=== PATIENT | female | born 1965 | race Caucasian/White ===

== ENCOUNTER 2023-07-27 07:47 | Outpatient (OUT) | payer OTHER, SELFPAY ==
--- NOTE | 2023-07-27 08:11 | CA_ITS ---
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: : 1965 Requested By: TAHIR ENRIQUE Order Number: [id number] Reading MD: MARTIN GARCIA Interpretive Statements Predominant rhythm is sinus with average rate of 78 bpm Tachycardia - max rate of 150 bpm - 11 episodes of PSVT with longest duration of 15 beats - longest episode of 37min 15sec with rates betweem 104-116 bpm Bradycardia - min rate of 27 bpm, associated with Mobitz I AV block - longest episode of 22min 57sec with rates between 50-57 bpm Ventricular ectopy - 91 total (<1%) - 91 PVC AV block - 1 episodes of mobitz I AV block Patient triggered events: 4 - associated with symptoms of chest pain Impression: Predominant rhythm is sinus with average rate of 78 bpm Fastest rate of 150 bpm and slowest rate of 27 bpm 91 PVC 1 episode of mobitz I AV block No atrial fibrillation Electronically Signed On 08-06-2023 7:29:14 EDT by MARTIN GARCIA
== END 2023-07-27 07:48 | disposition home or self-care (01) ==
PROVIDERS: PCP Family Medicine; Visit Provider Family Medicine
DX: I49.9 Cardiac arrhythmia, unspecified (principal)
CPT/HCPCS: 93242

== ENCOUNTER 2023-10-18 13:14 | Emergency (ER) | payer OTHER, SELFPAY ==
[2023-10-18 13:18] VITALS: BP 122/74; PULSE 95; RESP 18; TEMP 36.7; O2SAT 95; BMI 32.4
--- NOTE | 2023-10-18 13:39 | ED_ITS ---
HPI - Abdominal Pain General Chief Complaint: Abdominal Pain Stated Complaint: ABDOMINAL PAIN Time Seen by Provider: 10/18/23 13:34 Source: patient Mode of arrival: walk-in Limitations: no limitations History of Present Illness HPI narrative: 58-year-old female presents for suprapubic abdominal pain. She's had this since this morning. No gross hematuria or flank pain. No constipation fever vomiting or injury. She states that when she tried to urinate today just all ran out of her when she woke up this morning. Related Data Previous Rx's Medication Instructions Recorded acetaminophen 300 mg-codeine 30 mg 1 tab PO Q6H PRN pain 5 days #20 10/18/23 tablet tabs ciprofloxacin HCl 500 mg tablet 500 mg PO Q12H #20 tabs 10/18/23 (Cipro) metronidazole 250 mg tablet 250 mg PO TID #30 tabs 10/18/23 ondansetron 4 mg disintegrating 4 mg PO Q6H PRN nausea and 10/18/23 tablet vomiting #20 tabs Allergies Allergy/AdvReac Type Severity Reaction Status Date / Time No Known Drug Allergies Allergy Verified 10/18/23 15:57 Review of Systems ROS Narrative A ten point review of systems is negative except as noted above. PFSH PFSH Social History Smoking status: Never smoker Exam Narrative Exam Narrative: Nurses note and vital signs reviewed and patient is not hypoxic. General: The patient appears well and in no apparent distress. Patient is resting comfortably on cart. Skin: Warm, dry, no pallor noted. There is no rash noted. Head: Normocephalic, atraumatic Eye: Normal conjunctiva, no drainage Ears, Nose, Mouth, and Throat: oral mucosa is moist. Nares patent. Cardiovascular: Regular Rate and Rhythm Respiratory: Patient is in no distress, no accessory muscle use, lungs are clear to auscultation, no wheezing, rales or rhonchi Back: non-tender, no CVA tenderness bilaterally to percussion. GI: suprapubic discomfort with palpation. No tenderness elsewhere. Musculoskeletal: The patient has no evidence of calf tenderness, no pitting edema, symmetrical pulses noted bilaterally Neurological: A&O, normal speech Psychiatric: Cooperative Constitutional Vital Signs, click to edit/add: Last Vital Signs Temp 98.1 F 10/18/23 13:18 Pulse 94 H 10/18/23 15:43 Resp 20 10/18/23 15:43 BP 126/75 10/18/23 15:43 Pulse Ox 98 10/18/23 15:43 O2 Del Method Room Air 10/18/23 15:43 Course Vital Signs Vital signs: Vital Signs Temperature 98.1 F 10/18/23 13:18 Pulse Rate 95 H 10/18/23 13:18 Respiratory Rate 18 10/18/23 13:18 Blood Pressure 122/74 10/18/23 13:18 Pulse Oximetry 95 10/18/23 13:18 Oxygen Delivery Method Room Air 10/18/23 13:18 Temperature 98.1 F 10/18/23 13:18 Pulse Rate 94 H 10/18/23 15:43 Respiratory Rate 20 10/18/23 15:43 Blood Pressure 126/75 10/18/23 15:43 Pulse Oximetry 98 10/18/23 15:43 Oxygen Delivery Method Room Air 10/18/23 15:43 MDM - Abdominal Pain MDM Narrative Medical decision making narrative: acute diverticulitis is identified without complication such as microperforation. She was given the option of staying in the hospital versus being discharged home and she prefers to be discharged home. She'll return if symptoms worsen and otherwise she'll see her doctor this week. Treatment diagnosis and follow-up were discussed with the patient. Differential Diagnosis Differential diagnosis: Likely abdominal pain, acute appendicitis, calculus of kidney, constipation, diverticulitis, gastroenteritis and small bowel obstruction Lab Data Attestation: I reviewed the patient's lab results. Labs: Lab Results 10/18/23 10/18/23 Range/Units 13:45 14:44 WBC 19.3 H (4.0-11.0) 10^3/uL RBC 4.45 (4.20-5.40) 10^6/uL Hgb 13.6 (12.0-16.0) g/dL Hct 40.4 (36.0-48.0) % MCV 90.8 (81.0-99.0) fL MCH 30.6 (26.7-34.0) pg MCHC 33.7 (29.9-35.2) g/dL RDW 13.1 (11.0-15.0) % Plt Count 323 (150-450) 10^3/uL MPV 9.9 (9.5-13.5) fL Seg Neuts % (Manual) 83.0 Band Neutrophils % 2.0 (0-5) % Lymphocytes % (Manual) 7.0 L (20.5-60.0) % Monocytes % (Manual) 8.0 (1.7-12.0) % Eosinophils % (Manual) 0.0 L (0.9-7.0) % Basophils % (Manual) 0.0 L (0.2-2.0) % Neutrophils # (Manual) 16.01 H (1.4-6.5) 10^3/uL Band Neutrophils # 0.4 H (0.0-0.3) 10^3/uL Lymphocytes # (Manual) 1.35 (1.20-3.80) 10^3/uL Monocytes # (Manual) 1.54 H (0.30-0.80) 10^3/uL Eosinophils # (Manual) 0.00 (0.00-0.70) 10^3/uL Basophils # (Manual) 0.00 (0.00-0.10) 10^3/uL Sodium 136 (136-145) mmol/L Potassium 4.1 (3.5-5.1) mmol/L Chloride 100 (98-107) mmol/L Carbon Dioxide 24.8 (21.0-32.0) mmol/L Anion Gap 15.3 BUN 20.0 H (7.0-18.0) mg/dL Creatinine 0.96 (0.55-1.02) mg/dL Est GFR ( Amer) >60 (>=60) Est GFR (Non-Af Amer) 59 L (>=60) BUN/Creatinine Ratio 20.8 Glucose 109 H (74-106) mg/dL Calcium 9.6 (8.5-10.1) mg/dL Urine Color Dk. yellow (YELLOW) Urine Clarity Clear (CLEAR) Urine pH 6.0 (5.0-9.0) Ur Specific [place] >=1.030 A (1.005-1.025) Urine Protein Trace (NEG/TRACE) mg/dL Urine Glucose (UA) Negative (NEGATIVE) mg/dL Urine Ketones Trace A (NEGATIVE) mg/dL Urine Occult Blood Negative (NEGATIVE) Urine Nitrite Negative (NEGATIVE) Urine Bilirubin Small A (NEGATIVE) Urine Urobilinogen 0.2 (0.2-1.0) EU/dL Ur Leukocyte Esterase Negative (NEGATIVE) Urine RBC None seen (0-2) #/HPF Urine WBC None seen (NONE SEEN) #/HPF Ur Squamous Epith Cells Rare (NONE/RARE) #/LPF Urine Crystals None seen (None Seen) #/HPF Urine Bacteria None seen (NONE SEEN) #/HPF Urine Casts None seen (NONE SEEN) #/LPF Urine Mucus Small A (NONE SEEN) Imaging Data CT scan - abdomen: Radiologist's impression: Procedure: CT abdomen pelvis w con EXAM: CT abdomen pelvis w con HISTORY: low abd pain COMPARISON: None. TECHNIQUE: Axial CT imaging was performed through the abdomen and pelvis with intravenous contrast. Multiplanar reformats were performed. Dose reduction techniques were achieved by using automated exposure control and/or adjustment of mA and/or kV according to patient size and/or use of iterative reconstruction technique. FINDINGS: Lung bases: Lung bases are clear. No pleural effusion. GI upper: Unremarkable. Liver: Normal size and contour. Gallbladder: No significant abnormality. No cholelithiasis. Biliary system: No intra or extrahepatic biliary ductal dilatation. Spleen: Normal size. Pancreas: Unremarkable. Adrenal glands: Normal adrenal glands. Kidneys/ureters: Normal contours. No hydronephrosis. No nephrolithiasis or ureterolithiasis. Vessels: No aneurysm. Lymph Nodes: No lymphadenopathy. Small bowel: No wall thickening or dilatation. Colon: No wall thickening or dilatation. There are sigmoid diverticulosis. There is stress circumferential thickening of the distal sigmoid with surrounding fat stranding, representing acute sigmoid diverticulitis. No evidence of microperforation. Appendix: No findings of appendicitis. Peritoneal cavity: No pneumoperitoneum. Small pelvic free fluid. Lower : Unremarkable. Bones: No acute bony abnormality. Soft tissues: No acute finding. Additional findings: None. IMPRESSION: CT evidence of acute sigmoid diverticulitis as described above. Electronically authenticated by: NASEEM FIELDS Date: 10/18/2023 15:34 Discharge Plan Discharge Chief Complaint: Abdominal Pain Clinical Impression: Diverticulitis Patient Disposition: Home, Self-Care Time of Disposition Decision: 16:08 Condition: Good Mode of Transportation: Private Vehicle Prescriptions / Home Meds: New ciprofloxacin HCl [Cipro] 500 mg tablet 500 mg PO Q12H Qty: 20 0RF metronidazole 250 mg tablet 250 mg PO TID Qty: 30 0RF acetaminophen-codeine 300-30 mg tablet 1 tab PO Q6H PRN (Reason: pain) 5 Days Qty: 20 0RF ondansetron 4 mg tablet,disintegrating 4 mg PO Q6H PRN (Reason: nausea and vomiting) Qty: 20 0RF Instructions: Diverticulitis (ED) Additional Instructions: See your PCP this week. Return to the emergency department if symptoms worsen. Stand Alone Forms: Portal Instructions Referrals: TAHIR ENRIQUE [Primary Care Provider] - 1 week
[2023-10-18 14:19] LABS: Bilirubin Urine SMALL (NEGATIVE); Blood Urine NEGATIVE (NEGATIVE); Clarity Urine CLEAR (CLEAR); Color Urine DK. YELLOW (YELLOW); Glucose Urine UA NEGATIVE (NEGATIVE); Ketones Urine TRACE mg/dL (NEGATIVE); Leukocyte Esterase Urine NEGATIVE (NEGATIVE); Nitrite Urine NEGATIVE (NEGATIVE); Protein Urine TRACE mg/dL (NEG/TRACE); Specific Gravity Urine >=1.030 (1.005-1.025); Urobilinogen Urine 0.2 EU/dL (0.2-1.0)
[2023-10-18 14:26] LABS: Bacteria Urine NONE SEEN #/HPF (NONE SEEN); Cast Seen? NONE SEEN #/LPF (NONE SEEN); Crystals Seen? None Seen #/HPF (None Seen); Mucus Urine SMALL (NONE SEEN); RBC Urine NONE SEEN #/HPF (0-2); Squamous Epithelial Cell Urine RARE #/LPF (NONE/RARE); WBC Urine NONE SEEN #/HPF (NONE SEEN)
--- NOTE | 2023-10-18 14:34 | CT_ITS ---
The [address] [address] Patient Name: RAO RAMAN MRN: [id number] date: 1965 Sex: F Assigned Patient Location: ER Current Patient Location: ER Accession/Order Number: [id number] Exam Date: 10/18/2023 15:09 Report Date: 10/18/2023 15:34 At the request of: KATHIA FLORES Procedure: CT abdomen pelvis w con EXAM: CT abdomen pelvis w con HISTORY: low abd pain COMPARISON: None. TECHNIQUE: Axial CT imaging was performed through the abdomen and pelvis with intravenous contrast. Multiplanar reformats were performed. Dose reduction techniques were achieved by using automated exposure control and/or adjustment of mA and/or kV according to patient size and/or use of iterative reconstruction technique. FINDINGS: Lung bases: Lung bases are clear. No pleural effusion. GI upper: Unremarkable. Liver: Normal size and contour. Gallbladder: No significant abnormality. No cholelithiasis. Biliary system: No intra or extrahepatic biliary ductal dilatation. Spleen: Normal size. Pancreas: Unremarkable. Adrenal glands: Normal adrenal glands. Kidneys/ureters: Normal contours. No hydronephrosis. No nephrolithiasis or ureterolithiasis. Vessels: No aneurysm. Lymph Nodes: No lymphadenopathy. Small bowel: No wall thickening or dilatation. Colon: No wall thickening or dilatation. There are sigmoid diverticulosis. There is stress circumferential thickening of the distal sigmoid with surrounding fat stranding, representing acute sigmoid diverticulitis. No evidence of microperforation. Appendix: No findings of appendicitis. Peritoneal cavity: No pneumoperitoneum. Small pelvic free fluid. Lower : Unremarkable. Bones: No acute bony abnormality. Soft tissues: No acute finding. Additional findings: None. CT/CT abdomen pelvis w con IMPRESSION: CT evidence of acute sigmoid diverticulitis as described above. Electronically authenticated by: NASEEM FIELDS Date: 10/18/2023 15:34
[2023-10-18 14:53] LABS: Hematocrit 40.4 % (36.0-48.0); Hemoglobin 13.6 g/dL (12.0-16.0); Mean Corpuscular HGB Conc 33.7 g/dL (29.9-35.2); Mean Corpuscular Hemoglobin 30.6 pg (26.7-34.0); Mean Corpuscular Volume 90.8 fL (81.0-99.0); Mean Platelet Volume 9.9 fL (9.5-13.5); Platelet Count 323 10^3/uL (150-450); Red Blood Count 4.45 10^6/uL (4.20-5.40); Red Cell Distribution Width 13.1 % (11.0-15.0); White Blood Count 19.3 10^3/uL (4.0-11.0)
[2023-10-18 15:01] LABS: Anion Gap 15.3; Band Neutrophils Absolute 0.4 10^3/uL (0.0-0.3); Carbon Dioxide 24.8 mmol/L (21.0-32.0); Chloride 100 mmol/L (98-107); Glucose 109 mg/dL (74-106); Lymphocytes Absolute Manual 1.35 10^3/uL (1.20-3.80); Monocytes Absolute Manual 1.54 10^3/uL (0.30-0.80); Potassium 4.1 mmol/L (3.5-5.1); Segmented Neut Absolute Manual 16.01 10^3/uL (1.4-6.5); Sodium 136 mmol/L (136-145)
[2023-10-18 15:02] LABS: BUN Creatinine Ratio 20.8; Calcium 9.6 mg/dL (8.5-10.1); Estimated GFR (African America >60 (>=60); Estimated GFR (Non-African Ame 59 (>=60)
[2023-10-18 15:43] VITALS: BP 126/75; PULSE 94; RESP 20; O2SAT 98
[2023-10-18] MEDS: METRONIDAZOLE/SODIUM CHLORIDE 500 MG/100 ML PREMIX 100 MG IV (16:04)
[2023-10-18] MEDS: CIPROFLOXACIN IN 5 % DEXTROSE 400 MG/200 ML PIGGYBACK 200 MG IV (17:00)
== END 2023-10-18 18:12 | disposition home or self-care (01) ==
PROVIDERS: Emergency Provider Emergency Medicine; PCP Family Medicine
DX: K57.32 Diverticulitis of large intestine without perforation or abscess without bleeding (principal)
CPT/HCPCS: 36415; 74177; 80048; 81001; 85027; 96365; 96366; 96368; 99285; Q9967

== ENCOUNTER 2024-03-16 13:33 | Outpatient (OUT) | payer OTHER, SELFPAY ==
--- OUTSIDE RECORDS SUMMARY | 2024-03-17 13:44 | XMS_ITS | CCD ---
Author Organization [facility] Care Team Providers Care Property Insurance Agent Name Role Phone REI ENRIQUE Unavailable Unavailable FAIZA ORTIZ Unavailable Unavailable FAIZA ORTIZ Unavailable Unavailable HAY FAIZA Unavailable Unavailable HEMEYER, EDWARD Unavailable Unavailable HUGH GARCIA Unavailable Unavailable HEMEYER, REI Unavailable Unavailable HEMEYER, NANCYWARD Unavailable Unavailable HEMEYER, REI Unavailable Unavailable YOLIS MCCARTNEY Unavailable Unavailable WOJCIECH HALL Unavailable Unavailab WOJCIECH Armando Unavailable Unavailab le KLASU, REI Unavailable Unavailable KEITH ROGERS Unavailable Unavailable WOJCIECH HALL Unavailable Unavailab le JOHN SANJANA Unavailable Unavailable RINCHEL SANJANA Unavailable Unavailable HEMEYER, NANCYWARD Unavailable Unavailable KEITH ROGERS Unavailable Unavailable JOHN SANJANA Unavailable Unavailable REI ENRIQUE Primary Care Physician Unavail able Rei Enrique MD Primary Care Provider Isael Rock MD Unavailable ISAEL ROCK Attending Unavailable REI ENRIQUE Primary Care Unavailab Serafin Bishop Admitting Unavaila Serafin Ortiz Consulting Unavaila Serafin Ortiz Attending Unavaila Serafin Ortiz Referring Unavaila Serafin Ortiz Consulting Unavaila Serafin Ortiz Consulting Unavaila Serafin Ortiz Admitting Unavaila Serafin Ortiz Attending UnavailSerafin Miranda Referring Unavaila REI Casillas Attending Unavailable REI ENRIQUE Referring Unavailable NONE, XXXX Referring Unavailable Christofferson, Serafin D. Attending REI Espinal Referring Unavailable Serafin Winkler Attending REI Espinal Attending Unavailable Allergies Allergy Classification Reported Allergen(s) Allergy Type Date of Onset Reaction(s) Facility (1 source) gabapentin Drug Allergy 04-17-2017 [facility] Repository (2 sources) lactobacillus; Translations: [OLANZAPINE] Drug Allergy 04-05-2015 [facility] Repository (2 sources) amLODIPine / benazepril; Translations: [AMLODIPINE-LONNIE ZEPRIL] Drug Allergy 08-20-2023 [facility] Work Phone: (2 sources) Doxylamine; Translations: [DOXYLAMINE] Drug Allergy 08-20-2023 [facility] Work Phone: (1 source) OLANZapine Drug Allergy 08-20-2023 [facility] Work Phone: (2 sources) traMADol; Translations: [TRAMADOL] Drug Allergy 08-20-2023 Rash [facility] Work Phone: Medications Current Medications Medication Drug Class(es) Dates Sig (Normalized) Sig (Original) apixaban 5 mg oral tablet (4 sources) Factor Xa Inhibitor Start: 08-20-2023 take 1 tablet by mouth twice daily Eliquis 5 mg oral tablet 5 mg = 1 tab(s), Oral, BID, # 60 tab(s), Refills(s) 3, Pharmacy: [facility] [id number], 154, cm, 08/20/23 11:11:00 EDT, Height/Length Dosing, 90.5, kg, 08/20/23 11:11:00 EDT, Weight Dosing Start Date: 08/20/23 Status: Ordered aspirin 81 mg delayed release oral tablet (4 sources) Platelet Aggregation Inhibitor, Nonsteroidal Anti-inflammatory Drug Start: 08-20-2023 take 1 tablet by mouth once daily aspirin 81 mg EC tablet Take 1 tablet (81 mg) by mouth once daily. 0 08/20/2023 Active Black Cohosh Extract (1 source) take 1 tablet by mouth once daily BLACK COHOSH ORAL Take 1 tablet by mouth once daily. 0 Active duloxetine (4 sources) Serotonin and Norepinephrine Reuptake Inhibitor Start: 08-20-2023 duloxetine Refills(s) 0 Start Date: 08/20/23 Status: Ordered Start: 05-12-2023 take 1 capsule by mo [facility] once daily DULoxetine (Cymbalta) [address] capsule Take 1 capsule (60 mg) by mouth once daily. 0 05/12/2023 Active fenofibrate 160 mg oral tablet (4 sources) Peroxisome Proliferator Receptor alpha Agonist Start: 08-27-2023 End: 02-23-2024 take 1 tablet by mouth once daily fenofibrate (Triglide) 160 mg tablet Take 1 tablet (160 mg) by mouth once daily. 0 08/27/2023 02/23/2024 Active Start: 08-20-2023 fenofibrate Re fills(s) 0 Start Date: 08/20/23 Status: Ordered krill oil 500 mg oral capsule (1 source) take 1 capsule by mouth once daily krill oil 500 mg capsule Take 1 capsule (500 mg) by mouth once daily. 0 Active losartan potassium 100 mg oral tablet (4 sources) Angiotensin 2 Receptor Renny Start: 08-20-20 End: 02-23-20 take 1 tablet by mouth once daily losartan (Cozaar) 100 mg tablet Take 1 tablet (100 mg) by mouth once daily. 0 08/27/2023 02/23/2024 Active Multi Vitamin+ (3 sources) Start: 08-20-20 Multi Vitamin+ Refill(s) 0 Start Date: 08/20/23 Status: Ordered multivitamin tablet (1 source) take 1 tablet by mouth once daily multivitamin tablet Take 1 tablet by mouth once daily. 0 Active Nature's Bounty Red Krill Oil (3 sources) Start: 08-20-20 Nature's Bounty Red Krill Oil Refill(s) 0 Start Date: 08/20/23 Status: Ordered QUEtiapine 25 mg oral tablet (4 sources) Atypical Antipsychotic Start: 10-14-20 End: 04-11-20 take 2 tablets by mouth once daily at bedtime QUEtiapine (SEROquel) 25 mg tablet Take 2 tablets (50 mg) by mouth once daily at bedtime. 0 10/14/2023 04/11/2024 Active Start: 08-20-2023 quetiapine 25 mg Tab Refills(s) 0 Start Date: 08/20/23 Status: Ordered Turmeric extract (3 sources) Start: 08-20-2023 Turmeric Refil l(s) 0 Start Date: 08/20/23 Status: Ordered Problems Active Problems Problem Classification Problem Date Documented Da te Episodic/Chronic Abdominal pain (5 sources) Right lower quadrant rebound abdominal tenderness; Translations: [Right upper quadrant pain] Onset: 01-29-2018 Episodic Administrative/social admission (3 sources) Patient encounter status; Translations: [Persons encountering health services in other specified circumstances] Onset: 01-29-2024 01-29-2024 Episodic Anxiety disorders (1 source) Anxiety disorder, unspecified; Translations: [ANXIETY DISORDER UNSPECIFIED] Onset: 05-05-2017 Chronic Cardiac dysrhythmias (5 sources) Tachyarrhythmia ; Translations: [Tachycardia, unspecified] Onset: 08-20-2023 Episodic Chronic kidney disease (1 source) Chronic kidney disease stage 3A ; Translations: [Stage 3a chronic kidney disease] Onset: 08-20-2023 01-29-2024 Chronic Disorders of lipid metabolism (1 source) Mixed hyperlipidemia; Translations: [Mixed hyperlipidemia] Onset: 08-20-2023 01-29-2024 Chronic Esophageal disorders (1 source) Gastro-esophageal reflux disease without esophagitis; Translations: [GERD WITHOUT ESOPHAGITIS] Onset: 05-05-2017 Chronic Essential hypertension (2 sources) Essential (primary) hypertension; Translations: [Benign essential hypertension] Onset: 05-05-2017 01-29-2024 Chronic External Injury - Adverse effects of medical drugs (1 source) Adverse effect of other antiepileptic and sedative-hypnotic drugs, initial encounter; Translations: [ADVRS EFF OTH ANTIEPI SED RX INIT] Onset: 05-05-2017 Mood disorders (1 source) Major depressive disorder, single episode, unspecified; Translations: [KING DEPRESS D/O SINGLE EPIS UNS] Onset: 05-05-2017 Nausea and vomiting (1 source) Nausea; Translations: [NAUSEA] Onset: 02-04-2018 Episodic Other gastrointestinal disorders (1 source) Irritable bowel syndrome without diarrhea; Translations: [IRRITABLE BOWEL SYND W/O DIARRHEA] Onset: 05-05-2017 Chronic Other nutritional; endocrine; and metabolic disorders (1 source) Body mass index 30+ - obesity; Translations: [Body mass index (BMI) 33.0-33.9, adult] 01-29-2024 Chronic Other nutritional; endocrine; and metabolic disorders (2 sources) Body mass index (BMI) 33.0-33.9, adult; Translations: [Body mass index (BMI) 33.0-33.9, adult] Onset: 01-29-2024 Chronic Residual codes; unclassified (1 source) Never smoked tobacco; Translations: [Other specified health status] 01-29-2024 Episodic Residual codes; unclassified (2 sources) Other specified health status; Translations: [Other specified health status] Onset: 01-29-2024 Episodic Syncope (4 sources) Near syncope; Translations: [Syncope and collapse] Onset: 01-29-2024 01-29-2024 Episodic Unclassified (7 sources) Encounter for screening mammogram for malignant neoplasm of breast; Translations: [Electrocardiogram abnormal] Onset: 02-23-2018 01-29-2024 Episodic Unclassified (1 source) Family history of malignant neoplasm, unspecified; Translations: [FAM HX MALIGNANT NEOPLASM UNS] Onset: 02-25-2018 Episodic Unclassified (1 source) Anorexia; Translations: [ANOREXIA] Onset: 02-04-2018 Episodic Unclassified (1 source) Other microscopic hematuria; Translations: [OTHER MICROSCOPIC HEMATURIA] Onset: 02-04-2018 Past or Other Problems Problem Classification Problem Date Documented Date Episodic/Chronic Other aftercare (1 source) penitentiary (current) use of aspirin; Translations: [CATH LAB RADIOLOGICAL TECHNOLOGIST CURRENT USE OF ASPIRIN] Onset: 05-05-2017 Episodic Other connective tissue disease (1 source) Fibromyalgia; Translations: [FIBROMYALGIA] Onset: 05-05-2017 Episodic Other injuries and conditions due to external causes (4 sources) Angioneurotic edema, initial encounter; Translations: [ANGIONEUROTIC EDEMA INITIAL ENCNTR] Onset: 04-17-2017 Episodic Other non-epithelial cancer of skin (1 source) Personal history of other malignant neoplasm of skin; Translations: [PERSONAL HX OTH MALIG NEOPLASM SKIN] Onset: 05-05-2017 Episodic Other skin disorders (3 sources) Localized swelling, mass and lump, unspecified; Translations: [LOCALIZED SWELLING MASS AND LUMP UNS] Onset: 04-17-2017 Episodic Results Test Name Value Interpretation Reference Range Facility Outside Cardiovascularon Outside Cardiovascular [id number] #1.00TIFF [facility] ECG 12 lead (Clinic Performe d)on 01-29-2024 EKG performed today shows sinus rhythm rate of 74 bpm QRS duration 60 ms QT 370 ms. Rhythm strip shows the same pattern. [facility] Work Phone: [facility] Work Phone: Monitor Recordon 01-27-2024 Monitor Record [id number] 0#1.00TIFF [facility] Event Monitoron 01-12-2024 Event Monitor [id number] 7#1.00TIFF Normal [facility] Physician Orderon 12-21-2023 Physician Order [id number] 4#1.00TIFF [facility] Consent for Treatmenton 11-26 Consent for Treatment [id number] #1.00TIFF [facility] Stress EKG Tracingson 2023 Stress EKG Tracings [id number] 2#1.00TIFF [facility] Heart and Vascular Office/Cl inic Noteon 11-19-2023 Heart and Vascular Office/Clinic Note Chief Complaint testing results - stress & echo History of Present Illness Annemarie Jackson is a 58-year-old female who presents today for a follow-up evaluation. In 07/2023, she underwent a Holter monitor at [facility], as prescribed by Dr. Enrique. She explains that according to Dr. Enriqeu, there were instances where her heart rate dropped significantly. She mentioned that her watch would occasionally alert her when her heart rate drops low. She reports she is okay generally. She had a fall on 11/11/2022. She explains that she tripped and fell on her face. She denies dizziness prior to the fall. Review of Systems PHQ Score Initial Depression Screen Score: 0 SCORE Constitutional: no fever, no sweats, no weakness Skin: no rash, no lesions, no bruising/petechiae ENMT: no sore throat, no congestion, no hoarseness Respiratory: no shortness of breath, no cough, no orthopnea, no wheezing Cardiovascular: no chest pain, no palpitations, no edema Gastrointestinal: no nausea, no vomiting, no diarrhea, no GI bleeding Genitourinary: no anuria/oliguria no hematuria Musculoskeletal: no back pain, no trauma Neurologic: no headache, no dizziness, no numbness, no weakness Psychiatric: no sleeping problems, no irritability, no anxiety/depression. Heme/Lymph: no bleeding tendency, no bruising tendency Allergy/Immunologic: no recurrent infections, no impaired immunity Additional ROS info: Except as noted in the above Review of Systems and in the History of Present Illness all other systems have been reviewed and are negative or noncontributory Physical Exam Vitals & Measurements HR: 73(Peripheral) BP: 113/78 SpO2: 96% HT: 61 in HT: 154 cm WT: 90.5 kg WT: 199.1 lb BMI: 38.16 General: alert, no acute distress Skin: warm, dry intact Head: atraumatic, normocephalic Neck: trachea midline, no JVD, no bruit Eye: normal conjunctiva, sclera clear ENMT: oral mucosa moist Cardiovascular: regular rate and rhythm, no murmur, normal peripheral perfusion Respiratory: lungs CTA, respirations non labored Chest wall: no deformity. Gastrointestinal: soft, non-distended, no tenderness, no guarding. Back: no tenderness, normal ROM, normal alignment. Extremities: no edema, no deformity, no trauma Neurological: oriented x 4, LOC appropriate for age, sensation equal & normal bilaterally, speech normal Psychiatric: cooperative, affect appropriate for age, normal judgement, normal psychiatric thoughts. Assessment/Plan 1. Bradycardia with Arrhythmia on Holter Annemarie Jackson is a 58-year-old female with a history of paroxysmal atrial fibrillation on Holter monitor, also with hypertension. She had some Mobitz type 1 second degree heart block as well. We did a stress test and an echocardiogram, which were all fine. I had hoped to get a second monitor for more insight into her heart rhythm, but this did not happen, so we will try again. I will order a 30-day event monitor and see her back in 6-week followup. Generally, she is asymptomatic. She did have a mechanical fall and hurt her face, but she has not experienced syncope. ATTESTATION: Portions of this record may have been created with voice recognition artificial intelligence software, specifically Unirisx, Ciespace and or Eyegroove. Substitutions may have occurred with voice recognition and artificial intelligence software. Documentation services were performed after patient or guardian consented to allow [facility] to record this visit. TOPHER family resource specialist and provider reviewed before signing. TOPHER: Camryn Ferreira Ano-os / Camacho Lyons /Pasted by: Radha Vee. Follow-up No qualifying data available Problem List/Past Medical History Ongoing No qualifying data Historical No qualifying data Procedure/Surgical History Abdominal hysterectomy, Colonoscopy. Medications aspirin 81 mg Oral EC Tab duloxetine Eliquis 5 mg oral tablet, 5 mg= 1 tab(s), Oral, BID, 3 refills fenofibrate losartan 100 mg Tab Multi Vitamin+ Nature's Bounty Red Krill Oil quetiapine 25 mg Tab Turmeric Allergies No Known Allergies Social History Tobacco Never (less than 100 in lifetime) Tobacco Use:. Never Smokeless Tobacco Use:. Cigarettes, Household tobacco concerns: No., 11/13/2023 Family History Heart disease: Mother. [facility] Comment on above: Result Comment: Elec tronically Signed By: Cathi WEBBER, Serafin Norris\.br\Date and Time Signed: 11/19/23 18:33 EST\.br\Electronically Co-Signed By: Radha Vee\.br\Date and Time Co-Signed: 11/13/23 12:21 EST Physician Orderon 11-13-2023 Physician Order [id number] 2#1.00TIFF [facility] NM Myocardial Spect Rest/Str ess 1 Dayon 10-01-2023 NM Myocardial Spect Rest/Stress 1 Day Exam Date/Time: 09/23/2023 11:47 EST Reason for Exam: I47.10;Chest pain Report PROCEDURE: LEXISCAN NUCLEAR STRESS TEST INDICATIONS: Chest pain. PROCEDURE DETAILS: The patient was stressed according to the Lexiscan protocol without event. The patient had no symptoms. Blood pressure and heart rate response were appropriate. The electrocardiogram was sinus rhythm with premature ventricular contractions baseline. With peak stress there were no significant changes. There were occasional premature atrial contractions and premature ventricular contractions during stress and recovery. The patient received 10.2 millicuries of Cardiolite for rest images and 30.3 millicuries of Cardiolite for stress images. Review of raw images did not demonstrate any motion or attenuation artifact. FINDINGS: Uptake of the tracer is homogeneous with no identifiable ischemia or infarction. The TID ratio was 1.16. The ejection fraction was 78%. End diastolic volume was 66 mL. CONCLUSIONS: Negative Lexiscan nuclear stress test. Overall low risk stress. FINAL REPORT Signed (Electronic Signature): 10/01/2023 8:25 am Signed by: Serafin Winkler MD Transcribed by: yoseph Technologist: KILO Technical Comments Rest Dose (mCi Tc99m Cardiolite): 10.2 Stress Dose (mCi Tc99M Cardiolite): 30.3 [facility] Consent for Treatmenton 11-2 Consent for Treatment [id number] #1.00TIFF [facility] Insurance Correspondenceon 1 10-31-2022 Insurance Correspondence [id number] 97#1.00TIFF [facility] Heart and Vascular Office/Cl inic Noteon 08-22-2023 Heart and Vascular Office/Clinic Note Chief Complaint here to establish care History of Present Illness Annemarie Jackson is a 57-year-old female who presents today for an evaluation of SVT. She is accompanied by an adult male. The patient is experiencing symptoms such as chest pressure, pain, and a fluttering sensation. Her watch has detected atrial fibrillation, a condition she claims to have never had before. She describes her chest discomfort as a heavy feeling. On August 16, 2023, while out walking with her family, she had a near-syncopal episode, accompanied by excessive sweating and a feeling of warmth. She was not wearing her watch at the time and has no prior history of syncope. She has no known heart condition apart from a minor heart murmur and has never had a heart ultrasound. She does not take aspirin and has no swelling in her ankles. Her watch occasionally indicates atrial fibrillation lasting for about 1.5 hours, but she does not always check it immediately. Her mother, who was on the blood thinner Eliquis for many years, of a heart attack 5 years ago. Additionally, her male pipe fitter helper has observed that she stops breathing during sleep. Review of Systems Constitutional: no fever, no sweats, no weakness Skin: no rash, no lesions, no bruising/petechiae ENMT: no sore throat, no congestion, no hoarseness Respiratory: no shortness of breath, no cough, no orthopnea, no wheezing Cardiovascular: Positive for chest pain, Positive for palpitations, no edema Gastrointestinal: no nausea, no vomiting, no diarrhea, no GI bleeding Genitourinary: no anuria/oliguria no hematuria Musculoskeletal: no back pain, no trauma Neurologic: no headache, no dizziness, no numbness, no weakness Psychiatric: no sleeping problems, no irritability, no anxiety/depression. Heme/Lymph: no bleeding tendency, no bruising tendency Allergy/Immunologic: no recurrent infections, no impaired immunity Additional ROS info: Except as noted in the above Review of Systems and in the History of Present Illness all other systems have been reviewed and are negative or noncontributory Physical Exam Vitals & Measurements HR: 69(Peripheral) BP: 122/82 SpO2: 74% HT: 61 in HT: 154 cm WT: 90.5 kg WT: 199.1 lb BMI: 38.16 General: alert, no acute distress Skin: warm, dry intact Head: atraumatic, normocephalic Neck: trachea midline, no JVD, no bruit Eye: normal conjunctiva, sclera clear ENMT: oral mucosa moist Cardiovascular: regular rate and rhythm, no murmur, normal peripheral perfusion Respiratory: lungs CTA, respirations non labored Chest wall: no deformity. Gastrointestinal: soft, non-distended, no tenderness, no guarding. Back: no tenderness, normal ROM, normal alignment. Extremities: no edema, no deformity, no trauma Neurological: oriented x 4, LOC appropriate for age, sensation equal & normal bilaterally, speech normal Psychiatric: cooperative, affect appropriate for age, normal judgement, normal psychiatric thoughts. Assessment/Plan 1. Tachycardia (R00.0: Tachycardia, unspecified) Annemarie Jackson is a 57-year-old female with SVT, possibly atrial fibrillation. I suspect it probably is based on the Holter and on her watch, so I am going to start Eliquis. I do not want to start metoprolol. She has some second degree AV block and some pauses. We will get a 14-day event monitor to see where we are at with her rhythm and see her back in follow-up. Portions of this record may have been created with voice recognition artificial intelligence software, specifically Unirisx, Ciespace and or Eyegroove. Substitutions may have occurred due to the inherent limitations of voice recognition and artificial intelligence software. Documentation services were performed after patient or guardian consented to allow [facility] to record this visit. TOPHER family resource specialist and provider reviewed before signing. TOPHER: Lilian Guardado. Follow-up No qualifying data available Problem List/Past Medical History Ongoing No qualifying data Historical No qualifying data Procedure/Surgical History Abdominal hysterectomy, Colonoscopy. Medications aspirin 81 mg Oral EC Tab duloxetine Eliquis 5 mg oral tablet, 5 mg= 1 tab(s), Oral, BID, 3 refills fenofibrate losartan 100 mg Tab Multi Vitamin+ Nature's Bounty Red Krill Oil quetiapine 25 mg Tab Turmeric Allergies No Known Allergies Social History Tobacco Never (less than 100 in lifetime) Tobacco Use:., 08/20/2023 Family History Heart disease: Mother. [facility] Comment on above: Result Comment: Elec tronically Signed By: Cathi WEBBER, Serafin Norris\.br\Date and Time Signed: 08/22/23 14:54 EDT\.br\Electronically Co-Signed By: Lilian Guardado.br\Date and Time Co-Signed: 08/20/23 14:38 EDT Physician Orderon 08-21-2023 Physician Order [id number] #1.00TIFF [facility] Holter Monitoron 08-13-2023 Holter Monitor [id number] #1.00TIFF [facility] Holter Monitor [id number] #1.00TIFF [facility] Referrals Officeon 3 Referrals Office [id number] #1.00TIFF [facility] Referrals Office [id number] #1.00TIFF [facility] SCREENING MAMMOGRAM W/KEYLA, BILATERAL*on 12-25-2021 SCREENING MAMMOGRAM W/KEYLA, BILATERAL* COMPARISON: Dating back to February 23, 2018. TECHNIQUE: 2D and 3D Tomosynthesis of the right and left breasts was performed. FINDINGS: Breast composition demonstrates scattered fibroglandular densities. No suspicious microcalcifications, dominant mass lesions, or distortion is present. Overall appearance stable. IMPRESSION: BI-RADS 1- Negative Mammogram Board Certified Radiologist. Accredited by the ACR and FDA. MAMMOGRAPHY IS VERY IMPORTANT TO YOUR HEALTH. THE CURRENT [place] AND [employer] GUIDELINES RECOMMENDS ANNUAL MAMMOGRAPHY BEGINNING AT AGE 40 THIS FACILITY USES A REMINDER SYSTEM TO ENSURE ALL PATIENTS RECEIVE REMINDER NOTIFICATIONS AT THE APPROPRIATE TIME BASED ON THE RECOMMENDATIONS OF THIS EXAM. Report reported and signed by Thad Addison on 12/30/2021 1541 Normal [facility] Advertising Agent XR Bone Density (DEXA)on XR Bone Density (DEXA) EXAM: DUAL FEMUR BONE DENSITY FINDINGS: RegionBMD Evqma-RcrtqVfb-Uqdcx ed Total(g/cm2)(%)T-Sco re(%)Z-Score Mean0.053533 0.2122 1.4 Impression: The mean BMD and corresponding T-score indicated above indicate Normal Bone Mass and places the patient at no significant risk for fracture. This information can serve as a baseline with which to compare future studies. Comment: The T-score is the primary focus of the interpretation of a patient???s bone mineral density measurement. The T-score is the number of standard deviations an individual is above or below the mean value for a young female having normal bone mass. The WHO defines osteoporosis based on the T-score value??? +1.0 to ???0.9 : Normal bone mass -1.0 to -2.5 : Osteopenia and thus may be at future risk of fracture -2.6 to ???5 : Osteoporosis and ???at significantly increased risk of fracture??? A Z-Score of -2.0 or lower is defined as ???below the expected range for age??? and a Z-Score above -2.0 is ???within the expected range for age.??? Osteoporosis cannot be diagnosed in men under the age of 50 on the basis of BMD alone. Per 2019 ISCD guidelines, Z-Scores (not T-Scores) are preferred when reporting data in premenopausal females and males less than 50 years of age. EXAM: AP LUMBAR BONE DENSITY FINDINGS: RegionBMDYoung-Adult Age-Matched Total(g/cm2)(%)T-Sco re(%)Z-Score L1-L41.69984-1.62841 .1 Impression: The mean BMD and corresponding T-score indicated above indicate Normal Bone Mass and places the patient no significant risk for fracture. This information can serve as a baseline with which to compare future studies. Comment: The T-score is the primary focus of the interpretation of a patient???s bone mineral density measurement. The T-score is the number of standard deviations an individual is above or below the mean value for a young female having normal bone mass. The WHO defines osteoporosis based on the T-score value??? +1.0 to ???0.9 : Normal bone mass -1.0 to -2.5 : Osteopenia and thus may be at future risk of fracture -2.6 to ???5 : Osteoporosis and ???at significantly increased risk of fracture??? A Z-Score of -2.0 or lower is defined as ???below the expected range for age??? and a Z-Score above -2.0 is ???within the expected range for age.??? Osteoporosis cannot be diagnosed in men under the age of 50 on the basis of BMD alone. Per 2019 ISCD guidelines, Z-Scores (not T-Scores) are preferred when reporting data in premenopausal females and males less than 50 years of age. Report reported and signed by Thad Addison on 12/25/2021 0945 Normal [facility] Advertising Agent XR foot RT min 3V*on 019 XR foot RT min 3V* [facility] [place] [address] [place] [address] XRay Report Signed Patient: Annemarie Jackson MR#: [id number] : 1965 Acct:[id number] Age/Sex: 53 / F ADM Date: 03/06/19 Loc: XDUCLY Room: Type: [facility] Attending Dr: Emery BUENO Ordering Provider: Emery Mitchell Date of Service: 03/06/19 XR/XR foot RT min 3V*: Right foot pain Copies to: Emery Mitchell XR foot RT min 3V* 03/06/2019 12:36 PM SIGNS AND SYMPTOMS: Pain along the dorsal aspect of the first through fourth metatarsals PROTOCOL: Frontal, lateral, and oblique radiographs of the right foot COMPARISON: None FINDINGS: There is no fracture. The joint spaces are preserved. No significant soft tissue swelling. No subluxation or dislocation. XR/XR foot RT min 3V* IMPRESSION: No acute bony injury. Impression dictated by: Hugh Martinez M.D.03/06/2019 12:54 PM Dictation Location: [facility] Transcribed By: [facility] 03/06/19 1254 Dictated By: Hugh Martinez II, MD 03/06/19 1253 Signed By: 03/06/19 1254 [facility] MG MAMM SCREEN POOJA W CADon 0 02-23-2018 MG MAMM SCREEN POOJA W CAD [address] [place] [address] Patient: ANNEMARIE JACKSON Exam Date: 02/23/2018DOB: 1965 Gender:F : DR. SANJANA LOPEZ D.O. Admission #: [id number] : Order #: [id number] HERE TO VIEW EXAM RADIOLOGY REPORT PROCEDURE: MAMMOGRAM BILATERAL SCREENING DIGITAL WITH COMPUTER AIDED DETECTION COMPARISON: MG MAMM POOJA SCRN W CAD DIG, 10/20/2013. MAMMO RT UNI W CAD DIG, 10/11/2012. MAMMO RT UNI DIG, 04/01/2012. MG MAMM POOJA SCRN W CAD DIG, 10/23/2014. INDICATIONS: Screening mammography Calculator Name NCI Breast Cancer Risk Assessment Tool 5 Year Breast Cancer Risk 0.70%Lifetime Breast Cancer Risk 5.60%Personal Breast Cancer NoPersonal Ovarian Cancer NoTreatments NoneFamily Cancers Grandfather-maternal with unknown cancer at age 70; Grandmother-paternal with unknown cancer at age 70. LOCATION: [facility] BREAST COMPOSITION: Scattered fibroglandular densities (25-50% glandular). FINDINGS: DIAGNOSTIC CATEGORY 1--NEGATIVE ASSESSMENT. RIGHT BREAST: No significant suspicious finding. No significant change has occurred. LEFT BREAST: No significant suspicious finding. No significant change has occurred. RECOMMENDATIONS: ROUTINE MAMMOGRAM AND CLINICAL EVALUATION. PLEASE NOTE: A NORMAL MAMMOGRAM DOES NOT EXCLUDE THE POSSIBILITY OF BREAST CANCER. A CLINICALLY SUSPICIOUS PALPABLE LUMP SHOULD BE BIOPSIED. Dictated by: Keith Rogers MD on 02/23/2018 at 15:53 Approved by: Keith Rogers MD on 02/23/2018 at 15:58 Normal [address] [facility] CBC AUTO DIFFon 01-29-2018 Basophils Auto #/vol (Bld) 0.0 103/ul Normal 0.0-0.[address] [facility] Comment on above: Performed By: #### C BC ####[facility] [address]ofk[address] [place], [place] [address]Ipgrov Annemarie Basophils/100 WBC Auto (Bld) 0.3 % Normal 0.2-2.[address] [facility] Comment on above: Performed By: #### C BC ####[facility] Galhdfkmac6685 [place], [place] [address]Xnzwtl Annemarie Eosinophils 0.1 103/ul Normal 0.0-0.[address] [facility] Comment on above: Performed By: #### C BC ####[facility] Zevucudbts0126 [place], [place] [address]Nscxmq Annemarie Eosinophils/100 leukocytes 0.8 % Critically low 0.9-7.[address] [facility] Comment on above: Performed By: #### C BC ####[facility] Fcqeknjrnq2310 [place], [place] [address]Hxgdjv Annemarie Erythrocyte distribution width Auto Ratio (RBC) 12.8 % Normal 11.0-15.0 The [facility] Comment on above: Performed By: #### C BC ####[facility] Knknbrrndj0418 [place] [id number] Annemarie Erythrocytes (RBC) 4.63 106/ul Normal 4.20-5.40 [facility] Comment on above: Performed By: #### C BC ####[facility] Zvsoqafalq6886 [place] [id number] Annemarie Hematocrit (HCT) 41.9 % Normal 36.0-48.0 The [facility] Comment on above: Performed By: #### C BC ####[facility] Ealidjycle5837 [place] [id number] Annemarie Hemoglobin mass conc (Bld) 14.4 g/dL Normal 12.0-16.0 [facility] Comment on above: Performed By: #### C BC ####[facility] Jergtmgkqf1484 [place] [id number] Annemarie IG # 0.06 10e3/ul Critically high 0.00-0.03 [facility] Comment on above: Performed By: #### C BC ####[facility] Ikpzmwixsz4041 [place] [id number] Annemarie IG % 0.4 % Normal 0.0-0.5 [facility] Comment on above: Performed By: #### C BC ####[facility] Zyxtirtfyn0793 [place] [id number] Annemarie Lymphocytes 2.1 103/ul Normal 1.2-3.8 [facility] Comment on above: Performed By: #### C BC ####[facility] Gydtfcffed9401 [place] [id number] Annemarie Lymphocytes/100 leukocytes 13.9 % Critically low 20.5-60.0 [facility] Comment on above: Performed By: #### C BC ####[facility] Dpljbfdbjf8778 [place] [id number] Annemarie MANUAL DIFF REQ NO Normal The [facility] Comment on above: Performed By: #### C BC ####[facility] Onbziplreh0459 [place] [id number] Sharpe MCH 31.1 pg Normal 26.7-34.[address] [facility] Comment on above: Performed By: #### C BC ####[facility] Hezwhrbrdb6486 [place], [place] [address]NfhtrvGorge Sharpe MCHC mass conc (RBC) 34.4 g/dL Normal 29.9-35.[address] [facility] Comment on above: Performed By: #### C BC ####[facility] Gykbiezkrf3742 [place] [id number] Sharpe MCV 90.5 fL Normal 81.0-99.[address] [facility] Comment on above: Performed By: #### C BC ####[facility] Enc[address] [place], [place] [address]Gorge Sharpe Monocytes 1.0 103/ul Critically high 0.3-0.8 The [facility] Comment on above: Performed By: #### C BC ####[facility] Xslek[address] [place], [place] [address]Gerfly Sharpe Monocytes/100 leukocytes 6.5 % Normal 1.7-12.[address] [facility] Comment on above: Performed By: #### C BC ####[facility] Dedbkmldaf[address] [place], [place] [address]Gerfly Sharpe Neutrophils 11.8 103/ul Critically high 1.4-6.5 The [facility] Comment on above: Performed By: #### C BC ####[facility] [address]hsz[address]ukv[address] [place], [place] [address]Gerfly Sharpe Neutrophils/100 WBC Auto (Bld) 78.1 % Critically high 43.0-75.[address] [facility] Comment on above: Performed By: #### C BC ####[facility] [address] [place] [address]Awcqge Karen Platelet mean volume (PMV) 9.5 fL Normal 9.5-13.[address] [facility] Comment on above: Performed By: #### C BC ####[facility] [address] [place], [place] [address]Gerfly Sharpe Platelets 411 103/ul Normal 150-[address] [facility] Comment on above: Performed By: #### C BC ####[facility] Pimurdxjui7472 [place], [place] [address]Ckbgnd Annemarie WBC (Leukocytes) 15.1 103/ul Critically high 4.0-11.[address] [facility] Comment on above: Performed By: #### C BC ####[facility] Vyhfrzxzdj3588 [place], [place] [address]E[address] CT ABD/PELVIS W CONon 2017 CT ABD/PELVIS W CON [address] [place] [address] Patient: ANNEMARIE JACKSON Exam Date: 01/29/2018DOB: 1965 Gender:F : WOJCIECH AleydaMarilyn HALL Admission #: [id number] : Order #: [id number] HERE TO VIEW EXAM RADIOLOGY REPORT PROCEDURE: CT ABDOMEN AND PELVIS WITH CONTRAST COMPARISON: None. INDICATIONS: Right lower quadrant pain TECHNIQUE: CT images were created with IV contrast. Axial, Coronal, and Sagittal images. DOSE: FINDINGS: LUNG BASES: No visible pulmonary or pleural disease. LIVER: No enlargement, atrophy, abnormal density, or significant focal lesion. BILIARY: No visible dilatation or calcification. PANCREAS: No lesion, fluid collection, ductal dilatation, or atrophy. SPLEEN: No enlargement or focal lesion. ADRENALS: No mass or enlargement. KIDNEYS: 10 mm round fatty mass within the right kidney, statistically favoring a benign angiomyolipoma. No urinary tract calculi, hydronephrosis, or abnormal ureteral dilation.BOWEL/MESEN FELIX: Circumferential wall thickening of an 8 cm segment of mid ascending colon with mild pericolonic inflammatory changes. No free air or free fluid. No bowel obstruction. Unremarkable small bowel and stomach. Normal appendix.AORTA/VASCU LAR: No aneurysm or dissection. RETROPERITONEUM: No mass or adenopathy. LYMPH NODES: No adenopathy. URINARY BLADDER: No visible focal wall thickening, lesion, or calculus. PELVIC ORGANS: No visible mass. Pelvic organs appropriate for patient age. ABDOMINAL WALL: No mass or hernia. BONES: No bony lesion or fracture. OTHER: Negative. CONCLUSION: 1. Circumferential wall thickening of an 8 cm long segment of mid ascending colon and mild pericolonic inflammatory changes suggestive of colitis. No bowel obstruction. Patent vessels into this segment of bowel. Dictated by: Keith Rogers M.D. on 01/29/2018 at 14:59 Approved by: Keith Rogers M.D. on 01/29/2018 at 15:09 Normal [address] [facility] CBC W MANUAL DIFFon 04-18-20 17 BAND # 2.6 103/ul Critically high 0.0-0.3 The [facility] Comment on above: Performed By: #### Anna Marie NELSON ####[facility] Tbejyurast6424 [place] [phone] Annemarie BAND % 14 % Critically high 0-5 The [facility] Comment on above: Performed By: #### Anna Marie NELSON ####[facility] Cjgsucsbcd5304 [place] [phone] Annemarie BASOM % 0.0 % Critically low 0.2-2.0 The [facility] Comment on above: Performed By: #### Anna Marie NELSON ####[facility] Nevc[address] [place] [address]Baczsg Annemarie Basophils Auto #/vol (Bld) 0.00 103/ul Normal 0.00-0.[address] [facility] Comment on above: Performed By: #### Anna Marie NELSON ####[facility] Ntjlnokipm0813 [place], [place] [address]Inaria Annemarie BLAST # Normal [facility] Comment on above: Performed By: #### Anna Marie NELSON ####[facility] Qdogkruaem9329 [place], [place] [address]Jxpxwr Annemarie BLAST % Normal [facility] Comment on above: Performed By: #### Anna Marie NELSON ####[facility] Jrcarvgoxx8215 [place] [phone] Annemarie Eosinophils 0.00 103/ul Normal 0.00-0.[address] [facility] Comment on above: Performed By: #### Anna Marie NELSON ####[facility] W[address]wr[address] [place], [place] [address]Gerken Annemarie Eosinophils/100 leukocytes 0.0 % Critically low 0.9-7.0 [facility] Comment on above: Performed By: #### C LESLIE ####[facility] Xkuzevbcfz9705 [place] [phone] Annemarie Erythrocyte distribution width Auto Ratio (RBC) 12.9 % Normal 11.0-15.0 [facility] Comment on above: Performed By: #### C LESLIE ####[facility] Bqeiioayzt9432 [place] [phone] Annemarie Erythrocytes (RBC) Normal [facility] Comment on above: Performed By: #### C LESLIE ####[facility] Ptguonuzju1084 [place] [phone] Annemarie Erythrocytes (RBC) 3.88 106/ul Critically low 4.20-5.40 [facility] Comment on above: Performed By: #### C LESLIE ####[facility] [address] [place] [address] Annemarie Hematocrit (HCT) 36.4 % Normal 36.0-48.0 [facility] Comment on above: Performed By: #### Anna Marie NELSON ####[facility] Vttinzdchb7913 [place] [phone] Annemarie Hemoglobin mass conc (Bld) 12.1 g/dL Normal 12.0-16.0 [facility] Comment on above: Performed By: #### Anna Marie NELSON ####[facility] [address] [place], [place] [address]Gerken Annemarie Lymphocytes Normal [facility] Comment on above: Performed By: #### C LESLIE ####[facility] Xfrblxogye5630 [place] [phone] Annemarie Lymphocytes 0.37 103/ul Critically low 1.20-3.80 The [facility] Comment on above: Performed By: #### C LESLIE ####[facility] Flbqscflxv[address]49 [address] Annemarie Lymphocytes/100 leukocytes 2.0 % Critically low 20.5-60.[address] [facility] Comment on above: Performed By: #### Anna Marie NELSON ####[facility] Okaybjpelg0274 [place] [phone] Annemarie Lymphocytes/100 leukocytes Normal [facility] Comment on above: Performed By: #### Anna Marie NELSON ####[facility] Lhcoqfbicp9779 [place] [phone] Annemarie MCH 31.2 pg Normal 26.7-34.[address] [facility] Comment on above: Performed By: #### Anna Marie NELSON ####[facility] Paesflxmjh5508 [place] [phone] Annemarie MCHC mass conc (RBC) 33.2 g/dL Normal 29.9-35.[address] [facility] Comment on above: Performed By: #### Anna Marie NELSON ####[facility] [address] [place] [address] Annemarie MCV 93.8 fL Normal 81.0-99.[address] [facility] Comment on above: Performed By: #### Anna Marie NELSON ####[facility] [address] [place] [address] Annemarie METAMYELOCYTE # Normal The [facility] Comment on above: Performed By: #### Anna Marie NELSON ####[facility] [address]kexynnng[address] [place] [address] Annemarie METAMYELOCYTE % Normal The [facility] Comment on above: Performed By: #### Anna Marie NELSON ####[facility] [address]up[address]qpw[address] [place] [address] Annemarie MONOM# 0.37 103/ul Normal 0.30-0.[address] [facility] Comment on above: Performed By: #### Anna Marie NELSON ####[facility] Brsqzgwkzi0442 [address] Annemarie MONOM% 2.0 % Normal 1.7-12.[address] [facility] Comment on above: Performed By: #### Anna Marie NELSON ####[facility] Brtsfcdsjq[address] Annemarie MYELOCYTE # Normal [facility] Comment on above: Performed By: #### Anna Marie NELSON ####[facility] Eryvgnwpvd4344 [place], [place] [address]Igkhll Annemarie MYELOCYTE % Normal [facility] Comment on above: Performed By: #### C LESLIE ####[facility] Hpkiarrkth3079 [place], [place] [address]Fhnndx Annemarie Platelet mean volume (PMV) 9.4 fL Critically low 9.5-13.5 [facility] Comment on above: Performed By: #### C LESLIE ####[facility] Gajjqgtphy6485 [place], [place] [address]Rrekcg Annemarie Platelets 392 103/ul Normal 150-[address] [facility] Comment on above: Performed By: #### C LESLIE ####[facility] Zdomvlvwdi8789 [place] [phone] Annemarie SEG # 15.17 103/ul Critically high 1.40-6.50 [facility] Comment on above: Performed By: #### C LESLIE ####[facility] Urvtpkediy0206 [place] [phone] Annemarie Segmented Neutrophils/100 leukocytes 82.0 % Critically high 43.0-75.0 [facility] Comment on above: Performed By: #### Anna Marie NELSON ####[facility] Vooinsbwtn9573 [place], [place] [address]Okvhix Annemarie WBC (Leukocytes) Normal 4.0-11.0 [facility] Comment on above: Performed By: #### Anna Marie NELSON ####[facility] Xcswjyzaca0069 [place], [place] [address]Rtnzpo Annemarie WBC (Leukocytes) 18.5 103/ul Critically high 4.0-11.0 [facility] Comment on above: Performed By: #### C LESLIE ####[facility] Aifcezblah8431 [place], [place] [address]Jrcftz Annemarie BAND # 0.0 103/ul Normal 0.0-0.[address] [facility] Comment on above: Performed By: #### C LESLIE ####[facility] Tavhlesuko6211 [place], [place] [address]Onnjej Annemarie BAND % 0 % Normal 0-[address] [facility] Comment on above: Performed By: #### Anna Marie NELSON ####[facility] Qbuuuqyiod9685 [place] [phone] Annemarie BASOM % 0.0 % Critically low 0.2-2.0 [facility] Comment on above: Performed By: #### Anna Marie NELSON ####[facility] Djawyyiotp6928 [place] [phone] Annemarie Basophils Auto #/vol (Bld) 0.00 103/ul Normal 0.00-0.10 [facility] Comment on above: Performed By: #### Anna Marie NELSON ####[facility] Grab[address]czo[address] [place], [place] [address]Gerken Annemarie BLAST # Normal [facility] Comment on above: Performed By: #### Anna Marie NELSON ####[facility] [address]xiabtdn[address] [place] [address] Annemarie BLAST % Normal [facility] Comment on above: Performed By: #### Anna Marie NELSON ####[facility] [address] [place], [place] [address]Gerken Annemarie Eosinophils 0.00 103/ul Normal 0.00-0.70 [facility] Comment on above: Performed By: #### Anna Marie NELSON ####[facility] [address]vpc[address] [place] [address] Annemarie Eosinophils/100 leukocytes 0.0 % Critically low 0.9-7.0 [facility] Comment on above: Performed By: #### Anna Marie NELSON ####[facility] [address]pr[address]av[address] [place] [address] Annemarie Erythrocyte distribution width Auto Ratio (RBC) 12.8 % Normal 11.0-15.0 [facility] Comment on above: Performed By: #### Anna Marie NELSON ####[facility] [address] [place] [address] Annemarie Erythrocytes (RBC) 4.08 106/ul Critically low 4.20-5.40 [facility] Comment on above: Performed By: #### Anna Marie NELSNO ####[facility] [address] [place] [address] Annemarie Erythrocytes (RBC) Normal The [facility] Comment on above: Performed By: #### Anna Marie NELSON ####[facility] Gmomceatvt0140 [place] [phone] Annemarie Hematocrit (HCT) 38.1 % Normal 36.0-48.0 The [facility] Comment on above: Performed By: #### Anna Marie NELSON ####[facility] Gqauyqazqj6284 [address] Annemarie Hemoglobin mass conc (Bld) 12.7 g/dL Normal 12.0-16.[address] [facility] Comment on above: Performed By: #### Anna Marie NELSON ####[facility] Nnimmqjuip6[address] Annemarie Lymphocytes 0.59 103/ul Critically low 1.20-3.80 The [facility] Comment on above: Performed By: #### Anna Marie NELSON ####[facility] Yoovnhztdr3565 [address] Annemarie Lymphocytes Normal [facility] Comment on above: Performed By: #### Anna Marie NELSON ####[facility] Exdcyfenwc7520 [address] Annemarie Lymphocytes/100 leukocytes 7.0 % Critically low 20.5-60.[address] [facility] Comment on above: Performed By: #### Anna Marie NELSON ####[facility] Afjsofcsyw4043 [address] Annemarie Lymphocytes/100 leukocytes Normal [facility] Comment on above: Performed By: #### Anna Marie NELSON ####[facility] Rpvskbyisx0252 [address] Annemarie MCH 31.1 pg Normal 26.7-34.[address] [facility] Comment on above: Performed By: #### Anna Marie NELSON ####[facility] Tjgillamav4605 [place] [phone] Annemarie MCHC mass conc (RBC) 33.3 g/dL Normal 29.9-35.[address] [facility] Comment on above: Performed By: #### Anna Marie NELSON ####[facility] Qfcqdswxar7560 [place], [place] [address]Yetcgr Annemarie MCV 93.4 fL Normal 81.0-99.[address] [facility] Comment on above: Performed By: #### Anna Marie NELSON ####[facility] Bshwggopbe6543 [place], [place] [address]Vetfho Annemarie METAMYELOCYTE # Normal The [facility] Comment on above: Performed By: #### Anna Marie NELSON ####[facility] Nqxziscmya0219 [place], [place] [address]Qdteli Annemarie METAMYELOCYTE % Normal The [facility] Comment on above: Performed By: #### Anna Marie NELSON ####[facility] Qeiqdyardd8088 [place] [phone] Annemarie MONOM# 0.09 103/ul Critically low 0.30-0.80 The [facility] Comment on above: Performed By: #### Anna Marie NELSON ####[facility] W[address]pmvutu9277 [place] [id number] Annemarie MONOM% 1.0 % Critically low 1.7-12.0 [facility] Comment on above: Performed By: #### Anna Marie NELSON ####[facility] [address] [place], [place] [id number] Annemarie MYELOCYTE # Normal The [facility] Comment on above: Performed By: #### Anna Marie NELSON ####[facility] Viiumujwmh3732 [place] [id number] Annemarie MYELOCYTE % Normal The [facility] Comment on above: Performed By: #### Anna Marie NELSON ####[facility] Mroerdemji2977 [place], [place] [address]Xzykia Annemarie Platelet mean volume (PMV) 9.2 fL Critically low 9.5-13.[address] [facility] Comment on above: Performed By: #### Anna Marie NELSON ####[facility] Auevgsvvby8509 [place] [id number] Annemarie Platelets 393 103/ul Normal 150-[address] [facility] Comment on above: Performed By: #### Anna Marie NELSON ####[facility] Wtvlqagilm1380 [place] [id number] Annemarie SEG # 7.82 103/ul Critically high 1.40-6.50 The [facility] Comment on above: Performed By: #### C LESLIE ####[facility] Rafspucqcj1775 [place] [id number] Sharpe Segmented Neutrophils/100 leukocytes 92.0 % Critically high 43.0-75.[address] [facility] Comment on above: Performed By: #### C LESLIE ####[facility] Dorgsdjlxf8801 [place] [id number] Annemarie WBC (Leukocytes) 8.5 103/ul Normal 4.0-11.0 The [facility] Comment on above: Performed By: #### C LESLIE ####[facility] [address] [place] [address] Annemarie WBC (Leukocytes) Normal 4.0-11.0 The [facility] Comment on above: Performed By: #### C LESLIE ####[facility] [address] [place] [address] Annemarie PROF 14(COMP METB)on 017 Alanine aminotransferase (ALT) 41 U/L Normal 9-[address] [facility] Comment on above: Performed By: #### C ANGELA ####[facility] Mf[address] [place], [place] [phone] Annemarie Albumin 4.2 g/dL Normal 3.5-5.[address] [facility] Comment on above: Performed By: #### C MP ####[facility] [address] [place] [address] Annemarie Albumin/Globulin Ratio 1.2 {ratio} Normal The [facility] Comment on above: Performed By: #### C MP ####[facility] A[address] [place], [place] [address]ken Annemarie Alkaline phosphatase (ALP) 60 U/L Normal 38-[address] [facility] Comment on above: Performed By: #### C MP ####[facility] L[address]evx[address] [place], [place] [address]ken Annemarie Anion gap 19.0 mmol/L Normal The [facility] Comment on above: Performed By: #### C MP ####[facility] Yascfxtkde9382 [address] Annemarie Aspartate aminotransferase (AST) 28 U/L Normal 14-[address] [facility] Comment on above: Performed By: #### C MP ####[facility] Ciwdwjqkbv0101 [address] Annemarie Bilirubin Ql (U) 0.3 mg/dL Normal 0.2-1.3 The [facility] Comment on above: Performed By: #### C MP ####[facility] F[address]ghip[address] [place] [address] Annemarie BUN/Creatinine Ratio 24.5 mg/mg Normal The [facility] Comment on above: Performed By: #### C MP ####[facility] Ltr[address]sot[address] [place] [address] Annemarie Calcium 9.4 mg/dL Normal 8.4-10.[address] [facility] Comment on above: Performed By: #### C MP ####[facility] [address] [place] [address] Annemarie Chloride 105 mmol/L Normal 98-[address] [facility] Comment on above: Performed By: #### C MP ####[facility] Sh[address] [place] [address] Annemarie CO2 20.0 mmol/L Critically low 22.0-30.0 The [facility] Comment on above: Performed By: #### C MP ####[facility] [address] [place], [place] [address]Gerken Annemarie Creatinine 0.71 mg/dL Normal 0.52-1.[address] [facility] Comment on above: Performed By: #### C MP ####[facility] W[address] [place] [address] Annemarie eGFR (non-black) mL/min/{1.73_m2} Normal >=60 Th [facility] Comment on above: Performed By: #### C MP ####[facility] X[address] [place], [place] [address]Gerken Annemarie Globulin 3.4 g/dL Normal [facility] Comment on above: Performed By: #### C MP ####[facility] Nmqywqrkxi7849 [place] [id number] Annemarie Glucose mass conc 173 mg/dL Critically high 74-[address] [facility] Comment on above: Performed By: #### C MP ####[facility] Bveymftpyu0782 [address] Annemarie Potassium molar conc 4.1 mmol/L Normal 3.4-5.0 [facility] Comment on above: Performed By: #### C MP ####[facility] Ikhphchlbl63[address] Annemarie Protein 7.5 g/dL Normal 6.1-8.2 [facility] Comment on above: Performed By: #### C MP ####[facility] Fxfuyjcupc5[address] Annemarie Sodium 140 mmol/L Normal 137-145 [facility] Comment on above: Performed By: #### C MP ####[facility] Htzpxexlec8606 [place] [id number] Annemarie Urea nitrogen 18.0 mg/dL Critically high 7.0-17.0 [facility] Comment on above: Performed By: #### C MP ####[facility] Ucqewdkhvc[address] Annemarie PROF CHEM 8 (BAS METB)on Anion gap 14.9 mmol/L Normal [facility] Comment on above: Performed By: #### B MP ####[facility] Cswlsahkkk6282 [place] [id number] Annemarie BUN/Creatinine Ratio 21.8 mg/mg Normal [facility] Comment on above: Performed By: #### B MP ####[facility] Akegszfmgv[address] [place] [id number] Annemarie Calcium 9.0 mg/dL Normal 8.4-10.2 [facility] Comment on above: Performed By: #### B MP ####[facility] Xnkrepkwob5[address] [place], [place] [address]Nbnztq Annemarie Chloride 110 mmol/L Critically high 98-107 [facility] Comment on above: Performed By: #### B MP ####[facility] Shvncrfppi4895 [place] [id number] Annemarie CO2 21.0 mmol/L Critically low 22.0-30.0 The [facility] Comment on above: Performed By: #### B MP ####[facility] Puusackmhp7240 [place] [id number] Annemarie Creatinine 0.66 mg/dL Normal 0.52-1.04 [facility] Comment on above: Performed By: #### B MP ####[facility] [address] [place], [place] [address]Gerken Annemarie eGFR (non-black) mL/min/{1.73_m2} Normal >=60 Th [facility] Comment on above: Performed By: #### B MP ####[facility] Szhinynxtu6079 [place] [id number] Annemarie Glucose mass conc 139 mg/dL Critically high 74-106 Th [facility] Comment on above: Performed By: #### B MP ####[facility] [address]osp[address]brwd[address] [place], [place] [address]Gerken Annemarie Potassium molar conc 4.0 mmol/L Normal 3.4-5.0 [facility] Comment on above: Performed By: #### B MP ####[facility] D[address]iz[address] [place], [place] [address]Gerken Annemarie Sodium 142 mmol/L Normal 137-[address] [facility] Comment on above: Performed By: #### B MP ####[facility] [address]jnxvl[address] [place], [place] [address]Gerken Annemarie Urea nitrogen 14.0 mg/dL Normal 7.0-17.0 [facility] Comment on above: Performed By: #### B MP ####[facility] [address] [place], [place] [address]Gerken Annemarie Vital Signs Date Time Vital Sign Value Performing Clinician Marguerite waters 01-29-2024 08:44-0400 Body height 165.1 cm Isael Rock MD Work Phone: [facility] 01-29-2024 08:44-0400 Body mass index (BMI) [Ratio] 33.45 kg/m2 Isael Rock MD Work Phone: [facility] 01-29-2024 08:44-0400 Body weight 91.17 kg Isael Rock MD Work Phone: [facility] 01-29-2024 08:44-0400 Diastolic blood pressure 86 mm[Hg] Isael Rock MD Work Phone: [facility] 01-29-2024 08:44-0400 Heart rate 74 /min Isael Rock MD Work Phone: [facility] 01-29-2024 08:44-0400 Systolic blood pressure 124 mm[Hg] Isael Rock MD Work Phone: [facility] 11-13-2023 10:18-0500 Blood Pressure Location Serafin Winkler [facility] 11-13-2023 10:18-0500 Diastolic blood pressure 78 mm[Hg] Serafin Winkler [facility] 11-13-2023 10:18-0500 Heart rate 73 /min Serafin Winkler [facility] 11-13-2023 10:18-0500 SaO2% (BldA) [Mass fraction] 96 % Serafin Winkler [facility] 11-13-2023 10:18-0500 Systolic blood pressure 113 mm[Hg] Serafin Winkler [facility] 08-20-2023 11:03-0400 Diastolic blood pressure 82 mm[Hg] Serafin Winkler [facility] 08-20-2023 11:03-0400 Heart rate 69 /min Serafin Winkler [facility] 08-20-2023 11:03-0400 SaO2% (BldA) [Mass fraction] 74 % Serafin Winkler [facility] 08-20-2023 11:03-0400 Systolic blood pressure 122 mm[Hg] Serafin Winkler [facility] Encounters Encounter Date Encounter Type Care Provider Facility Start: 02-22-2024 End: 02-22-2024 ambulatory REI ENRIQUE Not Available Start: 01-29-2024 End: 02-01-2024 ambulatory ISAEL ROCK [facility] Ambulatory Start: 01-29-2024 End: 01-29-2024 Office outpatient new 60 minutes Isael Rock MD Work Phone: [facility] Comment on above: Abnormal EKG (Primar y Dx); Establishing care with new doctor, encounter for; Palpitations; Near syncope; BMI 33.0-33.9,adult; Never smoked tobacco Start: 12-10-2023 End: 12-11-2023 ambulatory Serafin Winkler Facility:[facility] Start: 12-10-2023 End: 12-10-2023 Patient encounter procedure Serafin Winkler [facility] Start: 11-13-2023 End: 11-14-2023 ambulatory XXXX NONE Facility:[facility] Start: 11-13-2023 End: 11-13-2023 Patient encounter procedure Serafin Winkler [facility] Start: 09-23-2023 End: 09-24-2023 ambulatory Serafin Winkler Facility:[facility] Start: 08-20-2023 End: 08-21-2023 ambulatory REI ENRIQUE Facility:[facility] Start: 08-20-2023 End: 08-20-2023 Patient encounter procedure Serafin Winkler [facility] Start: 08-06-2023 ambulatory REI ENRIQUE Facili ty:[facility] Start: 02-23-2018 End: 02-24-2018 Ambulatory SANJANA LOPEZ Facility:[facility] Start: 01-29-2018 End: 01-30-2018 Ambulatory WOJCIECH HALL Facility:[facility] Start: 04-17-2017 End: 04-18-2017 Ambulatory REI ENRIQUE Facility:[facility] Start: 04-17-2017 End: 04-17-2017 Ambulatory REI ENRIQUE Facility:[facility] Procedures Date Procedure Procedure Detail Performing Clinician Start: 01-29-2024 ECG 12-LEAD ISAEL GOMEZ Start: 01-29-2024 Ecg routine ecg w/le ast 12 lds w/i&r Isael Rock MD Work Phone: Start: 01-29-2024 CASE REQUEST EP LAB ALB ROSA MARIA PRANAV Start: 12-25-2021 Mammography Isael Gomez MD Work Phone: Abdominal hysterectomy Serafin Winkler Colonoscopy Serfain finley Plan of Treatment Date Care Activity Detail Author Start: 06-26-2024 Influenza vaccination Influenz a Vaccine (Season Ended) [facility] Start: 05-11-2024 End: 05-11-2024 Patient encounter procedure 05/11/2024 8:45 AM EDT Office Visit [facility] [address] [phone] Isael Rock MD [address] [address] [facility] Start: 02-26-2024 End: 02-26-2024 Admission to same day surgery center 02/26/2024 9:00 AM EDT - 02/26/2024 9:30 AM EDT Surgery [facility] [address] [place] [id number] Isael Rock MD [address] [address] Loop Insertion [40751 (CPT )] [facility] Comment on above: Loop Insertion [[id number] (CPT )] Start: 02-26-2024 Subsequent hospital visit by physician 02/26/2024 9:00 AM EDT Hospital Encounter [facility] [address] [place] [address] Isael Rock MD [address] [place] [address] Palpitations; Near syncope [facility] Comment on above: Palpitations; Near syncope Start: 01-29-2024 End: 01-28-2025 Basic metabolic 2000 panel - Serum or Plasma Basic Metabolic Panel Lab Routine Palpitations Near syncope Expected: 01/29/2024 (Approximate), Expires: 01/28/2025 [facility] Work Phone: Comment on above: Expected: 01/29/2024 (Approximate), Expires: 01/28/2025 Start: 01-29-2024 End: 01-28-2025 CBC panel - Blood by Automated count CBC Lab Routine Palpitations Near syncope Expected: 01/29/2024 (Approximate), Expires: 01/28/2025 [facility] Work Phone: Comment on above: Expected: 01/29/2024 (Approximate), Expires: 01/28/2025 Start: 01-29-2024 End: 01-28-2025 Prothrombin time (PT) Protime-INR Lab Routine Palpitations Near syncope Expected: 01/29/2024 (Approximate), Expires: 01/28/2025 [facility] Service Area Work Phone: Comment on above: Expected: 01/29/2024 (Approximate), Expires: 01/28/2025 Start: 06-26-2023 COVID-19 Vaccine ( season) COVID-19 Vaccine ( season) [facility] Start: 12-25-2022 Screening for malign ant neoplasm of breast Mammogram [facility] Start: 2013 Zoster Vaccines (1 o f 2) Zoster Vaccines (1 of 2) [facility] Start: 1985 DTaP/Tdap/Td Vaccine s (1 - Tdap) DTaP/Tdap/Td Vaccines (1 - Tdap) [facility] Start: 1984 Screening for malign ant neoplasm of cervix [facility] Start: 1981 Diabetes mellitus screening Diabetes Screening [facility] Start: 1981 Hepatitis C screening Hepatitis C Sc reening [facility] Start: 1964 MMR Vaccines (1 of 1 - Standard series) MMR Vaccines (1 of 1 - Standard series) [facility] Start: 1963 HIV screening HIV Screening [facility] Start: 1963 Lipid panel Lipid Panel [facility] Start: 1963 Screening for malign ant neoplasm of colon [facility] Start: 1963 Yearly Adult Physical Yearly Adult P hysical [facility] Immunizations Immunization Date Immunization Notes Care Provider Magdalena perdue 08-07-2021 influenza virus vaccine, unspecified formulation Isael Rock MD Work Phone: [facility] Work Phone: Payers Date Payer Category Payer Unknown [employer] [id number] 2023-Present [phone] [address] [address] [place] [address] [id number] 2022 Unknown [id number] 1963 Unknown [id number] 4 1963 Unknown [id number] 1963 Unknown [id number] 1963 Unknown [id number] 1963 Unknown [id number] 1963 Unknown [id number] 1963 Unknown [id number] 9 1959 Unknown [id number] Social History Date Type Detail Facility Start: 08-20-2023 End: 01-29-2024 Tobacco smoking status Never smoked tobacco (finding) [facility] Sex Assigned At Female [facility] Tobacco smoking status Never [facility] Start: 01-29-2024 Tobacco use and exposure Smokeless tobacco non-user [facility] Work Phone: Start: 01-29-2024 Alcohol intake Lifetime non-d vikki (finding) [facility] Work Phone: Start: 1965 Sex Assigned At Not on file [facility] Work Phone: Start: 01-19-2024 End: 01-29-2024 Exposure to SARS-CoV-2 (event) Not sure [facility] Functional Status Date Assessment Result Facility 11-13-2023 Functional Status No [facility] 08-20-2023 Functional Status No [facility] Clinical Note 02-02-2024 Note Date & Type Note Facility 02-02-2024 Note PROCEDURE: 30-day ev ent monitor. REFERRING PHYSICIAN: Serafin Winkler M.D. INDICATIONS: Conduction disorder. PROCEDURE DETAILS: The patient was recorded from 12/10/2023 to 01/09/2024. The patient had predominant sinus rhythm with a first-degree atrioventricular block or sinus arrhythmia. There was one event of second-degree atrioventricular block with 2:1 conduction. This had 4 dropped beats overall. After that it returned to sinus rhythm. CONCLUSIONS: Abnormal event monitor for second-degree atrioventricular block type 2. Clinical correlation is suggested. READ BY: Serafin Winkler M.D. ca Dictated: 01/26/2024 [id number] Transcribed: 01/30/2024 [facility] Comment on above: Result Comment: Elec tronically Signed By: Cathi WEBBER, Serafin Norris\.br\Date and Time Signed: 02/02/24 08:16 EDT History of Present illness Narrative 01-29-2024 Isael Rock MD - 01/29/2024 8:30 AM EDT Note Date & Type Note Facility 01-29-2024 History of Present illness Narrative CARDIOLOGY OFFICE VISIT CHIEF COMPLAINT Chief Complaint Patient presents with New Patient Visit Per Dr. Winkler due to abnormal Holter HISTORY OF PRESENT ILLNESS HPI 58-year-old female with a past medical history of hypertension. She was referred for evaluation of abnormal event monitor. Patient states that since the end of 2022, she started noticing fluttering and palpitations. Noticing also feeling tired and fatigued doing her daily activities. She has an Apple Watch that reported that she was in atrial fibrillation. He was evaluated by cardiology service who due to these findings, recommended to start Eliquis. She had an a stress test and echocardiogram as described below. Stress test August 2023 No evidence of ischemia or myocardial infarction with a left ventricular ejection fraction of 78%. Echocardiogram in August 2023 Normal left ventricular function value of 60 to 65% with no significant valvular normalities Due to persisting of symptoms Holter-event monitor were ordered. Tachycardia - max rate of 150 bpm - 11 episodes of PSVT with longest duration of 15 beats - longest episode of 37min 15sec with rates betweem 104-116 bpm Bradycardia - min rate of 27 bpm, associated with Mobitz I AV block - longest episode of 22min 57sec with rates between 50-57 bpm Ventricular ectopy - 91 total (<1%) - 91 PVC AV block - 1 episodes of mobitz I AV block Patient triggered events: 4 - associated with symptoms of chest pain Impression: Predominant rhythm is sinus with average rate of 78 bpm Fastest rate of 150 bpm and slowest rate of 27 bpm 91 PVC 1 episode of mobitz I AV block No atrial fibrillation Due to no significant findings and her event monitor was ordered 2023 and shows underlying rhythm was sinus rhythm there was 1 episode on January 11, 2024 at 3:30 AM consistent with sinus rhythm with episode of second-degree block type II with 2-1 conduction at a rate of 24 bpm. Apparently patient was asymptomatic. She was sleeping at the time. EKG performed today shows sinus rhythm rate of 74 bpm QRS duration 60 ms QT 370 ms. Rhythm strip shows the same pattern. Past Medical History Past Medical History: Diagnosis Date Atrial fibrillation (CMS/HCC) Hypertension Social History Social History Tobacco Use Smoking status: Never Smokeless tobacco: Never Substance Use Topics Alcohol use: Never Drug use: Never Family History Family History Problem Relation Name Age of Onset Hypertension Mother Susie Honeycutt Heart attack Mother Susie Honeycutt Accidental Father Allergies: Allergies Allergen Reactions Amlodipine-Benazepril Swelling Other Reaction(s): swollen lips Doxylamine Itching Other Reaction(s): weird dreams / hallucinations Olanzapine Itching Other Reaction(s): itch Tramadol Rash Outpatient Medications: Current Outpatient Medications Medication Instructions aspirin 81 mg, oral, Daily BLACK COHOSH ORAL 1 tablet, oral, Daily DULoxetine (CYMBALTA) 60 mg, oral, Daily RT Eliquis 5 mg, oral, 2 times daily fenofibrate (TRIGLIDE) 160 mg, oral, Daily RT krill oil 500 mg capsule 1 capsule, oral, Daily losartan (COZAAR) 100 mg, oral, Daily RT multivitamin tablet 1 tablet, oral, Daily QUEtiapine (SEROQUEL) 50 mg, oral, Nightly REVIEW OF SYSTEMS Review of Systems Cardiovascular: Positive for palpitations and syncope. All other systems reviewed and are negative. VITALS Vitals: 01/29/24 0844 BP: 124/86 Pulse: 74 PHYSICAL EXAM Vitals and nursing note reviewed. Constitutional: Appearance: Healthy appearance. Eyes: Conjunctiva/sclera: Conjunctivae normal. Pupils: Pupils are equal, round, and reactive to light. Pulmonary: Effort: Pulmonary effort is normal. Breath sounds: Normal breath sounds. Cardiovascular: PMI at left midclavicular line. Normal rate. Regular rhythm. Murmurs: There is no murmur. No gallop. No click. No rub. Pulses: Intact distal pulses. Edema: Peripheral edema absent. Musculoskeletal: Normal range of motion. Skin: General: Skin is warm and dry. Neurological: Mental Status: Alert and oriented to person, place and time. ASSESSMENT AND PLAN Clinical impression 1. Palpitations 2. Abnormal event monitor due to evidence of second-degree AV block type II with rates in the 20s. Apparently during sleep time. Asymptomatic 3. Normal left ventricular function per echocardiogram as described above 4. No evidence of ischemia per stress test as described above 5. Hypertension Plan recommendations I had an extensive discussion with patient and family members open to for for management of abnormal event monitor. She states that she has been episodes of palpitations, tiredness fatigue and also episodes of dizziness but not sure if those episodes are associated with finding of the event monitor second-degree block type II. For better evaluation we will recommend a loop recorder implantation. Procedure, risk, benefits and possible complications were explained to patient. All questions were answered. Patient agrees with plan. Informed consent was signed. Patient was placed on hold Eliquis for 48 hours. Follow my office 7 days for procedure for wound assessment. If there is no evidence of atrial fibrillation on loop recorder interrogations, we will discontinue Eliquis. Risk factor modification and lifestyle modification discussed with patient. Diet , exercise and hydration discussed with patient. I have personally review with patient during this office visit, laboratory data, echocardiogram results, stress test results, Holter-event monitor results prior and after the last electrophysiology visit. All questions has been answered. Please excuse any errors in grammar or translation related to this dictation. Voice recognition software was utilized to prepare this document. documented in this encounter [facility] Work Phone: Instructions 01-29-2024 Patient Instructions Note Date & Type Note Facility 01-29-2024 Instructions Kalli Eden LPN - 01/29/2024 8:30 AM EDT You will be scheduled for a Loop recorder implant Have your lab work done prior to implant HOLD your Eliquis 2 days prior to implant. Follow up office visit with Dr. Rock in May Continue same medications/treatment. Patient educated on proper medication use. Patient educated on risk factor modification. Please bring any lab results from other providers / physicians to your next appointment. Please bring all medicines, vitamins and herbal supplements with you when you come to the office. Prescriptions will not be filled unless you are compliant with your follow up appointments or have a follow up appointment scheduled as per instruction of your physician. Refills should be requested at the time of Your visit. IKalli LPN, am scribing for and in the presence of Dr. Isael Rock MD documented in this encounter [facility] Work Phone: Clinical Note 09-26-2023 Note Date & Type Note Facility 09-26-2023 Note Echocardiology Procedure Exam Date/Time Accession # Ordering Echo Transthoracic 09/23/2023 07:35 EST [id number] Serafin Winkler MD CPT code 64361 [id number] Reason for Exam (Echo Transthoracic Complete) I47.10;Chest pain Report Version: 1 Study ID: [id number] [facility] [address] [place] [address] Adult Echocardiogram Report Name: ANNEMARIE JACKSON Study Date: 09/23/2023, 6: 58 AM Patient Location: [facility] : 1965 (MM/DD/YYYY) Gender: Female Age: 57 Years Height: 165.1 cm BP: 129 / 80 mmHg Weight: 88.452 kg HR: 73 bpm BSA: 1.96 m? Ordering Physician: Serafin Winkler Referring Physician: Serafin Winkler Performed By: Jolene Graf RDCS Reason For Study: Chest pain History: HTN, Afib Interpretation Summary Ejection Fraction = 60-65%. Normal LV and RV. No significant valve disease. Normal estimated PA pressure. Normal diastolic filling pattern. Procedure A complete two-dimensional transthoracic echocardiogram was performed (2D, M-mode, spectral and color flow Doppler). Study quality is good. Left Ventricle The left ventricle is normal in size. There is normal left ventricular wall thickness. Ejection Fraction = 60-65%. The left ventricular wall motion is normal. Normal diastolic function. Left Atrium The left atrial size is normal. Echocardiology Report Right Atrium Right atrial size is normal. Right Ventricle The right ventricular systolic function is normal. The right ventricle is normal size. The right ventricular wall motion is normal. Aortic Valve The aortic valve is trileaflet. No aortic regurgitation. There is no aortic stenosis. Mitral Valve The mitral valve is normal in structure and function. There is no mitral regurgitation noted. No mitral valve stenosis. Tricuspid Valve Structurally normal tricuspid valve. No evidence of tricuspid regurgitation. Pulmonic Valve No evidence of stenosis. There is no pulmonic valve regurgitation. Arteries The aortic root is normal in size. Normal ascending aorta. Pulmonary artery diameter is normal. Venous The inferior vena cava is normal in size, and collapses normally with respiration. Effusion There is no pericardial effusion. Left Ventricle IVSd: 1.19 cm LVIDd: 4.0 cm LVPWd: 0.89 cm LVIDs: 1.91 cm EDV(MOD-sp4): 57.0 ml LVLd ap4: 7.4 cm ESV(MOD-sp4): 18.4 ml LVLs ap4: 6.3 cm EDV(MOD-sp2): 45.3 ml LVLd ap2: 6.5 cm ESV(MOD-sp2): 14.1 ml LVLs ap2: 5.3 cm Right Ventricle TAPSE: 2.48 cm Aortic Valve LVOT diam: 1.80 cm LV V1 max: 109.0 cm/sec LV V1 max P.7 mmHg Ao max P.8 mmHg Ao V2 max: 130.3 cm/sec Tricuspid Valve TR max P.1 mmHg TR max fausto: 245.7 cm/sec Aorta Ao root diam: 2.49 cm Ao Sinus of Valsalva: 2.8 cm Ao Sinotubular Junction: 2.31 cm asc Aorta Diam: 3.0 cm Atria LA dimension: 3.2 cm Diastolic funtion Med Peak E' Fausto: 6.4 cm/sec Lat Peak E' Fausto: 5.9 cm/sec MV dec time: 0.20 sec MV E max fausto: 62.1 cm/sec MV A max fausto: 81.8 cm/sec Echocardiology Report Ao max P.8 mmHg Ao root area: 4.9 cm? Ao root diam: 2.49 cm Ao Sinus of Valsalva: 2.8 cm Ao Sinotubular Junction: 2.31 cm Ao V2 max: 130.3 cm/sec AV VR: 0.84 JULIA(V,D): 2.13 cm? EDV(MOD-sp4): 57.0 ml EDV(Teich): 70.7 ml EF(MOD-sp4): 67.7 % EF(Teich): 84.0 % ESV(MOD-sp4): 18.4 ml ESV(Teich): 11.3 ml FS: 52.4 % IVC Diam: 0.87 cm IVSd: 1.19 cm LA dimension: 3.2 cm LV V1 max: 109.0 cm/sec LV V1 max P.7 mmHg LVIDd: 4.0 cm LVIDs: 1.91 cm LVLd ap4: 7.4 cm LVLs ap4: 6.3 cm LVOT area: 2.5 cm? LVOT diam: 1.80 cm LVPWd: 0.89 cm MV A max fausto: 81.8 cm/sec MV dec time: 0.20 sec MV E max fausto: 62.1 cm/sec MV E/A: 0.76 RAP systole: 3.0 mmHg RVDd: 2.8 cm RVIDd/LVIDd: 0.70 RVSP(TR): 27.1 mmHg SV(MOD-sp4): 38.6 ml TAPSE: 2.48 cm TR max P.1 mmHg TR max fausto: 245.7 cm/sec asc Aorta Diam: 3.0 cm E/E' Lat: 10.6 E/E' Med: 9.7 EDV(MOD-sp2): 45.3 ml EF (MOD-bp): 67.7 % EF(MOD-sp2): 68.9 % ESV(MOD-sp2): 14.1 ml LA Vol Index: 17.2 ml/m? Lat Peak E' Fausto: 5.9 cm/sec LVLd ap2: 6.5 cm LVLs ap2: 5.3 cm Med Peak E' Fausto: 6.4 cm/sec Echocardiology Report Electronically signed by: Serafin Winkler MD 09/26/2023, 7: 42 AM FINAL REPORT Dictated: 09/23/2023 6:58 am Serafin Winkler MD Signed (Electronic Signature): 09/26/2023 7:42 am Signed by: Serafin Winkler MD Transcribed by: [facility] Technologist: JEFF Monroy [facility] Evaluation + Plan note Radiology Note Date & Type Note Facility Evaluation + Plan note Future Appointments Appointment Date:10/08/2023 03:15:00 PM Scheduled Provider:Serafin Winkler MD Location:[facility] Appointment Type:Cardiology Follow Up ([facility]) Future Scheduled TestsNM Myocardial Spect Rest/Stress 1 Day 08/20/23Echo Transthoracic Complete 08/20/23 [facility] Evaluation + Plan note Note Date & Type Note Facility Evaluation + Plan note Future Appointments Appointment Date:12/25/2023 11:15:00 AM Scheduled Provider:Serafin Winkler MD Location[facility] Appointment Type:Cardiology Follow Up ([facility]) [facility] Evaluation note Note Date & Type Note Facility Evaluation note Diagnosis Abnormal EKG- Primary Nonspecific abnormal electrocardiogram (ECG) (EKG) Establishing care with new doctor, encounter for Palpitations Near syncope BMI 33.0-33.9,adult Never smoked tobacco Palpitations Near syncope Palpitations Near syncope documented in this encounter [facility] Work Phone: Hospital course Narrative Note Date & Type Note Facility Hospital course Narrative No data available for this section [facility] Hospital Discharge instructions Note Date & Type Note Facility Hospital Discharge instructions No data available for this section [facility] Progress note Note Date & Type Note Facility Progress note No data available for this section [facility] Summary Purpose Family History No Family History Records FoundNo Family History Records FoundNo Family History Records Found No data available for this section No data available for this section No data available for this section No Family History Records FoundNo Family History Records FoundNo Family History Records Found Advance Directives No Advanced Directives Records FoundNo Advanced Directives Records FoundNo Advanced Directives Records FoundNo Advanced Directives Records FoundNo Advanced Directives Records FoundNo Advanced Directives Records Found Reason for Referral Specialty Diagnoses / Procedures Referred By Contac t Referred To Contact Diagnoses Establishing care with new doctor, encounter for Procedures ECG 12 lead (Clinic Performed) Isael Rock MD [address] [place] [id number] Referral ID Status Reason Start Date Expiration Date V isits Requested Visits Authorized [id number] Authorized 01/29/2024 01/28/2025 1 1 Additional Source Comments INFORMATION SOURCE (unrecogn ized section and content) DATE CREATED AUTHOR 04/15/2018 Vincent oneil DATE CREATED AUTHOR AUTHOR'S ORGANIZ ATION 03/18/2019 [facility] DATE CREATED AUTHOR AUTHOR'S ORGANIZ ATION 01/01/2022 [facility] DATE CREATED AUTHOR AUTHOR'S ORGANIZ ATION 02/02/2024 [facility] DATE CREATED AUTHOR AUTHOR'S ORGANIZ ATION 02/05/2024 Porfirio Tran [facility] DATE CREATED AUTHOR AUTHOR'S ORGANIZ ATION 02/22/2024 [facility] EPIC Patient Care team informatio n (unrecognized section and content) 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 Iqbal on due to abnormal Holter FOR RECORDS PERTAINING TO PATIENTS WHO ARE OR HAVE BEEN ENROLLED IN A CHEMICAL DEPENDENCY/SUBSTANCEABUSE PROGRAM, SOME INFORMATION MAY BE OMITTED. This clinical summary was aggregated from multiple sources. Caution should be exercised in using it in the provision of clinical care. This summary normalizes information from multiple sources, and as a consequence, information in this document may materially change the coding, format and clinical context of patient data. In addition, data may be omitted in some cases. CLINICAL DECISIONS SHOULD BE BASED ON THE PRIMARY CLINICAL RECORDS. [employer] provides no warranty or guarantee of the accuracy or completeness of information in this document.
== END 2024-03-16 13:34 | disposition home or self-care (01) ==
LOC: SLEEP 03-17 13:33
PROVIDERS: PCP Family Medicine; Visit Provider Family Medicine
DX: I44.1 Atrioventricular block, second degree (principal); R00.1 Bradycardia, unspecified; R06.83 Snoring; R06.81 Apnea, not elsewhere classified; G47.19 Other hypersomnia; E66.09 Other obesity due to excess calories; Z68.33 Body mass index [BMI] 33.0-33.9, adult; G47.8 Other sleep disorders
CPT/HCPCS: 95806

== ENCOUNTER 2024-12-22 19:44 | Emergency (ER) | payer OTHER, SELFPAY ==
[2024-12-22] VITALS (8 sets, daily range): BP systolic 152–184; BP diastolic 80–90; PULSE 57–75; TEMP 36.6; O2SAT 96–100; BMI 33.3
--- OUTSIDE RECORDS SUMMARY | 2024-12-22 19:49 | XMS_ITS | CCD ---
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 EDT\.br\Electronically Co-Signed By: Lilian Guardado.ciara\Date and Time Co-Signed: 08/20/23 14:38 EDT Physician Orderon 08-21-2023 Physician Order [id number] #1.00TIFF Normal [facility] Holter Monitoron 08-13-2023 Holter Monitor [id number] #1.00TIFF Normal [facility] Holter Monitor [id number] #1.00TIFF Normal [facility] Referrals Officeon 3 Referrals Office [id number] #1.00TIFF Normal [facility] Referrals Office [id number] #1.00TIFF Normal [facility] SCREENING MAMMOGRAM W/KEYLA, BILATERAL*on 12-25-2021 SCREENING [...] VERY IMPORTANT TO YOUR HEALTH. THE CURRENT [employer] GUIDELINES RECOMMENDS ANNUAL MAMMOGRAPHY BEGINNING AT AGE 40 THIS FACILITY USES A REMINDER SYSTEM TO ENSURE ALL PATIENTS RECEIVE REMINDER NOTIFICATIONS AT THE APPROPRIATE TIME BASED ON THE RECOMMENDATIONS OF THIS EXAM. Report reported and signed by Thad Addison on 12/30/2021 1541 Normal [facility] Specialist XR Bone Density (DEXA)on XR Bone Density (DEXA) EXAM: DUAL FEMUR BONE DENSITY FINDINGS: RegionBMD Qdzhz-MgpvgRty-Rxemz ed Total(g/cm2)(%)T-Sco re(%)Z-Score Mean0.504739 0.2122 1.4 Impression: The mean BMD and [...] BONE DENSITY FINDINGS: RegionBMDYoung-Adult Age-Matched Total(g/cm2)(%)T-Sco re(%)Z-Score L1-L41.34032-1.65323 .1 Impression: The mean BMD and corresponding [...] by Thad Addison on 12/25/2021 0945 Normal [facility] Syruper XR foot RT min 3V*on 019 XR foot RT min 3V* [facility] Main [place] [address] [place], [place] [address] XRay Report Signed Patient: Annemarie Jackson MR#: [id number] : 1965 Acct:[id number] Age/Sex: 53 / F ADM Date: 03/06/19 [facility] Attending Dr: Emery BUENO Ordering Provider: [...] Hugh Martinez M.D.03/06/2019 12:54 PM Dictation Location: [facility] Transcribed By: [facility] 03/06/19 1254 Dictated By: Hugh Martinez II, MD 03/06/19 1253 Signed By: 03/06/19 1254 [facility] MG MAMM SCREEN POOJA W CADon 0 02-23-2018 MG MAMM SCREEN POOJA W CAD [address] [place] [address] Patient: ANNEMARIE JACKSON Exam Date: 02/23/2018DOB: 1965 Gender:F : DR. SANJANA LOPEZ D.O. Admission #: [id number] : Order #: [id number] HERE TO VIEW EXAM RADIOLOGY REPORT PROCEDURE: [...] unknown cancer at age 68. LOCATION: [facility] BREAST COMPOSITION: Scattered fibroglandular densities (25-50% glandular). FINDINGS: DIAGNOSTIC CATEGORY 1--NEGATIVE ASSESSMENT. RIGHT BREAST: No significant suspicious finding. No significant change has occurred. LEFT BREAST: No significant suspicious finding. No significant change has occurred. RECOMMENDATIONS: ROUTINE MAMMOGRAM AND CLINICAL EVALUATION. PLEASE NOTE: A NORMAL MAMMOGRAM DOES NOT EXCLUDE THE POSSIBILITY OF BREAST CANCER. A CLINICALLY SUSPICIOUS PALPABLE LUMP SHOULD BE BIOPSIED. Dictated by: Mauricio Rogers MD on 02/23/2018 at 15:53 Approved by: Mauricio Rogers MD on 02/23/2018 at 15:58 Normal [facility] CBC AUTO DIFFon 01-29-2018 Basophils Auto #/vol (Bld) 0.0 103/ul Normal 0.0-0.1 [facility] Comment on above: Performed By: #### C BC ####[facility] Oqwcdsynot9572 [place], [place] [address]Wqfmvn Annemarie Basophils/100 WBC Auto (Bld) 0.3 % Normal 0.2-2.0 [facility] Comment on above: Performed By: #### C BC ####[facility] Bsbkfpjvlp8336 [place], [place] [address]Iveoql Annemarie Eosinophils 0.1 103/ul Normal 0.0-0.7 [facility] Comment on above: Performed By: #### C BC ####[facility] Fcxakmssur5131 [place], [place] [address]Ocqpfx Annemarie Eosinophils/100 leukocytes 0.8 % Critically low 0.9-7.0 [facility] Comment on above: Performed By: #### C BC ####[facility] Oikronodnt5139 [address] Annemarie Erythrocyte distribution width Auto Ratio (RBC) 12.8 % Normal 11.0-15.0 [facility] Comment on above: Performed By: #### C BC ####[facility] Kuxexewolu0326 [address] Annemarie Erythrocytes (RBC) 4.63 106/ul Normal 4.20-5.40 [facility] Comment on above: Performed By: #### C BC ####[facility] Ulgsexzwry3114 [address] Annemarie Hematocrit (HCT) 41.9 % Normal 36.0-48.0 [facility] Comment on above: Performed By: #### C BC ####[facility] Cbkdjtcdzb4559 [address] Annemarie Hemoglobin mass conc (Bld) 14.4 g/dL Normal 12.0-16.0 [facility] Comment on above: Performed By: #### C BC ####[facility] [address] [place] [address] Annemarie IG # 0.06 10e3/ul Critically high 0.00-0.03 [facility] Comment on above: Performed By: #### C BC ####[facility] [address] [place] [address] Annemarie IG % 0.4 % Normal 0.0-0.5 [facility] Comment on above: Performed By: #### C BC ####[facility] Puxviwbnce8067 [address] Annemarie Lymphocytes 2.1 103/ul Normal 1.2-3.8 [facility] Comment on above: Performed By: #### C BC ####[facility] Krhmtnpg[address] [place] [address] Annemarie Lymphocytes/100 leukocytes 13.9 % Critically low 20.5-60.0 [facility] Comment on above: Performed By: #### C BC ####[facility] Zeyiuwvsuc4779 [place] [phone] Annemarie MANUAL DIFF REQ NO Normal [facility] Comment on above: Performed By: #### C BC ####[facility] Gkfnmcnefh1541 [place] [phone] Annemarie MCH 31.1 pg Normal 26.7-34.0 [facility] Comment on above: Performed By: #### C BC ####[facility] Vrxgffcgxj1586 [place] [phone] Annemarie MCHC mass conc (RBC) 34.4 g/dL Normal 29.9-35.2 [facility] Comment on above: Performed By: #### C BC ####[facility] Tnfnipyftt0963 [place] [phone] Annemarie MCV 90.5 fL Normal 81.0-99.0 [facility] Comment on above: Performed By: #### C BC ####[facility] Ewfs[address]bmwv[address] [place], [place] [address]Gerken Annemarie Monocytes 1.0 103/ul Critically high 0.3-0.8 [facility] Comment on above: Performed By: #### C BC ####[facility] Oinjjiwkfh[address] [place] [address] Annemarie Monocytes/100 leukocytes 6.5 % Normal 1.7-12.0 [facility] Comment on above: Performed By: #### C BC ####[facility] Liorciertg5161 [place] [phone] Annemarie Neutrophils 11.8 103/ul Critically high 1.4-6.5 [facility] Comment on above: Performed By: #### C BC ####[facility] Xpnunimjtu[address] [place], [place] [address]Gerken Annemarie Neutrophils/100 WBC Auto (Bld) 78.1 % Critically high 43.0-75.0 [facility] Comment on above: Performed By: #### C BC ####[facility] Ugwttgvdvf[address] [place], [place] [address]Gerken Annemarie Platelet mean volume (PMV) 9.5 fL Normal 9.5-13.5 [facility] Comment on above: Performed By: #### C BC ####[facility] Mfrswdiwag4882 [place], [place] [address]LawcktGorge Sharpe Platelets 411 103/ul Normal 150-450 [facility] Comment on above: Performed By: #### C BC ####[facility] Moczdjoifr4185 [place], [place] [address]Epieuf Karen WBC (Leukocytes) 15.1 103/ul Critically high 4.0-11.0 [facility] Comment on above: Performed By: #### C BC ####[facility] Bdrzervvrz9955 [place], [place] [address] CT ABD/PELVIS W CONon 2017 CT ABD/PELVIS W CON [address] [place] [address] Patient: ANNEMARIE JACKSON Exam Date: 01/29/2018DOB: 1965 Gender:F : WOJCIECH MaynardMarilyn HALL Admission #: [id number] : Order #: [id number] HERE TO VIEW EXAM RADIOLOGY REPORT PROCEDURE: [...] into this segment of bowel. Dictated by: Mauricio Rogers M.D. on 01/29/2018 at 14:59 Approved by: Mauricio Rogers M.D. on 01/29/2018 at 15:09 Normal [facility] CBC W MANUAL DIFFon 04-18-20 17 BAND # 2.6 103/ul Critically high 0.0-0.3 [facility] Comment on above: Performed By: #### Anna Marie NELSON ####[facility] Gjnjhqhkwj8914 [address] Annemarie BAND % 14 % Critically high 0-5 [facility] Comment on above: Performed By: #### Anna Marie NELSON ####[facility] Gs[address] [place] [address] Annemarie BASOM % 0.0 % Critically low 0.2-2.0 [facility] Comment on above: Performed By: #### Anna Marie NELSON ####[facility] Fwqikgfphl4662 [address] Annemarie Basophils Auto #/vol (Bld) 0.00 103/ul Normal 0.00-0.10 [facility] Comment on above: Performed By: #### Anna Marie NELSON ####[facility] Nqpfbysekv2383 [place] [phone] Annemarie BLAST # Normal [facility] Comment on above: Performed By: #### C LESLIE ####[facility] Ejsozxcjvh9536 [address] Annemarie BLAST % Normal [facility] Comment on above: Performed By: #### Anna Marie NELSON ####[facility] Yinccdzhxu3530 [address] Annemarie Eosinophils 0.00 103/ul Normal 0.00-0.70 [facility] Comment on above: Performed By: #### Anna Marie NELSON ####[facility] Fpdqwpkct[address] [place], [place] [address]fly Sharpe Eosinophils/100 leukocytes 0.0 % Critically low 0.9-7.0 [facility] Comment on above: Performed By: #### Anna Marie NELSON ####[facility] Vhgfuzlcwq1712 [address] Annemarie Erythrocyte distribution width Auto Ratio (RBC) 12.9 % Normal 11.0-15.0 [facility] Comment on above: Performed By: #### Anna Marie NELSON ####[facility] [address] [place] [address] Annemarie Erythrocytes (RBC) Normal [facility] Comment on above: Performed By: #### Anna Marie NELSON ####[facility] Eecygd[address] [place] [address] Annemarie Erythrocytes (RBC) 3.88 106/ul Critically low 4.20-5.40 [facility] Comment on above: Performed By: #### Anna Marie NELSON ####[facility] [address]td[address]fp[address]ig[address] [place] [address] Annemarie Hematocrit (HCT) 36.4 % Normal 36.0-48.0 [facility] Comment on above: Performed By: #### Anna Marie NELSON ####[facility] Axoinuscyy[address] [place] [address] Annemarie Hemoglobin mass conc (Bld) 12.1 g/dL Normal 12.0-16.0 [facility] Comment on above: Performed By: #### Anna Marie NELSON ####[facility] Bkwttbukfy[address] [place] [address] Annemarie Lymphocytes Normal [facility] Comment on above: Performed By: #### Anna Marie NELSON ####[facility] [address]vnpqm[address] [place], [place] [address]Gerken Annemarie Lymphocytes 0.37 103/ul Critically low 1.20-3.80 [facility] Comment on above: Performed By: #### Anna Marie NELSON ####[facility] Tbjovolbne6151 [place], [place] [address]Ilffuo Annemarie Lymphocytes/100 leukocytes 2.0 % Critically low 20.5-60.0 [facility] Comment on above: Performed By: #### Anna Marie NELSON ####[facility] Tfyyjosybf7135 [place], [place] [address]Ukfgod Annemarie Lymphocytes/100 leukocytes Normal [facility] Comment on above: Performed By: #### Anna Marie NELSON ####[facility] Nqbgizxhwu6917 [place] [phone] Annemarie MCH 31.2 pg Normal 26.7-34.0 [facility] Comment on above: Performed By: #### Anna Marie NELSON ####[facility] Tlifgmovhz7810 [place] [phone] Annemarie MCHC mass conc (RBC) 33.2 g/dL Normal 29.9-35.2 [facility] Comment on above: Performed By: #### Anna Marie NELSON ####[facility] Iklyrrqfxy[address] [place], [place] [address]Gerken Annemarie MCV 93.8 fL Normal 81.0-99.0 [facility] Comment on above: Performed By: #### Anna Marie NELSON ####[facility] Gbyjnecyns[address] [place], [place] [address]Gerken Annemarie METAMYELOCYTE # Normal [facility] Comment on above: Performed By: #### Anna Marie NELSON ####[facility] Fqthseczki4685 [place] [phone] Annemarie METAMYELOCYTE % Normal [facility] Comment on above: Performed By: #### Anna Marie NELSON ####[facility] Xlrujsrovu2764 [place] [phone] Annemarie MONOM# 0.37 103/ul Normal 0.30-0.80 [facility] Comment on above: Performed By: #### Anna Marie NELSON ####[facility] [address]cqegixc[address] [place], [place] [address]Gerken Annemarie MONOM% 2.0 % Normal 1.7-12.0 [facility] Comment on above: Performed By: #### C LESLIE ####[facility] Pivvfvxecm6768 [place], [place] [address]Tiotgp Annemarie MYELOCYTE # Normal [facility] Comment on above: Performed By: #### C LESLIE ####[facility] Jkkmpnyyhr2750 [place], [place] [address]Vhfukl Annemarie MYELOCYTE % Normal [facility] Comment on above: Performed By: #### C LESLIE ####[facility] Zefhqkpaze2810 [place], [place] [address]Gnwicd Annemarie Platelet mean volume (PMV) 9.4 fL Critically low 9.5-13.5 [facility] Comment on above: Performed By: #### C LESLIE ####[facility] Egzysfggsz9108 [place] [phone] Annemarie Platelets 392 103/ul Normal 150-450 [facility] Comment on above: Performed By: #### Anna Marie NELSON ####[facility] Zwxjtykvqx5256 [place] [phone] Annemarie SEG # 15.17 103/ul Critically high 1.40-6.50 [facility] Comment on above: Performed By: #### Anna Marie NELSON ####[facility] Cvwyyp[address] [place], [place] [address]Gerken Annemarie Segmented Neutrophils/100 leukocytes 82.0 % Critically high 43.0-75.0 [facility] Comment on above: Performed By: #### Anna Marie NELSON ####[facility] Vnzhxfyrrw0557 [place] [phone] Annemarie WBC (Leukocytes) Normal 4.0-11.0 [facility] Comment on above: Performed By: #### C LESLIE ####[facility] Opcrvxsbbg6370 [place], [place] [address]Ozskga Annemarie WBC (Leukocytes) 18.5 103/ul Critically high 4.0-11.0 [facility] Comment on above: Performed By: #### C LESLIE ####[facility] Ghqojlzrrd4707 [place], [place] [address]Hmwtvr Annemarie BAND # 0.0 103/ul Normal 0.0-0.3 [facility] Comment on above: Performed By: #### Anna Marie ENLSON ####[facility] Adrpmatrbn4692 [place] [phone] Annemarie BAND % 0 % Normal 0-5 [facility] Comment on above: Performed By: #### Anna Marie NELSON ####[facility] Ssssjijvhs[address] [place], [place] [address]Gerken Annemarie BASOM % 0.0 % Critically low 0.2-2.0 [facility] Comment on above: Performed By: #### C LESLIE ####[facility] Koedqxiawu23[address] [place], [place] [address]Gerken Annemarie Basophils Auto #/vol (Bld) 0.00 103/ul Normal 0.00-0.10 [facility] Comment on above: Performed By: #### Anna Marie NELSON ####[facility] [address]yrwzvlog[address] [place], [place] [address]Gerken Annemarie BLAST # Normal [facility] Comment on above: Performed By: #### Anna Marie NELSON ####[facility] Ryrdhipebc[address] [place], [place] [address]Gerken Annemarie BLAST % Normal [facility] Comment on above: Performed By: #### Anna Marie NELSON ####[facility] Vepseypopz[address] [place], [place] [address]Gerken Annemarie Eosinophils 0.00 103/ul Normal 0.00-0.70 [facility] Comment on above: Performed By: #### Anna Marie NELSON ####[facility] Ngasvbkvuj[address] [place] [address] Annemarie Eosinophils/100 leukocytes 0.0 % Critically low 0.9-7.0 [facility] Comment on above: Performed By: #### Anna Marie NELSON ####[facility] Ayuamrthfy[address] [place] [address] Annemarie Erythrocyte distribution width Auto Ratio (RBC) 12.8 % Normal 11.0-15.0 [facility] Comment on above: Performed By: #### Anna Marie NELSON ####[facility] Ayuvxcesxx5285 [address] Annemarie Erythrocytes (RBC) 4.08 106/ul Critically low 4.20-5.40 [facility] Comment on above: Performed By: #### Anna Marie NELSON ####[facility] Krbcszetjb5244 [address] Annemarie Erythrocytes (RBC) Normal [facility] Comment on above: Performed By: #### Anna Marie NELSON ####[facility] Fuugxtfpiw7498 [place] [phone] Annemarie Hematocrit (HCT) 38.1 % Normal 36.0-48.0 [facility] Comment on above: Performed By: #### Anna Marie NELSON ####[facility] Mjzxjalrun2361 [address] Annemarie Hemoglobin mass conc (Bld) 12.7 g/dL Normal 12.0-16.0 [facility] Comment on above: Performed By: #### Anna Marie NELSON ####[facility] Thbhczralh[address] [place] [address] Annemarie Lymphocytes 0.59 103/ul Critically low 1.20-3.80 [facility] Comment on above: Performed By: #### Anna Marie NELSON ####[facility] [address] [place] [address] Annemarie Lymphocytes Normal [facility] Comment on above: Performed By: #### Anna Marie NELSON ####[facility] Xkidpvivgh2259 [address] Annemarie Lymphocytes/100 leukocytes 7.0 % Critically low 20.5-60.0 [facility] Comment on above: Performed By: #### Anna Marie NELSON ####[facility] Yejlmfqmuo6130 [place] [address]Gerken Annemarie Lymphocytes/100 leukocytes Normal [facility] Comment on above: Performed By: #### Anna Marie NELSON ####[facility] Frjmzfotzr1196 [address] Annemarie MCH 31.1 pg Normal 26.7-34.0 [facility] Comment on above: Performed By: #### Anna Marie NELSON ####[facility] Rdmujmwoff4092 [place] [phone] Annemarie MCHC mass conc (RBC) 33.3 g/dL Normal 29.9-35.2 [facility] Comment on above: Performed By: #### C LESLIE ####[facility] Blmpxnakkc0939 [place] [phone] Annemarie MCV 93.4 fL Normal 81.0-99.0 [facility] Comment on above: Performed By: #### Anna Marie NELSON ####[facility] Lzatxlxlfy4171 [place] [address]Gerken Annemarie METAMYELOCYTE # Normal [facility] Comment on above: Performed By: #### Anna Marie NELSON ####[facility] Wmpwbafrkw4577 [place] [address]Gerken Annemarie METAMYELOCYTE % Normal [facility] Comment on above: Performed By: #### Anna Marie NELSON ####[facility] [address]ms[address] [place] [address] Annemarie MONOM# 0.09 103/ul Critically low 0.30-0.80 [facility] Comment on above: Performed By: #### Anna Marie NELSON ####[facility] Sjynldutkl2716 [address] Annemarie MONOM% 1.0 % Critically low 1.7-12.0 [facility] Comment on above: Performed By: #### Anna Marie NELSON ####[facility] Y[address]ucxanb[address] [place] [address] Annemarie MYELOCYTE # Normal [facility] Comment on above: Performed By: #### Anna Marie NELSON ####[facility] Qsrkbuhffo6712 [place] [address]Gerken Annemarie MYELOCYTE % Normal [facility] Comment on above: Performed By: #### Anna Marie NELSON ####[facility] Xummeijzoq1636 [place] [phone] Annemarie Platelet mean volume (PMV) 9.2 fL Critically low 9.5-13.5 [facility] Comment on above: Performed By: #### Anna Marie NELSON ####[facility] Shfcglcckq5266 [place], [place] [address]Puiite Annemarie Platelets 393 103/ul Normal 150-450 [facility] Comment on above: Performed By: #### Anna Marie NELSON ####[facility] Zqeudsiabn6663 [place], [place] [address]Uvvfzi Annemarie SEG # 7.82 103/ul Critically high 1.40-6.50 [facility] Comment on above: Performed By: #### Anna Marie NELSON ####[facility] Ethcbwwjeq4192 [place] [address]Gerken Annemarie Segmented Neutrophils/100 leukocytes 92.0 % Critically high 43.0-75.0 [facility] Comment on above: Performed By: #### Anna Marie NELSON ####[facility] Oyrxnqevyf1189 [place] [phone] Annemarie WBC (Leukocytes) 8.5 103/ul Normal 4.0-11.0 [facility] Comment on above: Performed By: #### Anna Marie NELSON ####[facility] [address] [place] [address]Tmlwqk Annemarie WBC (Leukocytes) Normal 4.0-11.0 [facility] Comment on above: Performed By: #### Anna Marie NELSON ####[facility] Xdcywxacut7439 [place] [phone] Annemarie PROF 14(COMP METB)on 017 Alanine aminotransferase (ALT) 41 U/L Normal 9-52 [facility] Comment on above: Performed By: #### C MP ####[facility] Botuzexlon2789 [place], [place] [address]Qcaswu Annemarie Albumin 4.2 g/dL Normal 3.5-5.0 [facility] Comment on above: Performed By: #### C MP ####[facility] Ffogclzoqw6946 [place] [phone] Annemarie Albumin/Globulin Ratio 1.2 {ratio} Normal [facility] Comment on above: Performed By: #### C MP ####[facility] Tvbycrqosr4861 [place] [phone] Annemarie Alkaline phosphatase (ALP) 60 U/L Normal 38-126 [facility] Comment on above: Performed By: #### C MP ####[facility] [address]ks[address]wnl[address] [place] [address] Annemarie Anion gap 19.0 mmol/L Normal [facility] Comment on above: Performed By: #### C MP ####[facility] D[address]bfnpknur[address] [place] [address] Annemarie Aspartate aminotransferase (AST) 28 U/L Normal 14-36 [facility] Comment on above: Performed By: #### C MP ####[facility] [address]vuqffnl[address] [place] [address] Annemarie Bilirubin Ql (U) 0.3 mg/dL Normal 0.2-1.3 [facility] Comment on above: Performed By: #### C MP ####[facility] Eettvbygou[address] [place] [address] Annemarie BUN/Creatinine Ratio 24.5 mg/mg Normal [facility] Comment on above: Performed By: #### C MP ####[facility] Mhuarwpild[address] [place] [address] Annemarie Calcium 9.4 mg/dL Normal 8.4-10.2 [facility] Comment on above: Performed By: #### C MP ####[facility] [address]zzrbzmv[address] [place] [address] Annemarie Chloride 105 mmol/L Normal 98-107 [facility] Comment on above: Performed By: #### C MP ####[facility] H[address]jjzvze[address] [place] [address] Annemarie CO2 20.0 mmol/L Critically low 22.0-30.0 [facility] Comment on above: Performed By: #### C MP ####[facility] Nywxxlqqdl[address] [place] [address] Annemarie Creatinine 0.71 mg/dL Normal 0.52-1.04 [facility] Comment on above: Performed By: #### C MP ####[facility] Lulhjitwpw5033 [address] Annemarie eGFR (non-black) mL/min/{1.73_m2} Normal >=60 Th [facility] Comment on above: Performed By: #### C MP ####[facility] [address] [place] [address]Gerken Annemarie Globulin 3.4 g/dL Normal [facility] Comment on above: Performed By: #### C MP ####[facility] [address]ph[address] [place] [id number] Annemarie Glucose mass conc 173 mg/dL Critically high 74-106 Th [facility] Comment on above: Performed By: #### C MP ####[facility] [address] [place] [address] Annemarie Potassium molar conc 4.1 mmol/L Normal 3.4-5.0 [facility] Comment on above: Performed By: #### C MP ####[facility] [address] [place] [address] Annemarie Protein 7.5 g/dL Normal 6.1-8.2 [facility] Comment on above: Performed By: #### C MP ####[facility] [address] [place] [address] Annemarie Sodium 140 mmol/L Normal 137-145 [facility] Comment on above: Performed By: #### C MP ####[facility] Podsqagglm[address] Annemarie Urea nitrogen 18.0 mg/dL Critically high 7.0-17.0 [facility] Comment on above: Performed By: #### C MP ####[facility] Cquifpkzxb3[address] Annemarie PROF CHEM 8 (BAS METB)on Anion gap 14.9 mmol/L [facility] Comment on above: Performed By: #### B MP ####[facility] Kmce[address]auqi[address] Annemarie BUN/Creatinine Ratio 21.8 mg/mg Normal [facility] Comment on above: Performed By: #### B MP ####[facility] [address] [place], [place] [address]Tmpnis Annemarie Calcium 9.0 mg/dL Normal 8.4-10.2 [facility] Comment on above: Performed By: #### B MP ####[facility] [address] [place], [place] [address]Osqlcs Annemarie Chloride 110 mmol/L Critically high 98-107 [facility] Comment on above: Performed By: #### B MP ####[facility] [address]xjp[address] [place] [id number] Annemarie CO2 21.0 mmol/L Critically low 22.0-30.0 [facility] Comment on above: Performed By: #### B MP ####[facility] [address] [place], [place] [address]Gerken Annemarie Creatinine 0.66 mg/dL Normal 0.52-1.04 [facility] Comment on above: Performed By: #### B MP ####[facility] [address] [place], [place] [address]Gerken Annemarie eGFR (non-black) mL/min/{1.73_m2} Normal >=60 Th [facility] Comment on above: Performed By: #### B MP ####[facility] [address] [place], [place] [address]Gerken Annemarie Glucose mass conc 139 mg/dL Critically high 74-106 Th [facility] Comment on above: Performed By: #### B MP ####[facility] [address] [place] [id number] Annemarie Potassium molar conc 4.0 mmol/L Normal 3.4-5.0 [facility] Comment on above: Performed By: #### B MP ####[facility] [address] [place], [place] [address]Gerken Annemarie Sodium 142 mmol/L Normal 137-145 [facility] Comment on above: Performed By: #### B MP ####[facility] [address] [place], [place] [address]Gerken Annemarie Urea nitrogen 14.0 mg/dL Normal 7.0-17.0 [facility] Comment on above: Performed By: #### B ####[facility] [address] [place], [place] [address]BlxenzGorge Sharpe Vital Signs Date Time Vital Sign Value Performing Clinician Marguerite waters 12-08-2024 08:55-0500 Body height 165.1 cm Samuel Brown DPM Work Phone: [facility] 12-08-2024 08:55-0500 Body mass index (BMI) [Ratio] 34.11 kg/m2 Samuel Brown DPM Work Phone: [facility] 12-08-2024 08:55-0500 Body weight 92.99 kg Samuel Brown DPM Work Phone: [facility] 12-08-2024 08:55-0500 Respiratory rate 18 /min Samuel Brown DPM Work Phone: [facility] 11-24-2024 09:03-0500 Body height 165.1 cm Samuel Brown DPM Work Phone: [facility] 11-24-2024 09:03-0500 Body mass index (BMI) [Ratio] 34.11 kg/m2 Samuel Brown DPM Work Phone: [facility] 11-24-2024 09:03-0500 Body weight 92.99 kg Samuel Brown DPM Work Phone: [facility] 11-24-2024 09:03-0500 Respiratory rate 16 /min Samuel Brown DPM Work Phone: [facility] 11-22-2024 14:39-0500 Body height 165.1 cm Rei Enrique MD Work Phone: [facility] 11-22-2024 14:39-0500 Body mass index (BMI) [Ratio] 34.11 kg/m2 Rei Enrique MD Work Phone: [facility] 11-22-2024 14:39-0500 Body weight 92.99 kg Rei Enrique MD Work Phone: [facility] 11-02-2024 09:52-0500 Body height 165.1 cm Rei Enrique MD Work Phone: [facility] 11-02-2024 09:52-0500 Body mass index (BMI) [Ratio] 34.11 kg/m2 Rei Enrique MD Work Phone: [facility] 11-02-2024 09:52-0500 Body weight 92.99 kg Rei Enrique MD Work Phone: [facility] 11-02-2024 09:52-0500 Diastolic blood pressure 76 mm[Hg] Rei Enrique MD Work Phone: [facility] 11-02-2024 09:52-0500 Heart rate 59 /min Rei Enrique MD Work Phone: [facility] 11-02-2024 09:52-0500 SaO2% (BldA) [Mass fraction] 98 % Rei Enrique MD Work Phone: [facility] 11-02-2024 09:52-0500 Systolic blood pressure 124 mm[Hg] Rei Enrique MD Work Phone: [facility] 2024 09:22-0500 Body height 165.1 cm Samuel Forbes DPM Work Phone: [facility] 2024 09:22-0500 Body mass index (BMI) [Ratio] 33.95 kg/m2 Samuel Forbes DPM Work Phone: [facility] 2024 09:22-0500 Body weight 92.53 kg Samuel Forbes DPM Work Phone: [facility] 2024 09:22-0500 Respiratory rate 18 /min Samuel Forbes DPM Work Phone: [facility] 09-29-2024 10:49-0500 Body height 165.1 cm Samuel Forbes DPM Work Phone: [facility] 09-29-2024 10:49-0500 Body mass index (BMI) [Ratio] 33.95 kg/m2 Samuel Brown DPM Work Phone: [facility] 09-29-2024 10:49-0500 Body weight 92.53 kg Samuel Brown DPM Work Phone: [facility] 09-29-2024 10:49-0500 Respiratory rate 18 /min Samuel Brown DPM Work Phone: [facility] 09-08-2024 10:40-0500 Body height 165.1 cm Samuel Brown DPM Work Phone: [facility] 09-08-2024 10:40-0500 Body mass index (BMI) [Ratio] 33.95 kg/m2 Samuel Brown DPM Work Phone: [facility] 09-08-2024 10:40-0500 Body weight 92.53 kg Samuel Brown DPM Work Phone: [facility] 09-08-2024 10:40-0500 Diastolic blood pressure 80 mm[Hg] Samuel Brown DPM Work Phone: [facility] 09-08-2024 10:40-0500 Heart rate 88 /min Samuel Brown DPM Work Phone: [facility] 09-08-2024 10:40-0500 Systolic blood pressure 129 mm[Hg] Samuel Brown DPM Work Phone: [facility] 08-31-2024 14:01-0500 Body height 165.1 cm Samuel Brown DPM Work Phone: [facility] 08-31-2024 14:01-0500 Body mass index (BMI) [Ratio] 33.95 kg/m2 Samuel Brown DPM Work Phone: [facility] 08-31-2024 14:01-0500 Body weight 92.53 kg Samuel Brown DPM Work Phone: [facility] 08-31-2024 14:01-0500 Diastolic blood pressure 81 mm[Hg] Samuel Forbes DPM Work Phone: [facility] 08-31-2024 14:01-0500 Heart rate 75 /min Samuel Forbes DPM Work Phone: [facility] 08-31-2024 14:01-0500 Systolic blood pressure 126 mm[Hg] Samuel Forbes DPM Work Phone: [facility] 08-19-2024 08:34-0400 Body height 165.1 cm Samuel Forbes DPM Work Phone: [facility] 08-19-2024 08:34-0400 Body mass index (BMI) [Ratio] 33.95 kg/m2 Samuel Forbes DPM Work Phone: [facility] 08-19-2024 08:34-0400 Body weight 92.53 kg Samuel Forbes DPM Work Phone: [facility] 08-19-2024 08:34-0400 Diastolic blood pressure 79 mm[Hg] Samuel Forbes DPM Work Phone: [facility] 08-19-2024 08:34-0400 Heart rate 82 /min Samuel Forbes DPM Work Phone: [facility] 08-19-2024 08:34-0400 Systolic blood pressure 126 mm[Hg] Samuel Forbes DPM Work Phone: [facility] 08-18-2024 08:52-0400 Body height 165.1 cm Rei Enrique MD Work Phone: [facility] 08-18-2024 08:52-0400 Body mass index (BMI) [Ratio] 33.78 kg/m2 Rei Enrique MD Work Phone: [facility] 08-18-2024 08:52-0400 Body weight 92.08 kg Rei Enrique MD Work Phone: [facility] 08-18-2024 08:52-0400 Diastolic blood pressure 72 mm[Hg] Rei Enrique MD Work Phone: [facility] 08-18-2024 08:52-0400 Heart rate 79 /min Rei Enrique MD Work Phone: [facility] 08-18-2024 08:52-0400 SaO2% (BldA) [Mass fraction] 97 % Rei Enrique MD Work Phone: [facility] 08-18-2024 08:52-0400 Systolic blood pressure 126 mm[Hg] Rei Enrique MD Work Phone: [facility] 06-30-2024 09:44-0400 Body height 165.1 cm Samuel Forbes DPM Work Phone: [facility] 06-30-2024 09:44-0400 Body mass index (BMI) [Ratio] 33.28 kg/m2 Samuel Brown DPM Work Phone: [facility] 06-30-2024 09:44-0400 Body weight 90.72 kg Samuel Forbes DPM Work Phone: [facility] 06-30-2024 09:44-0400 Diastolic blood pressure 80 mm[Hg] Samuel Forbes DPM Work Phone: [facility] 06-30-2024 09:44-0400 Heart rate 74 /min Samuel Forbes DPM Work Phone: [facility] 06-30-2024 09:44-0400 Respiratory rate 17 /min Samuel Forbes DPM Work Phone: [facility] 06-30-2024 09:44-0400 Systolic blood pressure 125 mm[Hg] Samuel Brown DPM Work Phone: [facility] 01-29-2024 08:44-0400 Body height 165.1 cm Jake Rock MD Work Phone: [facility] 01-29-2024 08:44-0400 Body mass index (BMI) [Ratio] 33.45 kg/m2 Jake Rock MD Work Phone: [facility] 01-29-2024 08:44-0400 Body weight 91.17 kg Jake Rock MD Work Phone: [facility] 01-29-2024 08:44-0400 Diastolic blood pressure 86 mm[Hg] Jake Rock MD Work Phone: [facility] 01-29-2024 08:44-0400 Heart rate 74 /min Jake Rock MD Work Phone: [facility] 01-29-2024 08:44-0400 Systolic blood pressure 124 mm[Hg] Jake Rock MD Work Phone: [facility] 11-13-2023 10:18-0500 Blood Pressure Location Serafin Vickierson [facility] 11-13-2023 10:18-0500 Diastolic blood pressure 78 mm[Hg] Serafin Christofferson [facility] 11-13-2023 10:18-0500 Heart rate 73 /min Serafin Christofferson [facility] 11-13-2023 10:18-0500 SaO2% (BldA) [Mass fraction] 96 % Serafin Christofferson [facility] 11-13-2023 10:18-0500 Systolic blood pressure 113 mm[Hg] Serafin Christofferson [facility] 08-20-2023 11:03-0400 Diastolic blood pressure 82 mm[Hg] Serafin Christofferson [facility] 08-20-2023 11:03-0400 Heart rate 69 /min Serafin Christofferson [facility] 08-20-2023 11:03-0400 SaO2% (BldA) [Mass fraction] 74 % Serafin Christofferson [facility] 08-20-2023 11:03-0400 Systolic blood pressure 122 mm[Hg] Serafin Winkler [facility] Encounters Encounter Date Encounter Type Care Provider Facility Start: 12-21-2024 End: 12-21-2024 Bamboo flowsheet Anali Hamm PT Work Phone: [facility] Start: 12-21-2024 End: 12-21-2024 Bamboo flowsheet Anali Villatoroton PT Work Phone: [facility] Start: 12-21-2024 End: 12-21-2024 ambulatory Anali Hamm PT Work Phone: [facility] Comment on above: Capsulitis of metata rsophalangeal (MTP) joint of right foot (Primary Dx) Start: 12-19-2024 End: 12-19-2024 Bamboo flowsheet Deric Brink CREDIT REVIEW OFFICER [facility] Start: 12-19-2024 End: 12-19-2024 Bamboo flowsheet Deric Brink CREDIT REVIEW OFFICER [facility] Start: 12-19-2024 End: 12-19-2024 ambulatory Deric Brink CREDIT REVIEW OFFICER [facility] Comment on above: Capsulitis of metata rsophalangeal (MTP) joint of right foot (Primary Dx) Start: 12-14-2024 End: 12-14-2024 Bamboo flowsheet Anali Hamm PT Work Phone: [facility] Start: 12-14-2024 End: 12-14-2024 Bamboo flowsheet Anali Hamm PT Work Phone: [facility] Start: 12-14-2024 End: 12-14-2024 ambulatory Anali Hamm PT Work Phone: [facility] Comment on above: Capsulitis of metata rsophalangeal (MTP) joint of right foot (Primary Dx) Start: 12-12-2024 End: 12-12-2024 Telephone encounter Samuel Forbes DPM Work Phone: [facility] Comment on above: PT order Start: 12-08-2024 End: 12-08-2024 Bamboo flowsheet Samuel Forbes DPM Work Phone: [facility] Start: 12-08-2024 End: 12-08-2024 Bamboo flowsheet Samuel Forbes DPM Work Phone: [facility] Start: 12-08-2024 End: 12-08-2024 Office outpatient visit 15 minutes Samuel Forbes DPM Work Phone: [facility] Comment on above: Capsulitis of metata rsophalangeal (MTP) joint of left foot (Primary Dx) Start: 12-08-2024 End: 12-08-2024 ambulatory SAMUEL FORBES Not Available Start: 11-24-2024 End: 11-24-2024 Bamboo flowsheet Samuel Frobes DPM Work Phone: [facility] Start: 11-24-2024 End: 11-24-2024 Bamboo flowsheet Samuel Forbes DPM Work Phone: [facility] Start: 11-24-2024 End: 11-24-2024 ambulatory SAMUEL FORBES Not Available Start: 11-24-2024 End: 11-24-2024 Patient encounter procedure Samuel Forbes DPM Work Phone: [facility] Comment on above: Hallux rigidus of ri ght foot (Primary Dx); Contracture of right ankle; Capsulitis of metatarsophalangeal (MTP) joint of left foot Start: 11-22-2024 End: 11-22-2024 Office outpatient visit 15 minutes Rei Enrique MD Work Phone: [facility] Comment on above: Bronchitis (Primary Dx) Start: 11-22-2024 End: 11-22-2024 ambulatory REI ENRIQUE Not Available Start: 11-22-2024 End: 11-22-2024 Bamboo flowsheet Rei Enrique MD Work Phone: [facility] Start: 11-22-2024 End: 11-22-2024 Bamboo flowsallen Enrique MD Work Phone: [facility] Start: 11-02-2024 End: 11-02-2024 Bamboo flowsallen Enrique MD Work Phone: [facility] Start: 11-02-2024 End: 11-02-2024 Bamboo flowsallen Enrique MD Work Phone: [facility] Start: 11-02-2024 End: 11-02-2024 Office outpatient visit 25 minutes Rei Enrique MD Work Phone: [facility] Comment on above: Primary hypertension (CMS/HCC); Sleep arousal disorder; Mixed hyperlipidemia (CMS/HCC); Recurrent major depressive disorder, in partial remission (HCC) (CMS/HCC); Non morbid obesity due to excess calories Start: 11-02-2024 End: 11-02-2024 ambulatory REI ENRIQUE Not Available Start: 2024 End: 2024 Bamboo flowsheet Samuel Forbes DPM Work Phone: [facility] Start: 2024 End: 2024 Bamboo flowsheet Samuel Forbes DPM Work Phone: [facility] Start: 2024 End: 2024 Postop follow up visit related to original px Samuel Forbes DPM Work Phone: [facility] Comment on above: Hallux rigidus of ri ght foot (Primary Dx) Start: 2024 End: 2024 ambulatory SAMUEL FORBES Not Available Start: 09-29-2024 End: 09-29-2024 Bamboo flowsheet Rei Enrique MD Work Phone: [facility] Start: 09-29-2024 End: 09-29-2024 Bamboo flowsheet Rei Enrique MD Work Phone: [facility] Start: 09-29-2024 End: 09-29-2024 Postop follow up visit related to original px Samuel Forbes DPM Work Phone: [facility] Comment on above: Hallux rigidus of ri ght foot (Primary Dx); Contracture of right ankle Start: 09-29-2024 End: 09-29-2024 Patient encounter status Rei Enrique MD Work Phone: [facility] Work Phone: Start: 09-29-2024 End: 09-29-2024 Periodic preventive med est patient 40-64yrs Rei Enrique MD Work Phone: [facility] Comment on above: Adult wellness visit (Primary Dx); Advance directive discussed with patient; Encounter for screening for malignant neoplasm of colon; Screening mammogram, encounter for; Screening for osteoporosis; S/P hysterectomy with oophorectomy; Menopause; Primary hypertension (CMS/HCC); Mixed hyperlipidemia (CMS/HCC) Start: 09-29-2024 End: 09-29-2024 ambulatory SAMUEL FORBES Not Available Start: 09-08-2024 End: 09-08-2024 Bamboo flowsheet Samuel Forbes DPM Work Phone: [facility] Start: 09-08-2024 End: 09-08-2024 Bamboo flowsheet Samuel Forbes DPM Work Phone: [facility] Start: 09-08-2024 End: 09-08-2024 Postop follow up visit related to original px Samuel Maynard Brown DPM Work Phone: [facility] Comment on above: Hallux rigidus of ri ght foot (Primary Dx); Contracture of right ankle Start: 09-08-2024 End: 09-08-2024 ambulatory SAMUEL FORBES Not Available Start: 09-01-2024 End: 09-01-2024 Refill Rei Enrique MD Work Phone: [facility] Comment on above: Recurrent major depr essive disorder, in partial remission (HCC) (CMS/HCC) Start: 08-31-2024 End: 08-31-2024 Bamboo flowsheet Samuel Forbes DPM Work Phone: [facility] Start: 08-31-2024 End: 08-31-2024 Bamboo flowsheet Samuel Forbes DPM Work Phone: [facility] Start: 08-31-2024 End: 08-31-2024 Postop follow up visit related to original px Samuel Forbes DPM Work Phone: [facility] Comment on above: Hallux rigidus of ri ght foot (Primary Dx); Contracture of right ankle Start: 08-31-2024 End: 08-31-2024 ambulatory SAMUEL FORBES Not Available Start: 08-19-2024 End: 08-19-2024 Office outpatient visit 25 minutes Samuel Forbes DPM Work Phone: [facility] Comment on above: Hallux rigidus of ri ght foot (Primary Dx); Contracture of right ankle Start: 08-19-2024 End: 08-19-2024 ambulatory SAMUEL FORBES Not Available Start: 08-18-2024 End: 08-18-2024 Bamboo flowsheet Rei Enrique MD Work Phone: [facility] Start: 08-18-2024 End: 08-18-2024 Bamboo flowsheet Rei Enrique MD Work Phone: [facility] Start: 08-18-2024 End: 08-18-2024 Office outpatient visit 25 minutes Rei Enrique MD Work Phone: [facility] Comment on above: Right foot pain (Isatu yg Dx); Preoperative evaluation to rule out surgical contraindication; PVC (premature ventricular contraction); Primary hypertension (CMS/HCC); Bradycardia Start: 08-18-2024 End: 08-18-2024 Patient encounter status Rei Enrique MD Work Phone: [facility] Start: 08-18-2024 End: 08-18-2024 ambulatory REI ENRIQUE Not Available Start: 08-15-2024 End: 08-15-2024 Orders Only Samuel Forbes DPM Work Phone: [facility] Comment on above: Preoperative clearan ce (Primary Dx) Start: 08-15-2024 End: 08-16-2024 Orders Only Samuel Forbes DPM Work Phone: [facility] Unsolicited Start: 08-15-2024 End: 08-15-2024 Preoperative state Samuel Forbes DPM Work Phone: [facility] Work Phone: Start: 06-30-2024 End: 06-30-2024 Bamboo flowsheet Samuel Forbes DPM Work Phone: [facility] Start: 06-30-2024 End: 06-30-2024 Bamboo flowsheet Samuel Forbes DPM Work Phone: [facility] Start: 06-30-2024 End: 06-30-2024 ambulatory SAMUEL FORBES Not Available Start: 06-30-2024 End: 06-30-2024 ambulatory SAMUEL FORBES Not Available Start: 06-30-2024 End: 06-30-2024 Office outpatient new 30 minutes Samuel Forbes DPM Work Phone: [facility] Comment on above: Hallux rigidus of ri ght foot (Primary Dx); Right foot pain; Contracture of right ankle Start: 06-13-2024 End: 06-13-2024 ambulatory [facility] Ambulatory Start: 06-01-2024 End: 06-01-2024 ambulatory [facility] Ambulatory Start: 05-24-2024 End: 05-24-2024 ambulatory REI ENRIQUE Not Available Start: 04-26-2024 End: 04-26-2024 ambulatory REI ENRIQUE Not Available Start: 04-19-2024 End: 04-19-2024 ambulatory REI ENRIQUE Not Available Start: 02-22-2024 End: 02-22-2024 ambulatory REI ENRIQUE Not Available Start: 01-29-2024 End: 01-29-2024 Office outpatient new 60 minutes Jake Rock MD Work Phone: [facility] Comment on above: Abnormal EKG (Primar y Dx); Establishing care with new doctor, encounter for; Palpitations; Near syncope; BMI 33.0-33.9,adult; Never smoked tobacco Start: 01-29-2024 End: 02-01-2024 ambulatory JAKE ROCK [facility] Ambulatory Start: 12-10-2023 End: 12-11-2023 ambulatory Serafin [place]inkler [place] [place]: 12-10-2023 End: 12-10-2023 Patient encounter procedure Serafin Winkler [facility] Start: 11-13-2023 End: 11-14-2023 ambulatory XXXX NONE [place] Start: 11-13-2023 End: 11-13-2023 Patient encounter procedure Serafin Winkler [facility] Start: 09-23-2023 End: 09-24-2023 ambulatory Serafin Winkler [place] Start: 08-20-2023 End: 08-21-2023 ambulatory REI ENRIQUE [place] Start: 08-20-2023 End: 08-20-2023 Patient encounter procedure Serafin Winkler [facility] Start: 08-06-2023 ambulatory REI ENRIQUE Facili ty:[facility] Start: 02-23-2018 End: 02-24-2018 Ambulatory SANJANA LOPEZ Facility: Start: 01-29-2018 End: 01-30-2018 Ambulatory WOJCIECH HALL Facility:[facility] Start: 04-17-2017 End: 04-18-2017 Ambulatory REI ENRIQUE Facility:[facility] Start: 04-17-2017 End: 04-17-2017 Ambulatory REI ENRIQUE Facility:[facility] Procedures Date Procedure Procedure Detail Performing Clinician Start: 09-28-2024 H/O: surgery S/P hysterectomy with oophorectomy Rei Enrique MD Work Phone: Start: 08-15-2024 Complete blood count with white cell differential, automated Samuel Forbes DPM Work Phone: Start: 08-15-2024 SPECIMEN STATUS REPORT Samuel Forbes DPM Work Phone: Start: 01-29-2024 ECG 12-LEAD JAKE ROCK Start: 01-29-2024 Ecg routine ecg w/least 12 lds w/i&r Jake Rock MD Work Phone: Start: 01-29-2024 CASE REQUEST EP LAB JAKE ROCK Start: 08-20-2023 H/O: hysterectomy Status post laparoscopic hysterectomy Samuel Forbes DPM Work Phone: Start: 12-25-2021 Mammography Jake Rock MD Work Phone: Start: 04-09-2015 Colonoscopy Samuel oFrbes DPM Work Phone: Abdominal hysterectomy Serafin Winkler Colonoscopy Serafin finley H/O: surgery S/P hysterectomy with oophorectomy Rei Enrique MD Work Phone: Plan of Treatment Date Care Activity Detail Author Start: 04-09-2025 Screening for malignant neoplasm of colon [facility] Start: 12-30-2024 End: 12-30-2024 ambulatory 12/30/2024 9:00 AM EST Treatment [facility] [address] [place] [address] Deric Camargo PTA [facility] Start: 12-29-2024 End: 12-29-2024 Patient encounter procedure 12/29/2024 8:40 AM EST Office Visit [facility] [address] [facility] [address] [place] [address] Samuel Forbes, DPDarlene [address] [facility] [address] [place] [address] [facility] Start: 12-28-2024 End: 12-28-2024 ambulatory 12/28/2024 8:00 AM EST Treatment [facility] [address] [facility] [address] [place] [address] Elizabeth Lamar CREDIT REVIEW OFFICER [facility] Start: 12-26-2024 End: 12-26-2024 ambulatory 12/26/2024 8:00 AM EST Treatment [facility] [address] [facility] [address] [place] [address] Deric Camargo CREDIT REVIEW OFFICER [facility] Start: 12-23-2024 End: 12-23-2024 ambulatory 12/23/2024 9:00 AM EST Treatment [facility] [address] [facility] [address] [place] [address] Deric Camargo CREDIT REVIEW OFFICER [facility] Start: 12-21-2024 End: 12-21-2024 ambulatory [facility] Comment on above: Arrived Start: 12-19-2024 End: 12-19-2024 ambulatory [facility] Comment on above: Arrived Start: 12-16-2024 End: 12-16-2024 ambulatory 12/16/2024 9:00 AM EST Treatment [facility] [address] [facility] [address] [place] [address] Deric Camargo, CREDIT REVIEW OFFICER [facility] Start: 12-14-2024 End: 12-14-2024 ambulatory [facility] Comment on above: Capsulitis of metatarsophalangeal (MTP) joint of left foot Start: 12-08-2024 End: 12-08-2024 Patient encounter procedure [facility] Comment on above: Capsulitis of metatarsophalangeal (MTP) joint of left foot (Primary Dx) Start: 11-24-2024 End: 11-24-2024 Patient encounter procedure 11/24/2024 8:30 AM EST Office Visit [facility] [address] [place] [address] Samuel Forbes DPM [address] [facility] [address] [place] [address] [facility] Start: 11-22-2024 End: 11-22-2024 Patient encounter procedure 11/22/2024 3:00 PM EST Office Visit [facility] [address] [place] [address] Rei Enrique MD [address] [place] [address] (Fax) Arrived [facility] Comment on above: Arrived Start: 11-02-2024 End: 11-02-2024 Patient encounter procedure [facility] 00 Comment on above: Primary hypertension (CMS/HCC); Sleep arousal disorder; Mixed hyperlipidemia (CMS/HCC); Recurrent major depressive disorder, in partial remission (HCC) (CMS/HCC); Non morbid obesity due to excess calories Start: 2024 End: 2024 Patient encounter procedure [facility] Comment on above: Hallux rigidus of right foot (Primary Dx ) Start: 09-29-2024 End: 09-29-2025 DXA Skeletal system Views for bone density DEXA bone density Imaging Routine Screening for osteoporosis Menopause Expected: 09/29/2024 (Approximate), Expires: 09/29/2025 [facility] Comment on above: Expected: 09/29/2024 (Approximate), Expi res: 09/29/2025 Start: 09-29-2024 End: 09-29-2025 Lipid 1996 panel - Serum or Plasma Lipid panel Lab Routine Mixed hyperlipidemia (CMS/HCC) Expected: 09/29/2024 (Approximate), Expires: 09/29/2025 [facility] Comment on above: Expected: 09/29/2024 (Approximate), Expi res: 09/29/2025 Start: 09-29-2024 End: 11-30-2025 MG Breast - bilateral Screening Bilateral screening mammogram Imaging Routine Screening mammogram, encounter for Expected: 09/29/2024 (Approximate), Expires: 11/30/2025 [facility] Work Phone: Comment on above: Expected: 09/29/2024 (Approximate), Expi res: 11/30/2025 Start: 09-29-2024 End: 09-29-2024 Patient encounter procedure [facility] 00 Comment on above: Encounter for examination following bonnie tment at hospital; Advance directive discussed with patient; Encounter for screening for malignant neoplasm of colon; Screening mammogram, encounter for; Screening for osteoporosis; S/P hysterectomy with oophorectomy; Vitamin D deficiency; Menopause Start: 09-08-2024 End: 09-08-2024 Patient encounter procedure 09/08/2024 10:30 AM EST Office Visit [facility] [address] [place] [phone] Samuel Forbes DPM [address] [address] [facility] Start: 08-31-2024 End: 08-31-2024 Professional / ancillary services management 08/31/2024 2:35 PM EST Ancillary Procedure [facility] [address] [place] [address] Arrived [facility] Comment on above: Arrived Start: 08-31-2024 End: 08-31-2024 Patient encounter procedure [facility] Comment on above: Hallux rigidus of right foot (Primary Dx ); Contracture of right ankle Start: 08-19-2024 End: 08-19-2024 Patient encounter procedure 08/19/2024 8:30 AM EDT Office Visit [facility] [address] [place] [address] Samuel Forbes DPM [address] [address] [facility] Start: 08-18-2024 End: 08-18-2024 Patient encounter procedure [facility] 00 Comment on above: Preoperative evaluation to rule out surg ical contraindication Start: 08-15-2024 End: 08-15-2025 Basic metabolic 1998 panel - Serum or Plasma Basic metabolic panel Lab Routine Preoperative clearance Expected: 08/15/2024 (Approximate), Expires: 08/15/2025 [facility] Work Phone: Comment on above: Expected: 08/15/2024 (Approximate), Expi res: 08/15/2025 Start: 08-15-2024 End: 08-15-2025 CBC W Auto Differential panel - Blood CBC auto differential Lab Routine Preoperative clearance Expected: 08/15/2024 (Approximate), Expires: 08/15/2025 [facility] Comment on above: Expected: 08/15/2024 (Approximate), Expi res: 08/15/2025 Start: 06-30-2024 End: 06-30-2024 Professional / ancillary services management 06/30/2024 10:55 AM EDT Ancillary Procedure [facility] [address] [phone] Arrived [facility] Comment on above: Arrived Start: 06-26-2024 Influenza vaccination [facility] Start: 05-11-2024 End: 05-11-2024 Patient encounter procedure 05/11/2024 8:45 AM EDT Office Visit [facility] [address] [phone] Jake Rock MD 254 [facility] [address] [place] [address] [facility] Start: 02-26-2024 End: 02-26-2024 Admission to same day surgery center 02/26/2024 9:00 AM EDT - 02/26/2024 9:30 AM EDT Surgery [facility] [address] [place] [phone] Jake Rock MD [address] [id number] Loop Insertion [94013 (CPT )] [facility] Comment on above: Loop Insertion [41868 (CPT )] Start: 02-26-2024 Subsequent hospital visit by physician 02/26/2024 9:00 AM EDT Hospital Encounter [facility] [address] [place] [address] Jake Rock MD [address] [place] [phone] Palpitations; Near syncope [facility] Comment on above: Palpitations; Near syncope Start: 01-29-2024 End: 01-28-2025 Basic metabolic 2000 panel - Serum or Plasma Basic Metabolic Panel Lab Routine Palpitations Near syncope Expected: 01/29/2024 (Approximate), Expires: 01/28/2025 [facility] Work Phone: Comment on above: Expected: 01/29/2024 (Approximate), Expi res: 01/28/2025 Start: 01-29-2024 End: 01-28-2025 CBC panel - Blood by Automated count CBC Lab Routine Palpitations Near syncope Expected: 01/29/2024 (Approximate), Expires: 01/28/2025 [facility] Work Phone: Comment on above: Expected: 01/29/2024 (Approximate), Expi res: 01/28/2025 Start: 01-29-2024 End: 01-28-2025 Prothrombin time (PT) Protime-INR Lab Routine Palpitations Near syncope Expected: 01/29/2024 (Approximate), Expires: 01/28/2025 [facility] Service Area Work Phone: Comment on above: Expected: 01/29/2024 (Approximate), Expi res: 01/28/2025 Start: 06-26-2023 COVID-19 Vaccine ( season) COVID-19 Vaccine ( season) [facility] Start: 12-25-2022 Screening for malignant neoplasm of breast Mammogram [facility] Start: 2013 Zoster Vaccines (1 of 2) Zoster Vaccines (1 of 2) [facility] Start: 1985 DTaP/Tdap/Td Vaccines (1 - Tdap) DTaP/Tdap/Td Vaccines (1 - Tdap) [facility] Start: 1984 Screening for malignant neoplasm of cervix [facility] Start: 1981 Diabetes mellitus screening Diabetes Screening [facility] Start: 1981 Hepatitis C screening Hepatitis C Screening [facility] Start: 1964 MMR Vaccines (1 of 1 - Standard series) MMR Vaccines (1 of 1 - Standard series) [facility] Start: 1963 HIV screening HIV Screening [facility] Start: 1963 Lipid panel Lipid Panel [facility] Start: 1963 Screening for malignant neoplasm of colon [facility] Start: 1963 Yearly Adult Physical Yearly Adult Physical [facility] XR Foot - right 3 Views XR foot 3+ views right Imaging Routine Hallux rigidus of right foot 08/31/2024 2:33 PM EST [facility] Work Phone: XR Foot - right 3 Views XR foot 3+ views right Imaging Routine Hallux rigidus of right foot 06/30/2024 10:53 AM EDT [facility] Work Phone: Immunizations Immunization Date Immunization Notes Care Provider [facility] 08-07-2021 influenza, injectabl e, quadrivalent, preservative free Samuel Forbes DPM Work Phone: [facility] 08-07-2021 influenza virus vaccine, unspecified formulation Jaek Rock MD Work Phone: [facility] Work Phone: 09-13-2020 influenza, injectabl e, quadrivalent, preservative free Samuel Forbes DPM Work Phone: [facility] 08-22-2019 influenza, injectabl e, quadrivalent, contains preservative Samuel Forbes DPM Work Phone: [facility] 08-26-2018 influenza, injectabl e, quadrivalent, preservative free Samuel Brown DPM Work Phone: [facility] 08-04-2017 influenza, seasonal, injectable, preservative free Samuel Brown DPM Work Phone: [facility] 07-08-2017 influenza, injectabl e, quadrivalent, preservative free Samuel Brown DPM Work Phone: [facility] 08-14-2016 influenza, injectabl e, quadrivalent, preservative free Samuel Brown DPM Work Phone: [facility] 07-11-2015 influenza, injectabl e, quadrivalent, preservative free Samuel Brown DPM Work Phone: [facility] Payers Date Payer Category Payer [facility] Insurance [facility] [id number] 2022 Unknown [id number] [id number] 2022 Unknown [id number] 1963 Unknown [id number] 2.16.840.1.079485.3.579. 2.727 1963 Unknown [id number] 2.16.840.1.116578.3.579. 2.727 1963 Unknown [id number] 2.16.840.1.351944.3.579. 2.727 1963 Unknown [id number] 2.16.840.1.501039.3.579. 2.727 1963 Unknown [id number] 2.16.840.1.452729.3.579. 2.727 1963 Unknown [id number] 2.16.840.1.726558.3.579. 2.1244 1963 Unknown [id number] 2.16.840.1.038108.3.579. 2.1244 1963 Unknown [id number] 2.16.840.1.664820.3.579. 2.1244 1963 Unknown [id number] 2.16.840.1.288839.3.579. 2.9 1963 Unknown [id number] 2.16.840.1.151789.3.579. 2.1259 1963 Unknown [id number] 2.16.840.1.216268.3.579. 2.1259 1963 Unknown [id number] 2.16.840.1.794105.3.579. 2.1259 1963 Unknown [id number] 2.16.840.1.584950.3.579. 2.1259 1963 Unknown [id number] 2.16.840.1.100930.3.579. 2.1259 1963 Unknown [id number] 2.16.840.1.294360.3.579. 2.1259 1963 Unknown [id number] 2.16.840.1.007400.3.579. 2.1259 1963 Unknown [id number] 2.16.840.1.226338.3.579. 2.1259 1963 Unknown [id number] 2.16.840.1.928692.3.579. 2.1259 1963 Unknown [id number] 2.16.840.1.481894.3.579. 2.1259 1963 Unknown [id number] 2.16.840.1.963902.3.579. 2.1259 1963 Unknown [id number] 2.16.840.1.809503.3.579. 2.9 1963 Unknown [id number] 2.16.840.1.352096.3.579. 2.9 1963 Unknown [id number] 2.16.840.1.970370.3.579. 2.1258 1963 Unknown [id number] 2.16.840.1.707636.3.579. 2.9 1963 Unknown [id number] 2.16.840.1.001116.3.579. 2.9 1963 Unknown [id number] 2.16.840.1.213604.3.579. 2.9 1963 Unknown [id number] 2.16.840.1.938184.3.579. 2.9 1963 Unknown [id number] 2.16.840.1.846078.3.579. 2.9 1963 Unknown [id number] 2.16.840.1.034198.3.579. 2.9 1959 Unknown [id number] Social History Date Type Detail Facility Start: 08-20-2023 End: 08-26-2023 Tobacco smoking status Never smoked tobacco (finding) [facility] Start: 08-26-2023 End: 09-26-2024 Sex Assigned At Female [facility] Tobacco smoking status Never [facility] Start: 08-26-2023 End: 01-29-2024 Tobacco use and exposure Smokeless tobacco non-user [facility] Work Phone: Start: 01-29-2024 End: 12-08-2024 Alcohol intake Lifetime non-drinker (finding) [facility] Work Phone: Start: 1965 Sex Assigned At Not on file [facility] Work Phone: Start: 01-19-2024 End: 01-29-2024 Exposure to SARS-CoV-2 (event) Not sure [facility] Start: 08-26-2023 End: 09-26-2024 History of Social function [facility] Within the last year , have you been afraid of your partner or ex-partner? No [facility] Are you now , , , , never or living with a partner? [facility] How often to you hav e a drink containing alcohol? Monthly or less [facility] How often do you hav e 6 or more drinks on 1 occasion? Never [facility] Do you feel stress - tense, restless, nervous, or anxious, or unable to sleep at night because your mind is troubled all the time - these days [OSQ] To some extent [facility] (I/We) worried wheth er (my/our) food would run out before (I/we) got money to buy more. Never true [facility] Start: 08-26-2023 Alcohol Comment Caffeine intake : 1-2 cups per day [facility] Start: 1965 Sex assigned at Female [facility] Start: 01-07-2023 Gender identity Identifies as female gender (finding) [facility] Start: 08-26-2023 Sexual orientation Heterosexual (finding) [facility] How many standard drinks containing alcohol do you have on a typical day? 1 or 2 [facility] Functional Status Date Assessment Result Facility 11-13-2023 Functional Status No [facility] 08-20-2023 Functional Status No [facility] Clinical Notes 09-26-2023 to 12-21-2024 Anali Hamm, PT - 12/21/2024 8:00 AM ESTTelephone Encounter - Jada Tate - 12/12/2024 8:30 AM ESTTelephone Encounter - Jada Tate - 12/12/2024 8:30 AM ESTPatient InstructionsRadiology Note Date & Type Note Facility 12-21-2024 History of Present illness Narrative Images from the original note were not included. Physical Therapy Treatment Visit Patient Name: Annemarie Jackson Today's Date: 12/21/2024 Encounter Diagnoses Name Primary? Capsulitis of metatarsophalangeal (MTP) joint of right foot Yes Visit number: 3 Timed Code Treatment Minutes: 53 minutes Total Treatment Time: 53 minutes Time In: 0800 Time Out: 0853 History: Pt. Presents to PT with right great toe pain/stiffness. Pt. Had right great toe replacement. DOS 08/24/25. Pt. Reports after surgery her toe is very stiff and has difficulty moving her great toe. After NWB for 4 weeks and in CAM boot. Occasional N/T at times throughout the day. Work: [employer]) stands for long hours. Precautions: universal Subjective: Pt. Reports of no change. Great toe is still very stiff and unable to put toe flat on ground. Pain: 4-5/10 Objective: PT Evaluation (12/14/24) Right toe AROM: great toe extension 5 deg, flexion 10 deg Right ankle AROM: dorsiflexion 5 deg, Planterflexion 45 deg, EV 5 deg, INV 10 deg Flexibility: moderate calf muscle tightness Strength: ankle grossly 4-/5 in all planes Balance: SLS poor (less than 3 seconds before LOB) Gait: limping gait due to poor great toe extension with push off Treatment: Education: HEP education with demonstration, Educated on Eval Findings and POC Manual Therapy: (23 minutes) great toe PROM, MFR, ankle mobs to improve soft tissue mobility. Significant tightness along plantar aspect of foot. Passive ROM, Joint mobilization, Soft Tissue Mobilization, Myofascial Release, Muscle Energy Technique, Neural Mobilization, Myofascial Cupping, Dry Needling, IASTM, and Scar mobilization Therapeutic Exercise: (15 minutes) Exercises were instructed to improve great to ROM and strength. exercises in grid; Strength, Endurance, Flexibility, ROM, HEP, Neural Mobilization, Power, and Core Stability Therapeutic Activity: Exercises to improve dynamic activities, functional tasks, functional mobility to return to prior activity level Neuromuscular re-education: (10 minutes) Balance Training bearfoot, Muscle Facilitation to improve great toe mobility. Dynamic Stability, Core Stabilization, and Blood Flow Restriction Training (BFRT) Modalities: Heat, Ice, Electrical Stimulation, Ultrasound, Cervical Mechanical Traction, Lumbar Mechanical Traction, Iontophoresis, and Fluidotherapy Assessment: Pt. Has participated in 3 PT session with start of POC on 12/14 for great toe tightness. Pt will benefit from skilled PT services. PT treatment to improve great toe ROM, balance, strength. Pt. Continues to demonstrate great toe joint stiffness. Hallux flexor muscle tightness and adhesive noted. Good effort with all ther ex. Outcome Measure: in chart Short Term Goal: To be met in 2 weeks Goal 1: Pt to be instructed in home exercise program. [employer] Goals: To be met in 10 weeks Goal 1: Pt to report independence and compliance with home program. Goal 2: Pt. Will report of 0/10 right great toe pain while walking/standing for long periods of time to help improve her quality of life. Goal 3: Pt. Will demonstrate normal right calf muscle flexibility to help her achieve full ROM to return to PLOF. Goal 4: Pt. Will demonstrates 30 degrees or greater of great toe extension to help her walk with normalized gait pattern. Goal 5: Pt. Will demonstrate 5/5 right ankle strength grossly in all planes to allow her to walk/stand for long periods of time. Pt will benefit from skilled PT for 1-3x/week from 12/14/24 to 02/22/25 to address the above impairments. I hereby deem this POC medically necessary. Please sign below. Date: documented in this encounter [facility] 12-12-2024 Telephone encounter Note Pt called, states she is scheduled for physical therapy but states it is to be for her right foot not left. Could you please correct and send to physical therapy [facility] 12-12-2024 Miscellaneous Notes Pt called, states she is scheduled for physical therapy but states it is to be for her right foot not left. Could you please correct and send to physical therapy documented in this encounter [facility] 12-08-2024 History of Present illness Narrative Patient: Annemarie Jackson : 1965 PCP: Rei Enrique MD SUBJECTIVE This is a 59 y.o. female that presents today 13 weeks s/p right BioPro implant to great toe Pt denies n/f/v/c and has minimal pain to post op site. Pt states that they have been returning to normal shoe gear but still has decreased swelling and diminished range of motion of great toe according to patient Pt presents today for follow up. Patient presents today for follow up of capsulitis and synovitis to the left first MPS capsule Currently they rate their pain on a 1-10 scale a 5 States prior treatments of steroid injection and nsaids with minimal improvement States pain is aggrevated with WB. Allergies: Allergies Allergen Reactions Amlodipine Besy-Benazepril Hcl Other Reaction(s): swollen lips Doxylamine Other Reaction(s): weird dreams / hallucinations Olanzapine Other Reaction(s): itch Tramadol Rash Past Medical History: Past Medical History: Diagnosis Date Abdominal pain Adult situational stress disorder (CMS/HCC) Anemia Basal cell carcinoma 2013 Chronic kidney disease, stage 2 (mild) Depression with anxiety Endometriosis 2005 [place] Fibromyalgia Heart murmur Hypertension (CMS/HCC) Hypertriglyceridemia (CMS/HCC) Inflammatory bowel disease Internal derangement of left knee Neuroma of foot 08/20/2023 Obesity Overweight Pulmonary arterial hypertension (CMS/HCC) Tendonosis Visual impairment w/ corrective lenses Medications: Current Outpatient Medications: albuterol HFA 90 mcg/act inhaler, Inhale 2 puffs every 4 (four) hours if needed for wheezing or shortness of breath, Disp: 18 g, Rfl: 0 aspirin 81 MG EC tablet, Take 1 tablet (81 mg) by mouth 3 (three) times a week, Disp: , Rfl: Black Cohosh 540 MG capsule, 1 (one) time each day at the same time., Disp: , Rfl: DULoxetine (Cymbalta) [address] capsule, Take 1 capsule (60 mg) by mouth Daily, Disp: 90 capsule, Rfl: 1 fenofibrate (Triglide) 160 MG tablet, Take 1 tablet (160 mg) by mouth Daily, Disp: 90 tablet, Rfl: 1 losartan (Cozaar) 100 MG tablet, Take 1 tablet (100 mg) by mouth Daily, Disp: 90 tablet, Rfl: 1 Multiple Vitamin (Multi Vitamin) tablet, Daily, Disp: , Rfl: nebivolol (Bystolic) 5 MG tablet, Take 1 tablet (5 mg) by mouth Daily, Disp: 90 tablet, Rfl: 1 omega-3 (Fish Oil) 1000 MG capsule, Take 1,000 mg by mouth in the morning., Disp: , Rfl: QUEtiapine (SEROquel) 50 MG tablet, Take 1 tablet at bedtime as needed for sleep, Disp: 90 tablet, Rfl: 1 Spacer/Aero-Holding Chambers (BreatheRite Lien Spacer Adult) misc, 2 puffs 4 (four) times a day as needed (sob and cough), Disp: 1 each, Rfl: 0 ROS: General: denies fever, chills, fatigue, malaise OBJECTIVE LE EXAM: Derm: Skin intact to right foot with negative erythema, negative drainage, edema with negative clinical signs of infection. Vascular: Palpable pedal pulses to right foot Neuro: Gross sensation intact to right foot. Musculoskeletal: Negative pain on palpation to right calf. Ortho: Ankle range of motion less than 10 degrees of dorsiflexion at right ankle joint. First MPJ range motion greater than 5 degrees dorsiflexion Positive pain on palpation to the left 1st MPJ capsular region Positive palpation left 2nd MPJ capsule with negative Nieves test ASSESSMENT 13 weeks s/p right BIO Pro great toe implant 1. Capsulitis of metatarsophalangeal (MTP) joint of left foot PLAN Patient had physical therapy Prescription today for Medrol pack Follow up in 3 weeks to reassess and did discuss possible further surgical intervention orthotics Samuel Forbes DPM documented in this encounter [facility] 11-24-2024 History of Present illness Narrative Patient: Annemarie Jackson : 1965 PCP: Rei Enrique MD SUBJECTIVE This is a 59 y.o. female that presents today 11 weeks s/p right BioPro implant to great toe Pt denies n/f/v/c and has minimal pain to post op site. Pt states that they have been returning to normal shoe gear but still has decreased swelling and diminished range of motion of great toe according to patient Pt presents today for follow up. Discussed possible steroid injection to 1st MPJ on prior visits or physical therapy Allergies: Allergies Allergen Reactions Amlodipine Besy-Benazepril Hcl Other Reaction(s): swollen lips Doxylamine Other Reaction(s): weird dreams / hallucinations Olanzapine Other Reaction(s): itch Tramadol Rash Past Medical History: Past Medical History: Diagnosis Date Abdominal pain Adult situational stress disorder (CMS/HCC) Anemia Basal cell carcinoma 2013 Chronic kidney disease, stage 2 (mild) Depression with anxiety Endometriosis 2005 Fibromyalgia Heart murmur Hypertension (CMS/HCC) Hypertriglyceridemia (CMS/HCC) Inflammatory bowel disease Internal derangement of left knee Neuroma of foot 08/20/2023 Obesity Overweight Tendonosis Visual impairment w/ corrective lenses Medications: Current Outpatient Medications: aspirin 81 MG EC tablet, Take 1 tablet (81 mg) by mouth 3 (three) times a week, Disp: , Rfl: Black Cohosh 540 MG capsule, 1 (one) time each day at the same time., Disp: , Rfl: DULoxetine (Cymbalta) [address] capsule, Take 1 capsule (60 mg) by mouth Daily, Disp: 90 capsule, Rfl: 1 fenofibrate (Triglide) 160 MG tablet, Take 1 tablet (160 mg) by mouth Daily, Disp: 90 tablet, Rfl: 1 losartan (Cozaar) 100 MG tablet, Take 1 tablet (100 mg) by mouth Daily, Disp: 90 tablet, Rfl: 1 Multiple Vitamin (Multi Vitamin) tablet, Daily, Disp: , Rfl: nebivolol (Bystolic) 5 MG tablet, Take 1 tablet (5 mg) by mouth Daily, Disp: 90 tablet, Rfl: 1 omega-3 (Fish Oil) 1000 MG capsule, Take 1,000 mg by mouth in the morning., Disp: , Rfl: QUEtiapine (SEROquel) 50 MG tablet, Take 1 tablet at bedtime as needed for sleep, Disp: 90 tablet, Rfl: 1 ROS: General: denies fever, chills, fatigue, malaise OBJECTIVE LE EXAM: Derm: Skin intact to right foot with negative erythema, negative drainage, edema with negative clinical signs of infection. Vascular: Palpable pedal pulses to right foot Neuro: Gross sensation intact to right foot. Musculoskeletal: Negative pain on palpation to right calf. Ortho: Ankle range of motion less than 10 degrees of dorsiflexion at right ankle joint. First MPJ range motion greater than 5 degrees dorsiflexion Positive pain on palpation to the left 1st MPJ capsular region DIAGNOSTIC ULTRASOUND REPORT: Verbal order for ultrasound today The 1st MPJ capsule of the left foot was examined with a 12 MHz linear probe in the transverse and sagital planes on the capsular regions of the MPJ. Images obtained. FINDINGS: Ultrasound exam demonstrates capsulitis/inflammation and a hypoechoic signal at plantar capsule on a series of sagittal and transverse images. The plantar plate examined as well with plantar joint capsule intact. Notable hyperechoic single noted to the dorsal aspect of the 1st MPJ and area of metallic implant IMPRESSION: Ultrasound findings indicated capsulitis of the left 1st MPJ. ASSESSMENT 11 weeks s/p right BIO Pro great toe implant 1. Hallux rigidus of right foot 2. Contracture of right ankle 3. Capsulitis of metatarsophalangeal (MTP) joint of left foot PLAN Patient to continue with oral anti - inflammatories as needed for pain and recommended OTC medications such as tylenol or Ibuprofen Reviewed ultrasound do patient Pt was given steroid injection to the medial and lateral capsular ligaments of the left 1st MPJ under US guidance with visualization of injected fluid into area of concern per imaging. Injection consisted of a 2:1 mixture of xylocaine 2%plain and kenalog 10 for a total of 3ccs. Informed pt of risks and benefits of procedure including infection,damage or rupture to soft tissue structures and steroid flare. Pt understood and consented. This is the patients 1st injection Samuel Forbes DPM documented in this encounter [facility] 11-22-2024 History of Present illness Narrative Images from the original note were not included. Patient ID: Annemarie Jackson is a 59 y.o. female who presents for: Upper Respiratory Infection Patient complains of follow up on a URI, pt and her had gotten sick while on their cruise. They have been home over a week and still not feeling any better. Symptoms include bilateral ear pressure/pain, congestion, productive cough with yellow colored sputum, shortness of breath, sore throat, and wheezing. Onset of symptoms was several week ago, and has been unchanged since that time. Treatment to date: mucinex . Review of Systems Constitutional: Negative for chills and fever. Respiratory: Positive for wheezing. Negative for cough and shortness of breath. Cardiovascular: Negative for chest pain and palpitations. Gastrointestinal: Negative for abdominal pain. Genitourinary: Negative for frequency and urgency. Objective In general the patient is pleasant and in no acute distress. Bilateral ears, canals are within normal limits. Right TM is transparent and somewhat retracted. Left TM is transparent and somewhat retracted. No fluid layer. Oropharynx has moist mucosa there is no specific evidence of thrush. There is mild erythema of the pharynx. Shoddy bilateral anterior cervical adenopathy. No signs of respiratory distress. Patient is speaking full sentences. There are symmetrical breath sounds. No rhonchi or rales are appreciated. No wheezes. Skin is warm and dry Visit Vitals Ht 5' 5 Wt 205 lb BMI 34.11 kg/m OB Status Postmenopausal Smoking Status Never BSA 2.07 m Allergies Allergen Reactions Amlodipine Besy-Benazepril Hcl Other Reaction(s): swollen lips Doxylamine Other Reaction(s): weird dreams / hallucinations Olanzapine Other Reaction(s): itch Tramadol Rash Current Outpatient Medications on File Prior to Visit Medication Sig Dispense Refill aspirin 81 MG EC tablet Take 1 tablet (81 mg) by mouth 3 (three) times a week Black Cohosh 540 MG capsule 1 (one) time each day at the same time. DULoxetine (Cymbalta) [address] capsule Take 1 capsule (60 mg) by mouth Daily 90 capsule 1 fenofibrate (Triglide) 160 MG tablet Take 1 tablet (160 mg) by mouth Daily 90 tablet 1 losartan (Cozaar) 100 MG tablet Take 1 tablet (100 mg) by mouth Daily 90 tablet 1 Multiple Vitamin (Multi Vitamin) tablet Daily nebivolol (Bystolic) 5 MG tablet Take 1 tablet (5 mg) by mouth Daily 90 tablet 1 omega-3 (Fish Oil) 1000 MG capsule Take 1,000 mg by mouth in the morning. QUEtiapine (SEROquel) 50 MG tablet Take 1 tablet at bedtime as needed for sleep 90 tablet 1 No current facility-administered medications on file prior to visit. 1. Bronchitis (Primary) Acute problem She did get sick several days after her did on their cruise. As ill as he is in the considerations of the infection we have discussed and agreed to empirically treat her bronchitis. - levoFLOXacin (Levaquin) 750 MG tablet; Take 1 tablet (750 mg) by mouth Daily for 7 days Dispense: 7 tablet; Refill: 0 - Spacer/Aero-Holding Chambers (BreatheRite Lien Spacer Adult) misc; 2 puffs 4 (four) times a day as needed (sob and cough) Dispense: 1 each; Refill: 0 - albuterol HFA 90 mcg/act inhaler; Inhale 2 puffs every 4 (four) hours if needed for wheezing or shortness of breath Dispense: 18 g; Refill: 0 documented in this encounter [facility] 11-02-2024 History of Present illness Narrative Images from the original note were not included. Patient ID: Annemarie Jackson is a 59 y.o. female who presents for: Hypertension Patient is here for follow-up of elevated blood pressure. She is not exercising and is adherent to a low-salt diet. Blood pressure is well controlled at home. Cardiac symptoms: none. Patient denies chest pain, dyspnea, irregular heart beat, lower extremity edema, and palpitations. Cardiovascular risk factors: dyslipidemia, hypertension, and obesity (BMI >= 30 kg/m2). Use of agents associated with hypertension: none. History of target organ damage: none. Hyperlipidemia Pt who presents for follow-up of dyslipidemia. A repeat fasting lipid profile was done. The patient does not use medications that may worsen dyslipidemias (corticosteroids, progestins, anabolic steroids, diuretics, beta-blockers, amiodarone, cyclosporine, olanzapine). Exercise: recovering from foot surgery . Anxiety Patient is here for evaluation of anxiety. He/She has the following anxiety symptoms: difficulty concentrating, racing thoughts. Onset of symptoms was approximately several years ago. Symptoms have been stable since that time. He/She denies current suicidal and homicidal ideation. Family history significant for no psychiatric illness.Possible organic causes contributing are: none. Previous treatment includes medication duloxetine . He/She complains of the following medication side effects: none. Sleep Disorder: Onset of symptoms has been several years. How many hours of sleep is patient getting on average night: 6-7 How long does it take patient to get to sleep each night: 30-60 minutes Does he/she have trouble falling asleep: no Does he/she have trouble maintaining sleep: no Does patient have good sleep hygiene: yes Review of Systems Constitutional: Negative for activity change and fatigue. Respiratory: Negative for cough, shortness of breath and wheezing. Cardiovascular: Negative for chest pain, palpitations and leg swelling. Neurological: Negative for light-headedness and headaches. Objective The patient is pleasant and in no acute distress. The neck is supple and trachea is midline. No masses are appreciated. The heart is regular rate and rhythm without S3, S4. No murmur. The patient has normal respiratory pattern. The breath sounds are symmetrical without evidence of rhonchi or rales. No wheezing. The skin is warm and dry. The lower extremities have trace edema. The patient has good eye contact and speech is clear. Appropriate affect. Visit Vitals BP 124/76 Pulse 59 Ht 5' 5 Wt 205 lb SpO2 98% BMI 34.11 kg/m OB Status Postmenopausal Smoking Status Never BSA 2.07 m Allergies Allergen Reactions Amlodipine Besy-Benazepril Hcl Other Reaction(s): swollen lips Doxylamine Other Reaction(s): weird dreams / hallucinations Olanzapine Other Reaction(s): itch Tramadol Rash Current Outpatient Medications on File Prior to Visit Medication Sig Dispense Refill aspirin 81 MG EC tablet Take 1 tablet (81 mg) by mouth 3 (three) times a week Black Cohosh 540 MG capsule 1 (one) time each day at the same time. DULoxetine (Cymbalta) [address] capsule Take 1 capsule (60 mg) by mouth Daily 90 capsule 0 fenofibrate (Triglide) 160 MG tablet Take 1 tablet (160 mg) by mouth Daily 90 tablet 1 losartan (Cozaar) 100 MG tablet Take 1 tablet (100 mg) by mouth Daily 30 tablet 0 Multiple Vitamin (Multi Vitamin) tablet Daily nebivolol (Bystolic) 5 MG tablet Take 1 tablet (5 mg) by mouth Daily 90 tablet 0 omega-3 (Fish Oil) 1000 MG capsule Take 1,000 mg by mouth in the morning. QUEtiapine (SEROquel) 50 MG tablet Take 1 tablet at bedtime as needed for sleep 90 tablet 1 No current facility-administered medications on file prior to visit. 1. Primary hypertension (CMS/HCC) Chronic problem, stable, to goal. - losartan (Cozaar) 100 MG tablet; Take 1 tablet (100 mg) by mouth Daily Dispense: 90 tablet; Refill: 1 - nebivolol (Bystolic) 5 MG tablet; Take 1 tablet (5 mg) by mouth Daily Dispense: 90 tablet; Refill: 1 2. Sleep arousal disorder Chronic problem, doing well. Cross treating as adjuvant therapy the major depressive disorder - QUEtiapine (SEROquel) 50 MG tablet; Take 1 tablet at bedtime as needed for sleep Dispense: 90 tablet; Refill: 1 3. Mixed hyperlipidemia (CMS/HCC) Chronic problem, unstable, labs have worsened and not to goal. We had a long discussion about this. She gets no formal exercise and she eats a significant amount of carbohydrates. I did go back to last fall and look at her blood sugar and it was adequate. She is going on vacation in a day or 2 and wants to think about this and get back to me next week. We discussed that we needed to do something. Her options basically are: Changing over to statin medication atorvastatin high dose. Making lifestyle changes which she should do even with medications. We talked about what this actually meant with decreasing sugar and simple carbohydrates and a regular exercise program. We talked about using what her is using and that is niacin. We talked about how this is now considered alternative treatment. I would recommend that she comes back in a we have a brief visit to go over the proper ways of using niacin and how to rescue from the flush if she were to get 1 if this is path she wants to take. - fenofibrate (Triglide) 160 MG tablet; Take 1 tablet (160 mg) by mouth Daily Dispense: 90 tablet; Refill: 1 4. Recurrent major depressive disorder, in partial remission (HCC) (CMS/HCC) Chronic problem, stable, overall doing well. - DULoxetine (Cymbalta) [address] capsule; Take 1 capsule (60 mg) by mouth Daily Dispense: 90 capsule; Refill: 1 5. Non morbid obesity due to excess calories Lifestyle changes as noted documented in this encounter [facility] 2024 History of Present illness Narrative Patient: Annemarie Jackson : 1965 PCP: Rei Enrique MD SUBJECTIVE This is a 58 y.o. female that presents today 7 weeks s/p right BioPro implant to great toe Pt denies n/f/v/c and has minimal pain to post op site. Pt states that they have been returning to normal shoe gear but still has decreased swelling and limited range of motion of great toe according to patient Pt presents today for follow up. Discussed possible steroid injection to 1st MPJ on prior visits or physical therapy Allergies: Allergies Allergen Reactions Amlodipine Besy-Benazepril Hcl Other Reaction(s): swollen lips Doxylamine Other Reaction(s): weird dreams / hallucinations Olanzapine Other Reaction(s): itch Tramadol Rash Past Medical History: Past Medical History: Diagnosis Date Abdominal pain Adult situational stress disorder (CMS/HCC) Anemia Basal cell carcinoma 2013 Chronic kidney disease, stage 2 (mild) Depression with anxiety Endometriosis 2005 Fibromyalgia Heart murmur Hypertension (CMS/HCC) Hypertriglyceridemia (CMS/HCC) Inflammatory bowel disease Internal derangement of left knee Neuroma of foot 08/20/2023 Obesity Overweight Tendonosis Visual impairment w/ corrective lenses Medications: Current Outpatient Medications: aspirin 81 MG EC tablet, Take 1 tablet (81 mg) by mouth 3 (three) times a week, Disp: , Rfl: Black Cohosh 540 MG capsule, 1 (one) time each day at the same time., Disp: , Rfl: DULoxetine (Cymbalta) [address] capsule, Take 1 capsule (60 mg) by mouth Daily, Disp: 90 capsule, Rfl: 0 fenofibrate (Triglide) 160 MG tablet, Take 1 tablet (160 mg) by mouth Daily, Disp: 90 tablet, Rfl: 1 losartan (Cozaar) 100 MG tablet, Take 1 tablet (100 mg) by mouth Daily, Disp: 30 tablet, Rfl: 0 Multiple Vitamin (Multi Vitamin) tablet, Daily, Disp: , Rfl: nebivolol (Bystolic) 5 MG tablet, Take 1 tablet (5 mg) by mouth Daily, Disp: 90 tablet, Rfl: 0 omega-3 (Fish Oil) 1000 MG capsule, Take 1,000 mg by mouth in the morning., Disp: , Rfl: QUEtiapine (SEROquel) 50 MG tablet, Take 1 tablet at bedtime as needed for sleep, Disp: 90 tablet, Rfl: 1 ROS: General: denies fever, chills, fatigue, malaise OBJECTIVE LE EXAM: Derm: Skin intact to right foot with negative erythema, negative drainage, edema with negative clinical signs of infection. Vascular: Palpable pedal pulses to right foot Neuro: Gross sensation intact to right foot. Musculoskeletal: Negative pain on palpation to right calf. Ortho: Ankle range of motion less than 10 degrees of dorsiflexion at right ankle joint. First MPJ range motion greater than 5 degrees dorsiflexion ASSESSMENT 7 weeks s/p right BIO Pro great toe implant 1. Hallux rigidus of right foot PLAN Patient to continue with oral anti - inflammatories as needed for pain and recommended OTC medications such as tylenol or Ibuprofen Patient to follow up in 1 month with returned to work note and if no improvement may consider possible steroid injection Samuel Forbes DPM documented in this encounter [facility] 09-29-2024 History of Present illness Narrative Patient: Annemarie Jackson : 1965 PCP: Rei Enrique MD SUBJECTIVE This is a 58 y.o. female that presents today 5 weeks s/p right BioPro implant to great toe Pt denies n/f/v/c and has minimal pain to post op site. Pt states that they have been returning to normal shoe gear but still has swelling and limited range of motion of great toe according to patient Pt presents today for follow up. Allergies: Allergies Allergen Reactions Amlodipine Besy-Benazepril Hcl Other Reaction(s): swollen lips Doxylamine Other Reaction(s): weird dreams / hallucinations Olanzapine Other Reaction(s): itch Tramadol Rash Past Medical History: Past Medical History: Diagnosis Date Abdominal pain Adult situational stress disorder (CMS/HCC) Anemia Basal cell carcinoma 2014 Chronic kidney disease, stage 2 (mild) Depression with anxiety Endometriosis 2006 Fibromyalgia Heart murmur Hypertension (CMS/HCC) Hypertriglyceridemia (CMS/HCC) Inflammatory bowel disease Internal derangement of left knee Obesity Overweight Tendonosis Visual impairment w/ corrective lenses Medications: Current Outpatient Medications: aspirin 81 MG EC tablet, Take 1 tablet (81 mg) by mouth 3 (three) times a week, Disp: , Rfl: Black Cohosh 540 MG capsule, 1 (one) time each day at the same time., Disp: , Rfl: DULoxetine (Cymbalta) [address] capsule, Take 1 capsule (60 mg) by mouth Daily, Disp: 90 capsule, Rfl: 0 fenofibrate (Triglide) 160 MG tablet, Take 1 tablet (160 mg) by mouth Daily, Disp: 90 tablet, Rfl: 1 losartan (Cozaar) 100 MG tablet, Take 1 tablet (100 mg) by mouth Daily, Disp: 30 tablet, Rfl: 0 Multiple Vitamin (Multi Vitamin) tablet, Daily, Disp: , Rfl: nebivolol (Bystolic) 5 MG tablet, Take 1 tablet (5 mg) by mouth Daily, Disp: 30 tablet, Rfl: 0 omega-3 (Fish Oil) 1000 MG capsule, Take 1,000 mg by mouth in the morning., Disp: , Rfl: QUEtiapine (SEROquel) 50 MG tablet, Take 1 tablet at bedtime as needed for sleep, Disp: 90 tablet, Rfl: 1 ROS: General: denies fever, chills, fatigue, malaise OBJECTIVE LE EXAM: Derm: Skin intact to right foot with negative erythema, negative drainage, edema with negative clinical signs of infection. Vascular: Palpable pedal pulses to right foot Neuro: Gross sensation intact to right foot. Musculoskeletal: Negative pain on palpation to right calf. Ortho: Ankle range of motion less than 10 degrees of dorsiflexion at right ankle joint. First MPJ range motion greater than 5 degrees dorsiflexion ASSESSMENT 5 weeks s/p right BIO Pro great toe implant 1. Hallux rigidus of right foot 2. 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 Patient ID: Annemarie Jackson is a 58 y.o. female who presents for: Adult Wellness: See Scanned Wellness packet Advance Directive/Living Will: No Health Care Power of Signs And Displays Sales Representative: No Review of Systems Constitutional: Negative for appetite change, chills, fever and unexpected weight change. Respiratory: Negative for cough, shortness of breath and wheezing. Cardiovascular: Negative for chest pain, palpitations and leg swelling. Gastrointestinal: Negative for abdominal pain, constipation and diarrhea. Genitourinary: Negative for frequency and urgency. Neurological: Negative for light-headedness and headaches. Psychiatric/Behavioral: Negative for behavioral problems and sleep disturbance. The patient is not nervous/anxious. Objective The patient is pleasant and in no acute distress. The head is normocephalic and atraumatic. Both eyes appear grossly normal without obvious lid pathology or icterus. Both ears hearing is grossly intact. The neck is supple and trachea is midline. No masses are appreciated. The anterior cervical lymphatics demonstrates shoddy bilateral nontender lymphadenopathy. There is no supraclavicular lymphadenopathy. The heart is regular rate and rhythm without S3, S4. No murmur. The patient has normal respiratory pattern. The breath sounds are symmetrical without evidence of rhonchi or rales. No wheezing. The skin is warm and dry. The lower extremities have trace edema. Neurologic screening exam is nonfocal. The patient is alert. There is no overt gross evidence of cognitive impairment The patient has good eye contact and speech is clear. Appropriate affect. Visit Vitals OB Status Postmenopausal Smoking Status Never Allergies Allergen Reactions Amlodipine Besy-Benazepril Hcl Other Reaction(s): swollen lips Doxylamine Other Reaction(s): weird dreams / hallucinations Olanzapine Other Reaction(s): itch Tramadol Rash Current Outpatient Medications on File Prior to Visit Medication Sig Dispense Refill aspirin 81 MG EC tablet Take 1 tablet (81 mg) by mouth 3 (three) times a week Black Cohosh 540 MG capsule 1 (one) time each day at the same time. DULoxetine (Cymbalta) [address] capsule Take 1 capsule (60 mg) by mouth Daily 90 capsule 0 fenofibrate (Triglide) 160 MG tablet Take 1 tablet (160 mg) by mouth Daily 90 tablet 1 losartan (Cozaar) 100 MG tablet Take 1 tablet (100 mg) by mouth Daily 30 tablet 0 Multiple Vitamin (Multi Vitamin) tablet Daily omega-3 (Fish Oil) 1000 MG capsule Take 1,000 mg by mouth in the morning. QUEtiapine (SEROquel) 50 MG tablet Take 1 tablet at bedtime as needed for sleep 90 tablet 1 No current facility-administered medications on file prior to visit. 1. Adult wellness visit (Primary) I have reviewed the patients PMShx, medications, and reconciled the problem list. Health maintenance and risk was reviewed and discussed. I also reviewed and discussed as appropriate; immunizations, colon cancer screening, breast and cervical cancer screening, recommended and any current lab evaluation. All items were brought up to date unless declined by the patient. 2. Advance directive discussed with patient Patient voluntarily agreed to discuss advance care planning at today's wellness visit. We discussed that an advance directive is a legal document that only goes into effect if the patient is incapacitated and unable to speak for themselves. This would help us to decide what care the patient would want. We discussed emergency treatments to keep the patient alive such as CPR, ventilator use and concept of comfort. We discussed how patients could make their wishes known through a living will, durable power of disability attorney for healthcare, or other advanced directives. We discussed telling [employer] people about their advance and a copy will be kept in the EHR. I discussed that they should also make me an emergency contact in their cell phone, and/or notify their POA that I have a copy of the advanced directives. 3. Encounter for screening for malignant neoplasm of colon Not due at this time 4. Screening mammogram, encounter for - Bilateral screening mammogram; Future - Bilateral screening mammogram 5. Screening for osteoporosis - DEXA bone density; Future 6. S/P hysterectomy with oophorectomy Chronic problem, stable, exclusionary diagnosis the [facility] measures for cervical cancer screening. 8. Menopause - DEXA bone density; Future 9. Primary hypertension (CMS/HCC) Chronic problem, stable, to goal. - nebivolol (Bystolic) 5 MG tablet; Take 1 tablet (5 mg) by mouth Daily Dispense: 90 tablet; Refill: 0 10. Mixed hyperlipidemia (CMS/HCC) - Lipid panel; Future - Lipid panel documented in this encounter [facility] 09-08-2024 History of Present illness Narrative Patient: Annemarie Jackson : 1965 PCP: Rei Enrique MD SUBJECTIVE This is a 58 y.o. female that presents today 15 days s/p right prior Pro implant to great toe Pt denies n/f/v/c and has minimal pain to post op site. Pt states that they have been keeping dressing dry and intact and have been l weight-bearing to post op foot Pt presents today for follow up. Allergies: Allergies Allergen Reactions Amlodipine Besy-Benazepril Hcl Other Reaction(s): swollen lips Doxylamine Other Reaction(s): weird dreams / hallucinations Olanzapine Other Reaction(s): itch Tramadol Rash Past Medical History: Past Medical History: Diagnosis Date Abdominal pain Adult situational stress disorder (CMS/HCC) Anemia Basal cell carcinoma 2013 Chronic kidney disease, stage 2 (mild) Depression with anxiety Endometriosis 2005 Fibromyalgia Heart murmur Hypertension (CMS/HCC) Hypertriglyceridemia (CMS/HCC) Inflammatory bowel disease Internal derangement of left knee Obesity Overweight Tendonosis Visual impairment w/ corrective lenses Medications: Current Outpatient Medications: aspirin 81 MG EC tablet, Take 1 tablet (81 mg) by mouth 3 (three) times a week, Disp: , Rfl: Black Cohosh 540 MG capsule, 1 (one) time each day at the same time., Disp: , Rfl: DULoxetine (Cymbalta) [address] capsule, Take 1 capsule (60 mg) by mouth Daily, Disp: 90 capsule, Rfl: 0 fenofibrate (Triglide) 160 MG tablet, Take 1 tablet (160 mg) by mouth Daily, Disp: 90 tablet, Rfl: 1 losartan (Cozaar) 100 MG tablet, Take 1 tablet (100 mg) by mouth Daily, Disp: 30 tablet, Rfl: 0 Multiple Vitamin (Multi Vitamin) tablet, Daily, Disp: , Rfl: nebivolol (Bystolic) 5 MG tablet, Take 1 tablet (5 mg) by mouth Daily, Disp: 30 tablet, Rfl: 0 omega-3 (Fish Oil) 1000 MG capsule, Take 1,000 mg by mouth in the morning., Disp: , Rfl: QUEtiapine (SEROquel) 50 MG tablet, Take 1 tablet at bedtime as needed for sleep, Disp: 90 tablet, Rfl: 1 ROS: General: denies fever, chills, fatigue, malaise OBJECTIVE LE EXAM: Derm: Sutures intact to right foot with negative erythema, negative drainage, minimal edema with negative clinical signs of infection. Vascular: Palpable pedal pulses to right foot Neuro: Gross sensation intact to right foot. Musculoskeletal: Negative pain on palpation to right calf. Ortho: Ankle range of motion less than 10 degrees of dorsiflexion at right ankle joint. XRAY: Verbal order today for x-rays be taken by staff. AP/Oblique/Lateral 3 view radiographs today of the right foot demonstrated the following: Notable well-seated implants of the right great toe ASSESSMENT 15 days s/p right BIO Pro great toe implant 1. Hallux rigidus of right foot 2. Contracture of right ankle PLAN Sutures were removed today to the foot and patient in now able to get foot wet. Progress into normal shoe gear Patient to continue with oral anti - inflammatories as needed for pain and recommended OTC medications such as tylenol or Ibuprofen Samuel Forbes DPM documented in this encounter [facility] 08-31-2024 History of Present illness Narrative Patient: Annemarie Jackson : 1965 PCP: Rei Enrique MD SUBJECTIVE This is a 58 y.o. female that presents today 7 days s/p right prior Pro implant to great toe Pt denies n/f/v/c and has minimal pain to post op site. Pt states that they have been keeping dressing dry and intact and have been minimal weight-bearing to post op foot Pt presents today for follow up. Allergies: Allergies Allergen Reactions Amlodipine Besy-Benazepril Hcl Other Reaction(s): swollen lips Doxylamine Other Reaction(s): weird dreams / hallucinations Olanzapine Other Reaction(s): itch Tramadol Rash Past Medical History: Past Medical History: Diagnosis Date Abdominal pain Adult situational stress disorder (CMS/HCC) Anemia Basal cell carcinoma 2014 Chronic kidney disease, stage 2 (mild) Depression with anxiety Endometriosis 2006 Fibromyalgia Heart murmur Hypertension (CMS/HCC) Hypertriglyceridemia (CMS/HCC) Inflammatory bowel disease Internal derangement of left knee Obesity Overweight Tendonosis Visual impairment w/ corrective lenses Medications: Current Outpatient Medications: aspirin 81 MG EC tablet, Take 1 tablet (81 mg) by mouth 3 (three) times a week, Disp: , Rfl: Black Cohosh 540 MG capsule, 1 (one) time each day at the same time., Disp: , Rfl: DULoxetine (Cymbalta) [address] capsule, Take 1 capsule (60 mg) by mouth Daily, Disp: 90 capsule, Rfl: 0 fenofibrate (Triglide) 160 MG tablet, Take 1 tablet (160 mg) by mouth Daily, Disp: 90 tablet, Rfl: 1 HYDROcodone-acetaminophen (Lomira) 5-325 MG tablet, Take 1 tablet by mouth every 8 (eight) hours if needed for moderate pain (PRN pain) for up to 5 days, Disp: 15 tablet, Rfl: 0 losartan (Cozaar) 100 MG tablet, Take 1 tablet (100 mg) by mouth Daily, Disp: 30 tablet, Rfl: 0 Multiple Vitamin (Multi Vitamin) tablet, Daily, Disp: , Rfl: nebivolol (Bystolic) 5 MG tablet, Take 1 tablet (5 mg) by mouth Daily, Disp: 30 tablet, Rfl: 0 omega-3 (Fish Oil) 1000 MG capsule, Take 1,000 mg by mouth in the morning., Disp: , Rfl: QUEtiapine (SEROquel) 50 MG tablet, Take 1 tablet at bedtime as needed for sleep, Disp: 90 tablet, Rfl: 1 ROS: General: denies fever, chills, fatigue, malaise OBJECTIVE LE EXAM: Derm: Sutures intact to right foot with negative erythema, negative drainage, minimal edema with negative clinical signs of infection. Vascular: Palpable pedal pulses to right foot Neuro: Gross sensation intact to right foot. Musculoskeletal: Negative pain on palpation to right calf. Ortho: Ankle range of motion less than 10 degrees of dorsiflexion at right ankle joint. XRAY: Verbal order today for x-rays be taken by staff. AP/Oblique/Lateral 3 view radiographs today of the right foot demonstrated the following: Notable well-seated implants of the right great toe ASSESSMENT 7 days s/p right BIO Pro great toe implant 1. Hallux rigidus of right foot 2. Contracture of right ankle PLAN Patient to keep dry sterile dressing intact and keep dressing dry with weightbearing. Patient may take anti-inflammatories as needed for pain. May continue with ice to foot as needed p.r.n. Patient may begin weight-bearing with walking boot from home Reviewed x-rays today Samuel Forbes DPM documented in this encounter [facility] 08-19-2024 History of Present illness Narrative Patient: Annemarie Jackson : 1965 PCP: Rei Enrique MD SUBJECTIVE This is a 58 y.o. female that presents today for a chief complaint of right great toe joint pain. Patient has pain to right great toe point for the past 6 months states it has increased in severity and has tried anti-inflammatories and different shoes with negative improvement and points to 1st MPJ region. Patient presents today for preoperative visit and evaluation for a right great toe Bio Pro implant Allergies: Allergies Allergen Reactions Amlodipine Besy-Benazepril Hcl Other Reaction(s): swollen lips Doxylamine Other Reaction(s): weird dreams / hallucinations Olanzapine Other Reaction(s): itch Tramadol Rash Past Medical History: Past Medical History: Diagnosis Date Abdominal pain Adult situational stress disorder (CMS/HCC) Anemia Basal cell carcinoma 2013 Chronic kidney disease, stage 2 (mild) Depression with anxiety Endometriosis 2005 Fibromyalgia Heart murmur Hypertension (CMS/HCC) Hypertriglyceridemia (CMS/HCC) Inflammatory bowel disease Internal derangement of left knee Obesity Overweight Tendonosis Visual impairment w/ corrective lenses Medications: Current Outpatient Medications: aspirin 81 MG EC tablet, Take 81 mg by mouth in the morning., Disp: , Rfl: Black Cohosh 540 MG capsule, 1 (one) time each day at the same time., Disp: , Rfl: DULoxetine (Cymbalta) [address] capsule, Take 1 capsule (60 mg) by mouth Daily, Disp: 90 capsule, Rfl: 0 fenofibrate (Triglide) 160 MG tablet, Take 1 tablet (160 mg) by mouth Daily, Disp: 90 tablet, Rfl: 1 losartan (Cozaar) 100 MG tablet, Take 1 tablet (100 mg) by mouth Daily, Disp: 90 tablet, Rfl: 1 Multiple Vitamin (Multi Vitamin) tablet, Daily, Disp: , Rfl: omega-3 (Fish Oil) 1000 MG capsule, Take 1,000 mg by mouth in the morning., Disp: , Rfl: QUEtiapine (SEROquel) 50 MG tablet, Take 1 tablet at bedtime as needed for sleep, Disp: 90 tablet, Rfl: 1 Social History: Social History Socioeconomic History Marital status: Spouse name: Not on file Number of children: Not on file Years of education: Not on file Highest education level: Not on file Occupational History Not on file Tobacco Use Smoking status: Never Smokeless tobacco: Never Substance and Sexual Activity Alcohol use: Never Comment: Caffeine intake : 1-2 cups per day Drug use: Never Sexual activity: Yes Partners: Male control/protection: Other Other Topics Concern Not on file Social History Narrative Not on file Social Drivers of Health Financial Resource Strain: Low Risk (08/26/2023) Overall Financial Resource Strain (CARDIA) Difficulty of Paying Living Expenses: Not hard at all Food Insecurity: No Food Insecurity (08/26/2023) Hunger Vital Sign Worried About Running Out of Food in the Last Year: Never true Ran Out of Food in the Last Year: Never true Transportation Needs: No Transportation Needs (08/26/2023) PRAPARE - Transportation Lack of Transportation (Medical): No Lack of Transportation (Non-Medical): No Physical Activity: Patient Declined (08/26/2023) Exercise Vital Sign Days of Exercise per Week: Patient declined Minutes of Exercise per Session: Patient declined Stress: Stress Concern Present (08/26/2023) Citizen Of [place] of Occupational Health - Occupational Stress Questionnaire Feeling of Stress : To some extent Social Connections: Unknown (08/26/2023) Social Connection and Isolation Panel [NHANES] Frequency of Communication with Friends and Family: Never Frequency of Social Gatherings with Friends and Family: Once a week Attends Jew Services: Patient declined Active Member of Clubs or Organizations: No Attends Club or Organization Meetings: Patient declined Marital Status: Intimate Partner Violence: Not At Risk (08/26/2023) Humiliation, Afraid, Rape, and Kick questionnaire Fear of Current or Ex-Partner: No Emotionally Abused: No Physically Abused: No Sexually Abused: No Housing Stability: Unknown (08/26/2023) Housing Stability Vital Sign Unable to Pay for Housing in the Last Year: No Number of Places Lived in the Last Year: Not on file Unstable Housing in the Last Year: No ROS: Gastrointestinal: denies abdominal pain, ulcers, or changes in appetite or bowel habits Musculoskeletal: Positive generalized arthritis to joints and denies loss of strength. Cardiovascular: denies CP, palpitations, irregular rhythms. Patient is currently on Holter monitor as she has possible atrial fibrillation OBJECTIVE LE EXAM: DERM: Positive hair growth to b/l feet with good skin turgor noted. Negative openings in skin VASC: Palpable pedal pulsed b/l with warm to cool tibia to toes b/l NEURO: Gross sensation intact digits 1-10 and b/l feet ORTHO: +5/5 DF/PF/IN/EV right, +5/5 DF/PF/IN/EV left. 20 degrees inversion and 10 degrees eversion STJ b/l. Ankle ROM less than 10 degrees b/l. Positive pain on palpation to right 1st MPJ region with range of motion of 1st MPJ left serous and 65 degrees dorsiflexion with negative crepitus XRAY: Verbal order today for x-rays be taken by staff. AP/Oblique/Lateral 3 view radiographs today of the right foot demonstrated the following: Noted diminished 1st MPJ metatarsal phalangeal joint space with minimal dorsal and pedal enthesophyte to the 1st metatarsal region and also noted plantar calcaneal spur US: ASSESSMENT 1. Hallux rigidus of right foot 2. Contracture of right ankle PLAN Patient given prescription for pain medication to be taken postoperatively. Decision for surgery today and patient medically cleared from a podiatric standpoint for surgery and to proceed with surgery. Pt to have pre op H/P per PCP for medical clearance for surgery and will be reviewed along with labs prior to surgery. Pt scheduled for right great toe Bio Pro implant Discussed with the patient the nature of condition and operative vs nonoperative care. The surgical plans, risks, alternatives, benefits, post op complications and salvage determiner expectations were discussed including but not limited to: infection,bone infection,wound dehiscence hardware failure and irritation,wound dehiscence,delay union/mal union/non union of bone. RSDS,neuroma,duty limitations,DVT/PE, LA,nerve damage, scar, loss of sensation, swelling. Pt understands the proposed sx in detail and has agreed with proposed surgery. No guarantees were given or implied. Pt willingly consents to procedure and to have surgical procedure. Pt also understands risks including COVID-19 current risk in a surgical setting. Pt is a low acceptable risk for outpatient surgery from a podiatric standpoint with an ASA of a 2. Samuel Forbes DPM, FACFAS August 19, 2024 H&P up to date and current (date) Samuel Forbes DPM documented in this encounter [facility] 08-18-2024 History of Present illness Narrative Images from the original note were not included. Patient ID: Annemarie Jackson is a 58 y.o. female who presents for: Surgical Clearance 08/24 Dr Samuel Forbes RT Bio Pro implant - DX Hallux Rigidus EKG done previous Dr Forbes reviewed. Labs done 08/15 She has recently a cardiology evaluation for palpitations. She had a rather extensive workup which was reviewed here today. There was some question of atrial fibrillation, and that seems to have been fairly well ruled out. It seems that that was A run of SVT. She does have some PACs and unifocal PVCs. She has had an echocardiogram, a stress test, and two 30 day monitors. She was placed on metoprolol but was missing the 2nd dose consistently. Review of Systems Constitutional: Negative for activity change and fatigue. Respiratory: Negative for cough, shortness of breath and wheezing. Cardiovascular: Negative for chest pain, palpitations and leg swelling. Gastrointestinal: Negative for constipation, diarrhea, nausea and vomiting. Neurological: Negative for light-headedness and headaches. Objective The patient is pleasant and in no acute distress. The neck is supple and trachea is midline. No masses are appreciated. The heart is regular rate and rhythm without S3, S4. No murmur. The patient has normal respiratory pattern. The breath sounds are symmetrical without evidence of rhonchi or rales. No wheezing. The skin is warm and dry. The lower extremities have trace edema. The patient has good eye contact and speech is clear. Appropriate affect. Visit Vitals BP 126/72 Pulse 79 Ht 5' 5 Wt 203 lb SpO2 97% BMI 33.78 kg/m OB Status Postmenopausal Smoking Status Never BSA 2.06 m I have independently reviewed and interpreted has appropriate, tests that were performed or ordered by another health lawn care professional. These are documented in the electronic health record. These were reviewed with the patient. These included the laboratories dated August 15 2024. Allergies Allergen Reactions Amlodipine Besy-Benazepril Hcl Other Reaction(s): swollen lips Doxylamine Other Reaction(s): weird dreams / hallucinations Olanzapine Other Reaction(s): itch Tramadol Rash Current Outpatient Medications on File Prior to Visit Medication Sig Dispense Refill aspirin 81 MG EC tablet Take 81 mg by mouth in the morning. Black Cohosh 540 MG capsule 1 (one) time each day at the same time. DULoxetine (Cymbalta) [address] capsule Take 1 capsule (60 mg) by mouth Daily 90 capsule 0 fenofibrate (Triglide) 160 MG tablet Take 1 tablet (160 mg) by mouth Daily 90 tablet 1 losartan (Cozaar) 100 MG tablet Take 1 tablet (100 mg) by mouth Daily 90 tablet 1 Multiple Vitamin (Multi Vitamin) tablet Daily omega-3 (Fish Oil) 1000 MG capsule Take 1,000 mg by mouth in the morning. QUEtiapine (SEROquel) 50 MG tablet Take 1 tablet at bedtime as needed for sleep 90 tablet 1 No current facility-administered medications on file prior to visit. 1. Right foot pain (Primary) Chronic problem which required referral to Podiatry and now the surgical intervention As noted above. 2. Preoperative evaluation to rule out surgical contraindication There are no known contraindications to monitored anesthesia care or the procedure proposed above. I did ask the patient to stop her aspirin therapy now. The cardiology evaluation was fairly extensive, and in my medical opinion she does not need further cardiology Preoperative evaluation. 3. PVC (premature ventricular contraction) Chronic problem and I did educate the patient. We also talked about missing the 2nd dose of beta francia can actually increase her risk for dysrhythmia. After discussing we are going to change her over to a once daily beta francia that she can take with her other medications in an effort to improve compliance. 4. Primary hypertension (CMS/HCC) Chronic problem that is stable and to goal. Interestingly her hypertensive nephropathy has not improved slightly and moved her from stage IIIA into stage 2 chronic kidney disease. She is in need of refills of medication today. We also further discussed for primary prevention and in view that she does not have atrial fibrillation, once her surgery is completed she can restart aspirin therapy every other day. - losartan (Cozaar) 100 MG tablet; Take 1 tablet (100 mg) by mouth Daily Dispense: 30 tablet; Refill: 0 - nebivolol (Bystolic) 5 MG tablet; Take 1 tablet (5 mg) by mouth Daily Dispense: 30 tablet; Refill: 0 - aspirin 81 MG EC tablet; Take 1 tablet (81 mg) by mouth 3 (three) times a week 5. Bradycardia For completeness sake there was 1 episode documented during sleep of significant bradycardia. This was short-lived. This was not considered By cardiology to need further evaluation. documented in this encounter [facility] 06-30-2024 History of Present illness Narrative Patient: Annemarie Jackson : 1965 PCP: Rei Enrique MD SUBJECTIVE This is a 58 y.o. female that presents today for a chief complaint of right great toe joint pain. Patient has pain to right great toe point for the past 6 months states it has increased in severity and has tried anti-inflammatories and different shoes with negative improvement and points to 1st MPJ region Allergies: Allergies Allergen Reactions Amlodipine Besy-Benazepril Hcl Other Reaction(s): swollen lips Doxylamine Other Reaction(s): weird dreams / hallucinations Olanzapine Other Reaction(s): itch Tramadol Rash Past Medical History: Past Medical History: Diagnosis Date Abdominal pain Adult situational stress disorder (CMS/HCC) Anemia Basal cell carcinoma 2013 Chronic kidney disease, stage 2 (mild) Depression with anxiety Endometriosis 2005 Fibromyalgia Heart murmur Hypertension (CMS/HCC) Hypertriglyceridemia (CMS/HCC) Inflammatory bowel disease Internal derangement of left knee Obesity Overweight Tendonosis Visual impairment w/ corrective lenses Medications: Current Outpatient Medications: aspirin 81 MG EC tablet, Take 81 mg by mouth in the morning., Disp: , Rfl: Black Cohosh 540 MG capsule, 1 (one) time each day at the same time., Disp: , Rfl: DULoxetine (Cymbalta) [address] capsule, Take 1 capsule (60 mg) by mouth Daily, Disp: 90 capsule, Rfl: 0 fenofibrate (Triglide) 160 MG tablet, Take 1 tablet (160 mg) by mouth Daily, Disp: 90 tablet, Rfl: 1 losartan (Cozaar) 100 MG tablet, Take 1 tablet (100 mg) by mouth Daily, Disp: 90 tablet, Rfl: 1 Multiple Vitamin (Multi Vitamin) tablet, Daily, Disp: , Rfl: omega-3 (Fish Oil) 1000 MG capsule, Take 1,000 mg by mouth in the morning., Disp: , Rfl: QUEtiapine (SEROquel) 50 MG tablet, Take 1 tablet at bedtime as needed for sleep, Disp: 90 tablet, Rfl: 1 Social History: Social History Socioeconomic History Marital status: Spouse name: Not on file Number of children: Not on file Years of education: Not on file Highest education level: Not on file Occupational History Not on file Tobacco Use Smoking status: Never Smokeless tobacco: Never Substance and Sexual Activity Alcohol use: Never Comment: Caffeine intake : 1-2 cups per day Drug use: Never Sexual activity: Yes Partners: Male control/protection: Other Other Topics Concern Not on file Social History Narrative Not on file Social Determinants of Health Financial Resource Strain: Low Risk (08/26/2023) Overall Financial Resource Strain (CARDIA) Difficulty of Paying Living Expenses: Not hard at all Food Insecurity: No Food Insecurity (08/26/2023) Hunger Vital Sign Worried About Running Out of Food in the Last Year: Never true Ran Out of Food in the Last Year: Never true Transportation Needs: No Transportation Needs (08/26/2023) PRAPARE - Transportation Lack of Transportation (Medical): No Lack of Transportation (Non-Medical): No Physical Activity: Patient Declined (08/26/2023) Exercise Vital Sign Days of Exercise per Week: Patient declined Minutes of Exercise per Session: Patient declined Stress: Stress Concern Present (08/26/2023) Citizen Of [place] of Occupational Health - Occupational Stress Questionnaire Feeling of Stress : To some extent Social Connections: Unknown (08/26/2023) Social Connection and Isolation Panel [NHANES] Frequency of Communication with Friends and Family: Never Frequency of Social Gatherings with Friends and Family: Once a week Attends Jew Services: Patient declined Active Member of Clubs or Organizations: No Attends Club or Organization Meetings: Patient declined Marital Status: Intimate Partner Violence: Not At Risk (08/26/2023) Humiliation, Afraid, Rape, and Kick questionnaire Fear of Current or Ex-Partner: No Emotionally Abused: No Physically Abused: No Sexually Abused: No Housing Stability: Unknown (08/26/2023) Housing Stability Vital Sign Unable to Pay for Housing in the Last Year: No Number of Places Lived in the Last Year: Not on file Unstable Housing in the Last Year: No ROS: Gastrointestinal: denies abdominal pain, ulcers, or changes in appetite or bowel habits Musculoskeletal: Positive generalized arthritis to joints and denies loss of strength. Cardiovascular: denies CP, palpitations, irregular rhythms. Patient is currently on Holter monitor as she has possible atrial fibrillation OBJECTIVE LE EXAM: DERM: Positive hair growth to b/l feet with good skin turgor noted. Negative openings in skin VASC: Palpable pedal pulsed b/l with warm to cool tibia to toes b/l NEURO: Gross sensation intact digits 1-10 and b/l feet ORTHO: +5/5 DF/PF/IN/EV right, +5/5 DF/PF/IN/EV left. 20 degrees inversion and 10 degrees eversion STJ b/l. Ankle ROM less than 10 degrees b/l. Positive pain on palpation to right 1st MPJ region with range of motion of 1st MPJ left serous and 65 degrees dorsiflexion with negative crepitus XRAY: Verbal order today for x-rays be taken by staff. AP/Oblique/Lateral 3 view radiographs today of the right foot demonstrated the following: Noted diminished 1st MPJ metatarsal phalangeal joint space with minimal dorsal and pedal enthesophyte to the 1st metatarsal region and also noted plantar calcaneal spur US: ASSESSMENT 1. Hallux rigidus of right foot 2. Right foot pain 3. Contracture of right ankle PLAN Reviewed x-rays today with the patient Discussed possible orthotics and steroid injection and patient declined both today Discussed conservative and surgical treatment options for patient today including postoperative time frame and surgical procedure in detail. Patient may continue with conservative treatments including [id number] anti-inflammatories and other treatments suggested today. Patient may want to be scheduled for surgical intervention in the near future. Discussed right Bio Pro implant and would like to have Lomira for postop pain and most likely walking boot and will call if decides to schedule in the near future Patient to continue with oral anti - inflammatories as needed for pain and recommended OTC medications such as tylenol or Ibuprofen Samuel Forbes DPM documented in this encounter [facility] 04-26-2024 Note PROCEDURE: Without IV contrast, axial helical 5 mm slice thickness images of the chest performed FINDINGS: Several millimeter right lower lobe posterior basilar segment subsolid lung nodules. No significant parenchymal consolidation, pleural or pericardial effusion. Low volume mediastinal, hilar lymph nodes largest right precarinal space, 1.0 x 1.5 cm. No significant emphysematous changes. Upper abdominal images remarkable only for a small sliding hilar hernia IMPRESSION: Non-calcified subsolid right lower lobe nodules (largest posterior segment subpleural region 4 x 5 mm) with low volume lymph nodes no lymphadenopathy. Recommend chest CT in 6 months. TRANSCRIBED BY: ELECTRONICALLY SIGNED BY: Thad Addison MD Not Available 02-02-2024 Note PROCEDURE: 30-day ev ent monitor. [...] BY: Serafin Winkler M.D. ca Dictated: 01/26/2024 [id number] Transcribed: 01/30/2024 [facility] Comment on above: Result Comment: Elec tronically Signed By: Serafin Winkler MD\.br\Date and Time Signed: 02/02/24 08:16 EDT 01-29-2024 History of Present illness Narrative CARDIOLOGY [...] prepare this document. documented in this encounter [facility] Work Phone: 01-29-2024 Instructions Kalli Eden LPN - 01/29/2024 [...] requested at the time of Your visit. I, Kalli Eden LPN, am scribing for and in the presence of Dr. Jake Rock MD documented in this encounter [facility] Work Phone: 09-26-2023 Note Echocardiology Procedure Exam Date/Time Accession # Ordering Dr. Mejia Transthoracic 09/23/2023 07:35 [facility] [id number] Cathi WEBBER, Serafin Norris CPT code [id number] Reason for Exam (Echo Transthoracic Complete) I47.10;Chest pain Report Version: 1 Study ID: [id number] Adult Echocardiogram Report Name: ANNEMARIE JACKSON Study Date: 09/23/2023, 6: 58 AM Patient Location: [facility] : 1965 (MM/DD/YYYY) Gender: Female Age: [...] Valve TR max P.1 mmHg TR max kaitlin: 245.7 cm/sec Aorta Ao root diam: 2.49 cm Ao Sinus of Valsalva: 2.8 cm Ao Sinotubular Junction: 2.31 cm asc Aorta Diam: 3.0 cm Atria LA dimension: 3.2 cm Diastolic funtion Med Peak E' Kaitlin: 6.4 cm/sec Lat Peak E' Kaitlin: 5.9 cm/sec MV dec time: 0.20 sec MV E max kaitlin: 62.1 cm/sec MV A max kaitlin: 81.8 cm/sec Echocardiology Report Ao max P.8 [...] cm LVPWd: 0.89 cm MV A max kaitlin: 81.8 cm/sec MV dec time: 0.20 sec MV E max kaitlin: 62.1 cm/sec MV E/A: 0.76 RAP systole: 3.0 mmHg RVDd: 2.8 cm RVIDd/LVIDd: 0.70 RVSP(TR): 27.1 mmHg SV(MOD-sp4): 38.6 ml TAPSE: 2.48 cm TR max P.1 mmHg TR max kaitlin: 245.7 cm/sec asc Aorta Diam: 3.0 cm E/E' Lat: 10.6 E/E' Med: 9.7 EDV(MOD-sp2): 45.3 ml EF (MOD-bp): 67.7 % EF(MOD-sp2): 68.9 % ESV(MOD-sp2): 14.1 ml LA Vol Index: 17.2 ml/m? Lat Peak E' Kaitlin: 5.9 cm/sec LVLd ap2: 6.5 cm LVLs ap2: 5.3 cm Med Peak E' Kaitlin: 6.4 cm/sec Echocardiology Report Electronically signed by: Serafin Winkler MD 09/26/2023, 7: 42 AM FINAL REPORT Dictated: 09/23/2023 6:58 am Serafin Winkler MD Signed (Electronic Signature): 09/26/2023 7:42 am Signed by: Serafin Winkler MD Transcribed by: JESUS Technologist: JEFF [facility] Evaluation + Plan note Future Appointments Appointment Date:10/08/2023 03:15:00 PM Scheduled Provider:Serafin Winkler MD Location:FT.Cardiology [facility] Appointment Type:Cardiology Follow Up (FT) Future Scheduled TestsNM Myocardial Spect Rest/Stress 1 Day 08/20/23Echo Transthoracic Complete 08/20/23 [facility] Evaluation + Plan note Future Appointments Appointment Date:12/25/2023 11:15:00 AM Scheduled Provider:Serafin Winkler MD Location:[facility] Appointment Type:Cardiology Follow Up (FT) [facility] Evaluation note Diagnosis Abnormal EKG- Primary Nonspecific abnormal electrocardiogram (ECG) (EKG) Establishing care with new doctor, encounter for Palpitations Near syncope BMI 33.0-33.9,adult Never smoked tobacco Palpitations Near syncope Palpitations Near syncope documented in this encounter [facility] Work Phone: Evaluation note* Diagnosis Preoperative clearance- Primary Unspecified pre-operative examination Preoperative evaluation to rule out surgical contraindication [facility] Right foot pain- Primary Pain in soft tissues of limb Preoperative evaluation to rule out surgical contraindication PVC (premature ventricular contraction) Other premature beats Primary hypertension (CMS/HCC) Unspecified essential hypertension Bradycardia Other specified cardiac dysrhythmias Hallux rigidus of right foot- Primary Contracture of right ankle [facility] Diagnosis Hallux rigidus of right foot- Primary Contracture of right ankle documented in [facility]* Diagnosis Hallux rigidus of right foot- Primary Contracture of right ankle documented in [facility]* Diagnosis Recurrent major depressive disorder, in partial remission (HCC) ([facility]/HCC) documented [facility]* Diagnosis Hallux rigidus of right foot- Primary Contracture of right ankle [facility]* Diagnosis Adult wellness visit- Primary Advance directive discussed with patient Encounter for screening for malignant neoplasm of colon Screening mammogram, encounter for Screening for osteoporosis Special screening for osteoporosis S/P hysterectomy with oophorectomy Acquired absence of both cervix and uterus Menopause Symptomatic menopausal or female climacteric states Primary hypertension (CMS/HCC) Unspecified essential hypertension Mixed hyperlipidemia ([facility]/HCC) Mixed hyperlipidemia [facility]* Diagnosis Hallux rigidus of right foot- Primary Right foot pain Pain in soft tissues of limb Contracture of right ankle documented in [facility]* Diagnosis Hallux rigidus of right foot- Primary documented in [facility]* Diagnosis Primary hypertension (CMS/HCC) Unspecified essential hypertension Sleep arousal disorder Mixed hyperlipidemia ([facility]/HCC) Mixed hyperlipidemia Recurrent major depressive disorder, in partial remission (HCC) ([facility]/HCC) Non morbid obesity due to excess calories documented [facility]* Diagnosis Bronchitis- Primary Bronchitis, not specified as acute or chronic Hallux rigidus of right foot- Primary Contracture of right ankle documented [facility]* Diagnosis Hallux rigidus of right foot- Primary Contracture of right ankle Capsulitis of metatarsophalangeal (MTP) joint of left foot documented [facility]* Diagnosis Capsulitis of metatarsophalangeal (MTP) joint of left foot- Primary documented in [facility]* Diagnosis Hallux rigidus of right foot- Primary Capsulitis of metatarsophalangeal (MTP) joint of left foot documented [facility]* Diagnosis Capsulitis of metatarsophalangeal (MTP) joint of right foot- Primary documented in this encounter [facility]* Diagnosis Capsulitis of metatarsophalangeal (MTP) joint of right foot- Primary documented in this encounter [facility] course Narrative No data available for this section [facility] No data available for this section [facility] No data available for this section [facility] N[facility]* Rehabilitation - Outpatient (Routine) - Pending Review Specialty Diagnoses / Procedures Referred By Contact Referred To Contact Physical Therapy Diagnoses Capsulitis of metatarsophalangeal (MTP) joint of left foot Procedures [place] OFFICE/OUTPATIENT [facility] MDM 60 MINUTES Samuel Forbes, CORDELIA [address] [address] Phone: tel:[phone] fax:[phone] Anali Hamm, PT [address] [address] Phone: tel: fax: Referral ID Status Reason Start Date Expiration Date Visits Requested Visits Authorized [id number] Pending Review Specialty Services Required 12/14/2024 06/06/2025 1 3 [facility] HealthcareReason for visit Narrative* Rehabilitation - Outpatient (Routine) - Authorized Specialty Diagnoses / Procedures Referred By Contact Referred To Contact Physical Therapy Diagnoses Capsulitis of metatarsophalangeal (MTP) joint of left foot Procedures [place] OFFICE[facility]OUTPATIENT [facility] 60 MINUTES Samuel Forbes DPM [address] [address] Phone: tel:[phone] fax:[phone] Anali Hamm, PT [address] [address] Phone: tel: fax: Referral ID Status Reason Start Date Expiration Date Visits Requested Visits Authorized [id number] Authorized Consult and Treat 12/14/2024 10/25/2025 99 99 [facility] Healthcare Summary Purpose Family History No Family History [...] for Procedures ECG 12 lead (Clinic Performed) Jake Rock MD 254 [facility] [address] [place] [address] Referral ID Status Reason Start Date Expiration Date V isits Requested Visits Authorized [id number] Authorized 01/29/2024 01/28/2025 1 1 Additional Source Comments INFORMATION SOURCE (unrecogn ized section and content) DATE CREATED AUTHOR 04/15/2018 [facility] DATE CREATED AUTHOR AUTHOR'S ORGANIZ ATION 03/18/2019 [facility] DATE CREATED AUTHOR AUTHOR'S ORGANIZ ATION 01/01/2022 [facility] Me dical Specialist DATE CREATED AUTHOR AUTHOR'S ORGANIZ ATION 02/05/2024 [facility] DATE CREATED AUTHOR AUTHOR'S ORGANIZ ATION 06/23/2024 [facility] DATE CREATED AUTHOR AUTHOR'S ORGANIZ ATION 12/20/2024 [facility] dical Specialists EPIC Patient Care team informatio n (unrecognized section and content) Code And Test Clerk Relationship Specialty Start Date End Date Rei Enrique MD [address] [place] [address] (Fax) PCP - General Family Medicine 01/14/24 Jake Rock MD [address] [facility] Medical [facility] [address] [place] [address] Site Damage Prevention Technician Cardiology 01/15/24 Code And Test Clerk Relationship Specialty Start Date End Date Rei Enrique MD [address] [place] [address] (Fax) PCP - General Family Medicine 03/03/23 Code And Test Clerk Relationship Specialty Start Date End Date Rei Enrique MD [address] [place] [address] (Fax) PCP - General Family Medicine 03/03/23 Code And Test Clerk Relationship Specialty Start Date End Date Rei Enrique MD [address] [place] [phone] (Fax) PCP - General Family Medicine 03/03/23 Code And Test Clerk Relationship Specialty Start Date End Date Rei Enrique MD [address] [place] [phone] (Fax) PCP - General Family Medicine 03/03/23 Code And Test Clerk Relationship Specialty Start Date End Date Rei Enrique MD [address] [place] [address] (Fax) PCP - General Family Medicine 03/03/23 Code And Test Clerk Relationship Specialty Start Date End Date Rei Enrique MD [address] [place] [address] (Fax) PCP - General Family Medicine 03/03/23 Code And Test Clerk Relationship Specialty Start Date End Date Rei Enrique MD [address] [place] [address] (Fax) PCP - General Family Medicine 03/03/23 Code And Test Clerk Relationship Specialty Start Date End Date Rei Enrique MD [address] [place] [address] (Fax) PCP - General Family Medicine 03/03/23 Code And Test Clerk Relationship Specialty Start Date End Date Rei Enrique MD [address] [place] [address] (Fax) PCP - General Family Medicine 03/03/23 Code And Test Clerk Relationship Specialty Start Date End Date Rei Enrique MD [address] [place] [address] (Fax) PCP - General Family Medicine 03/03/23 Code And Test Clerk Relationship Specialty Start Date End Date Rei Enrique MD [address] [place] [address] (Fax) PCP - General Family Medicine 03/03/23 Code And Test Clerk Relationship Specialty Start Date End Date Rei Enrique MD [address] [place] [address] (Fax) PCP - General Family Medicine 03/03/23 Code And Test Clerk Relationship Specialty Start Date End Date Rei Enrique MD [address] [place] [address] (Fax) PCP - General Family Medicine 03/03/23 Code And Test Clerk Relationship Specialty Start Date End Date Rei Enrique MD [address] [place] [address] (Fax) PCP - General Family Medicine 03/03/23 Code And Test Clerk Relationship Specialty Start Date End Date Rei Enrique MD [address] [place] [address] (Fax) PCP - General Family Medicine 03/03/23 Code And Test Clerk Relationship Specialty Start Date End Date Rei Enrique MD [address] [place] [address] (Fax) PCP - General Family Medicine 03/03/23 Code And Test Clerk Relationship Specialty Start Date End Date Rei Enrique MD [address] [place] [address] (Fax) PCP - General Family Medicine 03/03/23 Code And Test Clerk Relationship Specialty Start Date End Date Rei Enrique MD [address] [place] [address] (Fax) PCP - General Family Medicine 03/03/23 Code And Test Clerk Relationship Specialty Start Date End Date Rei Enrique MD [address] [place] [address] (Fax) PCP - General Family Medicine 03/03/23 Code And Test Clerk Relationship Specialty Start Date End Date Rei Enrique MD [address] [place] [address] (Fax) PCP - General Family Medicine 03/03/23 Code And Test Clerk Relationship Specialty Start Date End Date Rei Enrique MD [address] [place] [address] (Fax) PCP - General Family Medicine 03/03/23 Code And Test Clerk Relationship Specialty Start Date End Date Rei Enrique MD [address] [place] [address] (Fax) PCP - General Family Medicine 03/03/23 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 Iqbal on due to abnormal Holter Reason Comments Consult Surgery consult Reason Comments Post-op 1st post op rt gt im plant Reason Comments Med Refill Reason Comments Post-op 14 D bio implant Reason Comments Post-op 5wk rt bio pro Reason Comments Toe Pain Rt gt toe pain- no i nj Specialty Diagnoses / Procedures Referred By Contac t Referred To Contact Podiatry Diagnoses Right foot pain Procedures [place] OFFICE/OUTPATIENT [facility] 60 MINUTES Rei Enrique MD [address] [place] [address] Samuel Forbes, DPDarlene [address] [facility] [address] [place] [address] Referral ID Status Reason Start Date Expiration Date V isits Requested Visits Authorized [id number] Closed Specialty Services Required 06/09/2024 12/06/2024 1 1 Reason Comments Post-op 7wk implant Reason Comments Hypertension Hyperlipidemia Anxiety Reason Comments URI Reason Comments Post-op 10WK RT BIOPRO Reason Comments Post-op 13wk rt bio pro Reason Onset Date Comments PT order 12/12/2024 FOR RECORDS PERTAINING TO PATIENTS WHO ARE [...] BE BASED ON THE PRIMARY CLINICAL RECORDS. [employer] provides no warranty or guarantee of the accuracy or completeness of information in this document.
--- NOTE | 2024-12-22 20:33 | CT_ITS ---
[address] [address] Patient Name: RAO RAMAN MRN: [id number] date: 1965 Sex: F Assigned Patient Location: ER Current Patient Location: [facility] Accession/Order Number: [id number] Exam Date: 12/22/2024 21:44 Report Date: 12/22/2024 21:49 At the request of: RAJEEV GARCIA Procedure: CT abdomen pelvis w con CT abdomen pelvis w con 12/22/2024 9:29 PM SIGNS AND SYMPTOMS: ^abd pain, acute \S.br\ TECHNIQUE: Multidetector ct axial images of the abdomen and pelvis were obtained with IV contrast. Multiplanar reformats were performed and reviewed to further define anatomy and possible pathology. CT was performed with one or more of the following dose reduction techniques: Automated exposure control, adjustment of the mA and/or kV according to patient size, or use of iterative reconstruction technique. COMPARISON: 10/18/2023 FINDINGS: Lower Chest: Within normal limits. ABDOMEN: Liver: Within normal limits. Bile Ducts: Normal caliber. Gallbladder: There is a stone within the gallbladder lumen. Pancreas: Within normal limits. Spleen: Within normal limits. Adrenals: Within normal limits. Kidneys: There is a septated cyst within the right renal cortex which is unchanged when compared to the prior exam consistent with a Bosniak 2 cyst. There is a simple cyst at the inferior pole of the right renal cortex. Pelvis: Reproductive Organs: No pelvic masses. Ureters: Within normal limits. Bladder: Within normal limits. Bowel: There are uncomplicated colonic diverticula. There is no evidence of bowel obstruction. Mesenteric Lymph Nodes: No enlarged mesenteric lymph nodes. Peritoneum: No ascites or free air, no fluid collection. Vessels: within normal limits Retroperitoneum: Within normal limits. Abdominal Wall: Within normal limits. Bones: Mild degenerative changes are noted in the thoracolumbar spine. Degenerative changes are noted in the sacroiliac joints. CT/CT abdomen pelvis w con IMPRESSION: No acute intra-abdominal pathology. Uncomplicated colonic diverticula are noted. There is a stone in the gallbladder lumen. Impression dictated by: Darrion Martinez M.D.12/22/2024 9:49 PM Dictation Location: [facility]-17 Electronically authenticated by: [id number] Y Date: 12/22/2024 21:49
--- NOTE | 2024-12-22 20:33 | XR_ITS ---
[place] [id number] Patient Name: RAO RAMAN MRN: [id number] date: 1965 Sex: F Assigned Patient Location: ER Current Patient Location: ED.MAIN Accession/Order Number: [id number] Exam Date: 12/22/2024 21:43 Report Date: 12/22/2024 21:43 At the request of: RAJEEV GARCIA Procedure: XR chest 1V XR chest 1V 12/22/2024 9:29 PM SIGNS AND SYMPTOMS: ^epigastric/chest pain PROTOCOL: Frontal radiograph of the chest COMPARISON: None FINDINGS: The trachea is midline. The heart and mediastinal structures are within normal limits. The lung parenchyma is clear. The bony thorax is intact. XR/XR chest 1V IMPRESSION: No acute cardiopulmonary pathology. Impression dictated by: Darrion Martinez M.D.12/22/2024 9:43 PM Dictation Location: [place] [address] Electronically authenticated by: [id number] Y Date: 12/22/2024 21:43
--- NOTE | 2024-12-22 20:33 | ECG_ITS ---
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
--- NOTE | 2024-12-22 20:35 | ED.ABDPAIN1 ---
Documented by User: RADHA Fernandes 12/22/24 22:22 HPI - Abdominal Pain General Chief Complaint: Abdominal Pain Stated Complaint: UPPER ABDOMINAL AND CHEST PAIN RADIATING BACK Time Seen by Provider: 12/22/24 20:19 Source: patient and family () Mode of arrival: walk-in History of Present Illness HPI narrative: 59-year-old female presents to the emergency department with complaint of abdominal pain. 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 with the pain insidiously in the epigastric region with progressive worsening into this evening. Describes the pain as a pressure, gas pain that wraps around to her back. Has had some slight nausea and vomiting. History of IBS. Denies any fevers, diarrhea, prior abdominal surgeries. Quality:?As above Severity:?Moderate Timing:?As above, constant, waxing and waning Context: Normal setting and activity? Modifying factors:?Worse with palpation Associated symptoms: As above Related Data Previous Rx's ?Medication ?Instructions ?Recorded acetaminophen 300 mg-codeine 30 mg 1 tab PO Q6H PRN pain 5 days #20 10/18/23 tablet tabs ciprofloxacin HCl 500 mg tablet 500 mg PO Q12H #20 tabs 10/18/23 (Cipro) metronidazole 250 mg tablet 250 mg PO TID #30 tabs 10/18/23 ondansetron 4 mg disintegrating 4 mg PO Q6H PRN nausea and 10/18/23 tablet vomiting #20 tabs famotidine 20 mg tablet (Pepcid) 20 mg PO BID #20 tabs 12/22/24 ondansetron 4 mg disintegrating 4 mg PO Q8H PRN nausea and 12/22/24 tablet vomiting #10 tabs Allergies Allergy/AdvReac Type Severity Reaction Status Date / Time amlodipine Allergy Severe Swelling Verified 12/22/24 20:20 of Lip/Tongue/Throat olanzapine Allergy Mild itch Verified 12/22/24 20:20 tramadol Allergy Mild rash Verified 12/22/24 20:20 doxylamine AdvReac Mild Hallucinati Verified 12/22/24 20:20 ng Review of Systems ROS Narrative CONST: Denies any fever, chills RESP: Denies any shortness of breath CV: + Lower chest pain GI: +abd pain.? + nausea, vomiting. Denies diarrhea. : Denies any flank pain, dysuria MS: + Back pain. Denies any myalgias SKIN: Denies any color change, rash NEURO: Denies numbness, weakness PSYCHIATRIC: Denies confusion, agitation PFSH PFSH Medical History Hypertension ?I10 - Essential (primary) hypertension (ICD-10) Afib ?I48.91 - Unspecified atrial fibrillation (ICD-10) Surgical History History of cardiac ablation for atrial fibrillation ?Z98.890 - Other specified postprocedural states (ICD-10) ?I48.91 - Unspecified atrial fibrillation (ICD-10) Social History Smoking status: Never smoker Little interest or pleasure in doing things: not at all Feeling down, depressed, or hopeless: not at all Exam Narrative Exam Narrative: Vital signs reviewed Nurses notes noted CONST: Nontoxic, well appearing, well nourished, in distress.? No diaphoresis.?? HENT: normocephalic, atraumatic, moist mucous membrane, no abnormalities of the nose noted, hearing normal EYES: normal appearing conjunctiva, no apparent discharge bilat NECK: normal appearance CV: normal rate, regular rhythm, no murmur RESP: normal effort, speaking in complete sentences. Lung sounds clear and equal bilat.? No wheezes, rales, rhonchi GI: normal bowel sounds, soft, no distension, +tenderness: Generalized. Worse in the epigastric region. No rebound or guarding. : no CVA tenderness MS: no edema, tenderness SKIN: no pallor NEURO: A&Ox 3, no focal findings PSYCH: normal mood, affect Constitutional Vital Signs, click to edit/add: Last Vital Signs Temp 97.8 F 12/22/24 20:02 Pulse 71 12/22/24 21:43 Resp 23 H 12/22/24 21:43 BP 152/90 H 12/22/24 21:43 Pulse Ox 96 12/22/24 21:43 O2 Del Method Room Air 12/22/24 20:02 Course Vital Signs Vital signs: Vital Signs Temperature 97.8 F 12/22/24 20:02 Pulse Rate 64 12/22/24 20:02 Respiratory Rate 20 12/22/24 20:02 Blood Pressure 184/80 H 12/22/24 20:02 Pulse Oximetry 98 12/22/24 20:02 Oxygen Delivery Method Room Air 12/22/24 20:02 Temperature 97.8 F 12/22/24 20:02 Pulse Rate 71 12/22/24 21:43 Respiratory Rate 23 H 12/22/24 21:43 Blood Pressure 152/90 H 12/22/24 21:43 Pulse Oximetry 96 12/22/24 21:43 Oxygen Delivery Method Room Air 12/22/24 20:02 MDM - Abdominal Pain MDM Narrative Medical decision making narrative: This is a pleasant 59-year-old female who presents to the emergency department for evaluation of abdominal pain, nausea, vomiting On arrival, afebrile, vital signs are stable Exam, nontoxic, well-appearing patient in no distress. Heart regular rate and rhythm. Lung sounds clear and equal bilaterally. Abdomen soft with generalized tenderness, worse in the epigastric region. No rebound or guarding present. EKG performed which showed no acute or concerning changes Labs reveal white blood cell count of 19,000, similar to September 2023. Neutrophils were the same as well. No anemia, thrombocytopenia. No electrolyte imbalance, renal impairment. Glucose 135. LFTs, lipase unremarkable. Troponin was only 5.9. Urinalysis reveals no evidence of infection. CT abdomen pelvis imaging, per radiologist reveals no acute or concerning changes. There was noted a gallstone within the lumen Chest x-ray reveals no acute or concerning changes Favor nonspecific abdominal pain Acute cholecystitis less likely based on labs, imaging Acute abdomen less likely based on physical, CT abdomen pelvis History and Record Review Discussion with independent historian: Additional records reviewed: Labs: Similar white blood cell count Disposition ? The patient was discharged. Prescriptions sent to pharmacy: Kyra Campos Plan: Patient will be discharged to home.? Condition at time of disposition: stable, improved.? Advised to follow up with primary provider. Advised to return for any worsening and/or development of new, concerning signs or symptoms PLEASE NOTE: Portions of the medical record may have been produced using electronic claims representative and may contain errors with respect to translation of words which may not have been identified prior to finalization of the chart. Medical Records Attestation: I reviewed the patient's medical records. Lab Data Attestation: I reviewed the patient's lab results. Labs: Lab Results 12/22/24 12/22/24 Range/Units 20:27 20:42 WBC 19.1 H (4.0-11.0) 10^3/uL RBC 4.79 (4.20-5.40) 10^6/uL Hgb 14.3 (12.0-16.0) g/dL Hct 44.1 (36.0-48.0) % MCV 92.1 (81.0-99.0) fL MCH 29.9 (26.7-34.0) pg MCHC 32.4 (29.9-35.2) g/dL RDW 13.3 (11.0-15.0) % Plt Count 348 (150-450) 10^3/uL MPV 9.5 (9.5-13.5) fL Neut % (Auto) 85.0 H (43.0-75.0) % Lymph % (Auto) 9.1 L (20.5-60.0) % [place] % (Auto) 4.0 (1.7-12.0) % Eos % (Auto) 1.0 (0.9-7.0) % Baso % (Auto) 0.5 (0.2-2.0) % Neut # (Auto) 16.2 H (1.4-6.5) 10^3/uL Lymph # (Auto) 1.7 (1.2-3.8) 10^3/uL [place] # (Auto) 0.8 (0.3-0.8) 10^3/uL Eos # (Auto) 0.2 (0.0-0.7) 10^3/uL Baso # (Auto) 0.1 (0.0-0.1) 10^3/uL Abs Immat Gran (auto) 0.08 H (0.00-0.03) 10^3/uL Imm/Tot Granulo (auto) 0.4 (0.0-0.5) % Sodium 141 (136-145) mmol/L Potassium 3.9 (3.5-5.1) mmol/L Chloride 104 (98-107) mmol/L Carbon Dioxide 25.1 (21.0-32.0) mmol/L Anion Gap 15.8 BUN 26.0 H (7.0-18.0) mg/dL Creatinine 0.94 (0.55-1.02) mg/dL Est GFR ( Amer) >60 (>=60 mL/min/1.73m^2) Est GFR (Non-Af Amer) >60 (>=60 mL/min/1.73m^2) BUN/Creatinine Ratio 27.7 Glucose 135 H (74-106) mg/dL Calcium 9.4 (8.5-10.1) mg/dL Magnesium 1.8 (1.8-2.4) mg/dL Total Bilirubin 0.2 (0.2-1.0) mg/dL AST 20 (15-37) U/L ALT 37 (14-59) U/L Alkaline Phosphatase 91 (46-116) U/L Troponin I High Sens 5.9 (4.0-51.3) pg/mL Total Protein 7.4 (6.4-8.2) g/dL Albumin 3.8 (3.4-5.0) g/dL Globulin 3.6 g/dL Albumin/Globulin Ratio 1.1 Lipase 32.0 (16.0-77.0) U/L Urine Color Lt. yellow (YELLOW) Urine Clarity Clear (CLEAR) Urine pH 7.0 (5.0-9.0) Ur Specific [place] 1.020 (1.005-1.025) Urine Protein Negative (NEG/TRACE) mg/dL Urine Glucose (UA) Negative (NEGATIVE) mg/dL Urine Ketones Negative (NEGATIVE) mg/dL Urine Occult Blood Negative (NEGATIVE) Urine Nitrite Negative (NEGATIVE) Urine Bilirubin Negative (NEGATIVE) Urine Urobilinogen 0.2 (0.2-1.0) EU/dL Ur Leukocyte Esterase Negative (NEGATIVE) Urine RBC 0-2 (0-2) #/HPF Urine WBC 0-2 A (NONE SEEN) #/HPF Ur Squamous Epith Cells Few A (NONE/RARE) #/LPF Urine Crystals None seen (None Seen) #/HPF Urine Bacteria Trace A (NONE SEEN) #/HPF Urine Casts None seen (NONE SEEN) #/LPF Urine Mucus None seen (NONE SEEN) Ur Culture Indicated? No Imaging Data CT abdomen: Radiologist's impression: ITS Impressions Abdomen/Pelvis CT 12/22/24 20:33 IMPRESSION: No acute intra-abdominal pathology. Uncomplicated colonic diverticula are noted. There is a stone in the gallbladder lumen. Impression dictated by: Darrion Martinez M.D.12/22/2024 9:49 PM Dictation Location: [facility] Electronically authenticated by: [id number] Y Date: 12/22/2024 21:49 Chest X-Ray 12/22/24 20:33 IMPRESSION: No acute cardiopulmonary pathology. Impression dictated by: Darrion Martinez M.D.12/22/2024 9:43 PM [facility]ictation [facility] Electronically authenticated by: [id number] Y Date: 12/22/2024 21:43 ECG Data Attestation: I personally reviewed and interpreted this ECG as follows: (EKG performed at 2041 hrs. reveals sinus rhythm at 58 bpm. No ischemia or ectopy noted. No STEMI. Normal axis. No other acute changes are noted.) Discharge Plan Discharge Chief Complaint: Abdominal Pain Clinical Impression: Acute epigastric pain, Cholelithiasis Nausea & vomiting Qualifiers: Vomiting type: unspecified Qualified Code(s): R11.2 - Nausea with vomiting, unspecified Patient Disposition: Home, Self-Care Time of Disposition Decision: 23:19 Condition: Good Prescriptions / Home Meds: New ondansetron 4 mg tablet,disintegrating 4 mg PO Q8H PRN (Reason: nausea and vomiting) Qty: 10 0RF famotidine [Pepcid] 20 mg tablet 20 mg PO BID Qty: 20 0RF No Action ciprofloxacin HCl [Cipro] 500 mg tablet 500 mg PO Q12H Qty: 20 0RF metronidazole 250 mg tablet 250 mg PO TID Qty: 30 0RF acetaminophen-codeine 300-30 mg tablet 1 tab PO Q6H PRN (Reason: pain) 5 Days Qty: 20 0RF ondansetron 4 mg tablet,disintegrating 4 mg PO Q6H PRN (Reason: nausea and vomiting) Qty: 20 0RF Print Language: Albanian Instructions: Abdominal Pain (ED) Referrals: TAHIR ENRIQUE [Primary Care Provider] - 1 week Documented by User: Elizabeth Shi MD 12/22/24 23:20 HPI - Abdominal Pain General Chief Complaint: Abdominal Pain Stated Complaint: UPPER ABDOMINAL AND CHEST PAIN RADIATING BACK Time Seen by Provider: 12/22/24 20:19 Related Data Previous Rx's ?Medication ?Instructions ?Recorded acetaminophen 300 mg-codeine 30 mg 1 tab PO Q6H PRN pain 5 days #20 10/18/23 tablet tabs ciprofloxacin HCl 500 mg tablet 500 mg PO Q12H #20 tabs 10/18/23 (Cipro) metronidazole 250 mg tablet 250 mg PO TID #30 tabs 10/18/23 ondansetron 4 mg disintegrating 4 mg PO Q6H PRN nausea and 10/18/23 tablet vomiting #20 tabs famotidine 20 mg tablet (Pepcid) 20 mg PO BID #20 tabs 12/22/24 ondansetron 4 mg disintegrating 4 mg PO Q8H PRN nausea and 12/22/24 tablet vomiting #10 tabs Allergies Allergy/AdvReac Type Severity Reaction Status Date / Time amlodipine Allergy Severe Swelling Verified 12/22/24 20:20 of Lip/Tongue/Throat olanzapine Allergy Mild itch Verified 12/22/24 20:20 tramadol Allergy Mild rash Verified 12/22/24 20:20 doxylamine AdvReac Mild Hallucinati Verified 12/22/24 20:20 ng PFSH PFSH Medical History Hypertension ?I10 - Essential (primary) hypertension (ICD-10) Afib ?I48.91 - Unspecified atrial fibrillation (ICD-10) Surgical History History of cardiac ablation for atrial fibrillation ?Z98.890 - Other specified postprocedural states (ICD-10) ?I48.91 - Unspecified atrial fibrillation (ICD-10) Social History Smoking status: Never smoker Little interest or pleasure in doing things: not at all Feeling down, depressed, or hopeless: not at all Exam Constitutional Vital Signs, click to edit/add: Last Vital Signs Temp 97.8 F 12/22/24 20:02 Pulse 71 12/22/24 21:43 Resp 23 H 12/22/24 21:43 BP 152/90 H 12/22/24 21:43 Pulse Ox 96 12/22/24 21:43 O2 Del Method Room Air 12/22/24 20:02 Course Vital Signs Vital signs: Vital Signs Temperature 97.8 F 12/22/24 20:02 Pulse Rate 64 12/22/24 20:02 Respiratory Rate 20 12/22/24 20:02 Blood Pressure 184/80 H 12/22/24 20:02 Pulse Oximetry 98 12/22/24 20:02 Oxygen Delivery Method Room Air 12/22/24 20:02 Temperature 97.8 F 12/22/24 20:02 Pulse Rate 71 12/22/24 21:43 Respiratory Rate 23 H 12/22/24 21:43 Blood Pressure 152/90 H 12/22/24 21:43 Pulse Oximetry 96 12/22/24 21:43 Oxygen Delivery Method Room Air 12/22/24 20:02 MDM - Abdominal Pain MDM Narrative Medical decision making narrative: This is a pleasant 59-year-old female who presents to the emergency department for evaluation of abdominal pain, nausea, vomiting On arrival, afebrile, vital signs are stable Exam, nontoxic, well-appearing patient in no distress. Heart regular rate and rhythm. Lung sounds clear and equal bilaterally. Abdomen soft with generalized tenderness, worse in the epigastric region. No rebound or guarding present. EKG performed which showed no acute or concerning changes Labs reveal white blood cell count of 19,000, similar to September 2023. Neutrophils were the same as well. No anemia, thrombocytopenia. No electrolyte imbalance, renal impairment. Glucose 135. LFTs, lipase unremarkable. Troponin was only 5.9. Urinalysis reveals no evidence of infection. CT abdomen pelvis imaging, per radiologist reveals no acute or concerning changes. 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 She was reevaluated by myself and still having some epigastric abdominal pain. Her nausea has resolved. I reviewed her labs. She does have an elevated white count at 19 but this is consistent with her previous CBC with differential. CT scan of the abdomen pelvis shows a gallstone without any pericholecystic fluid or findings consistent with acute cholecystitis. She was given some IV Toradol with clinical improvement. The results of her labs were discussed with her. She was given a copy of her CT scan. She will be referred to outpatient general surgery for further evaluation of the gallstone. She will be discharged home with a prescription for Zofran and Bentyl with recommendation for a low-fat diet and close follow-up with her family physician and return to the emergency department for worsening symptoms or any concerns Disposition ? The patient was discharged. Prescriptions sent to pharmacy: Kyra Campos Plan: Patient will be discharged to home.? Condition at time of disposition: stable, improved.? Advised to follow up with primary provider. Advised to return for any worsening and/or development of new, concerning signs or symptoms PLEASE NOTE: Portions of the medical record may have been produced using electronic claims representative and may contain errors with respect to translation of words which may not have been identified prior to finalization of the chart. Lab Data Labs: Lab Results 12/22/24 12/22/24 Range/Units 20:27 20:42 WBC 19.1 H (4.0-11.0) 10^3/uL RBC 4.79 (4.20-5.40) 10^6/uL Hgb 14.3 (12.0-16.0) g/dL Hct 44.1 (36.0-48.0) % MCV 92.1 (81.0-99.0) fL MCH 29.9 (26.7-34.0) pg MCHC 32.4 (29.9-35.2) g/dL RDW 13.3 (11.0-15.0) % Plt Count 348 (150-450) 10^3/uL MPV 9.5 (9.5-13.5) fL Neut % (Auto) 85.0 H (43.0-75.0) % Lymph % (Auto) 9.1 L (20.5-60.0) % [place] % (Auto) 4.0 (1.7-12.0) % Eos % (Auto) 1.0 (0.9-7.0) % Baso % (Auto) 0.5 (0.2-2.0) % Neut # (Auto) 16.2 H (1.4-6.5) 10^3/uL Lymph # (Auto) 1.7 (1.2-3.8) 10^3/uL [place] # (Auto) 0.8 (0.3-0.8) 10^3/uL Eos # (Auto) 0.2 (0.0-0.7) 10^3/uL Baso # (Auto) 0.1 (0.0-0.1) 10^3/uL Abs Immat Gran (auto) 0.08 H (0.00-0.03) 10^3/uL Imm/Tot Granulo (auto) 0.4 (0.0-0.5) % Sodium 141 (136-145) mmol/L Potassium 3.9 (3.5-5.1) mmol/L Chloride 104 (98-107) mmol/L Carbon Dioxide 25.1 (21.0-32.0) mmol/L Anion Gap 15.8 BUN 26.0 H (7.0-18.0) mg/dL Creatinine 0.94 (0.55-1.02) mg/dL Est GFR ( Amer) >60 (>=60 mL/min/1.73m^2) Est GFR (Non-Af Amer) >60 (>=60 mL/min/1.73m^2) BUN/Creatinine Ratio 27.7 Glucose 135 H (74-106) mg/dL Calcium 9.4 (8.5-10.1) mg/dL Magnesium 1.8 (1.8-2.4) mg/dL Total Bilirubin 0.2 (0.2-1.0) mg/dL AST 20 (15-37) U/L ALT 37 (14-59) U/L Alkaline Phosphatase 91 (46-116) U/L Troponin I High Sens 5.9 (4.0-51.3) pg/mL Total Protein 7.4 (6.4-8.2) g/dL Albumin 3.8 (3.4-5.0) g/dL Globulin 3.6 g/dL Albumin/Globulin Ratio 1.1 Lipase 32.0 (16.0-77.0) U/L Urine Color Lt. yellow (YELLOW) Urine Clarity Clear (CLEAR) Urine pH 7.0 (5.0-9.0) Ur Specific [place] 1.020 (1.005-1.025) Urine Protein Negative (NEG/TRACE) mg/dL Urine Glucose (UA) Negative (NEGATIVE) mg/dL Urine Ketones Negative (NEGATIVE) mg/dL Urine Occult Blood Negative (NEGATIVE) Urine Nitrite Negative (NEGATIVE) Urine Bilirubin Negative (NEGATIVE) Urine Urobilinogen 0.2 (0.2-1.0) EU/dL Ur Leukocyte Esterase Negative (NEGATIVE) Urine RBC 0-2 (0-2) #/HPF Urine WBC 0-2 A (NONE SEEN) #/HPF Ur Squamous Epith Cells Few A (NONE/RARE) #/LPF Urine Crystals None seen (None Seen) #/HPF Urine Bacteria Trace A (NONE SEEN) #/HPF Urine Casts None seen (NONE SEEN) #/LPF Urine Mucus None seen (NONE SEEN) Ur Culture Indicated? No Imaging Data CT abdomen: Radiologist's impression: ITS Impressions Abdomen/Pelvis CT 12/22/24 20:33 IMPRESSION: No acute intra-abdominal pathology. Uncomplicated colonic diverticula are noted. There is a stone in the gallbladder lumen. Impression dictated by: Darrion Martinez M.D.12/22/2024 9:49 PM Dictation Location: [facility] Electronically authenticated by: [id number] Y Date: 12/22/2024 21:49 Chest X-Ray 12/22/24 20:33 IMPRESSION: No acute cardiopulmonary pathology. Impression dictated by: Darrion Martinez M.D.12/22/2024 9:43 PM Dictation Location[facility] Electronically authenticated by: [id number] Y Date: 12/22/2024 21:43 Discharge Plan Discharge Chief Complaint: Abdominal Pain Clinical Impression: Acute epigastric pain, Cholelithiasis Nausea & vomiting Qualifiers: Vomiting type: unspecified Qualified Code(s): R11.2 - Nausea with vomiting, unspecified Patient Disposition: Home, Self-Care Time of Disposition Decision: 23:19 Condition: Good Prescriptions / Home Meds: New ondansetron 4 mg tablet,disintegrating 4 mg PO Q8H PRN (Reason: nausea and vomiting) Qty: 10 0RF famotidine [Pepcid] 20 mg tablet 20 mg PO BID Qty: 20 0RF No Action ciprofloxacin HCl [Cipro] 500 mg tablet 500 mg PO Q12H Qty: 20 0RF metronidazole 250 mg tablet 250 mg PO TID Qty: 30 0RF acetaminophen-codeine 300-30 mg tablet 1 tab PO Q6H PRN (Reason: pain) 5 Days Qty: 20 0RF ondansetron 4 mg tablet,disintegrating 4 mg PO Q6H PRN (Reason: nausea and vomiting) Qty: 20 0RF Print Language: Albanian Instructions: Abdominal Pain (ED) Referrals: TAHIR ENRIQUE [Primary Care Provider] - 1 week
[2024-12-22 20:45] LABS: Basophils Absolute Auto 0.1 10^3/uL (0.0-0.1); Basophils Percent Auto 0.5 % (0.2-2.0); Eosinophils Absolute Auto 0.2 10^3/uL (0.0-0.7); Hematocrit 44.1 % (36.0-48.0); Hemoglobin 14.3 g/dL (12.0-16.0); Immature Granulocytes Abs Auto 0.08 10^3/uL (0.00-0.03); Immature Granulocytes Pct Auto 0.4 % (0.0-0.5); Lymphocytes Absolute Auto 1.7 10^3/uL (1.2-3.8); Lymphocytes Percent Auto 9.1 % (20.5-60.0); Mean Corpuscular HGB Conc 32.4 g/dL (29.9-35.2); Mean Corpuscular Hemoglobin 29.9 pg (26.7-34.0); Mean Corpuscular Volume 92.1 fL (81.0-99.0); Mean Platelet Volume 9.5 fL (9.5-13.5); Monocytes Absolute Auto 0.8 10^3/uL (0.3-0.8); Neutrophils Absolute Auto 16.2 10^3/uL (1.4-6.5); Platelet Count 348 10^3/uL (150-450); Red Blood Count 4.79 10^6/uL (4.20-5.40); Red Cell Distribution Width 13.3 % (11.0-15.0); White Blood Count 19.1 10^3/uL (4.0-11.0)
[2024-12-22] MEDS: 0.9 % SODIUM CHLORIDE 1,000 ML 999 ML IV (20:54)
[2024-12-22] MEDS: FAMOTIDINE/PF 20 MG/2 ML VIAL IV (20:56)
[2024-12-22] MEDS: ONDANSETRON PF 4 MG/2 ML VIAL IV (20:56)
[2024-12-22] MEDS: MORPHINE SULFATE 4 MG/ML VIAL IV (20:56)
[2024-12-22 21:00] LABS: Anion Gap 15.8
[2024-12-22 21:02] LABS: Alanine Aminotransferase 37 U/L (14-59); Albumin Globulin Ratio 1.1; Albumin Level 3.8 g/dL (3.4-5.0); Alkaline Phosphatase 91 U/L (46-116); Aspartate Amino Transferase 20 U/L (15-37); BUN Creatinine Ratio 27.7; Bilirubin Total 0.2 mg/dL (0.2-1.0); Calcium 9.4 mg/dL (8.5-10.1); Carbon Dioxide 25.1 mmol/L (21.0-32.0); Chloride 104 mmol/L (98-107); Estimated GFR (African America >60 (>=60 mL/min/1.73m^2); Estimated GFR (Non-African Ame >60 (>=60 mL/min/1.73m^2); Globulin 3.6 g/dL; Glucose 135 mg/dL (74-106); Magnesium 1.8 mg/dL (1.8-2.4); Potassium 3.9 mmol/L (3.5-5.1); Sodium 141 mmol/L (136-145); Total Protein 7.4 g/dL (6.4-8.2); Troponin I High Sensitivity 5.9 pg/mL (4.0-51.3)
[2024-12-22 21:07] LABS: Bilirubin Urine NEGATIVE (NEGATIVE); Blood Urine NEGATIVE (NEGATIVE); Clarity Urine CLEAR (CLEAR); Color Urine LT. YELLOW (YELLOW); Glucose Urine UA NEGATIVE (NEGATIVE); Ketones Urine NEGATIVE (NEGATIVE); Leukocyte Esterase Urine NEGATIVE (NEGATIVE); Nitrite Urine NEGATIVE (NEGATIVE); Protein Urine NEGATIVE (NEG/TRACE); Urobilinogen Urine 0.2 EU/dL (0.2-1.0)
[2024-12-22 21:14] LABS: Bacteria Urine TRACE #/HPF (NONE SEEN); Cast Seen? NONE SEEN #/LPF (NONE SEEN); Crystals Seen? None Seen #/HPF (None Seen); Mucus Urine NONE SEEN (NONE SEEN); RBC Urine 0-2 #/HPF (0-2); Squamous Epithelial Cell Urine FEW #/LPF (NONE/RARE); WBC Urine 0-2 #/HPF (NONE SEEN)
[2024-12-22 21:15] LABS: Urine Culture Indicated NO
[2024-12-22] MEDS: KETOROLAC TROMETHAMINE 30 MG/ML VIAL IVP (22:47)
[2024-12-22] MEDS: ONDANSETRON 4 MG RAPDIS TABLET SL (23:35)
== END 2024-12-22 23:37 | disposition home or self-care (01) ==
PROVIDERS: Physician Assistant; Emergency Provider Emergency Medicine; PCP Family Medicine
DX: K80.20 Calculus of gallbladder without cholecystitis without obstruction (principal); R11.2 Nausea with vomiting, unspecified; R10.13 Epigastric pain; K58.9 Irritable bowel syndrome, unspecified
CPT/HCPCS: 36415; 71045; 74177; 80053; 81001; 83690; 83735; 84484; 85025; 93005; 96361; 96374; 96375; 99285; J1885; J2270; J2405; J3490; Q0162; Q9967

== ENCOUNTER 2025-04-03 07:50 | Outpatient (OUT) | payer OTHER, SELFPAY ==
--- OUTSIDE RECORDS SUMMARY | 2025-04-03 07:52 | XMS_ITS | Encounter Summary ---
Author Organization [facility] Address [address] [place] [address] Care Team Providers Care Tubing Tester Name Role Phone Rei Ortiz MD Primary Care Provider [phone] Encounter Details Date Type Department Care Team (Late st Contact Info) Description 08/01/2024 Orders Only [facility] [address] [place] [id number] Rei Ortiz MD [address] [place] [address] Social History Tobacco Use Types Packs/Day Years Used Date Smoking Tobacco: Never Smokeless Tobacco: Never Alcohol Use Standard Drinks/Week Comments Never 0 (1 standard drink = 0.6 oz pure alcohol) Caffeine intake : 1-2 cups per day Humiliation, Afraid, Rape, and Kick questionnair e Answer Date Recorded Within the last year, have y ou been afraid of your partner or ex-partner? No 08/26/2023 Within the last year, have y ou been humiliated or emotionally abused in other ways by your partner or ex-partner? No Within the last year, have y ou been kicked, hit, slapped, or otherwise physically hurt by your partner or ex-partner? No 08/26/2023 Within the last year, have y ou been raped or forced to have any kind of sexual activity by your partner or ex-partner? No 08/26/2023 Social Connection and Isolation Panel [NHANES] A nswer Date Recorded In a typical week, how many times do you talk on the phone with family, friends, or neighbors? Never 08/26/2023 How often do you get togethe r with friends or relatives? Once a week 08/26/2023 How often do you attend muslim or oriental orthodox serv ices? Patient declined 08/26/2023 Do you belong to any clubs o r organizations such as muslim groups, unions, fraternal or athletic groups, or school groups? No 08/26/2023 How often do you attend meet ings of the clubs or organizations you belong to? Patient declined 08/26/2023 Are you , , di vorced, , never , or living with a partner? 08/26/2023 AUDIT-C Answer Date Recorded Q1: How often do you have a drink containing alc ohol? Monthly or less 08/26/2023 Q2: How many drinks containi ng alcohol do you have on a typical day when you are drinking? Patient declined 08/26/2023 Q3: How often do you have si x or more drinks on one occasion? Never 08/26/2023 Overall Financial Resource Strain (CARDIA) Answe r Date Recorded How hard is it for you to pa y for the very basics like food, housing, medical care, and heating? Not hard at all 08/26/2023 PHQ-2 Answer Date Recorded Patient Health Questionnaire-2 Score 1 05/24/2024 [facility] - Occupational Stress Questionnaire Answer Date Recorded Do you feel stress - tense, restless, nervous, or anxious, or unable to sleep at night because your mind is troubled all the time - these days? To some extent 08/26/2023 Exercise Vital Sign Answer Date Recorde d On average, how many days pe r week do you engage in moderate to strenuous exercise (like a brisk walk)? Patient declined On average, how many minutes do you engage in exercise at this level? Patient declined 08/26/2023 Hunger Vital Sign Answer Date Recorded Within the past 12 months, y ou worried that your food would run out before you got the money to buy more. Never true 08/26/20 23 Within the past 12 months, t he food you bought just didn't last and you didn't have money to get more. Never true 08/26/2023 PRAPARE - Transportation Answer Date Re corded In the past 12 months, has l ack of transportation kept you from medical appointments or from getting medications? No 10/2022 In the past 12 months, has l ack of transportation kept you from meetings, work, or from getting things needed for daily living? No 08/26/2023 Housing Stability Vital Sign Answer Jan e Recorded In the last 12 months, was t here a time when you were not able to pay the mortgage or rent on time? No 08/26/2023 Number of Places Lived in the Last Year Not on f ile 08/26/2023 In the last 12 months, was t here a time when you did not have a steady place to sleep or slept in a fci (including now)? No 08/26/2023 Comments No Sex and Gender Information Value Date Recorded Sex Assigned at Female 08/26/2023 8:39 AM EDT Legal Sex Female 6:41 PM EDT Gender Identity Female 01/07/2023 6:41 PM EDT Sexual Orientation Straight 08/26/2023 8: 39 AM EDT documented as of this encounter Plan of Treatment Upcoming Encounters Date Type Department Care Team (Late st Contact Info) Description 04/06/2025 8:30 AM EDT Office Visit [facility] [address] [place] [address] Samuel Forbes DPM [address] [facility] [address] [place] [address] documented as of this encounter Visit Diagnoses Not on filedocumented in this encounter Care Teams Tubing Tester Relationship Specialty Start Date End Date Rei Ortiz MD [address] [facility] [address] [facility] [address] [place] [address] PCP - General Family Medicine 03/03/23 documented as of this encounter
--- OUTSIDE RECORDS SUMMARY | 2025-04-03 07:52 | XMS_ITS | Encounter Summary ---
Author Organization Zachery Matt [facility] veronica [facility]AMarilyn Address [address] [place] [address] Care Team Providers Care Forensic Anthropologist Name Role Phone Unavailable Primary Care Provider Unavailabl e Reason for Referral * Imaging (Routine) - Open Specialty Diagnoses / Procedures Referred By Contac t Referred To Contact Radiology Diagnoses Nocturnal hypoxemia Abnormal blood-gas level Toxic effect of tobacco cigarettes, accidental (unintentional), sequela Personal history of COVID-[address] CHEST WO CONTRAST Rei Ortiz MD Phone: tel: fax: Referral ID Status Reason Start Date Expiration Date Visits Re quested Visits Authorized [id number] Open 04/22/2024 04/22/2025 1 1 Encounter Details Date Type Department Care Team (Late st Contact Info) Description 04/22/2024 Transcribe Orders Elias Pre Access [address] [id number] Rei Ortiz MD [address] [place] [address] (Fax) Nocturnal hypoxemia (Primary Dx); Abnormal blood-gas level; Toxic effect of tobacco cigarettes, accidental (unintentional), sequela; Personal history of COVID-19 Social History Tobacco Use Types Packs/Day Years Used Date Smoking Tobacco: Never Assessed Comments Unknown Sex and Gender Information Value Date Recorded Sex Assigned at Not on file Legal Sex Female 1:16 PM EST Gender Identity Not on file Sexual Orientation Not on file documented as of this encounter Plan of Treatment Scheduled Orders Name Type Priority Associated Diagnoses Orde r Schedule CT CHEST WO CONTRAST Imaging Routine Nocturnal hypoxemia Abnormal blood-gas level Toxic effect of tobacco cigarettes, accidental (unintentional), sequela Personal history of COVID-19 Expected: 04/22/2024, Expires: 04/22/2025 documented as of this encounter Visit Diagnoses Diagnosis Nocturnal hypoxemia- Primary Hypoxemia Abnormal blood-gas level Abnormal arterial blood gases Toxic effect of tobacco cigarettes, accidental (unintentional), sequela Personal history of COVID-19 documented in this encounter
--- OUTSIDE RECORDS SUMMARY | 2025-04-03 07:52 | XMS_ITS | Clinical Summary ---
Author Organization Zachery Gutierrez [facility] Jamal martin [facility] Address [address] [place] [address] Care Team Providers Care Commercial Green Retrofit Architect Name Role Phone Unavailable Primary Care Provider Unavailabl e Social History Tobacco Use Types Packs/Day Years Used Date Smoking Tobacco: Never Assessed Comments Unknown Sex and Gender Information Value Date Recorded Sex Assigned at Not on file Legal Sex Female 1:16 PM EST Gender Identity Not on file Sexual Orientation Not on file Plan of Treatment Not on file
--- OUTSIDE RECORDS SUMMARY | 2025-04-03 07:52 | XMS_ITS | Encounter Summary ---
Author Organization [facility] Address [address] [place] [address] Care Team Providers Care Sas Administrator Name Role Phone Rei Ortiz MD Primary Care Provider [phone] Encounter Details Date Type Department Care Team (Late st Contact Info) Description 02/22/2024 Abstract [facility] [address] [place] [address] Rei Ortiz MD [address] [facility] [address] [place] [address] Social History Tobacco Use Types Packs/Day Years [...] week 08/26/2023 How often do you attend religion or jainism serv ices? Patient declined 08/26/2023 Do you belong to any clubs o r organizations such as religion groups, unions, fraternal or athletic groups, or [...] and heating? Not hard at all 08/26/2023 [facility] Occup[facility] - Occupational [...] medical appointments or from getting medications? No 0 10/2022 In the past 12 months, has [...] place to sleep or slept in a snf (including now)? No 08/26/2023 Comments No Sex [...] EDT Office Visit [facility] [address] [facility] [address] [place] [address] Samuel Forbes DPDarlene [address] [facility] 5 [place] [address] documented as of this encounter Visit Diagnoses Not on filedocumented in this encounter Care Teams Sas Administrator Relationship Specialty Start Date End Date Rei Ortiz MD [address] [facility] [address] [place] [address] PCP - General Family Medicine 03/03/23 documented as of this encounter
--- OUTSIDE RECORDS SUMMARY | 2025-04-03 07:53 | XMS_ITS | Encounter Summary ---
Author Organization [facility] Address [address] [place] [address] Care Team Providers Care Jacquard Plate Maker Name Role Phone Rei Ortiz MD Primary Care Provider Encounter Details Date Type Department Care Team (Late st Contact Info) Description 09/28/2023 Orders Only [facility] [address] [facility] [place] [address] Serafin Winkler MD [address] [place] [address] Social History Tobacco Use Types Packs/Day Years Used Date Smoking Tobacco: Never Smokeless Tobacco: Never Alcohol Use Standard Drinks/Week Comments Not Currently 0 (1 standard drink = 0.6 oz [...] week 08/26/2023 How often do you attend hoahaoism or sikh serv ices? Patient declined 08/26/2023 Do you belong to any clubs o r organizations such as hoahaoism groups, unions, fraternal or athletic groups, or [...] and heating? Not hard at all 08/26/2023 [facility] of Occupat ional Health - Occupational Stress [...] place to sleep or slept in a jail (including now)? No 08/26/2023 Comments No Sex and Gender Information Value Date Recorded Sex Assigned at Female 08/26/2023 8:39 AM EDT Legal Sex Female 6:41 PM EDT Gender Identity Female 01/07/2023 6:41 PM EDT Sexual Orientation Straight 08/26/2023 8: 39 AM EDT documented as of this encounter Plan of Treatment Upcoming Encounters Date Type Department Care Team ([facility] st Contact Info) Description 04/06/2025 8:30 AM EDT Office Visit [facility] [address] [facility] [address] [place] [phone] Samuel Forbes DPM [address] [facility] [address] [place] [address] documented as of this encounter Procedures Procedure Name Priority Date/Time Associated Diagnosis Comments ECHO 2D/3D GUICHO W/WO CONTRAST Routine 09/23/2023 1:06 PM EST documented in this encounter Results * ECHO 2D/3D GUICHO W/WO CONTRAST (09/23/2023 1:06 PM EST) Anatomical Region Laterality Modality Radiographic Alma ging us Serafin Winkler MD IMG XR PROCEDURES Final Result documented in this encounter Visit Diagnoses Not on filedocumented in this encounter Care Teams Jacquard Plate Maker Relationship Specialty Start Date End Date Rei Ortiz MD [address] [facility] [address] [place] [address] PCP - General Family Medicine 03/03/23 documented as of this encounter
--- OUTSIDE RECORDS SUMMARY | 2025-04-03 07:53 | XMS_ITS | Encounter Summary ---
Author Organization [facility] Address [address] [place] [address] Care Team Providers Care President Of [place] Name Role Phone Rei Ortiz MD Primary Care Provider [phone] Encounter Details Date Type Department Care Team (Late st Contact Info) Description 08/27/2023 Abstract [facility] [address] [place] [address] Rei Ortiz MD [address] [facility] [address] [place] [address] Social History Tobacco Use Types Packs/Day Years [...] week 08/26/2023 How often do you attend jew or roman catholic serv ices? Patient declined 08/26/2023 Do you belong to any clubs o r organizations such as jew groups, unions, fraternal or athletic groups, or [...] and heating? Not hard at all 08/26/2023 [facility] of Occupat ional Health - Occupational [...] place to sleep or slept in a long-term (including now)? No 08/26/2023 Comments No Sex and Gender Information Value Date Recorded Sex Assigned at Female 08/26/2023 8:39 AM EDT Legal Sex Female 6:41 PM EDT Gender Identity Female 01/07/2023 6:41 PM EDT Sexual Orientation Straight 08/26/2023 8: 39 AM EDT COVID-19 Exposure Response Date Recorded In the last 10 days, have yo u been in contact with someone who was confirmed or suspected to have Coronavirus/COVID-19? No / Unsure 08/26/2023 8:57 AM EDT documented as of this encounter Plan of Treatment Upcoming Encounters Date Type Department Care Team ([facility] st Contact Info) Description 04/06/2025 8:30 AM EDT Office Visit [facility] [address] [facility] [address] [place] [address] Samuel Forbes DPM 3[address] [facility] 5 [place] [address] documented as of this encounter Visit Diagnoses Not on filedocumented in this encounter Care Teams President Of The [place] Relationship Specialty Start Date End Date Rei Ortiz MD [address] [facility] [address] [place] [address] PCP - General Family Medicine 03/03/23 documented as of this encounter
--- OUTSIDE RECORDS SUMMARY | 2025-04-03 07:53 | XMS_ITS | Encounter Summary ---
Author Organization [facility] Address [address] [place] [address] Care Team Providers Care Game Agent Name Role Phone Rei Ortiz MD Primary Care Provider [phone] Encounter Details Date Type Department Care Team ([facility] Contact Info) Description 07/22/2023 Orders Only [facility] [address] [facility] [place] [address] Rei Ortiz MD [address] [facility] [address] [place] [address] Social History Tobacco Use Types Packs/Day Years [...] Encounters Date Type Department Care Team (Late Contact Info) Description 04/06/2025 8:30 AM EDT Office Visit [facility] [address] [place] [phone] Samuel Forbes DPM [address] [facility] [address] [place] [address] documented as of this encounter Visit Diagnoses Not on filedocumented in this encounter Care Teams Game Agent Relationship Specialty Start Date End Date Rei Ortiz MD [address] [address] PCP - General Family Medicine 03/03/23 documented as of this encounter
--- OUTSIDE RECORDS SUMMARY | 2025-04-03 07:53 | XMS_ITS | Clinical Summary ---
Author Organization [facility] Address [id number] [address] [place] [address] Care Team Providers Care Hairspring Ii Inspector Name Role Phone Rei Ortiz MD Primary Care Provider [phone] Social History Tobacco Use Types Packs/Day Years Used Date Smoking Tobacco: Never Assessed Childcare Answer Date Recorded Childcare Unknown 04/06/2019 Employment Answer Date Recorded Employment Unknown 04/06/2019 Comments Unknown Sex and Gender Information Value Date Recorded Sex Assigned at Not on file Legal Sex Female 11:56 AM EDT Gender Identity Not on file Sexual Orientation Not on file Plan of Treatment Health Maintenance Due Date Last Done Comments Depression Screening 1975 Tobacco Screening 1975 Adult BMI Screening 1981 DTaP,Tdap and Td Vaccines (1 - Tdap) 1982 Pap Smear 1984 Zoster (Shingles) Vaccine (1 of 2) 2013 COVID-19 Vaccine (3 - 2023-2 5 season) 2024 09/15/2021, 08/25/2021 Influenza Vaccine 06/26/2025 08/07/2021, , 08/22/2019, Additional history exists Medical Devices Not on file Insurance [employer] Care Teams Hairspring Ii Inspector Relationship Specialty Start Date End Date Rei Ortiz MD [address] [address] PCP - General Family Medicine 12/26/24
--- OUTSIDE RECORDS SUMMARY | 2025-04-03 07:53 | XMS_ITS | Encounter Summary ---
Author Organization [facility] Address [address] [facility] [address] [place] [address] Care Team Providers Care Divinity Teacher Name Role Phone Rei Ortiz MD Primary Care Provider [phone] Encounter Details Date Type Department Care Team (Late st Contact Info) Description 04/11/2024 Orders Only [facility] [address] [place] [address] Rei Ortiz MD [address] [place] [address] Social History Tobacco Use Types Packs/Day Years [...] week 08/26/2023 How often do you attend samaritan or mu-ism serv ices? Patient declined 08/26/2023 Do you belong to any clubs o r organizations such as samaritan groups, unions, fraternal or athletic groups, or [...] and heating? Not hard at all 08/26/2023 [facility] of Occupat ional Health - Occupational Stress [...] place to sleep or slept in a chcf (including now)? No 08/26/2023 Comments No Sex [...] EDT Office Visit [facility] [address] [facility] [address] [place] [address] Samuel Forbes DPM [address] [facility] 5 [place] [address] documented as of this encounter Procedures Procedure Name Priority Date/Time Associated Diagnosis Comments HOME SLEEP TEST Routine 03/16/2024 2:53 PM EDT documented in this encounter Results * Home sleep test (03/16/2024 2:53 PM EDT) Rei Ortiz MD SLEEP CENTER ORDERABLES Danette cramer Result documented in this encounter Visit Diagnoses Not on filedocumented in this encounter Care Teams Divinity Teacher Relationship Specialty Start Date End Date Rei Ortiz MD 112 [facility] [address] [place] [address] PCP - General Family Medicine 03/03/23 documented as of this encounter
--- OUTSIDE RECORDS SUMMARY | 2025-04-03 07:53 | XMS_ITS | Clinical Summary ---
Author Organization [facility] Address [address] [place] [address] Phone Care Team Providers Care Clinical Specialist Name Role Phone Rei Ortiz MD Primary Care Provider [phone] Jake Perez MD Unavailable [phone] Allergies Active Allergy Reactions Criticality Noted Date Comments Amlodipine-Benazepril Swelling 08/20/2023 Other Reaction(s): swollen lips Doxylamine Itching 08/20/2023 Other Reaction(s): weird dreams / hallucinations Olanzapine Itching 08/20/2023 Other Reaction(s): itch Tramadol Rash Low 08/20/2023 Medications aspirin 81 mg EC tablet Take 1 tablet (81 mg) by mouth once daily. 08/20/2023 Active DULoxetine (Cymbalta) [address] capsule Take 1 capsule (60 mg) by mouth once daily. 05/12/2023 Active fenofibrate (Triglide) 160 mg tablet Take 1 tablet (160 mg) by mouth once daily. 08/27/2023 Active losartan (Cozaar) 100 mg tablet Take 1 tablet (100 mg) by mouth once daily. 08/27/2023 Active QUEtiapine (SEROquel) 25 mg tablet Take 2 tablets (50 mg) by mouth once daily at bedtime. 10/14/2023 Active multivitamin tablet Take 1 tablet by mouth once daily. Active BLACK COHOSH ORAL Take 1 tablet by mouth once daily. Active krill oil 500 mg capsule Take 1 capsule (500 mg) by mouth once daily. Active metoprolol tartrate (Lopressor) 25 mg tabletIndicatio ns:Palpitations Take 1 tablet (25 mg) by mouth 2 times a day. 180 tablet 3 06/01/2024 Active Active Problems Problem Noted Date Diagnosed Date BMI 33.0-33.9,adult 06/01/2024 Never smoked cigarettes 06/01/2024 Palpitations 01/29/2024 Near syncope 01/29/2024 Benign essential hypertension 08/20/2023 Mixed hyperlipidemia 08/20/2023 Stage 3a chronic kidney disease (Multi) 08/20/20 Family History Medical History Relation Name Comments Accidental Father Heart attack Mother Susie Honeycutt Hypertension Mother Susie Honeycutt Relation Name Status Comments Father Mother Susie Honeycutt Social History Tobacco Use Types Packs/Day Years Used Date Smoking Tobacco: Never Smokeless Tobacco: Never Alcohol Use Standard Drinks/Week Comments Never 0 (1 standard drink = 0.6 oz pur e alcohol) Comments Unknown Sex and Gender Information Value Date Recorded Sex Assigned at Not on file Legal Sex Female 9:45 AM EDT Gender Identity Not on file Sexual Orientation Not on file Last Filed Vital Signs Vital Sign Reading Time Taken Comments Blood Pressure 120/72 06/01/2024 9:50 AM EDT Pulse 72 06/01/2024 9:50 AM EDT Temperature - - Respiratory Rate - - Oxygen Saturation - - Inhaled Oxygen Concentration - - Weight 90.7 kg (200 lb) 06/01/2024 9:50 AM EDT Height 165.1 cm (5' 5 ) 06/01/2024 9:50 AM EDT Body Mass Index 33.28 06/01/2024 9:50 AM EDT Plan of Treatment Health Maintenance Due Date Last Done Comments CT Colonography 1963 FIT-DNA (Cologuard) 1963 FIT 1963 HIV Screening 1963 Lipid Panel 1963 Sigmoidoscopy 1963 Yearly Adult Physical 1963 MMR Vaccines (1 of 1 - Standard series) 1964 Diabetes Screening 1981 Hepatitis C Screening 1981 CKD: Urine Protein Screening 1982 Cervical Cancer Screening 1984 HPV/Cotest 1984 Pap Smear 1984 DTaP/Tdap/Td Vaccines (1 - Tdap) 1985 Pneumococcal Vaccine (1 of 1 - PCV) 2013 Zoster Vaccines (1 of 2) 2013 Mammogram 12/25/2022 12/25/2021, 12/25/2021 COVID-19 Vaccine (3 - season) 2024 09/15/2021, 08/25/2021 Colonoscopy 04/09/2025 04/09/2015 Colorectal Cancer Screening 04/09/2025 Influenza Vaccine (Season Ended) 2025 08/07/2021, 09/13/2020, 08/22/2019, Additional history exists RSV High Risk: (Elderly (60+) or Population) (1 - 1-dose 75+ series) 2038 HIB Vaccines Aged Out No longer eligi ble based on patient's age to complete this topic HPV Vaccines Aged Out No longer eligi ble based on patient's age to complete this topic Hepatitis A Vaccines Aged Out No long er eligible based on patient's age to complete this topic Hepatitis B Vaccines Aged Out No long er eligible based on patient's age to complete this topic IPV Vaccines Aged Out No longer eligi ble based on patient's age to complete this topic Meningococcal Vaccine Aged Out No anayeli viola eligible based on patient's age to complete this topic Rotavirus Vaccines Aged Out No longer eligible based on patient's age to complete this topic Insurance GENERIC COMMERCIAL GENERIC COMMERCIAL Care Teams Clinical Specialist Relationship Specialty Start Date End Date Rei Ortiz MD PCP - General Family Medicine 01/14/24 Jake Perez MD [address] [facility] Medical Office [facility] [address] [place] [address] Self Rising Flour Mixer Electrophysiology 01/15/24
--- OUTSIDE RECORDS SUMMARY | 2025-04-03 07:53 | XMS_ITS | Encounter Summary ---
Author Organization [facility] Address [address] [place] [address] Care Team Providers Care Mapping Editor Name Role Phone Rei Ortiz MD Primary Care Provider [phone] Reason for Referral * Consultation (Routine) - Pending Review Specialty Diagnoses / Procedures Referred By Contac t Referred To Contact Gastroenterology Diagnoses Encounter for screening for malignant neoplasm of colon Procedures CA OFFICE/OUTPATIENT [facility] MDM 60 MINUTES Rei Ortiz MD 112 [facility] 100 [place] [address] Phone: tel: fax: Luis Sullivan MD 703 [facility] [address] [place] [address] Phone: tel: fax: Referral ID Status Reason Start Date Expiration Date Visits Requested Visits Authorized [id number] Pending Review Specialty Services Required 03/28/2025 09/24/2025 1 1 Encounter Details Date Type Department Care Team (Late st Contact Info) Description 03/28/2025 Telephone [facility] 100 [address] [facility] 100 [place] [address] Rei Ortiz MD 112 [facility] 100 [place] [address] (Fax) Social History Tobacco Use Types Packs/Day Years Used Date Smoking Tobacco: Never Smokeless Tobacco: Never Alcohol Use Standard Drinks/Week Comments Never 0 (1 standard drink = 0.6 oz pure alcohol) Caffeine intake : 1-2 cups per day B1300 Health Literacy Answer Date Recor ded How often do you need to hav e someone help you when you read instructions, pamphlets, or other written material from your doctor or pharmacy? Never 09/26/2024 Humiliation, Afraid, Rape, and Kick questionnair e [...] the phone with family, friends, or neighbors? Once a week 09/26/2024 How often do you get together with friends or re latives? Never 09/26/2024 How often do you attend taoist or sikhism serv ices? Never 09/26/2024 Do you belong to any clubs o r organizations such as taoist groups, unions, fraternal or athletic groups, or school groups? No 09/26/2024 How often do you attend meet ings of the clubs or organizations you belong to? Never 09/26/2024 Are you , , di vorced, , never , or living with a partner? 09/26/2024 AUDIT-C Answer Date Recorded Q1: How often do you have a drink containing alc ohol? Monthly or less 09/26/2024 Q2: How many drinks containi ng alcohol do you have on a typical day when you are drinking? 1 or 2 09/26/2024 Q3: How often do you have si x or more drinks on one occasion? Never 09/26/2024 Overall Financial Resource Strain (CARDIA) Answe r Date Recorded How hard is it for you to pa y for the very basics like food, housing, medical care, and heating? Not hard at all 09/26/2024 PHQ-2 Answer Date Recorded Patient Health Questionnaire-2 Score 0 02/21/2025 [facility] - Occupational Stress Questionnaire Answer Date Recorded Do you feel stress - tense, restless, nervous, or anxious, or unable to sleep at night because your mind is troubled all the time - these days? To some extent 09/26/2024 Exercise Vital Sign Answer Date Recorde d On average, how many days pe r week do you engage in moderate to strenuous exercise (like a brisk walk)? Patient declined On average, how many minutes do you engage in exercise at this level? Patient declined 09/26/2024 Hunger Vital Sign Answer Date Recorded Within the past 12 months, y ou worried that your food would run out before you got the money to buy more. Never true 09/26/20 24 Within the past 12 months, t he food you bought just didn't last and you didn't have money to get more. Never true 09/26/2024 PRAPARE - Transportation Answer Date Re corded In the past 12 months, has l ack of transportation kept you from medical appointments or from getting medications? No 11/2023 In the past 12 months, has l ack of transportation kept you from meetings, work, or from getting things needed for daily living? No 09/26/2024 Housing Stability Vital Sign Answer Jan e [...] place to sleep or slept in a assisted (including now)? No 08/26/2023 Housing Stability Vital Sign Answer Jan e Recorded In the last 12 months, was t here a time when you were not able to pay the mortgage or rent on time? No 09/26/2024 In the past 12 months, how m any times have you moved where you were living? 0 09/26/2024 At any time in the past 12 m [facility], were you homeless or living in a assisted (including now)? No 09/26/2024 Comments No Sex and Gender Information Value Date Recorded Sex Assigned at Female 08/26/2023 8:39 AM EDT Legal Sex Female 6:41 PM EDT Gender Identity Female 01/07/2023 6:41 PM EDT Sexual Orientation Straight 08/26/2023 8: 39 AM EDT documented as of this encounter Miscellaneous Notes * Telephone Encounter - Sandra Ortiz MA - 03/28/2025 2:36 PM EDT Referral sent * Telephone Encounter - Rei Ortiz MD - 03/28/2025 1:54 PM EDT OK for referal * Telephone Encounter - Kassandra West - 03/28/2025 1:07 PM EDT Annemarie left a message stating she wanted to go ahead and do her Colonoscopy. She asked that Dr. Ortiz send a referral to the [facility]. documented in this encounter Plan of Treatment Upcoming Encounters Date Type Department Care Team (Late st Contact Info) Description 04/06/2025 8:30 AM EDT Office Visit [facility] [address] [facility] 120 [place] [id number] Samuel Forbes DPM 3[address] [facility] [address] [place] [address] Scheduled Referrals Name Type Priority Associated Diagnoses Order Schedule Ambulatory referral to Gastroenterology Outpatient Referral Routine Encounter for screening for malignant neoplasm of colon Expected: 03/28/2025 (Approximate), Expires: 09/27/2025 documented as of this encounter Goals Goal Patient Goal Type Associated Problems Recent Progress Patient-Stated? Author Help patient manage antidepressant medication Care Plan Patient on antidepressant monitoring plan No Sandra Ortiz MA Baseline PHQ-9 Care Plan Baseline PHQ-9 No Diana January, documented as of this encounter Visit Diagnoses Diagnosis Encounter for screening for malignant neoplasm of colon Hallux rigidus of right foot- Primary Pain from implanted hardware, initial encounter Contracture of right ankle documented in this encounter Additional Health Concerns Active Problems Noted Date Diagnosed Date Patient on antidepressant monitoring plan 2024 Baseline PHQ-9 03/13/2025 documented as of this encounter Care Teams Mapping Editor Relationship Specialty Start Date End Date Rei Ortiz MD [address] [address] PCP - General Family Medicine 03/03/23 documented as of this encounter
--- OUTSIDE RECORDS SUMMARY | 2025-04-03 07:53 | XMS_ITS | Encounter Summary ---
Author Organization [facility] Address [address] [place] [address] Care Team Providers Care Floor Runner Name Role Phone Rei Ortiz MD Primary Care Provider [phone] Encounter Details Date Type Department Care Team (Late st Contact Info) Description 01/26/2025 Abstract [facility] 112 [facility] 120 [place] [address] Samuel Forbes, CORDELIA [address] [facility] 5 [place] [address] Social History Tobacco Use Types Packs/Day Years [...] Never 09/26/2024 How often do you attend rastafarian or christian serv ices? Never 09/26/2024 Do you belong to any clubs o r organizations such as rastafarian groups, unions, fraternal or athletic groups, or [...] Recorded Patient Health Questionnaire-2 Score 1 05/24/2024 [facility] - Occupational Stress Questionnaire Answer Date Recorded [...] place to sleep or slept in a fdc (including now)? No 08/26/2023 Housing Stability Vital Sign Answer Jan e Recorded In the last 12 months, was t here a time when you were not able to pay the mortgage or rent on time? No 09/26/2024 In the past 12 months, how m any times have you moved where you were living? 0 09/26/2024 At any time in the past 12 m [facility], were you homeless or living in a fdc (including now)? No 09/26/2024 Comments No Sex [...] EDT Office Visit [facility] 112 [facility] 120 [place] [address] Samuel Forbes DPM [address] [facility] 5 [place] [address] documented as of this encounter Visit Diagnoses Not on filedocumented in this encounter Care Teams Floor Runner Relationship Specialty Start Date End Date Rei Ortiz MD 112 [facility] 100 [place] [address] PCP - General Family Medicine 03/03/23 documented as of this encounter
--- OUTSIDE RECORDS SUMMARY | 2025-04-03 07:53 | XMS_ITS | Clinical Summary ---
Author Organization [facility] Healthcare Address [address] [place] [address] Care Team Providers Care Gre Instructor Name Role Phone Rei Ortiz MD Primary Care Provider + [phone] Allergies Active Allergy Reactions Criticality Noted Date Comments Amlodipine Besy-Benazepril Hcl 08/20/2023 Other Reaction(s): swollen lips Doxylamine 08/20/2023 Other Reaction(s): weird dreams / hallucinations Olanzapine 08/20/2023 Other Reaction(s): itch Tramadol Rash Low 08/20/2023 Medications Black Cohosh 540 MG capsule 1 (one) time each day at the same time. Active Multiple Vitamin (Multi Vitamin) tablet Daily Active omega-3 (Fish Oil) 1000 MG capsule Take 1,000 mg by mouth in the morning. Active aspirin 81 MG EC tabletIndications: Primary hypertension (CMS/HCC) Take 1 tablet (81 mg) by mouth 3 (three) times a week 4 Active fenofibrate (Triglide) 160 MG tabletIndications: Mixed hyperlipidemia (CMS/HCC) Take 1 tablet (160 mg) by mouth Daily 90 tablet 1 5 05/01/20 25 Active losartan (Cozaar) 100 MG tabletIndications: Primary hypertension (CMS/HCC) Take 1 tablet (100 mg) by mouth Daily 90 tablet 1 5 05/01/20 25 Active QUEtiapine (SEROquel) 50 MG tabletIndications: Sleep arousal disorder Take 1 tablet at bedtime as needed for sleep 90 tablet 1 5 Active nebivolol (Bystolic) 5 MG tabletIndications: Primary hypertension (CMS/HCC) Take 1 tablet (5 mg) by mouth Daily 90 tablet 1 5 05/01/20 25 Active albuterol HFA 90 mcg/act inhalerIndications :Bronchitis Inhale 2 puffs every 4 (four) hours if needed for wheezing or shortness of breath 18 g 5 Active famotidine (Pepcid) 20 MG tablet Take by mouth Active DULoxetine (Cymbalta) [address] capsuleIndications :Recurrent major depressive disorder, in partial remission (HCC) (CMS/HCC) Take 1 capsule (60 mg) by mouth Daily 90 capsule 5 06/11/20 25 Active Active Problems Problem Noted Date Diagnosed Date Status post laparoscopic cholecystectomy 025 S/P hysterectomy with oophorectomy 09/28/2024 Lung nodule seen on imaging study 05/02/2024 HOSSEIN (obstructive sleep apnea) 04/13/2024 Non morbid obesity due to excess calories 2023 Mobitz type 2 second degree heart block 02/22/20 24 Acquired equinus deformity of foot 08/20/2023 Arthritis of ankle, right 08/20/2023 Primary hypertension 08/20/2023 DDD (degenerative disc disease), lumbosacral Hypertensive nephropathy 08/20/2023 Irritable bowel syndrome with diarrhea 3 Menopausal and postmenopausal disorder Mixed hyperlipidemia 08/20/2023 Fibromyalgia 08/20/2023 Other chronic pain 08/20/2023 Primary osteoarthritis of left knee 08/20/2023 Primary osteoarthritis of right knee 08/20/2023 Sleep arousal disorder 08/20/2023 Recurrent major depressive d isorder, in partial remission (HCC) 08/20/2023 Stage 2 chronic kidney disease 08/20/2023 Venous insufficiency of both lower extremities 1 Vitamin D deficiency 08/20/2023 Resolved Problems Problem Noted Date Diagnosed Date Resolved Date Calculus of gallbladder with out cholecystitis without obstruction 12/28/2024 02/20/2025 Bradycardia 02/22/2024 02/20/2025 Overview (02/22/2024): Cardiac event monitor 2023, severe with heart rate of 24 while sleeping Neuroma of foot 08/20/2023 09/29/2024 Class 1 obesity due to exces s calories with serious comorbidity and body mass index (BMI) of 33.0 to 33.9 in adult 08/20/2023 04/13/2024 Poor self esteem 08/20/2023 09/29/2024 Status post laparoscopic hysterectomy 08/20/2023 02/20/2025 Encounters Date Type Department Care Team Description 03/28/2025 Telephone [facility] [address] [place] [address] Rei Ortiz MD 03/16/2025 8:50 AM EDT Office Visit [facility] [address] [place] [address] Samuel Forbes DPM Hallux rigidus of right foot (Primary Dx); Pain from implanted hardware, initial encounter 03/16/2025 Bamboo flowsheet [facility] [address] [place] [address] Samuel Forbes DPM 03/16/2025 Travel 03/14/2025 Telephone [facility] [address] [place] [address] Cira White, EDIL Care Coordination 03/13/2025 Orders Only [facility] [address] [place] [address] Sandra Ortiz, PHYLLIS Mixed hyperlipidemia (CMS/HCC); Primary hypertension (CMS/HCC); Sleep arousal disorder; Recurrent major depressive disorder, in partial remission (HCC) (CMS/HCC) 03/09/2025 9:00 AM EDT Ancillary Procedure [facility] [address] [place] [address] 03/09/2025 8:50 AM EDT Office Visit [facility] [address] [place] [address] Samuel Forbes DPM Hallux rigidus of right foot (Primary Dx); Pain from implanted hardware, initial encounter 03/09/2025 Bamboo flowsheet [facility] [address] [facility] [address] [place] [address] Samuel Forbes DPM 03/09/2025 Travel 02/20/2025 9:30 AM EDT Office Visit [facility] [address] [facility] [address] [place] [address] Rei rOtiz MD Hallux rigidus of right foot (Primary Dx); Painful orthopaedic hardware (HCC) ([facility]/HCC); Pre-op evaluation; Mobitz type 2 second degree heart block; Primary hypertension (CMS/HCC) 02/20/2025 Bamboo flowsheet [facility] [address] [facility] [address] [place] [address] Rei Ortiz MD 02/20/2025 Travel 02/16/2025 8:30 AM EDT Office Visit [facility] [address] [facility] [address] [place] [address] Samuel Forbes DPM Hallux rigidus of right foot (Primary Dx); Pain from implanted hardware, initial encounter; Contracture of right ankle 02/16/2025 Bamboo flowsheet [facility] [address] [facility] [address] [place] [address] Samuel Forbes DPM 02/16/2025 Travel 02/14/2025 Telephone [facility] [address] [facility] [address] [place] [address] Sandra Ortiz MA Care Coordination 01/27/2025 9:00 AM EDT Office Visit [facility] [address] [facility] [address] [place] [address] Jim Pack DO Calculus of gallbladder without cholecystitis without obstruction (Primary Dx) 01/27/2025 Telephone [facility] [address] [facility] [address] [place] [address] Jim Pack DO 01/27/2025 Travel 01/26/2025 Travel 01/26/2025 Abstract [facility] [address] [place] [address] Samuel Forbes, DPM 01/26/2025 Orders Only [facility] [address] [place] [address] Rei Ortiz MD 01/24/[address] [address] [facility] [address] [place] [address] ItEver riveradric H, DO 01/19/2025 External Result Encounter [facility] External Department Unsolicited ItjaimeekoEver landaverdedric H, DO 01/11/2025 Telephone [facility] [address] [place] [address] Samuel Forbes, [place] Surgery 01/05/2025 External Result Encounter [facility] External Department Unsolicited Itzkoakhil Jim H, DO 01/05/2025 External Result Encounter [facility] External Department Unsolicited Itzkoakhil Jim H, DO 01/02/2025 Telephone [facility] [address] [place] [address] Hay Hamm, PT re: Prior PT before sx (Checking to see if it is needed.); DC from Last 3 Months Immunizations Immunization Administration Dates Next Due Influenza, injectable, quadrivalent 08/22/2019 Influenza, injectable, quadr ivalent, preservative free 08/07/2021,09/13/2020,08/26/2018,2016,08/14/2016,07/11/2015 Influenza, seasonal, injecta ble, preservative free 08/04/2017 Family History Medical History Relation Name Comments Hypertension Brother Tio Honeycutt Multiple myeloma Brother Tio Honeycutt MVA Father Alcohol abuse Mother Susie Honeycutt Heart attack Mother Susie Honeycutt Heart disease Mother Susie Honeycutt Hypertension Mother Susie Honeycutt Hypertension Sister Multiple myeloma Sister Breast cancer Neg Hx Colon cancer Neg Hx Ovarian cancer Neg Hx Pancreatic cancer Neg Hx Relation Name Status Comments Brother Tio Honeycutt 1 brother Daughter 2 daughters Father Mother Susie Honeycutt Sister 3 sisters Son 2 sons Social History Tobacco Use Types Packs/Day Years Used Date Smoking Tobacco: Never Smokeless Tobacco: Never Tobacco Cessation:Counseling Given: Yes Alcohol Use Standard Drinks/Week Comments Never 0 [...] Never 09/26/2024 How often do you attend anabaptist or rastafari serv ices? Never 09/26/2024 Do you belong to any clubs o r organizations such as anabaptist groups, unions, fraternal or athletic groups, or [...] Recorded Patient Health Questionnaire-2 Score 0 02/21/2025 [facility]ational Stress Questionnaire Answer Date Recorded [...] in a jail (including now)? No 08/26/2023 Housing Stability Vital Sign Answer Jan e Recorded In the last 12 months, was t here a time when you were not able to pay the mortgage or rent on time? No 09/26/2024 In the past 12 months, how m any times have you moved where you were living? 0 09/26/2024 At any time in the past 12 m [facility], were you homeless or living in a jail (including now)? No 09/26/2024 Comments No Sex and Gender Information Value Date Recorded Sex Assigned at Female 08/26/2023 8:39 AM EDT Legal Sex Female 6:41 PM EDT Gender Identity Female 01/07/2023 6:41 PM EDT Sexual Orientation Straight 08/26/2023 8: 39 AM EDT Last Filed Vital Signs Vital Sign Reading Time Taken Comments Blood Pressure 126/78 02/20/2025 9:28 AM EDT Pulse 76 02/20/2025 9:28 AM EDT Temperature - - Respiratory Rate 18 03/16/2025 8:45 AM EDT Oxygen Saturation 99% 02/20/2025 9:28 AM EDT Inhaled Oxygen Concentration - - Weight 96.2 kg (212 lb) 03/16/2025 8:45 AM EDT Height 165.1 cm (5' 5 ) 03/16/2025 8:45 AM EDT Body Mass Index 35.28 03/16/2025 8:45 AM EDT Plan of Treatment Upcoming Encounters Date Type Department Care Team ([facility] st Contact Info) Description 04/06/2025 8:30 AM EDT Office Visit [facility] [address] [facility] [address] [place] [address] Samuel Forbes DPM [address] [facility] [address] [place] [address] Health Maintenance Due Date Last Done Comments CT Colonography 1963 FIT-DNA 1963 FIT 1963 FOBT 1965 Sigmoidoscopy 1963 Mammogram 12/25/2022 12/25/2021, 03/0 11/2021, 02/23/2018, Additional history exists Colonoscopy 04/09/2025 04/09/2015 Colorectal Cancer Screening 04/09/2025 Influenza Vaccine Discontinued 08/07/2021, , 08/22/2019, Additional history exists Goals Goal Patient Goal Type Associated Problems Recent Progress Patient-Stated? Author Help patient manage antidepressant medication Care Plan Patient on antidepressant monitoring plan No Diana January, PHYLLIS Baseline PHQ-9 Care Plan Baseline PHQ-9 No Sandra Ortiz PHYLLIS Procedures Procedure Name Priority Date/Time Associated Diagnosis Comments XR FOOT 3+ VIEWS RIGHT Routine 03/09/2025 8:56 AM EDT Hallux rigidus of right foot GENERAL PATHOLOGY Routine 01/24/2025 2:1 4 PM EDT LIPASE STAT 01/19/2025 12:35 PM EDT AMYLASE STAT 01/19/2025 12:35 PM EDT ALKALINE PHOSPHATASE STAT 01/19/2025 12:35 PM EDT BILIRUBIN, FRACTIONATED STAT 01/19/2025 12:35 PM EDT BASIC METABOLIC PANEL Routine 01/05/2025 8:20 AM EDT CBC WITH AUTO DIFFERENTIAL Routine 01/05/2025 8:20 AM EDT BI MAMMOGRAM SCREENING TOMOSYNTHESIS BILATERAL Routine 12/25/2021 Obesity, unspecified Encounter for screening for osteoporosis Other specified counseling Other jail (current) drug therapy Unspecified menopausal and perimenopausal disorder Acquired absence of both cervix and uterus Encounter for general adult medical examination without abnormal findings Encounter for screening mammogram for malignant neoplasm of breast COLONOSCOPY Routine 04/09/2015 12:00 PM EDT from Last 3 Months or Most Recently Relevant to Health Maintenance Results * XR foot 3+ views right (03/09/2025 8:56 AM EDT) Anatomical Region Laterality Modality Lower Extremities, Foot Right Radiogra phic Imaging Narrative 03/09/2025 9:01 AM EDT Imaging Result: Well-seated bio Pro implant to the proximal phalanx of the right hallux us Samuel Forbes DPM IMG XR PROCEDURES Final Res ult * GENERAL PATHOLOGY (01/24/2025 2:14 PM EDT) Jim H Luis ESuppreMolakhil DO [facility] Final Res ult * Bilirubin, total and direct (01/19/2025 12:35 PM EDT) BILIRUBIN,TOTAL 0.3 0.3 - 1.0 mg/dL 01/19/2025 1:28 PM EDT [facility] BILIRUBIN,DIREC T 0.10 0.03 - 0.18 mg/dL 01/19/2025 1:28 PM EDT [facility] BILIRUBIN,INDIR ECT 0.2 mg/dL 01/19/2025 1:28 PM EDT [facility] Other Topography unknown / Unknown 01/19/2025 12:35 PM EDT 01/19/2025 12:40 PM EDT [employer] DO LAB BLOOD ORDERABLES Danette l Result Performing Organization Address City/[facility]/ZIP Co de Phone Number [address] [address], [address] [address] * Alkaline phosphatase (01/19/2025 12:35 PM EDT) ALKALINE PHOSPHATASE 69 34 - 104 U/L 01/19/2025 1:28 PM EDT [facility] Other Topography unknown / Unknown 01/19/2025 12:35 PM EDT 01/19/2025 12:40 PM EDT [employer] LAB BLOOD ORDERABLES Danette l Result [address] [address], [facility] [address] [place] [address] * Lipase (01/19/2025 12:35 PM EDT) LIPASE 17.0 11.0 - 82.0 U/L 01/19/2025 1:28 PM EDT [facility] Other Topography unknown / Unknown 01/19/2025 12:35 PM EDT 01/19/2025 12:40 PM EDT Jim H Itzkowitz DO LAB BLOOD ORDERABLES Danette l Result Performing Organization Address City/[facility]/ZIP Co de Phone Number [address] [address], [facility] [address] [place] [address] * Amylase (01/19/2025 12:35 PM EDT) AMYLASE 47 29 - 103 U/L 01/19/2025 1:28 PM EDT [facility] Other Topography unknown / Unknown 01/19/2025 12:35 PM EDT 01/19/2025 12:40 PM EDT Jim FAB BAG ItzSuppreMolwitz DO LAB BLOOD ORDERABLES Danette l Result Performing Organization Address City/[facility] Co de Phone Number [address] [address], [place] [phone] * (ABNORMAL) CBC auto differential (01/05/2025 8:20 AM EDT) WBC 13.0(H) 3.8 - 11.6 10*3/uL 01/05/2025 8:34 AM EDT [facility] UNCORRECTED WHITE BLOOD COUNT 13.0(H) 3.8 - 11.6 10*3/uL 01/05/2025 8:34 AM EDT [facility] RBC 4.26 3.60 - 5.00 10*6/uL 01/05/2025 8:34 AM EDT [facility] HEMOGLOBIN 12.7 11.8 - 15.4 g/dL 01/05/2025 8:34 AM EDT [facility] HEMATOCRIT 37.8 34.0 - 46.4 % 01/05/2025 8:34 AM EDT [facility] MCV 88.9 80 - 100 fL 01/05/2025 8:34 AM EDT [facility] MCH 29.9 24.7 - 34.3 pg 01/05/2025 8:34 AM EDT [facility] MCHC 33.6 32.0 - 35.0 g/dL 01/05/2025 8:34 AM EDT [facility] RED CELL DISTRIBUTION WIDTH, RDW 13.9 11.9 - 15.3 % 01/05/2025 8:34 AM EDT [facility] PLATELET COUNT 440 150 - 450 10*3/uL 01/05/2025 8:34 AM EDT [facility] MEAN PLATELET VOLUME, MPV 7.2 6.3 - 10.7 fL 01/05/2025 8:34 AM EDT [facility] NEUTROPHILS, % 70.1 . % 01/05/2025 8:34 AM EDT [facility] LYMPHOCYTES, % 18.6 . % 01/05/2025 8:34 AM EDT [facility] MONOCYTE/MACROPHA GE, % 7.8 . % 01/05/2025 8:34 AM EDT [facility] EOSINOPHILS, % 2.3 . % 01/05/2025 8:34 AM EDT [facility] BASOPHILS, % 1.2 . % 01/05/2025 8:34 AM EDT [facility] NRBC 0.1 0 - 0.5 /100{WBC} 01/05/2025 8:34 AM EDT [facility] NEUTROPHILS 9.1(H) 1.8 - 7.7 10*3/uL 01/05/2025 8:34 AM EDT [facility] LYMPHOCYTES 2.4 1.00 - 4.8 10*3/uL 01/05/2025 8:34 AM EDT [facility] MONOCYTES 1.0(H) 0.0 - 0.8 10*3/uL 01/05/2025 8:34 AM EDT [facility] EOSINOPHILS 0.3 0.0 - 0.45 10*3/uL 01/05/2025 8:34 AM EDT [facility] BASOPHILS 0.2 0.0 - 0.2 10*3/uL 01/05/2025 8:34 AM EDT [facility] Blood (Blood) 01/05/2025 8:2 0 AM EDT 01/05/2025 8:27 AM EDT Jim Pack DO LAB BLOOD ORDERABLES Danette shoaib Result [facility] [address] [place] [address], [facility] [address] [place] [id number] * (ABNORMAL) Basic metabolic panel (01/05/2025 8:20 AM EDT) Glucose 84 70 - 100 mg/dL 01/05/2025 9:43 AM EDT [facility] Comment: Random Glucose Reference Range is dependent on time and content of last meal. Glucose of more than 200 mg/dL in a nonstressed, ambulatory subject supports the diagnosis of Diabetes Mellitus. ADA recommended reference range BUN 37(H) 7 - 25 mg/dL 01/05/2025 9:43 AM EDT [facility] CREATININE 0.97 0.60 - 1.20 mg/dL 01/05/2025 9:43 AM EDT [facility] ESTIMATED GFR >60.0 mL/Min 01/05/2025 9:43 AM EDT [facility] Sodium 140 136 - 145 mmol/L 01/05/2025 9:43 AM EDT [facility] Potassium, Bld 4.1 3.5 - 5.1 mmol/L 01/05/2025 9:43 AM EDT [facility] Chloride 105 98 - 107 mmol/L 01/05/2025 9:43 AM EDT [facility] Carbon Dioxide 26.8 21.0 - 31.0 mmol/L 01/05/2025 9:43 AM EDT [facility] Anion Gap 12.3 6.0 - 15.0 meq/L 01/05/2025 9:43 AM EDT [facility] Calcium 9.7 8.6 - 10.3 mg/dL 01/05/2025 9:43 AM EDT [facility] Other Topography unknown / Unknown 01/05/2025 8:20 AM EDT 01/05/2025 8:27 AM EDT Jim Pack DO LAB BLOOD ORDERABLES Danette l Result [facility] [address] [place] [address], [facility] [address] [place] [address] * Bilateral screening mammogram with tomosynthesis (12/25/2021) Anatomical Region Laterality Modality Breast Bilateral Mammography Impressions 12/25/2021 12:00 AM EST BI-RADS 1- Negative Mammogram Board Certified Radiologist. Accredited by the ACR and FDA. MAMMOGRAPHY IS VERY IMPORTANT TO YOUR HEALTH. THE CURRENT [employer] GUIDELINES RECOMMENDS ANNUAL MAMMOGRAPHY BEGINNING AT AGE 38 THIS FACILITY USES A REMINDER SYSTEM TO ENSURE ALL PATIENTS RECEIVE REMINDER NOTIFICATIONS AT THE APPROPRIATE TIME BASED ON THE RECOMMENDATIONS OF THIS EXAM. Narrative 12/25/2021 12:00 AM EST PERFORMED AT [facility] LOCATION:[place] [address] COMPARISON: Dating back to February 23, 2018. TECHNIQUE: 2D and 3D Tomosynthesis of the right and left breasts was performed. FINDINGS: Breast composition demonstrates scattered fibroglandular densities. No suspicious microcalcifications, dominant mass lesions, or distortion is present. Overall appearance stable. Procedure Note CONVERSION, GENERIC - 05/01/2023 PERFORMED AT [facility] LOCATION:[place] [address] COMPARISON: Dating back to February 23, 2018. TECHNIQUE: 2D and 3D Tomosynthesis of the right and left breasts wasperformed. FINDINGS: Breast composition demonstrates scattered fibroglandular densities. Nosuspicious microcalcifications, dominant mass lesions, or distortion is present.Overall appearance stable. IMPRESSION: BI-RADS 1- Negative Mammogram Board Certified Radiologist. Accredited by the ACR and FDA. MAMMOGRAPHY IS VERY IMPORTANT TO YOUR HEALTH. THE CURRENT [employer] GUIDELINES RECOMMENDS ANNUALMAMMOGRAPHY BEGINNING AT AGE 38 THIS FACILITY USES A REMINDER SYSTEM TO ENSURE ALL PATIENTS RECEIVEREMINDER NOTIFICATIONS AT THE APPROPRIATE TIME BASED ON THE RECOMMENDATIONS OF THIS EXAM. Rei Ortiz MD IMG BI PROCEDURES Final Resu lt * Colonoscopy (04/09/2015 12:00 PM EDT) Anatomical Region Laterality Modality Endoscopy 04/09/2015 12:0 0 PM EDT Narrative 04/09/2015 12:00 PM EDT PERFORMED AT [facility] LOCATION:[id number] Diverticulosis coli, Spastic Colon Procedure Note CONVERSION, GENERIC - 03/12/2023 PERFORMED AT [facility] LOCATION:[id number] Diverticulosis coli, Spastic Colon Tyson Olivera MD ENDOSCOPY PROCEDURE ORDERABLES F inal Result from Last 3 Months or Most Recently Relevant to Health Maintenance Additional Health Concerns Active Problems Noted Date Diagnosed Date Patient on antidepressant monitoring plan 2024 Baseline PHQ-9 03/13/2025 Insurance [employer] Care Teams Gre Instructor Relationship Specialty Start Date End Date Rei Ortiz MD [address] [facility] [address] [place] [address] PCP - General Family Medicine 03/03/23
--- OUTSIDE RECORDS SUMMARY | 2025-04-03 07:53 | XMS_ITS | Encounter Summary ---
Author Organization [facility] Address [address] [place] [address] Care Team Providers Care Police Captain Senior Name Role Phone Rei Ortiz MD Primary Care Provider [phone] Encounter Details Date Type Department Care Team (Late st Contact Info) Description 01/26/2025 Orders Only [facility] [address] [place] [address] Rei Ortiz MD [address] [place] [address] Social History Tobacco Use Types Packs/Day Years [...] Never 09/26/2024 How often do you attend hoahaoism or islam serv ices? Never 09/26/2024 Do you belong [...] Recorded Patient Health Questionnaire-2 Score 1 05/24/2024 [facility] - Occupational Stress [...] place to sleep or slept in a skilled nursing (including now)? No 08/26/2023 Housing Stability Vital Sign Answer Jan e Recorded In the last 12 months, was t here a time when you were not able to pay the mortgage or rent on time? No 09/26/2024 In the past 12 months, how m any times have you moved where you were living? 0 09/26/2024 At any time in the past [address] [facility], were you homeless or living in a skilled nursing (including now)? No 09/26/2024 Comments No Sex [...] EDT Office Visit [facility] [address] [facility] [address] [place] [address] Samuel Forbes DPM [address] [facility] [address] [place] [address] documented as of this encounter Visit Diagnoses Not on filedocumented in this encounter Care Teams Police Captain Senior Relationship Specialty Start Date End Date Rei Ortiz MD [address] [address] PCP - General Family Medicine 03/03/23 documented as of this encounter
--- OUTSIDE RECORDS SUMMARY | 2025-04-03 07:53 | XMS_ITS | Encounter Summary ---
Author Organization [facility] Address [address] [place] [address] Care Team Providers Care Purchasing Specialist Name Role Phone Rei Enrique MD Primary Care Provider [phone] Encounter Details Date Type Department Care Team ([facility] Contact Info) Description 08/05/2023 Clinisync Result Encounter [facility] External Department Unsolicited Rei Enrique MD [address] [facility] [address] [place] [address] Social History Tobacco Use Types Packs/Day Years [...] Visit [facility] [address] [place] [address] Samuel Forbes DPM [address] [facility] [address] [place] [address] documented as of this encounter Procedures Procedure Name Priority Date/Time Associated Diagnosis Comments CA HOLTER MONITOR 2-7 DAYS 08/05/2023 11:47 AM EDT documented in this encounter Results * CA HOLTER MONITOR 2-7 DAYS (08/05/2023 11:47 AM EDT) Anatomical Region Laterality Modality Other 08/05/2023 11:4 7 AM EDT Narrative 08/05/2023 11:47 AM EDT The [place] [id number] Cardiology Report Signed Patient: RAO JACKSON MR#: [id number] : 1965 Acct:[id number] Age/Sex: 57 / F ADM Date: 07/27/23 Loc: CARD Attending Dr: REI ENRIQUE Ordering Physician: REI ENRIQUE Date of Service: 07/27/23 Procedure(s): CA holter montior 2-7 days Accession Number(s): [id number] cc: [facility] Test Date: 2023-08-05 Pat Name: RAO JACKSON Department: Room: - Gender: Female Director Of Special Events: : 1965 Requested By: REI ENRIQUE Order Number: [id number] [place] MD: JUAN DIEGO GARCIA Interpretive Statements Predominant rhythm is sinus with average rate of 78 bpm Tachycardia - max rate of 150 bpm [...] mobitz I AV block No atrial fibrillation Electronically Signed On 08-06-2023 7:29:14 EDT by JUAN DIEGO GARCIA Dictated By: Juan Diego Garcia D.O. Signed By: 08/06/23 0729 08/06/23 0729 DD/ 1147 TD/TT: Senior Sharepoint Architect: Procedure Note Radiology, Radiologist, MD - 08/06/[address] [address] Cardiology Report Signed Patient: RAO JACKSON LMR#: [id number] : 1965Acct:[id number] Age/Sex: 57 / FADM Date: 07/27/23 Loc: CARD Attending Dr: REI ENRIQUE Ordering Physician: REI ENRIQUE Date of Service: 07/27/23 Procedure(s): CA holter montior 2-7 days Accession Number(s): [id number] cc: [facility] Test Date: 2023-08-05 Pat Name: RAO JACKSON Department: Room: - Gender: Female Director Of Special Events: : 1965 Requested By: REI ENRIQUE Order Number: [id number] [place] MD: JUAN DIEGO GARCIA Interpretive Statements Predominant rhythm is sinus with average rate of 78 bpm Tachycardia - max rate of 150 bpm [...] mobitz I AV block No atrial fibrillation Electronically Signed On 08-06-2023 7:29:14 EDT by JUAN DIEGO GARCIA Dictated By: Juan Diego Garcia D.O. Signed By:08/06/23 0729 08/06/23 0729 DD/ 1147 TD/TT: Senior Sharepoint Architect: Rei Enrique MD [facility] Final Resu lt documented in this encounter Visit Diagnoses Not on filedocumented in this encounter Care Teams Purchasing Specialist Relationship Specialty Start Date End Date Rei Enrique MD [address] [place] [address] PCP - General Family Medicine 03/03/23 documented as of this encounter
--- OUTSIDE RECORDS SUMMARY | 2025-04-03 07:53 | XMS_ITS | Encounter Summary ---
Author Organization [facility] Address [address] [place] [address] Care Team Providers Care Sports Manager Name Role Phone Rei Ortiz MD Primary Care Provider [phone] Encounter Details Date Type Department Care Team (Late st Contact Info) Description 11/29/2024 Orders Only [facility] [address] [place] [address] Diana January, Screening for osteoporosis; Menopause Social History Tobacco Use Types Packs/Day Years [...] Never 09/26/2024 How often do you attend latter-day or amish serv ices? Never 09/26/2024 Do you belong to any clubs o r organizations such as latter-day groups, unions, fraternal or athletic groups, or [...] Recorded Patient Health Questionnaire-2 Score 1 05/24/2024 [facility] - Occupational [...] any time in the past 12 m [facility], were you homeless or living in a [...] EDT Office Visit [facility] [address] [facility] [address] [place] [address] Samuel Forbes DPM [address] [facility] 5 [place] [address] documented as of this encounter Visit Diagnoses Diagnosis Screening for osteoporosis Special screening for osteoporosis Menopause Symptomatic menopausal or female climacteric states Hallux rigidus of right foot- Primary Pain from implanted hardware, initial encounter Contracture of right ankle documented in this encounter Care Teams Sports Manager Relationship Specialty Start Date End Date Rei Ortiz MD [address] [address] PCP - General Family Medicine 03/03/23 documented as of this encounter
--- OUTSIDE RECORDS SUMMARY | 2025-04-03 07:53 | XMS_ITS | Encounter Summary ---
Author Organization [facility] Address [address] [place] [address] Care Team Providers Care Pressed Or Blown Glass Worker Name Role Phone Rei Ortiz MD Primary Care Provider [phone] Encounter Details Date Type Department Care Team (Late st Contact Info) Description 01/24/[address] [facility] [address] [facility] 150 [place] [address] Jim Pack, DO [address] [facility] 150 [place] [address] Social History Tobacco Use Types Packs/Day Years [...] Never 09/26/2024 How often do you attend hindu or confucianist serv ices? Never 09/26/2024 Do you belong to any clubs o r organizations such as hindu groups, unions, fraternal or athletic groups, or [...] Recorded Patient Health Questionnaire-2 Score 1 05/24/2024 [facility] - Occupational [...] place to sleep or slept in a halfway (including now)? No 08/26/2023 Housing Stability Vital Sign Answer Jan e Recorded In the last 12 months, was t here a time when you were not able to pay the mortgage or rent on time? No 09/26/2024 In the past 12 months, how m any times have you moved where you were living? 0 09/26/2024 At any time in the past 12 m [facility], were you homeless or living in a halfway (including now)? No 09/26/2024 Comments No Sex and Gender Information Value Date Recorded Sex Assigned at Female 08/26/2023 8:39 AM EDT Legal Sex Female 6:41 PM EDT Gender Identity Female 01/07/2023 6:41 PM EDT Sexual Orientation Straight 08/26/2023 8: 39 AM EDT documented as of this encounter Plan of Treatment Upcoming Encounters Date Type Department Care Team ([facility] st Contact Info) Description 04/06/2025 8:30 AM EDT Office Visit [facility] [address] [facility] 120 [place] [address] Samuel Forbes DPM [address] [facility] 5 [place] [address] documented as of this encounter Procedures Procedure Name Priority Date/Time Associated Diagnosis Comments GENERAL PATHOLOGY Routine 01/24/2025 2:14 PM EDT documented in this encounter Results * GENERAL PATHOLOGY (01/24/2025 2:14 PM EDT) Jim Pack DO [facility] Final Res ult documented in this encounter Visit Diagnoses Not on filedocumented in this encounter Care Teams Pressed Or Blown Glass Worker Relationship Specialty Start Date End Date Rei Ortiz MD [address] [address] PCP - General Family Medicine 03/03/23 documented as of this encounter
--- NOTE | 2025-04-03 07:54 | MM_ITS ---
Patient Name: RAO RAMAN MR#: [id number] : 1965 Exam Date: 04/03/2025 Ordering Doctor: DR TAHIR ENRIQUE . RADIOLOGY REPORT PROCEDURE: MM TOMOSYNTHESIS SCREENING BI COMPARISON: MG MAMM SCREEN POOJA W CAD, 02/23/2018. MG MAMM POOJA SCRN W CAD DIG, 10/23/2014. MG MAMM POOJA SCRN W CAD DIG, 10/20/2013. INDICATIONS: Screening Calculator Name NCI Breast Cancer Risk Assessment Tool 5 Year Breast Cancer Risk 1.00% Lifetime Breast Cancer Risk 4.70% Personal Breast Cancer No Personal Ovarian Cancer No Treatments None Family Cancers Grandfather-maternal with unknown cancer at age ~70; Grandmother-paternal with unknown cancer at age ~70. LOCATION: The [facility] BREAST COMPOSITION: There are scattered areas of fibroglandular density. FINDINGS: RIGHT BREAST: No significant suspicious finding. LEFT BREAST: No significant suspicious finding. DIAGNOSTIC CATEGORY 1--NEGATIVE. RECOMMENDATIONS: ROUTINE MAMMOGRAM AND CLINICAL EVALUATION IN 12 MONTHS. PLEASE NOTE: A NORMAL MAMMOGRAM DOES NOT EXCLUDE THE POSSIBILITY OF BREAST CANCER. A CLINICALLY SUSPICIOUS PALPABLE LUMP SHOULD BE BIOPSIED. Dictated by: Daljit Cerrato DO on 04/03/2025 at 11:18 Approved by: Daljit Cerrato DO on 04/03/2025 at 11:20
--- OUTSIDE RECORDS SUMMARY | 2025-04-03 08:11 | XMS_ITS | CCD ---
Author Organization [facility] Care Team Providers Care Web Marketing Strategist Name Role Phone KLAUS, REI Unavailable Unavailable HAYFAIZA Unavailable Unavailable HAYFAIZA Unavailable Unavailable HAYFAIZA Unavailable Unavailable HEMEYER, EDWARD Unavailable Unavailable HUGH GARCIA Unavailable Unavailable HEMEYER, EDWARD Unavailable Unavailable HEMEYER, EDWARD Unavailable Unavailable HEMEYER, NANCYWARD Unavailable Unavailable YOLIS MCCARTNEY Unavailable Unavailable WOJCIECH HALL Unavailable Unavailab WOJCIECH Armando Unavailable Unavailab le KLAUS, NANCYWARD Unavailable Unavailable MAURICIO ROGERS Unavailable Unavailable WOJCIECH HALL Unavailable Unavailab le JOHN SANJANA Unavailable Unavailable RINCHEL SANJANA Unavailable Unavailable HEMEYER, EDWARD Unavailable Unavailable MAURICIO ROGERS R Unavailable Unavailable JOHN SANJANA Unavailable Unavailable REI ENRIQUE Primary Care Physician Unavail able Rei Enrique MD Primary Care Provider Jake Rock MD Unavailable Serafin Winkler Admitting Unavaila Serafin Ortiz Consulting Unavaila Serafin Ortiz Attending Unavaila Serafin Ortiz Referring Unavaila Serafin Ortiz Consulting Unavaila Serafin Ortiz Consulting Unavaila Serafin Ortiz Admitting Unavaila Serafin Ortiz Attending Talhaa Serafin Ortiz Referring Unavaila REI Casillas Attending Unavailable REI ENRIQUE Referring Unavailable NONE, XXXX Referring Unavailable Serafin Winkler Attending Unavaila REI Casillas Referring Unavailable Serafin Winkler Attending JAKE Adams N Attending Unavailable HEMEYER, REI J Primary Care Unavailable JAKE ROCK N Attending Unavailable HEMEYER, REI J Primary Care Unavailable JAKE ROCK N Referring Unavailable HEMEYER, EDEDGAR J Primary Care Unavailable Jenniferyer Rei WEBBER Primary Care Provider [phone] Rei Enrique MD Primary Care Provider [phone] Rei Enrique MD Primary Care Provider [phone] Rei Enrique MD Primary Care Provider [phone] ItzEstiven bernstein DO Attending Provider Itzkowitz, Estiven Admitting Unavailable Itzday, Estiven Attending Unavailable Hemeyer, Rei J Primary Care Unavailable Itzkoakhil, Estiven Admitting Unavailable Itzday, Estiven Attending Unavailable Hemennamdi, Rei Owen Primary Care Unavailable HEMEYER, REI J Attending Unavailable CHANTE FORBESS A Attending Unavailable CHANTE FORBESS A Attending Unavailable ANALI HAMM Attending Unavailable BROWN SAMUEL A Referring Unavailable DERIC CAMARGO Attending Unavailable WILLIAM FORBESOLAS A Referring Unavailable ANALI HAMM Attending Unavailable WILLIAM FORBESOLAS A Referring Unavailable ITISRA ROSALESIC H Attending Unavailable HEMEYER, REI Owen Referring Unavailable BROWNWILLIAMSAMUEL A Attending Unavailable WILLIAM FORBESOLAS A Referring Unavailable ITDESIREE ROSALESDRIC H Attending Unavailable BROWNWILLIAMSAMUEL A Attending Unavailable HEMEYER, EDEDGAR J Attending Unavailable BROWN SAMUEL A Attending Unavailable BROWN SAMUEL A Referring Unavailable BROWN SAMUEL A Attending Unavailable HEMEYER, EDEDGAR J Attending Unavailable HEMEYER, EDEDGAR J Referring Unavailable HEMEYER, EDEDGAR J Attending Unavailable BROWNWILLIAMSAMUEL A Attending Unavailable HEMEYER, EDWARD J Referring Unavailable BROWN SAMUEL A Referring Unavailable HEMEYER, EDWARD J Attending Unavailable BROWN SAMUEL A Attending Unavailable BROWN, SAMUEL A Attending Unavailable BROWN, SAMUEL A Referring Unavailable BROWN SAMUEL A Attending Unavailable HEMEYER, EDEDGAR J Attending Unavailable BROWN, SAMUEL A Attending Unavailable BROWN SAMUEL A Attending Unavailable HEMEYER, EDWARD J Attending Unavailable Allergies Allergy Classification Reported Allergen(s) Allergy Type Date of Onset Reaction(s) Facility (1 source) gabapentin Drug Allergy 7 AOF [facility] Repository (3 sources) lactobacillus; Translations: [OLANZAPINE] Drug Allergy 5 ITCHING, Hives [facility] Rep[facility] (2 sources) amLODIPine / benazepril; Translations: [AMLODIPINE-BENAZE PRIL] Drug Allergy 3 Swelling [facility] Work Phone: (20 sources) Doxylamine; Translations: [DOXYLAMINE] Drug Allergy 3 Itching [facility] Work Phone: Comment on above: hallucinations (20 sources) OLANZapine Drug Allergy 3 Itching [facility] Work Phone: (20 sources) traMADol; Translations: [TRAMADOL] Drug Allergy 3 Rash [facility] Work Phone: (20 sources) Amlodipine Besy-Benazepril Hcl Drug Allergy 3 [facility] (2 sources) amLODIPine; Translations: [amlodipine] Drug Allergy 5 Swelling of Lip/Tongue/Thro at [facility] (2 sources) benazepril; Translations: [benazepril] Drug Allergy 5 Swelling of Lip/Tongue/Thro at [facility] (1 source) Doxylamine Drug Allergy 5 [facility] (1 source) OLANZapine Drug Allergy 5 [facility] (1 source) traMADol Drug Allergy 5 [facility] Rep[facility] Medications Current Medications Medication Drug Class(es) Dates Sig (Normalized) Sig (Original) acetaminophen 325 mg / HYDROcodone bitartrate 5 mg oral tablet (8 sources) Opioid Agonist Start: 02-16-2025 End: 02-21-2025 take 1 tablet by mouth every eight hours as needed for pain HYDROcodone-aceta minophen (Aldie) 5-325 MG tablet Indications: Pain Take 1 tablet by mouth every 8 (eight) hours if needed for moderate pain (PRN pain) for up to 5 days 15 tablet 02/16/2025 02/21/2025 Active Start: 08-19-2024 End: 08-24-2024 take 1 tablet by mouth every eight hours as needed for pain HYDROcodone-acetaminophen (Aldie) 5-325 MG tablet Indications: Pain Take 1 tablet by mouth every 8 (eight) hours if needed for moderate pain (PRN pain) for up to 5 days 15 tablet 08/19/2024 08/24/2024 Active Start: 10-02-2017 End: 01-05-2025 take 1 tablet by mouth every four to six hours as needed for pain Hydrocodone-Acetaminophen (Aldie) 5-325 mg tablet Discontinued 1 TAB PO EVERY 4-6 HOURS as needed for pain October 02, 2017 January 05, 2025 8:36am acetaminophen 325 mg / oxyCODONE hydrochloride 5 mg oral tablet (6 sources) Opioid Agonist Start: 01-19-2025 End: 02-20-2025 take 1 tablet by mouth every six hours as needed for pain oxyCODONE-acetaminophen (Percocet) 5-325 MG tablet Take 1 tablet by mouth every 6 (six) hours if needed for moderate pain 01/19/2025 02/20/2025 Discontinued (Therapy completed) [id number] 200 actuat albuterol 0.09 mg/actuat metered dose inhaler (20 sources) beta2-Adrene rgic Agonist Start: 01-05-2025 take 1 puff(s) by inhalation every four to six hours as needed for wheezing Albuterol Sulfate 90 mcg/actuation HFA aerosol inhaler Active 1 - 2 PUFF INHALATION EVERY 4-6 HOURS as needed for wheezing January 05, 2025 12:00am Start: 11-22-2024 End: 12-22-2024 take 2 puff(s) by inhalation every four hours for wheezing albuterol HFA 90 mcg/act inhaler Indications: Bronchitis Inhale 2 puffs every 4 (four) hours if needed for wheezing or shortness of breath 18 g 11/22/2024 Active apixaban 5 mg oral tablet (4 sources) Factor Xa Inhibitor Start: 08-20-2023 take 1 tablet by mouth twice daily Eliquis 5 mg oral tablet 5 mg = 1 tab(s), Oral, BID, # 60 tab(s), Refills(s) 3, Pharmacy: [facility] [id number], 154, cm, 08/20/23 11:11:00 EDT, Height/Length Dosing, [...] Start: 08-19-2024 take 1 tablet by omaira th three times weekly aspirin 81 MG EC tablet Indications: Primary hypertension (CMS/HCC) Take 1 tablet (81 mg) by mouth 3 (three) times a week 08/19/2024 Active Start: 08-19-2024 take 1 tablet by omaira th three times weekly aspirin 81 MG EC tablet Indications: Primary hypertension (CMS/HCC) Take 1 tablet (81 mg) by mouth 3 (three) times a week 08/19/2024 Active Start: 08-20-2023 End: 08-18-2024 take 1 tablet by mouth in the morning aspirin 81 MG EC tablet Take 81 mg by mouth in the morning. 08/20/2023 08/18/2024 Discontinued (Reorder) Start: 09-24-2017 End: 08-18-2024 take 1 tablet by mouth in the morning aspirin 81 MG EC tablet Take 81 mg by mouth in the morning. 08/20/2023 08/18/2024 Discontinued (Reorder) Black Cohosh (20 sources) Start: 01-05-2025 take 1 capsule by mo uth once daily in the evening Black Cohosh 540 mg capsule Active 20 MG PO Every evening January 05, 2025 12:00am Black Cohosh 540 MG capsule 1 (one) [...] take 1 capsule by mouth once daily in the evening Duloxetine 60 mg capsule,delayed release(DR/EC) Active 60 MG PO Every evening January 05, 2025 12:00am Start: 08-20-2023 duloxetine Ref ills(s) 0 Start Date: 08/20/23 Status: Ordered Start: 05-12-2023 take [address] [facility] once daily DULoxetine (Cymbalta) [address] capsule Take 1 capsule (60 mg) by mouth once daily. 0 05/12/2023 Active Start: 09-24-2017 End: 01-05-2025 take 1 tablet by mouth once daily Duloxetine (Cymbalta) 30 mg Capsule,Delayed Release(Dr/Ec) Discontinued 1 TAB PO Daily September 24, 2017 1:00am January 05, 2025 8:35am famotidine 20 mg oral tablet (17 sources) Histamine-2 Receptor Antagonist famotidine (Pepcid) 20 MG tablet Take by mouth Active fenofibrate 160 mg oral tablet (20 sources) Peroxisome Proliferator Receptor alpha Agonist Start: 08-27-20 End: 05-01-20 take 1 tablet by mouth once daily [...] mg oral tablet (3 sources) Quinolone Antimicrobial Start: 11-22-19 End: 11-29-19 take 1 tablet by mouth once daily levoFLOXacin (Levaquin) 750 MG tablet Indications: Bronchitis Take 1 tablet (750 mg) by mouth Daily for 7 days 7 tablet 11/22/2024 11/29/2024 Active losartan potassium 100 mg oral tablet (20 sources) Angiotensin 2 Receptor Francia Start: 08-20-20 End: 05-01-20 take 1 tablet by mouth once daily losartan (Cozaar) 100 MG tablet Indications: Primary hypertension (CMS/HCC) Take 1 tablet (100 mg) by mouth Daily 90 tablet 1 11/02/2024 05/01/2025 Active Start: 09-24-2017 End: 01-05-2025 take 1 tablet by mouth once daily Losartan 50 mg tablet Discontinued 1 TAB PO Daily September 24, 2017 1:00am January 05, 2025 8:32am Multi Vitamin+ (3 sources) Start: 08-20-2023 Multi Vitamin+ Refill(s) 0 Start Date: 08/20/23 Status: Ordered Multiple Vitamin (Multi Vitamin) tablet (20 sources) Multiple Vitamin (Multi Vitamin) tablet Daily Active Uphlrlxc-Bzh-Epcgpnx Fumarate (Multi Vitamin) 9 mg iron/15 mL Liquid (1 source) Start: 09-24-2017 take 1 tablet by mouth once daily in the evening Mvqrhezp-Tyq-Gdwhlo s Fumarate (Multi Vitamin) 9 mg iron/15 mL Liquid Active 1 TAB PO Every evening September 24, 2017 1:00am multivitamin tablet (1 source) take 1 tablet by mouth once daily multivitamin tablet Take 1 tablet by mouth once daily. 0 Active Nature's Bounty Red Krill Oil (3 sources) Start: 08-20-2023 Nature's Bounty Red Krill Oil Refill(s) 0 Start Date: 08/20/23 Status: Ordered nebivolol 5 mg oral tablet (20 sources) Start: 08-18-2024 End: 05-01-2025 take 1 tablet by mouth once daily nebivolol (Bystolic) 5 MG tablet Indications: Primary hypertension (CMS/HCC) Take 1 tablet (5 mg) by mouth Daily 90 tablet 1 11/02/2024 05/01/2025 Active Anderson 9-Thr-Pve-Fish Oil (Fish Oil) 1,000 mg (120 mg-180 mg) Capsule (1 source) Start: 09-24-2017 take 1 tablet by mouth once daily in the evening Anderson 2-Tnk-Iyn-Fish Oil (Fish Oil) 1,000 mg (120 mg-180 mg) Capsule Active 1 TAB PO Every evening September 24, 2017 1:00am ondansetron 4 mg disintegrating oral tablet (14 sources) Serotonin-3 Receptor Antagonist End: 02-20-2025 take 1 tablet by mouth every eight hours as needed for nausea and vomiting ondansetron ODT (Zofran-ODT) 4 MG disintegrating tablet Take 4 mg by mouth every 8 (eight) hours if needed for nausea or vomiting 02/20/2025 Discontinued (Therapy completed) QUEtiapine 50 mg oral tablet (20 sources) Atypical Antipsychotic Start: 05-24-2024 End: 11-02-2024 QUEtiapine (SEROquel) 50 MG tablet Indications: Sleep [...] Drug Class(es) Dates Sig (Normalized) Sig (Original) docusate sodium 100 mg oral capsule (1 source) Start: 10-02-20 End: 01-06-20 take 1 capsule by mouth twice daily as needed for constipation Docusate Sodium (Colace) 100 mg capsule Discontinued 100 MG PO Twice daily as needed for constipation 60 October 02, 2017 10:14am January 05, 2025 8:34am Norgestimate-Ethinyl Estradiol (1 source) Progestin, Estrogen Start: 09-24-20 End: 10-02-20 take 1 tablet by mouth once daily Norgestimate-Ethinyl Estradiol (Tri-Estarylla) 0.18/0.215/0.25 mg-35 mcg (28) tablet Discontinued 1 TAB PO Daily September 24, 2017 1:00am October 02, 2017 10:14am gabapentin 100 mg oral capsule (1 source) Anti-epileptic Agent Start: 09-24-20 End: 01-06-20 take 3 capsules by mouth three times daily Gabapentin 100 mg capsule Discontinued 300 MG PO Three times daily September 24, 2017 1:00am January 05, 2025 8:36am gemfibrozil 600 mg oral tablet (1 source) Peroxisome Proliferator Receptor alpha Agonist Start: 09-24-20 End: 01-06-20 take 1 tablet by mouth twice daily Gemfibrozil 600 mg tablet Discontinued 600 MG PO Twice daily September 24, 2017 1:00am January 05, 2025 8:36am ibuprofen 600 mg oral tablet (1 source) Nonsteroidal Anti-inflammatory Drug Start: 10-02-20 End: 01-06-20 take 1 tablet by mouth every six hours as needed for pain Ibuprofen 600 mg tablet Discontinued 600 MG PO Q6H as needed for pain October 02, 2017 1:00am January 05, 2025 8:36am methylPREDNISolone (10 sources) Corticosteroid Start: 12-08-19 End: 12-29-19 methylPREDNISolone (Medrol Dospak) 4 MG tablets Indications: Capsulitis of metatarsophalangeal (MTP) joint of left foot Follow schedule on MEDROL PACK package instructions to be used as directed 21 tablet 12/08/2024 12/28/2024 Discontinued Start: 12-08-2024 methylPREDNISo lone (Medrol Dospak) 4 MG tablets Indications: Capsulitis of metatarsophalangeal (MTP) joint of left foot Follow schedule on MEDROL PACK package instructions to be used as directed 21 tablet 12/08/2024 Active metoprolol tartrate 25 mg oral tablet (3 sources) beta-Adrenergic Francia Start: 09-01-2024 End: 09-29-2024 take 1 tablet by mouth in the morning metoprolol tartrate (Lopressor) 25 MG tablet Take 25 mg by mouth in the morning and 25 mg before bedtime. 09/01/2024 09/29/2024 Discontinued (Therapy completed) Spacer/Aero-Holdi ng Chambers (BreatheRite Lien Spacer Adult) misc (14 sources) Start: 11-22-2024 End: 12-28-2024 Spacer/Aero-Holdin g Chambers (BreatheRite Lien Spacer Adult) misc Indications: Bronchitis 2 puffs 4 (four) times a day as needed (sob and cough) 1 each 11/22/2024 12/28/2024 Discontinued Start: 11-22-2024 Spacer/Aero-Ho lding Chambers (BreatheRite Lien Spacer Adult) misc Indications: Bronchitis 2 puffs 4 (four) times a day as needed (sob and cough) 1 each 11/22/2024 Active traMADol hydrochloride 50 mg oral tablet (1 source) Opioid Agonist Start: 12-27-2024 End: 12-28-2024 take 1-2 tablets by mouth every six hours for pain traMADol (Ultram) 50 MG tablet Indications: Calculus of gallbladder with acute cholecystitis without obstruction Take 1-2 tablets (50-100 mg) by mouth every 6 (six) hours if needed for moderate pain for up to 5 days 30 tablet 12/27/2024 12/28/2024 Discontinued Problems Active Problems Problem Classification Problem Date Documented Date Episodic/Chronic Abdominal pain (5 sources) Right lower quadrant rebound abdominal tenderness; Translations: [Right upper quadrant pain] Onset: 8 Episodic Acquired foot deformities (20 sources) Toe joint rigid; Translations: [Hallux rigidus, [...] specified as acute or chronic] 11-22-2024 Episodic Complication of device; implant or graft (6 sources) Pain; Translations: [Pain due to other internal prosthetic devices, implants and grafts, initial encounter] 02-08-2025 Episodic Conditions associated with dizziness or vertigo [...] Onset: 3 08-20-2023 Chronic Other acquired deformities (14 sources) Contracture of joint of right ankle; Translations: [Contracture, right ankle] 08-16-2024 Chronic Other connective tissue disease (4 sources) Pain in right foot; Translations: [Pain in right foot] 08-18-2024 Episodic Other connective tissue disease (7 sources) Capsulitis of metatarsophalangeal joint of left foot; Translations: [Other enthesopathy of left foot and ankle] 11-24-2024 Episodic Other connective tissue disease (3 sources) Capsulitis of metatarsophalangeal joint of right foot; Translations: [Other enthesopathy of right foot and ankle] 12-14-2024 Episodic Other gastrointestinal disorders (1 source) Irritable bowel syndrome without diarrhea; Translations: [IRRITABLE BOWEL SYND W/O DIARRHEA] Onset: Chronic Other gastrointestinal disorders (20 sources) Irritable [...] [Body mass index (BMI) 33.0-33.9, adult] Onset: Chronic Other nutritional; endocrine; and metabolic disorders [...] status; Translations: [Other specified health status] Onset: Episodic Residual codes; unclassified (2 sources) Menopause present; Translations: [Asymptomatic menopausal state] 09-28-2024 Episodic Residual codes; unclassified (1 source) Pain, unspecified; Translations: [Pain, unspecified] Onset: Episodic Spondylosis; intervertebral disc disorders; other back [...] self-esteem] Onset: 05-05-2017 Resolved: 09-29-2024 08-20-2023 Chronic Biliary tract disease (20 sources) Cholelithiasis without obstruction; Translations: [Calculus of gallbladder without cholecystitis without obstruction] Onset: 12-28-2024 Resolved: 02-20-2025 12-28-2024 Episodic Cardiac dysrhythmias (20 sources) Tachyarrhythmia ; Translations: [Tachycardia, unspecified] Onset: 08-20-2023 Resolved: 02-20-2025 Episodic Other aftercare (1 source) [facility] (current) use of aspirin; Translations: [PENITENTIARY CURRENT USE OF ASPIRIN] Onset: 05-05-2017 Episodic [...] Test Name Value Interpretation Reference Range Facility XR Foot - right 3 [facility] Result: Well-seated bio Pro implant to the proximal phalanx of the right hallux [facility] Radiology Study observation (narrative) [facility] Alkaline Phosphataseon 01-19 ALP [Catalytic activity/Vol] 69 U/L Normal 34-104 [facility] Comment on above: Performed By: #### B ILTD, ALP, MILY, LIPASE #### [address] Alkaline phosphataseon 01-19 ALP [Catalytic activity/Vol] 69 U/L 34 - 104 U/L [facility] Amylaseon 01-19-2025 Amylase [Catalytic activity/Vol] 47 U/L 29 - 103 U/L [facility] Amylase [Catalytic activity/Vol] 47 U/L Normal 29-103 [facility] Comment on above: Performed By: #### B ILTD, ALP, MILY, LIPASE #### [facility] [address] Bilirubin, Total and Directo n 01-19-2025 Bilirubin [Mass/Vol] 0.3 mg/dL Normal 0.3-1.0 [facility] Comment on above: Performed By: #### B ILTD, ALP, MILY, LIPASE #### [facility] [address] Bilirubin,Indirect 0.2 mg/dL Normal [facility] Comment on above: Performed By: #### B ILTD, ALP, MILY, LIPASE #### [facility] [address] Bilirubin.indirect [Mass/Vol] 0.10 mg/dL Normal 0.03-0.18 [facility] Comment on above: Performed By: #### B ILTD, ALP, MILY, LIPASE #### [facility] [address] Bilirubin, total and directo n 01-19-2025 Bilirubin [Mass/Vol] 0.3 mg/dL 0.3 - 1 .0 mg/dL [facility] Bilirubin.indirect [Mass/Vol] 0.1 mg/dL 0.03 - 0.18 mg/dL [facility] Magnesium [Mass/Vol] 0.2 mg/dL [facility] Zheng 01-19-2025 L Specimen: [id number] Received: 01/19/25 Status: CESAR An Num: [id number] Spec Type: Surgical Subm Dr: Estiven Mclaughlin, DO Tissues: A Gallbladder (gallbladder) Procedures: HE/2, Gross/Micro L3 Age/ Patient Sex Location Account Attending Physician RenettaAnnemarie L 59/F [place] [id number] Estiven Mclaughlin, DO SPEC NUM: [id number] RECD: 01/19/25 STATUS: CESAR AN NUM: [id number] LIEN: 01/19/25- SUBM DR: Estiven Mclaughlin DO ENTERED: 01/19/[address] [facility] [address]: KIMBERLY TYPE: Surgical DEPT: S ENTERED BY: [id number] RECV BY: [id number] ORDERED: HE/2, Gross/Micro L3 ORDERED: HE/2, Gross/Micro L3 Pathological Diagnosis Gallbladder, cholecystectomy: -Moderate to severe cholelithiasis -Moderate calculus chronic cholecystitis, including 1 small reactive pericystic lymph node -Patchy pyloric metaplasia, otherwise without malignancy, intestinal metaplasia, or glandular dysplasia identified Clinical Information Symptomatic cholelithiasis Gross Description Part A is received in formalin labeled with the patients name, date of , and gallbladder is an intact gallbladder, 9 x 2.8 x 2.5 cm, with a 0.2 cm cystic duct closed by a metallic staple. A 0.9 cm periductal lymph node candidate is serially sectioned, and entirely submitted in A1. The serosa is blanc-blue, smooth and glistening; the hepatic bed is rough and irregular. The gallbladder is open to exude a james-green, viscous bile with a james-brown, granular 2.8 cm in greatest dimension calculus. The mucosa is james-pink and trabecular. The wall the gallbladder ranges from 0.1 to 0.3 cm in thickness with overlying adipose tissue, up to 0.4 cm in thickness. Claims Support Specialist sections of the gallbladder are submitted in A2. (2, , [id number])DELFINO Specimen: Received: 01/19/25 Status: CESAR An Num: [id number] Spec Type: Surgical Subm Dr: Estiven Mclaughlin, Tissues: A Gallbladder (gallbladder) Procedures: HE/Dania, Gross/Linda L3 Patient: Annemarie Jackson [id number] (Continued) Specimen: Received: 01/19/25 (Continued) Signed (signatur e on file) Taryn Moulton MD 01/23/25 1447 Specimen: [id number] Received: 01/19/25 Status: CESAR An Num: [id number] Spec Type: Surgical Subm Dr: Estiven Mclaughlin DO Tissues: A Gallbladder (gallbladder) Procedures: HE/Dania, Gross/Micro L3 Patient: Annemarie Jackson Alexa [id number] (Continued) Specimen: [id number] Received: 01/19/25 (Continued) Microscopic Description Microscopic examination is performed CPT Codes 51348 Specimen: [id number] Received: 01/19/25 Status: CESAR An Num: [id number] Spec Type: Surgical Subm Dr: Estiven Mclaughlin DO Tissues: A Gallbladder (gallbladder) Procedures: HE/2, Gross/Micro L3 Patient: Annemarie Jackson [id number] (Continued) Signed (signatur e on file) Taryn Moulton MD 01/23/25 2474 Normal [facility] Lipaseon 01-19-2025 Lipase [Catalytic activity/Vol] 17 U/L 11.0 - 82.0 U/L [facility] Lipase [Catalytic activity/Vol] 17.0 U/L Normal 11.0-82.0 [facility] Comment on above: Result Comment: PERF ORMED BY: [place] [address] PATHOLOGIST PALLET REPAIRER YAAKOV HINDS M.D. Performed By: #### B ILTD, ALP, MILY, LIPASE #### [address] No Panel Informationon 01-19 [facility] Basic Metabolic Panelon 12-24 Anion gap [Moles/Vol] 12.3 mmol/L Normal 6.0-15.0 [facility] Comment on above: Performed By: #### C BC, BMP #### [address] Calcium [Mass/Vol] 9.7 mg/dL Normal 8.6-10.3 [facility] Comment on above: Result Comment: PERF ORMED BY: [place] [address] PATHOLOGIST PALLET REPAIRER YAAKOV HINDS M.D. Performed By: #### C BC, BMP #### [address] Chloride [Moles/Vol] 105 mmol/L Normal 98-107 [facility] Comment on above: Performed By: #### C BC, BMP #### [address] CO2 [Moles/Vol] 26.8 mmol/L Normal 21.0-31.0 [facility] Comment on above: Performed By: #### C BC, BMP #### [address] Creatinine [Mass/Vol] 0.97 mg/dL Normal 0.60-1.20 [facility] Comment on above: Performed By: #### C BC, BMP #### [address] GFR/1.73 sq M.predicted MDRD (S/P/Bld) [Vol rate/Area] mL/min/{1.73_m2} Normal [facility] Comment on above: Performed By: #### C BC, BMP #### [facility] [address] Glucose [Mass/Vol] 84 mg/dL Normal 70-100 [facility] Comment on above: Result Comment: [place] Glucose Reference Range is dependent on time and content of last meal. Glucose of more than 200 mg/dL in a nonstressed, ambulatory subject supports the diagnosis of Diabetes Mellitus. ADA recommended reference range Performed By: #### C BC, BMP #### [facility] [address] Potassium [Moles/Vol] 4.1 mmol/L Normal 3.5-5.1 [facility] Comment on above: Performed By: #### C SABRINA, BMP #### [address] Sodium [Moles/Vol] 140 mmol/L Normal 136-145 [facility] Comment on above: Performed By: #### C SABRINA, BMP #### [facility] [address] Urea nitrogen [Mass/Vol] 37 mg/dL High 7-25 [facility] Comment on above: Performed By: #### C SABRINA, BMP #### [address] Basic metabolic 1998 panelon 01-05-2025 Anion gap [Moles/Vol] 12.3 mmol/L 6.0 - 15.0 meq/L [facility] Calcium [Mass/Vol] 9.7 mg/dL 8.6 - 10. 3 mg/dL [facility] Chloride [Moles/Vol] 105 mmol/L 98 - 10 7 mmol/L [facility] CO2 [Moles/Vol] 26.8 mmol/L 21.0 - 31.0 mmol/L [facility] Creatinine (U) [Mass/Vol] 0.97 mg/dL 0.60 - 1.20 mg/dL [facility] ESTIMATED GFR mL/Min [facility] Glucose [Mass/Vol] 84 mg/dL 70 - 100 mg/dL [facility] Comment on above: Random Glucose Refer ence Range is dependent on time and content of last meal. Glucose of more than 200 mg/dL in a nonstressed, ambulatory subject supports the diagnosis of Diabetes Mellitus. ADA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 Normal [facility] Comment on above: Performed By: #### Anna Marie NELSON ####[facility] Xfaexaqize[address] [place] [address] Ann[place]arie MCH 31.2 pg Normal 26.7-34.0 [facility] Comment on above: Performed By: ###Kaley NELSON ####[facility] Gzhjqcbnsl[address] [place] [address] Annemarie MCHC mass conc (RBC) 33.2 g/dL Normal 29.9-35.2 [facility] Comment on above: Performed By: #### Anna Marie NELSON ####[facility] Gtyyirbuov[address] [place] [address] Annemarie MCV 93.8 fL Normal 81.0-99.0 [facility] Comment on above: Performed By: #### Anna Marie NELSON ####[facility] Bjvqgrkmlg[address] [place] [address] Ann[place]arie METAMYELOCYTE # Normal [facility] Comment on above: Performed By: #### Anna Marie NELSON ####[facility] Hroyzasnix4399 [address] [place] METAMYELOCYTE % Normal [facility] Comment on above: Performed By: #### Anna Marie NELSON ####[facility] Lmtytwljlm0724 [place], [place] [address]Zegkdl Ann[place]arie MONOM# 0.37 103/ul Normal 0.30-0.80 [facility] Comment on above: Performed By: #### C LESLIE ####[facility] Tmqysunclu6881 [place], [place] [address]Krnsfr Annemarie MONOM% 2.0 % Normal 1.7-12.0 [facility] Comment on above: Performed By: #### C LESLIE ####[facility] Zipmfuxfny0836 [place], [place] [address]Vrgylw Ann[place] MYELOCYTE # Normal [facility] Comment on above: Performed By: #### C LESLIE ####[facility] Mndxjzezlq5010 [place], [place] [address]Oqybli Ann[place]arie MYELOCYTE % Normal [facility] Comment on above: Performed By: #### Anna Marie NELSON ####[facility] Xwkhgpkknr7777 [place] [phone] [place]arie Platelet mean volume (PMV) 9.4 fL Critically low 9.5-13.5 [facility] Comment on above: Performed By: #### Anna Marie NELSON ####[facility] Lggtgumhxc3530 [place] [phone] Annemarie Platelets 392 103/ul Normal 150-450 [facility] Comment on above: Performed By: #### Anna Marie NELSON ####[facility] Fejxegplok6277 [place], [place] [address]Erdynl Annemarie SEG # 15.17 103/ul Critically high 1.40-6.50 [facility] Comment on above: Performed By: #### Anna Marie NELSON ####[facility] Byjcuckxpz0823 [place] [phone] [place]arie Segmented Neutrophils/100 leukocytes 82.0 % Critically high 43.0-75.0 [facility] Comment on above: Performed By: #### Anna Marie NELSON ####[facility] Snttcacchs2482 [place], [place] [address]Zlarlr Annemarie WBC (Leukocytes) Normal 4.0-11.0 [facility] Comment on above: Performed By: #### Anna Marie NELSON ####[facility] Axfxerubmp8043 [place], [place] [address]Vldulh Annemarie WBC (Leukocytes) 18.5 103/ul Critically high 4.0-11.0 Th e [facility] Comment on above: Performed By: #### Anna Marie NELSON ####[facility] Gcdwudtcvu4778 [place], [place] [address]Xafqcd Annemarie BAND # 0.0 103/ul Normal 0.0-0.3 [facility] Comment on above: Performed By: #### Anna Marie NELSON ####[facility] Vyylbiqmzh[address] [place], [place] [address]Gerken [place]emarie BAND % 0 % Normal 0-5 [facility] Comment on above: Performed By: #### Anna Marie NELSON ####[facility] Esocpbkbvj[address] [place] [address] Ann[place]arie BASOM % 0.0 % Critically low 0.2-2.0 [facility] Comment on above: Performed By: #### Anna Marie NELSON ####[facility] Tlpklxuvjn[address] [place], [place] [address]Gerken [place]emarie Basophils Auto #/vol (Bld) 0.00 103/ul Normal 0.00-0.10 [facility] Comment on above: Performed By: #### Anna Marie NELSON ####[facility] Gnxrmuhscm7[address] [place], [place] [address]Gerken [place]emarie BLAST # Normal [facility] Comment on above: Performed By: #### Anna Marie NELSON ####[facility] Xgvxzggaat5935[address] [place], [place] [address]Gerken Annemarie BLAST % Normal [facility] Comment on above: Performed By: #### Anna Marie NELSON ####[facility] Oedkbaxmji76[address] [place], [place] [address]Gerken Annemarie Eosinophils 0.00 103/ul Normal 0.00-0.70 [facility] Comment on above: Performed By: #### Anna Marie NELSON ####[facility] Mjqzbkocnz23[address] [place], [place] [address]Gerken [place]emarie Eosinophils/100 leukocytes 0.0 % Critically low 0.9-7.0 [facility] Comment on above: Performed By: #### C LESLIE ####[facility] Vpkvjycjqn6200 [address] Anneamrie Erythrocyte distribution width Auto Ratio (RBC) 12.8 % Normal 11.0-15.0 [facility] Comment on above: Performed By: #### C LESLIE ####[facility] Qmbfsrphwi4033 [address] Ann[place]arie Erythrocytes (RBC) 4.08 106/ul Critically low 4.20-5.40 [facility] Comment on above: Performed By: #### C LESLIE ####[facility] Awshavotlq679[address] [place], [place] [address]Gerken [place]emarie Erythrocytes (RBC) Normal [facility] Comment on above: Performed By: #### Anna Marie NELSON ####[facility] Utiaqqnyql[address] [place] [address] Annemarie Hematocrit (HCT) 38.1 % Normal 36.0-48.0 [facility] Comment on above: Performed By: #### Anna Marie NELSON ####[facility] Ofywphavkh[address] [place] [address] Annemarie Hemoglobin mass conc (Bld) 12.7 g/dL Normal 12.0-16.0 [facility] Comment on above: Performed By: #### Anna Marie NELSON ####[facility] Bzrvdmmnlb89[address] [place], [place] [address]Gerken [place]arie Lymphocytes 0.59 103/ul Critically low 1.20-3.80 [facility] Comment on above: Performed By: #### C LESLIE ####[facility] Ivgbzlqahu335[address] [place], [place] [address]Gerken Annemarie Lymphocytes Normal [facility] Comment on above: Performed By: #### C LESLIE ####[facility] Uqsgtonuqb4789 [address] [place] Lymphocytes/100 leukocytes 7.0 % Critically low 20.5-60.0 [facility] Comment on above: Performed By: #### C LESLIE ####[facility] Vdxqheqvht8751 [address] [place] Lymphocytes/100 leukocytes Normal [facility] Comment on above: Performed By: #### Anna Marie NELSON ####[facility] Zvqgnqjdfm0224 [address] Ann[place]arie MCH 31.1 pg Normal 26.7-34.0 [facility] Comment on above: Performed By: #### Anna Marie NELSON ####[facility] Lktmoljhlz2304 [address] Annemarie MCHC mass conc (RBC) 33.3 g/dL Normal 29.9-35.2 [facility] Comment on above: Performed By: #### Anna Marie NELSON ####[facility] Mmmeeeljgq[address] [place] [address] Annemarie MCV 93.4 fL Normal 81.0-99.0 [facility] Comment on above: Performed By: #### Anna Marie NELSON ####[facility] Enzkavscgy[address] [place] [address] [place] METAMYELOCYTE # Normal [facility] Comment on above: Performed By: #### Anna Marie NELSON ####[facility] Sseiwzjksv[address] [place] [address] Ann[place]arie METAMYELOCYTE % Normal [facility] Comment on above: Performed By: #### Anna Marie NELSON ####[facility] [address]wmafkxtt[address] [place] [address] Annemarie MONOM# 0.09 103/ul Critically low 0.30-0.80 [facility] Comment on above: Performed By: #### Anna Marie NELSON ####[facility] Lpblroqwpg6895 [address] [place] MONOM% 1.0 % Critically low 1.7-12.0 [facility] Comment on above: Performed By: #### Anna Marie NELSON ####[facility] Umvzqskjih[address] [place] [address] [place] MYELOCYTE # Normal [facility] Comment on above: Performed By: #### Anna Marie NELSON ####[facility] Avkbarcmnk5454 [place], [place] [address]Rkzuwk [place]arie MYELOCYTE % Normal [facility] Comment on above: Performed By: #### Anna Marie NELSON ####[facility] Hlkvszjzeb8004 [place], [place] [address]Pcqpsy Annemarie Platelet mean volume (PMV) 9.2 fL Critically low 9.5-13.5 [facility] Comment on above: Performed By: #### Anna Marie NELSON ####[facility] Qzmdmifgrz2776 [place] [phone] [place] Platelets 393 103/ul Normal 150-450 [facility] Comment on above: Performed By: #### Anna Marie NELSON ####[facility] Oarfkkraec[address] [place], [place] [address]Gerken [place]arie SEG # 7.82 103/ul Critically high 1.40-6.50 [facility] Comment on above: Performed By: #### Anna Marie NELSON ####[facility] Mkyfxkbmxj8027[address] [place], [place] [address]Gerken [place]emarie Segmented Neutrophils/100 leukocytes 92.0 % Critically high 43.0-75.0 [facility] Comment on above: Performed By: #### Anna Marie NELSON ####[facility] Xzkhxzeiht725[address] [place], [place] [address]Gerken Annemarie WBC (Leukocytes) 8.5 103/ul Normal 4.0-11.0 [facility] Comment on above: Performed By: #### Anna Marie NELSON ####[facility] Vfqosrvkrr[address] [place], [place] [address]Gerken Annemarie WBC (Leukocytes) Normal 4.0-11.0 [facility] Comment on above: Performed By: #### Anna Marie NELSON ####[facility] Ysyexmtbag3657 [place] [phone] [place]arie PROF 14(COMP METB)on 017 Alanine aminotransferase (ALT) 41 U/L Normal 9-52 [facility] Comment on above: Performed By: #### Anna Marie MILLER ####[facility] Fozndyixzn46[address] [place], [place] [address]Gerken [place]arie Albumin 4.2 g/dL Normal 3.5-5.0 [facility] Comment on above: Performed By: #### C MP ####[facility] Npxvelvzej1375 [address] [place]arie Albumin/Globulin Ratio 1.2 {ratio} Normal T [facility] Comment on above: Performed By: #### C MP ####[facility] Byqumpmgfu5171 [address] [place] Alkaline phosphatase (ALP) 60 U/L Normal 38-126 [facility] Comment on above: Performed By: #### C MP ####[facility] Eewqgduyen[address] [place] [address] Annemarie Anion gap 19.0 mmol/L Normal [facility] Comment on above: Performed By: #### C MP ####[facility] Vfykeqpbdg[address] [place] [address] Annemarie Aspartate aminotransferase (AST) 28 U/L Normal 14-36 [facility] Comment on above: Performed By: #### C MP ####[facility] Ccjxxctqpu[address] [place] [address] Ann[place]arie Bilirubin Ql (U) 0.3 mg/dL Normal 0.2-1.3 [facility] Comment on above: Performed By: #### C MP ####[facility] Iqngalihzo[address] [place] [address] Ann[place]arie BUN/Creatinine Ratio 24.5 mg/mg Normal [facility] Comment on above: Performed By: #### C MP ####[facility] Nrhgbsdfog[address] [place] [address] Ann[place]arie Calcium 9.4 mg/dL Normal 8.4-10.2 [facility] Comment on above: Performed By: #### C MP ####[facility] Kzxmywiafm[address] [place] [address] Ann[place]arie Chloride 105 mmol/L Normal 98-107 [facility] Comment on above: Performed By: #### C MP ####[facility] Uqncibyosw[address] [place], [place] [address] Annemarie CO2 20.0 mmol/L Critically low 22.0-30.0 [facility] Comment on above: Performed By: #### C MP ####[facility] Irgzoqgblz4981 [place] [phone] [place]arie Creatinine 0.71 mg/dL Normal 0.52-1.04 [facility] Comment on above: Performed By: #### C MP ####[facility] Dybmzcpvwt6228 [place] [phone] Annemarie eGFR (non-black) mL/min/{1.73_m2} Normal >=60 [facility] Comment on above: Performed By: #### C MP ####[facility] Krbuabcghf7401 [address] [place]arie Globulin 3.4 g/dL Normal [facility] Comment on above: Performed By: #### C MP ####[facility] Tnalhrusab[address] [place] [address] Annemarie Glucose mass conc 173 mg/dL Critically high 74-106 [facility] Comment on above: Performed By: #### C MP ####[facility] Ontxwbdcuh[address] [place] [address] Annemarie Potassium molar conc 4.1 mmol/L Normal 3.4-5.0 [facility] Comment on above: Performed By: #### C MP ####[facility] Atlbrtntth[address] [place] [address] Annemarie Protein 7.5 g/dL Normal 6.1-8.2 [facility] Comment on above: Performed By: #### C MP ####[facility] Lgwezlwrpu8465 [address] [place] Sodium 140 mmol/L Normal 137-145 [facility] Comment on above: Performed By: #### C MP ####[facility] Xjurocfdqy9588 [place] [phone] [place]arie Urea nitrogen 18.0 mg/dL Critically high 7.0-17.0 [facility] Comment on above: Performed By: #### C MP ####[facility] Qepunbqjir2240 [place] [phone] Annemarie PROF CHEM 8 (BAS METB)on Anion gap 14.9 mmol/L Normal [facility] Comment on above: Performed By: #### B MP ####[facility] Vzerocawwx9818 [place] [phone] [place]arie BUN/Creatinine Ratio 21.8 mg/mg Normal [facility] Comment on above: Performed By: #### B MP ####[facility] Kphqgzibhm[address] [place] [address] Annemarie Calcium 9.0 mg/dL Normal 8.4-10.2 [facility] Comment on above: Performed By: #### B MP ####[facility] Mxgamtlbvt[address] [place] [address] Annemarie Chloride 110 mmol/L Critically high 98-107 [facility] Comment on above: Performed By: #### B MP ####[facility] Iyafovemls[address] [place], [place] [address]Gerken Annemarie CO2 21.0 mmol/L Critically low 22.0-30.0 [facility] Comment on above: Performed By: #### B MP ####[facility] Ebkmjmnvgs[address] [place], [place] [address]Gerken [place]emarie Creatinine 0.66 mg/dL Normal 0.52-1.04 [facility] Comment on above: Performed By: #### B MP ####[facility] Ppvxenrgqs[address] [place], [place] [address]Gerken Annemarie eGFR (non-black) mL/min/{1.73_m2} Normal >=60 [facility] Comment on above: Performed By: #### B MP ####[facility] Qvyxrnrqup70[address] [place], [place] [address]Gerken Annemarie Glucose mass conc 139 mg/dL Critically high 74-106 [facility] Comment on above: Performed By: #### B MP ####[facility] Iegtpaczsm[address] [place], [place] [address]Gerken [place]arie Potassium molar conc 4.0 mmol/L Normal 3.4-5.0 [facility] Comment on above: Performed By: #### B MP ####[facility] Sywuidkdyq6396 [place], [place] [address]Bmtefg Annemarie Sodium 142 mmol/L Normal 137-145 [facility] Comment on above: Performed By: #### B MP ####[facility] Blrjjezqgu7255 [place], [place] [address]Fdqlny Annemarie Urea nitrogen 14.0 mg/dL Normal 7.0-17.0 [facility] Comment on above: Performed By: #### B MP ####[facility] Jvwkyiiyhs4801 [place], [place] [address]Trtazz Annemarie Vital Signs Date Time Vital Sign Value Performing Clinician Marguerite waters 02-20-2025 09:28-0400 Body height 165.1 cm Rei Enrique MD Work Phone: [facility] 02-20-2025 09:28-0400 Body mass index (BMI) [Ratio] 35.28 kg/m2 Rei Enrique MD Work Phone: [facility] 02-20-2025 09:28-0400 Body weight 96.16 kg Rei Enrique MD Work Phone: [facility] 02-20-2025 09:28-0400 Diastolic blood pressure 78 mm[Hg] Rei Enrique MD Work Phone: [facility] 02-20-2025 09:28-0400 Heart rate 76 /min Rei Enrique MD Work Phone: [facility] 02-20-2025 09:28-0400 SaO2% (BldA) [Mass fraction] 99 % Rei Enrique MD Work Phone: [facility] 02-20-2025 09:28-0400 Systolic blood pressure 126 mm[Hg] Rei Enrique MD Work Phone: [facility] 02-16-2025 08:32-0400 Body height 165.1 cm Samuel Forbes DPM Work Phone: [facility] 02-16-2025 08:32-0400 Body mass index (BMI) [Ratio] 35.28 kg/m2 Samuel Forbes DPM Work Phone: [facility] 02-16-2025 08:32-0400 Body weight 96.16 kg Samuel Forbes DPM Work Phone: [facility] 02-16-2025 08:32-0400 Respiratory rate 18 /min Samuel Forbes DPM Work Phone: [facility] 12-29-2024 08:33-0500 Body height 165.1 cm Samuel Forbes DPM Work Phone: [facility] 12-29-2024 08:33-0500 Body mass index (BMI) [Ratio] 35.28 kg/m2 Samuel Forbes DPM Work Phone: [facility] 12-29-2024 08:33-0500 Body weight 96.16 kg Samuel Forbes DPM Work Phone: [facility] 12-29-2024 08:33-0500 Respiratory rate 18 /min Samuel Forbes DPM Work Phone: [facility] 12-28-2024 13:49-0500 Body height 165.1 cm Estiven Itzkowitz DO Work Phone: [facility] 12-28-2024 13:49-0500 Body mass index (BMI) [Ratio] 35.28 kg/m2 Estiven Itzkowitz DO Work Phone: [facility] 12-28-2024 13:49-0500 Body weight 96.16 kg Estiven Itzkowitz DO Work Phone: [facility] 12-28-2024 13:49-0500 Diastolic blood pressure 80 mm[Hg] Estiven Itzkowitz DO Work Phone: [facility] 12-28-2024 13:49-0500 Systolic blood pressure 120 mm[Hg] Estiven Itzkowitz DO Work Phone: [facility] 12-08-2024 08:55-0500 Body height 165.1 cm Samuel Forbes DPM Work Phone: [facility] 12-08-2024 08:55-0500 Body mass index (BMI) [Ratio] 34.11 kg/m2 Samuel Brown DPM Work Phone: [facility] 12-08-2024 08:55-0500 Body weight 92.99 kg Samuel Brown DPM Work Phone: [facility] 12-08-2024 08:55-0500 Respiratory rate 18 /min Samuel Brown DPM Work Phone: [facility] 11-24-2024 09:03-0500 Body height 165.1 cm Samuel Brown DPM Work Phone: [facility] 11-24-2024 09:03-0500 Body mass index (BMI) [Ratio] 34.11 kg/m2 Samuel Brown DPM Work Phone: [facility] 11-24-2024 09:03-0500 Body weight 92.99 kg Samuel Forbes DPM Work Phone: [facility] 11-24-2024 09:03-0500 Respiratory rate 16 /min Samuel Forbes DPM Work Phone: [facility] 11-22-2024 14:39-0500 Body height 165.1 cm Rei Enrique MD Work Phone: [facility] 11-22-2024 14:39-0500 Body mass index (BMI) [Ratio] 34.11 kg/m2 Rei Enrique MD Work Phone: [facility] 11-22-2024 14:39-0500 Body weight 92.99 kg Rei Enrique MD Work Phone: [facility] 11-02-2024 09:52-0500 Body height 165.1 cm Rei Enrique MD Work Phone: [facility] 11-02-2024 09:52-0500 Body mass index (BMI) [Ratio] 34.11 kg/m2 Rei Enrique MD Work Phone: [facility] 11-02-2024 09:52-0500 Body weight 92.99 kg Rei Enrique MD Work Phone: [facility] 11-02-2024 09:52-0500 Diastolic blood pressure 76 mm[Hg] Rei Enrique MD Work Phone: [facility] 11-02-2024 09:52-0500 Heart rate 59 /min Rei Enrique MD Work Phone: [facility] 11-02-2024 09:52-0500 SaO2% (BldA) [Mass fraction] 98 % Rei Enrique MD Work Phone: [facility] 11-02-2024 09:52-0500 Systolic blood pressure 124 mm[Hg] Rei Enrique MD Work Phone: [facility] 2024 09:22-0500 Body height 165.1 cm Samuel Brown DPM Work Phone: [facility] 2024 09:22-0500 Body mass index (BMI) [Ratio] 33.95 kg/m2 Samuel Brown DPM Work Phone: [facility] 2024 09:22-0500 Body weight 92.53 kg Samuel Forbes DPM Work Phone: [facility] 2024 09:22-0500 Respiratory rate 18 /min Samuel Brown DPM Work Phone: [facility] 09-29-2024 10:49-0500 Body height 165.1 cm Samuel Brown DPM Work Phone: [facility] 09-29-2024 10:49-0500 Body mass index (BMI) [Ratio] 33.95 kg/m2 Samuel Brown DPM Work Phone: [place] [id number] 10:49-0500 Body weight 92.53 kg Samuel Brown DPM Work Phone: [facility] 09-29-2024 10:49-0500 Respiratory rate 18 /min Samuel Brown DPM Work Phone: [facility] 09-08-2024 10:40-0500 Body height 165.1 cm Samuel Brown DPM Work Phone: [facility] 09-08-2024 10:40-0500 Body mass index (BMI) [Ratio] 33.95 kg/m2 Samuel Brown DPM Work Phone: [facility] 09-08-2024 10:40-0500 Body weight 92.53 kg Samuel Brown DPM Work Phone: [facility] 09-08-2024 10:40-0500 Diastolic blood pressure 80 mm[Hg] Samuel Brown DPM Work Phone: [facility] 09-08-2024 10:40-0500 Heart rate 88 /min Samuel Brown DPM Work Phone: [facility] 09-08-2024 10:40-0500 Systolic blood pressure 129 mm[Hg] Samuel Brown DPM Work Phone: [facility] 08-31-2024 14:01-0500 Body height 165.1 cm Samuel Brown DPM Work Phone: [facility] 08-31-2024 14:01-0500 Body mass index (BMI) [Ratio] 33.95 kg/m2 Samuel Brown DPM Work Phone: [facility] 08-31-2024 14:01-0500 Body weight 92.53 kg Samuel Brown DPM Work Phone: [facility] 08-31-2024 14:01-0500 Diastolic blood pressure 81 mm[Hg] Samuel Brown DPM Work Phone: [facility] 08-31-2024 14:01-0500 Heart rate 75 /min Samuel Forbes DPM Work Phone: [facility] 08-31-2024 14:01-0500 Systolic blood pressure 126 mm[Hg] Samuel Forbes DPM Work Phone: [facility] 08-19-2024 08:34-0400 Body height 165.1 cm Samuel Forbes DPM Work Phone: [facility] 08-19-2024 08:34-0400 Body mass index (BMI) [Ratio] 33.95 kg/m2 Samuel Forbes DPM Work Phone: [facility] 08-19-2024 08:34-0400 Body weight 92.53 kg Samuel Forbes DPM Work Phone: [facility] 08-19-2024 08:34-0400 Diastolic blood pressure 79 mm[Hg] Samuel Forbes DPM Work Phone: [facility] 08-19-2024 08:34-0400 Heart rate 82 /min Samuel Forbes DPM Work Phone: [facility] 08-19-2024 08:34-0400 Systolic blood pressure 126 mm[Hg] Samuel Forbes DPM Work Phone: [facility] 08-18-2024 08:52-0400 Body height 165.1 cm Rei Enrique MD Work Phone: [facility] 08-18-2024 08:52-0400 Body mass index (BMI) [Ratio] 33.78 kg/m2 Rei Enrique MD Work Phone: [facility] 08-18-2024 08:52-0400 Body weight 92.08 kg Rei Enrique MD Work Phone: [facility] 08-18-2024 08:52-0400 Diastolic blood pressure 72 mm[Hg] Rei Enrique MD Work Phone: [facility] 08-18-2024 08:52-0400 Heart rate 79 /min Rei Enrique MD Work Phone: [facility] 08-18-2024 08:52-0400 SaO2% (BldA) [Mass fraction] 97 % Rei Enrique MD Work Phone: [facility] 08-18-2024 08:52-0400 Systolic blood pressure 126 mm[Hg] Rei Enrique MD Work Phone: [facility] 06-30-2024 09:44-0400 Body height 165.1 cm Samuel Forbes DPM Work Phone: [facility] 06-30-2024 09:44-0400 Body mass index (BMI) [Ratio] 33.28 kg/m2 Samuel Forbes DPM Work Phone: [facility] 06-30-2024 09:44-0400 Body weight 90.72 kg Samuel Forbes DPM Work Phone: [facility] 06-30-2024 09:44-0400 Diastolic blood pressure 80 mm[Hg] Samuel Forbes DPM Work Phone: [facility] 06-30-2024 09:44-0400 Heart rate 74 /min Samuel Forbes DPM Work Phone: [facility] 06-30-2024 09:44-0400 Respiratory rate 17 /min Samuel Forbes DPM Work Phone: [facility] 06-30-2024 09:44-0400 Systolic blood pressure 125 mm[Hg] Samuel Forbes DPM Work Phone: [facility] 01-29-2024 08:44-0400 Body height 165.1 cm Jake Rock MD Work Phone: [facility] 01-29-2024 08:44-0400 Body mass index (BMI) [Ratio] 33.45 kg/m2 Jake Rock MD Work Phone: [facility] 01-29-2024 08:44-0400 Body weight 91.17 kg Jake Rock MD Work Phone: [facility] 01-29-2024 08:44-0400 Diastolic blood pressure 86 mm[Hg] Jake Rock MD Work Phone: [facility] 01-29-2024 08:44-0400 Heart rate 74 /min Jake Rock MD Work Phone: [facility] 01-29-2024 08:44-0400 Systolic blood pressure 124 mm[Hg] Jake Rock MD Work Phone: [facility] 11-13-2023 10:18-0500 Blood Pressure Location Serafin Vickierson [facility] 11-13-2023 10:18-0500 Diastolic blood pressure 78 mm[Hg] Serafin Christofferson [facility] 11-13-2023 10:18-0500 Heart rate 73 /min Serafin Christofferson [facility] 11-13-2023 10:18-0500 SaO2% (BldA) [Mass fraction] 96 % Serafin Christofferson [facility] 11-13-2023 10:18-0500 Systolic blood pressure 113 mm[Hg] Serafin Christofferson [facility] 08-20-2023 11:03-0400 Diastolic blood pressure 82 mm[Hg] Serafin Christofferson [facility] 08-20-2023 11:03-0400 Heart rate 69 /min Serafin Christofferson [facility] 08-20-2023 11:03-0400 SaO2% (BldA) [Mass fraction] 74 % Serafin Christofferson [facility] 08-20-2023 11:03-0400 Systolic blood pressure 122 mm[Hg] Serafin Christofferson [facility] Encounters Encounter Date Encounter Type Care Provider Facility Start: 03-16-2025 End: 03-16-2025 ambulatory SAMUEL FORBES Not Available Start: 03-09-2025 End: 03-09-2025 Bamboo flowsheet Samuel A Ezio DPM Work Phone: [facility] Start: 03-09-2025 End: 03-09-2025 Bamboo flowsheet Samuel Maynard Ezio DPM Work Phone: [facility] Start: 03-09-2025 End: 03-09-2025 Postop follow up visit related to original px Samuel Forbes DPM Work Phone: [facility] Comment on above: Hallux rigidus of ri ght foot (Primary Dx); Pain from implanted hardware, initial encounter Start: 03-09-2025 End: 03-09-2025 ambulatory SAMUEL FORBES Not Available Start: 02-20-2025 End: 02-20-2025 Bamboo flowsheet Rei Enrique MD Work Phone: [facility] Start: 02-20-2025 End: 02-20-2025 Bamboo flowsheet Rei Enrique MD Work Phone: [facility] Start: 02-20-2025 End: 02-20-2025 Office outpatient visit 15 minutes Rei Enrique MD Work Phone: [facility] Comment on above: Hallux rigidus of ri ght foot (Primary Dx); Painful orthopaedic hardware (HCC) (CMS/HCC); Pre-op evaluation; Mobitz type 2 second degree heart block; Primary hypertension (CMS/HCC) Start: 02-20-2025 End: 02-20-2025 Preprocedural examination done Rei Enrique MD Work Phone: [facility] Start: 02-20-2025 End: 02-20-2025 ambulatory REI ENRIQUE Not Available Start: 02-16-2025 End: 02-16-2025 Bamboo flowsheet Samuel Forbes DPM Work Phone: [facility] Start: 02-16-2025 End: 02-16-2025 Bamboo flowsheet Samuel Forbes DPM Work Phone: [facility] Start: 02-16-2025 End: 02-16-2025 Office outpatient visit 25 minutes Samuel Forbes DPM Work Phone: [facility] Comment on above: Hallux rigidus of ri ght foot (Primary Dx); Pain from implanted hardware, initial encounter; Contracture of right ankle Start: 02-16-2025 End: 02-16-2025 ambulatory SAMUEL FORBES Not Available Start: 01-27-2025 End: 01-27-2025 Telephone encounter Estiven H Itzkowitz DO Work Phone: [facility] Start: 01-27-2025 End: 01-27-2025 Postop follow up visit related to original px Estiven H Itzkowitz DO Work Phone: [facility] Comment on above: Calculus of 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 without obstruction (Primary Dx) Start: 01-27-2025 End: 01-27-2025 ambulatory ESTIVEN H ITZKOWITZ Not Available Start: 01-19-2025 End: 01-19-2025 External Result Encounter Estiven H Itzkowitz DO Work Phone: [facility] Unsolicited Start: 01-19-2025 End: 01-19-2025 External Result Encounter Estiven H Itzkowitz DO Work Phone: [facility] Unsolicited Start: 01-19-2025 End: 01-19-2025 ambulatory Estiven Itzkowitz Facility:[facility] Start: 01-05-2025 End: 01-05-2025 External Result Encounter Estiven H Itzkowitz DO Work Phone: [facility] Unsolicited Start: 01-05-2025 End: 01-05-2025 External Result Encounter Estiven H Itzkowitz DO Work Phone: [facility] Unsolicited Start: 01-05-2025 End: 01-05-2025 Patient encounter procedure Rei Enrique MD Work Phone: [facility] Work Phone: Start: 01-05-2025 End: 01-05-2025 ambulatory Rei Enrique MD Work Phone: [facility] Work Phone: Start: 01-05-2025 Encounter for prepro cedural laboratory examination Estiven Mclaughlin [facility] Start: 12-29-2024 End: 12-29-2024 Office outpatient visit 15 minutes Samuel Forbes DPM Work Phone: [facility] Comment on above: Hallux rigidus of ri ght foot (Primary Dx); Capsulitis of metatarsophalangeal (MTP) joint of left foot Start: 12-29-2024 End: 12-29-2024 ambulatory SAMUEL FORBES Not Available Start: 12-28-2024 ambulatory [facility] Start: 12-28-2024 End: 12-28-2024 Office outpatient new 60 minutes Estiven Jeannie Sirena DO Work Phone: [facility] Comment on above: Calculus of 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 without obstruction (Primary Dx) Start: 12-28-2024 End: 12-28-2024 ambulatory ESTIVEN MCLAUGHLIN Not Available Start: 12-27-2024 ambulatory [facility] Start: 12-21-2024 End: 12-21-2024 Bamboo flowsheet Anali Hamm PT Work Phone: [facility] Start: 12-21-2024 End: 12-21-2024 Bamboo flowsheet Anali Hamm PT Work Phone: [facility] Start: 12-21-2024 End: 12-21-2024 ambulatory Anali Hamm PT Work Phone: [facility] Comment on above: Capsulitis of metata rsophalangeal (MTP) joint of right foot (Primary Dx) Start: 12-19-2024 End: 12-19-2024 Bamboo flowsheet Deric Camargo [employer] [facility] Start: 12-19-2024 End: 12-19-2024 Bamboo flowsheet Deric Camargo [employer] [facility] Start: 12-19-2024 End: 12-19-2024 ambulatory Deric Camargo [employer] [facility] Comment on above: Capsulitis [...] PT order Start: 12-08-2024 End: 12-08-2024 Bamboo flowsallen Forbes DPM Work Phone: [facility] Start: 12-08-2024 End: 12-08-2024 Bamboo flowsallen Forbes DPM Work Phone: [facility] [...] PODIATRY Start: 11-24-2024 End: 11-24-2024 ambulatory SAMUEL FOREBS Not Available Start: 11-24-2024 End: 11-24-2024 Patient [...] FM 100 Start: 11-22-2024 End: 11-22-2024 Bamboo flowsheet Rei Enrique MD Work Phone: [facility] Start: 11-02-2024 End: 11-02-2024 Bamboo flowsheet Rei Enrique MD Work Phone: [facility] Start: 11-02-2024 End: 11-02-2024 Bamboo flowsheet Rei Enrique MD Work Phone: [...] Start: 2024 End: 2024 Bamboo flowsheet Samuel Aleyda Ezio DPM Work Phone: [facility] Start: 2024 End: 2024 Bamboo flowsheet Samuel Aleyda Ezio DPM Work Phone: [facility] Start: 2024 End: 2024 Postop follow up visit related to original px Samuel Forbes DPM Work Phone: [facility] Comment on above: Hallux rigidus of ri ght foot (Primary Dx) Start: 2024 End: 2024 ambulatory SAMUEL Aleyda EZIO Not Available Start: 09-29-2024 End: 09-29-2024 Bamboo flowsheet Rei Enrique MD Work Phone: [facility] Start: 09-29-2024 End: 09-29-2024 Bamboo flowsheet Rei Enrique MD Work Phone: [facility] Start: 09-29-2024 End: 09-29-2024 Postop follow up visit related to original px Samuel Aleyda Brown DPM Work Phone: [facility] [...] 30 minutes Samuel Forbes DPM Work Phone: [facility] Comment on above: Hallux rigidus of ri ght foot (Primary Dx); Right foot pain; Contracture of right ankle Start: 06-13-2024 End: 06-13-2024 ambulatory [facility] Start: 06-01-2024 End: 06-01-2024 ambulatory [facility] Start: 05-24-2024 End: 05-24-2024 ambulatory REI ENRIQUE Not Available Start: 04-26-2024 End: 04-26-2024 ambulatory REI MONTANAYER Not Available Start: 04-19-2024 End: 04-19-2024 ambulatory REI Owen HEMEYER Not Available Start: 01-29-2024 End: 01-29-2024 Office outpatient new 60 minutes Jake Rock MD Work Phone: [facility] Comment on above: Abnormal EKG (Primar y Dx); Establishing care with new doctor, encounter for; Palpitations; Near syncope; BMI 33.0-33.9,adult; Never smoked tobacco Start: 01-29-2024 End: 02-01-2024 ambulatory [facility] Start: 12-10-2023 End: 12-11-2023 ambulatory Serafin Winkler [facility] Start: 12-10-2023 End: 12-10-2023 Patient encounter procedure Serafin Winkler [facility] Start: 11-13-2023 End: 11-14-2023 ambulatory XXXX NONE [facility] Start: 11-13-2023 End: 11-13-2023 Patient encounter procedure Serafin Winkler [facility] Start: 09-23-2023 End: 09-24-2023 ambulatory Serafin Winkler [facility] Start: 08-20-2023 End: 08-21-2023 ambulatory REI ENRIQUE [facility] Start: 08-20-2023 End: 08-20-2023 Patient encounter procedure Serafin Winkler [facility] Start: 08-06-2023 ambulatory REI ENRIQUE Facili ty:[facility] Start: 02-23-2018 End: 02-24-2018 Ambulatory SANJANA LOPEZ Facility:[facility] Start: 01-29-2018 End: 01-30-2018 Ambulatory WOJCIECH HALL Facility:[facility] Start: 04-17-2017 End: 04-18-2017 Ambulatory REI ENRIQUE Facility:[facility] Start: 04-17-2017 End: 04-17-2017 Ambulatory REI ENRIQUE Facility:[facility] Procedures Date Procedure Procedure Detail Performing Clinician Start: 03-09-2025 Radex foot complete minimum 3 views Samuel Forbes DPM Work Phone: Start: 02-20-2025 History of cholecystectomy Status post laparoscopic cholecystectomy Rei Enrique MD Work Phone: Start: 01-19-2025 Assay of amylase Estiven H Sirena DO Work Phone: Start: 01-05-2025 Basic metabolic panel calcium total Estiven H Sirena DO Work Phone: Start: 09-28-2024 H/O: surgery S/P hysterectomy with [...] REQUEST EP LAB JAKE ROCK Start: 08-20-2023 End: 02-20-2025 H/O: hysterectomy Status post laparoscopic hysterectomy Samuel CONRADM Work Phone: Start: 12-25-2021 Mammography Jake Rock MD Work Phone: Start: 04-09-2015 Colonoscopy Samuel Forbes DPM Work Phone: Abdominal hysterectomy Serafin Winkler Colonoscopy Serafin finley H/O: surgery S/P hysterectomy with oophorectomy Rei Enrique MD Work Phone: H/O: surgery S/P hysterectomy with oophorectomy Rei Enrique MD Work Phone: Comment on above: Problem List clean-up per request of david s. EHR Cmte Plan of Treatment Date Care Activity Detail Author Start: 04-09-2025 Screening for malignant neoplasm of colon [facility] Start: 03-09-2025 End: 03-09-2025 Patient encounter procedure 03/09/2025 8:50 AM EDT Office Visit [facility] [address] [facility] [address] [place] [phone] Samuel Forbes DPM [address] [facility] [address] [place] [address] Hallux rigidus of right foot (Primary Dx); Pain from implanted hardware, initial encounter [facility] Comment on above: Hallux rigidus of right foot (Primary Dx ); Pain from implanted hardware, initial encounter Start: 02-20-2025 End: 02-20-2025 Patient encounter procedure [facility] 00 Comment on above: Arrived Start: 02-16-2025 End: 02-16-2025 Patient encounter procedure [facility] Comment on above: Hallux rigidus of right foot (Primary Dx ); Pain from implanted hardware, initial encounter; Contracture of right ankle Start: 01-27-2025 End: 01-27-2025 Patient encounter procedure 01/27/2025 9:00 AM EDT Office [facility] [address] [facility] [address] [place] [address] Estiven Mclaughlin, [address] [facility] [address] [place] [address] [facility] Start: 01-19-2025 End: 01-19-2025 Patient encounter procedure 01/19/2025 4:40 PM EDT Office Visit [facility] [address] [facility] [address] [place] [address] Samuel Forbes, CORDELIA [address] [facility] [address] [place] [address] [facility] Start: 12-30-2024 End: 12-30-2024 ambulatory 12/30/2024 9:00 AM EST Treatment [facility] [address] [place] [address] [place] [address] Deric Camargo PTA [facility] Start: 12-29-2024 End: 12-29-2024 Patient encounter procedure 12/29/2024 8:40 AM EST Office Visit [facility] [address] [place] [phone] Samuel Forbes, DPDarlene [address] [facility] [address] [place] [address] [facility] Start: 12-28-2024 End: 12-28-2024 ambulatory 12/28/2024 8:00 AM EST Treatment [facility] [address] [facility] [address] [place] [address] Elizabeth Lamar [employer]AP STITCHER [facility] Start: 12-26-2024 End: 12-26-2024 ambulatory 12/26/2024 8:00 AM EST Treatment [facility] [address] [facility] [address] [place] [address] Deric Camargo PTA [facility] Start: 12-23-2024 End: 12-23-2024 ambulatory 12/23/2024 9:00 AM EST Treatment [facility] [address] [facility] [address] [place] [address] Deric Camargo PTA [facility] Start: 12-21-2024 End: 12-21-2024 ambulatory [facility] Comment on above: Arrived Start: 12-19-2024 End: 12-19-2024 ambulatory [facility] Comment on above: Arrived Start: 12-16-2024 End: 12-16-2024 ambulatory 12/16/2024 9:00 AM EST Treatment [facility] [address] [facility] [address] [place] [address] Deric Camargo PTA [facility] Start: 12-14-2024 End: 12-14-2024 [...] Visit [facility] [address] [facility] [address] [place] [address] Samuel Forbes, CORDELIA [address] [facility] [address] [place] [address] [facility] Start: 11-22-2024 End: 11-22-2024 Patient encounter procedure 11/22/2024 3:00 PM EST Office Visit [facility] [address] [place] [address] [place] [address] Rei Enrique MD [address] [place] [address] (Fax) Arrived [facility] Comment [...] osteoporosis Menopause Expected: 09/29/2024 (Approximate), Expires: 09/29/2025 [facility] Comment on above: Expected: 09/29/2024 (Approximate), Expi res: 09/29/2025 Start: 09-29-2024 End: 09-29-2025 Lipid 1996 panel - Serum or Plasma Lipid panel Lab Routine Mixed hyperlipidemia (CMS/HCC) Expected: 09/29/2024 (Approximate), Expires: 09/29/2025 [facility] Comment on above: Expected: 09/29/2024 [...] EST Office Visit [facility] [address] [facility] [address] [place] [phone] Samuel Forbes DPM [address] [address] [facility] Start: 08-31-2024 End: 08-31-2024 Professional / ancillary services management 08/31/2024 2:35 PM EST Ancillary Procedure [facility] [address] [place] [address] Arrived [facility] Comment on above: Arrived Start: 08-31-2024 End: 08-31-2024 Patient encounter procedure [facility] Comment on above: Hallux rigidus of right foot (Primary Dx ); Contracture of right ankle Start: 08-19-2024 End: 08-19-2024 Patient encounter procedure 08/19/2024 8:30 AM EDT Office Visit [facility] [address] [place] [phone] Samuel Forbes DPM [address] [address] [facility] Start: 08-18-2024 [...] EDT Ancillary Procedure [facility] [address] [address] Arrived [facility] Comment on above: Arrived Start: 06-26-2024 Influenza vaccination [facility] Start: 05-11-2024 End: 05-11-2024 Patient encounter procedure 05/11/2024 8:45 AM EDT Office Visit [facility] [address] [address] Jake oRck MD [address] [address] [facility] Start: 02-26-2024 End: 02-26-2024 Admission to same day surgery center 02/26/2024 9:00 AM EDT - 02/26/2024 9:30 AM EDT Surgery [facility] [address] [place] [address] Jake Rock MD [address] [address] Loop Insertion [25822 (CPT )] [facility] Comment on above: Loop Insertion [31633 (CPT )] Start: 02-26-2024 Subsequent hospital visit by physician 02/26/2024 9:00 AM EDT Hospital Encounter [facility] [address] [place] [address] Jake Rock MD [address] [place] [address] Palpitations; Near syncope [facility] Comment on above: Palpitations; Near syncope Start: 01-29-2024 End: 01-28-2025 Basic metabolic 2000 panel - Serum or Plasma Basic Metabolic Panel Lab Routine Palpitations Near syncope Expected: 01/29/2024 (Approximate), Expires: 01/28/2025 [facility] Work Phone: Comment on above: Expected: 01/29/2024 (Approximate), Expi res: 01/28/2025 Start: 01-29-2024 End: 01-28-2025 CBC panel - Blood by Automated count CBC Lab Routine Palpitations Near syncope Expected: 01/29/2024 (Approximate), Expires: 01/28/2025 [facility] Work Phone: Comment on above: Expected: 01/29/2024 (Approximate), Expi res: 01/28/2025 Start: 01-29-2024 End: 01-28-2025 Prothrombin time (PT) Protime-INR Lab Routine Palpitations Near syncope Expected: 01/29/2024 (Approximate), Expires: 01/28/2025 [facility] Service Area Work Phone: Comment on above: Expected: 01/29/2024 (Approximate), Expi res: 01/28/2025 Start: 06-26-2023 COVID-19 Vaccine ( season) COVID-19 Vaccine ( season) [facility] Start: 12-25-2022 Screening for malignant neoplasm of breast Mammogram [facility] Start: 2013 Zoster Vaccines (1 of 2) Zoster Vaccines (1 of 2) [facility] Start: 1985 DTaP/Tdap/Td Vaccines (1 - Tdap) DTaP/Tdap/Td Vaccines (1 - Tdap) [facility] Start: 1984 Screening for malignant neoplasm of cervix [facility] Start: 1981 Diabetes mellitus screening Diabetes Screening [facility] Start: 1981 Hepatitis C screening Hepatitis C Screening [facility] Start: 1964 MMR Vaccines (1 of 1 - Standard series) MMR Vaccines (1 of 1 - Standard series) [facility] Start: 1963 HIV screening HIV Screening [facility] Start: 1963 Lipid panel Lipid Panel [facility] Start: 1963 Screening for malignant neoplasm of colon [facility] Start: 1965 Yearly Adult Physical Yearly Adult Physical [facility] XR Foot - right 3 Views XR foot 3+ views right Imaging Routine Hallux rigidus of right foot 08/31/2024 2:33 PM EST [facility] Work Phone: XR Foot - right 3 Views XR foot 3+ views right Imaging Routine Hallux rigidus of right foot 06/30/2024 10:53 AM EDT [facility] Work Phone: Immunizations Immunization Date Immunization Notes Care Provider Magdalena perdue 08-07-2021 influenza, injectabl e, quadrivalent, preservative free Samuel Forbes DPM Work Phone: [facility] 08-07-2021 influenza virus vaccine, unspecified formulation Jake Rock MD Work Phone: [facility] Work Phone: 09-13-2020 influenza, injectabl e, quadrivalent, preservative free Samuel Ezio DPM Work Phone: [facility] 08-22-2019 influenza, injectabl e, quadrivalent, contains preservative Samuel Ezio DPM Work Phone: [facility] 08-26-2018 influenza, injectabl e, quadrivalent, preservative free Samuel Ezio DPM Work Phone: [facility] 08-04-2017 influenza, seasonal, injectable, preservative free Samuel Brown DPM Work Phone: [facility] 07-08-2017 influenza, injectabl e, quadrivalent, preservative free Samuel Forbes DPM Work Phone: [facility] 08-14-2016 influenza, injectabl e, quadrivalent, preservative free Samuel Forbes DPM Work Phone: [facility] 07-11-2015 influenza, injectabl e, quadrivalent, preservative free Samuel Forbes DPM Work Phone: [facility] Healthcare Payers Date Payer Category Payer Self-pay 2022 Private Health Insurance [id number] 2022 Unknown [id number] 2022 Unknown [id number] 1963 Unknown [id number] 2.16.8 40.1.811921.3.579.2.727 1963 Unknown [id number] 2.16.8 40.1.104915.3.579.2.727 1963 Unknown [id number] 2.16.8 40.1.814400.3.579.2.727 1963 Unknown [id number] 2.16.8 40.1.716723.3.579.2.727 1963 Unknown [id number] 2.16.8 40.1.383563.3.579.2.727 1963 Unknown [id number] 2.16.8 40.1.213960.3.579.2.1244 1963 Unknown [id number] 2.16.8 40.1.138649.3.579.2.1244 1963 Unknown [id number] 2.16.8 40.1.126704.3.579.2.1244 1963 Unknown [id number] 2.16. 840.1.130173.3.579.2.1286 1963 Unknown [id number] 2.16. 840.1.786940.3.579.2.1286 1963 Unknown [id number] 2.16.84 0.1.664404.3.579.2.1259 1963 Unknown [id number] 2.16.84 0.1.029846.3.579.2.1259 1963 Unknown [id number] 2.16.84 0.1.194002.3.579.2.1259 1963 Unknown [id number] 2.16.84 0.1.788634.3.579.2.1259 1963 Unknown [id number] 2.16.84 0.1.718697.3.579.2.1259 1963 Unknown [id number] 2.16.84 0.1.773856.3.579.2.1259 1963 Unknown [id number] 2.16.84 0.1.774605.3.579.2.1259 1963 Unknown [id number] 2.16.84 0.1.058319.3.579.2.1259 1963 Unknown [id number] 2.16.84 0.1.804537.3.579.2.1259 1963 Unknown [id number] 2.16.84 0.1.862407.3.579.2.1259 1963 Unknown [id number] 2.16.84 0.1.427163.3.579.2.1259 1963 Unknown [id number] 2.16.84 0.1.271946.3.579.2.1259 1963 Unknown [id number] 2.16.84 0.1.754189.3.579.2.1259 1963 Unknown [id number] 2.16.84 0.1.353468.3.579.2.1259 1963 Unknown [id number] 2.16.84 0.1.063862.3.579.2.1259 1963 Unknown [id number] 2.16.84 0.1.826229.3.579.2.1258 1963 Unknown [id number] 2.16.84 0.1.864080.3.579.2.1258 1963 Unknown [id number] 2.16.84 0.1.672753.3.579.2.1258 1963 Unknown [id number] 2.16.84 0.1.611722.3.579.2.1258 1963 Unknown [id number] 2.16.84 0.1.300778.3.579.2.1258 1963 Unknown [id number] 2.16.84 0.1.390544.3.579.2.1258 1963 Unknown [id number] 2.16.84 0.1.834789.3.579.2.1258 1963 Unknown [id number] 2.16.84 0.1.847752.3.579.2.1258 1963 Unknown [id number] 2.16.84 0.1.868665.3.579.2.1258 1963 Unknown [id number] 2.16.84 0.1.055634.3.579.2.1258 1963 Unknown [id number] 2.16.84 0.1.272831.3.579.2.1258 1963 Unknown [id number] 2.16.84 0.1.217023.3.579.2.125 1963 Unknown [id number] 2.16.84 0.1.294180.3.579.2.1258 1963 Unknown [id number] 2.16.84 0.1.406452.3.579.2.1259 1959 Unknown [id number] Unknown [id number] 2.16.8 40.1.554998.3.579.2.531 Unknown [id number] 2.16.8 40.1.089700.3.579.2.531 Social History Date Type Detail Facility Start: 08-20-2023 End: 08-26-2023 Tobacco smoking status Never smoked tobacco (finding) [facility] Start: 08-26-2023 End: 09-26-2024 Sex Assigned At Female [facility] status [facility] Start: 08-26-2023 End: 01-29-2024 Tobacco use and exposure Smokeless tobacco non-user [facility] Work Phone: Start: 01-29-2024 End: 02-20-2025 Alcohol intake Lifetime non-drinker (finding) [facility] Work Phone: Start: 1965 Sex Assigned At Not on file [facility] Work Phone: Start: 01-19-2024 End: 01-29-2024 Exposure to SARS-CoV-2 (event) Not sure [facility] Start: 08-26-2023 End: 09-26-2024 History of Social [...] Gender identity Identifies as female gender (finding) [facility] Start: 08-26-2023 Sexual orientation Heterosexual (finding) [facility] How many standard drinks containing alcohol do you have on a typical day? 1 or 2 [facility] Start: 01-06-2025 Sex Female (finding) [facility] Functional Status Date Assessment Result Facility 11-13-2023 Functional Status No [facility] 08-20-2023 Functional Status No [facility] Clinical Notes 09-26-2023 to 03-09-2025 Samuel Forbes DPM - 03/09/2025 8:50 AM Mandy Enrique MD - 02/20/2025 9:30 AM NANCYTSamuel Forbes DPM - 02/16/2025 8:30 AM EDTTelephone Encounter - Hail Monroejeda - 01/27/2025 9:05 AM EDT Note Date & Type Note Facility 03-09-2025 History of Present illness Narrative Patient: Annemarie Jackson : 1965 PCP: Rei Enrique MD SUBJECTIVE This is a 59 y.o. female that presents today 15 days s/p right great toe Bio Pro implant removal of painful implant Pt denies n/f/v/c and has minimal pain to post op site. Pt states that they have been keeping dressing dry and intact and have been weight-bearing to post op foot Pt presents today for follow up. Allergies: Allergies Allergen Reactions Amlodipine Besy-Benazepril Hcl Other Reaction(s): swollen lips Doxylamine Other Reaction(s): weird dreams / hallucinations Olanzapine Other Reaction(s): itch Tramadol Rash Past Medical History: Past Medical History: Diagnosis Date Abdominal pain Adult situational stress disorder (CMS/HCC) Anemia Basal cell carcinoma 2013 Bradycardia 02/22/2024 Cardiac event monitor 2023, severe with heart rate of 24 while sleeping Calculus of gallbladder without cholecystitis without obstruction 12/28/2024 Chronic kidney disease, stage 2 (mild) Depression [...] at the same time., Disp: , Rfl: famotidine (Pepcid) 20 MG tablet, Take by mouth, Disp: , Rfl: fenofibrate (Triglide) 160 MG tablet, Take 1 [...] of dorsiflexion at right ankle joint. XRAY: XR foot 3+ views right Imaging Result: Well-seated bio Pro implant to the proximal phalanx of the right hallux ASSESSMENT 15 days s/p right reimplantation of new bio Pro implant with removal of painful implant to the right 1st MPJ 1. Hallux rigidus of right foot 2. Pain from implanted hardware, initial encounter PLAN Patient to keep dry sterile dressing intact and keep dressing dry with weightbearing with postop shoe may progress into normal shoe gear Patient may take anti-inflammatories as needed for pain. May continue with ice to foot as needed p.r.n. Reviewed x-rays today with patient Samuel Forbes DPM documented in this encounter [facility] 02-20-2025 History of Present illness Narrative Images from the original note were not included. Patient ID: Annemarie Jackson is a 59 y.o. female who presents for: Pt is having a repeat surgery on her right foot with Dr Forbes at [facility] in [place] on 02/22/2025. She had blood work done from Dr Forbes. Review of Systems Constitutional: Negative for chills and fever. Respiratory: Negative for cough, shortness of breath and wheezing. Cardiovascular: Negative for chest pain and palpitations. Gastrointestinal: Negative for abdominal pain, constipation, diarrhea, nausea and vomiting. Objective The patient is pleasant and in [...] is clear. Appropriate affect. Visit Vitals BP 126/78 Pulse 76 Ht 5' 5 Wt 212 lb SpO2 99% BMI 35.28 kg/m OB Status Postmenopausal Smoking Status Never BSA 2.1 m Allergies Allergen Reactions Amlodipine Besy-Benazepril Hcl Other Reaction(s): swollen lips Doxylamine Other Reaction(s): weird dreams / hallucinations Olanzapine Other Reaction(s): itch Tramadol Rash Current Outpatient Medications on File Prior to Visit Medication Sig Dispense Refill albuterol HFA 90 mcg/act inhaler Inhale 2 puffs every 4 (four) hours if needed for wheezing or shortness of breath 18 g 0 aspirin 81 MG EC tablet Take 1 tablet (81 mg) by mouth 3 (three) times a week Black Cohosh 540 MG capsule 1 (one) time each day at the same time. famotidine (Pepcid) 20 MG tablet Take by mouth fenofibrate (Triglide) 160 MG tablet Take 1 tablet (160 mg) by mouth Daily 90 tablet 1 HYDROcodone-acetaminophen (Aldie) 5-325 MG tablet Take 1 tablet by mouth every 8 (eight) hours if needed for moderate pain (PRN pain) for up to 5 days 15 tablet 0 losartan (Cozaar) 100 MG tablet Take 1 [...] as needed for sleep 90 tablet 1 [DISCONTINUED] ondansetron ODT (Zofran-ODT) 4 MG disintegrating tablet Take 4 mg by mouth every 8 (eight) hours if needed for nausea or vomiting [DISCONTINUED] oxyCODONE-acetaminophen (Percocet) 5-325 MG tablet Take 1 tablet by mouth every 6 (six) hours if needed for moderate pain No current facility-administered medications on file prior to visit. 1. Hallux rigidus of right foot (Primary) Chronic problem, managed by Podiatry, indication for surgery. 2. Painful orthopaedic hardware (HCC) (CMS/HCC) Chronic problem, managed by Podiatry, indication for surgery. 3. Pre-op evaluation Chronic medical problems are stable. There are no known contraindications to general anesthesia or the proposed surgery. 4. Mobitz type 2 second degree heart block Chronic problem that was symptomatic years ago. After medication adjustments she has been asymptomatic ever since. 5. Primary hypertension (CMS/HCC) Chronic problem, stable, to goal. documented in this encounter [facility] 02-16-2025 History of Present illness Narrative Patient: Annemarie Jackson : 1965 PCP: Rei Enrique MD SUBJECTIVE This is a 59 y.o. female that presents today post right BioPro implant to great toe Pt denies n/f/v/c and has pain to post op site with limitation of ROM of right great toe Pt states that they have been returning to normal shoe gear but still has decreased swelling and diminished range of motion of great toe according to patient Pt presents today for follow up after PT and steroid injection and other conservative tx failure. Pt is to have removal of painful implant with revisional new great toe BIOPRO implant in near future. Allergies: Allergies Allergen Reactions Amlodipine Besy-Benazepril Hcl [...] at the same time., Disp: , Rfl: famotidine (Pepcid) 20 MG tablet, Take by mouth, Disp: , Rfl: fenofibrate (Triglide) 160 MG tablet, Take 1 [...] mouth in the morning., Disp: , Rfl: ondansetron ODT (Zofran-ODT) 4 MG disintegrating tablet, Take 4 mg by mouth every 8 (eight) hours if needed for nausea or vomiting, Disp: , Rfl: QUEtiapine (SEROquel) 50 MG tablet, Take 1 tablet at bedtime as needed for sleep, Disp: 90 tablet, Rfl: 1 ROS: General: denies fever, chills, fatigue, malaise Gastrointestinal: denies abdominal pain, ulcers, or changes in appetite or bowel habits Musculoskeletal: positive generalized osteo arthritis, denies loss of strength, pain to hip, knees, back. Positive pain to right first MPJ. Positive history of fibromyalgia Cardiovascular: denies CP, palpitations, irregular rhythms. Positive history of hypertension OBJECTIVE LE EXAM: Derm: Skin intact to [...] joint. First MPJ range motion greater than 5-8 degrees dorsiflexion Positive pain on palpation to the left 1st MPJ capsular region minimal palpation left 2nd MPJ capsule with negative Nieves test ASSESSMENT Past right BIO Pro great toe implant 1. Hallux rigidus of right foot 2. Pain from implanted hardware, initial encounter 3. Contracture of right ankle PLAN Patient given prescription for pain medication to be taken postoperatively. Decision for surgery today and patient medically cleared from a podiatric standpoint for surgery and to proceed with surgery. Pt to have pre op H/P per PCP for medical clearance for surgery and will be reviewed along with labs prior to surgery. Pt scheduled for a removal of painful implant to right hallux with revisional hemiarthroplasty of right great toe implant with BIOPRO implant. Discussed with the patient the nature of condition and operative vs nonoperative care. The surgical plans, risks, alternatives, benefits, post op complications and jail expectations were discussed including but not limited to: infection,bone infection,wound dehiscence hardware failure and irritation,wound dehiscence,delay union/mal union/non union of bone. RSDS,neuroma,duty limitations,DVT/PE, SD,nerve damage, scar, loss of sensation, swelling. Pt [...] of a 2. Samuel Forbes DPM, FACFAS H&P up to date and current (date) Date: February 16, 2025 Samuel Forbes DPM documented in this encounter [facility] 01-27-2025 Telephone encounter Note Return to work [facility] 01-27-2025 Miscellaneous Notes Return to work documented in this encounter [facility] 01-27-2025 History of Present illness Narrative Images from the original note were not included. Annemarie Jackson is a 59 y.o. female presents for 1st pow lap [place] HPI: HPI Annemarie is in for her first post-op from cholecystectomy, she is doing well. She states she got itchy from the Percocet so she stopped it OBJECTIVE: Physical Exam Lap incisions are healing well, she does have a skin irritation from the OR drapes that is resolving. ASSESSMENT AND PLAN: Assessment/Plan Diagnoses and all orders for this visit: Calculus of gallbladder without cholecystitis without obstruction The path confirms cholelithiasis without malignancy. We discussed wound care and return to work. I'll discharge her and see her PRN. documented in this encounter [facility] 12-29-2024 History of Present illness Narrative Patient: Annemarie Jackson : 1965 PCP: Rei Enrique MD SUBJECTIVE This is a 59 y.o. female that presents today 16 weeks s/p right BioPro implant to great [...] capsulitis and synovitis to the left first MPJ capsule Currently they rate their pain on a 1-10 scale a 6 States prior treatments of medrol and PT with minimal improvement. States pain is aggrevated with WB. Allergies: Allergies Allergen Reactions Amlodipine Besy-Benazepril Hcl Other Reaction(s): swollen lips Doxylamine Other Reaction(s): weird dreams / hallucinations Olanzapine Other Reaction(s): itch Tramadol Rash Past Medical History: Past Medical History: Diagnosis Date Abdominal pain Adult situational stress disorder (CMS/HCC) Anemia Basal cell carcinoma 2013 Chronic kidney disease, stage 2 (mild) Depression with anxiety Endometriosis 2005 [facility] Fibromyalgia Heart murmur Hypertension (CMS/HCC) Hypertriglyceridemia (CMS/HCC) [...] mouth Daily, Disp: 90 tablet, Rfl: 1 methylPREDNISolone (Medrol Dospak) 4 MG tablets, Follow schedule on MEDROL PACK package instructions to be used as directed, Disp: 21 tablet, Rfl: 0 Multiple Vitamin (Multi Vitamin) [...] joint. First MPJ range motion greater than 5-8 degrees dorsiflexion Positive pain on palpation to the left 1st MPJ capsular region minimal palpation left 2nd MPJ capsule with negative Nievse test ASSESSMENT 16 weeks s/p right BIO Pro great toe implant 1. Hallux rigidus of right foot 2. Capsulitis of metatarsophalangeal (MTP) joint of left foot PLAN Patient wants to discontinue physical therapy and she may do so. She is scheduled for cholecystectomy in the near future and will follow up in the January timeframe Pt to take nsaids as needed PRN pain Discussed conservative and surgical treatment options for patient today including postoperative time frame and surgical procedure in detail. Patient may continue with conservative treatments including [id number] anti-inflammatories and other treatments suggested today. Patient may want to be scheduled for surgical intervention in the near future. Discussed revisional bio Pro implant surgery with removal of additional bone and freed of scar tissue with receding or new bio Pro implant to the right foot Samuel Forbes DPM documented in this encounter [facility] 12-28-2024 History of Present illness Narrative Images from the original note were not included. Annemarie Jackson 1965 Annemarie Jackson is a 59 y.o. female presents with chief complaint of GB consult HPI: HPI Annemarie states last she woke about 2 AM with abdominal pain that kept worsening. She states it went all around to her back so she went to [facility]. They did a T and gave her analgesics. She was told she had a stone in the GB and referred to our office. The pain has persisted but has improved today. It does hurt to take a deep breath. SUBJECTIVE: MEDICATIONS: ALLERGIES Current Outpatient Medications Medication Instructions albuterol HFA 90 mcg/act inhaler 2 puffs, Inhalation, Every 4 hours PRN aspirin 81 mg, Oral, 3 times weekly Black Cohosh 540 MG capsule Every 24 hours famotidine (Pepcid) 20 MG tablet Take by mouth fenofibrate (TRIGLIDE) 160 mg, Oral, Daily losartan (COZAAR) 100 mg, Oral, Daily Multiple Vitamin (Multi Vitamin) tablet Daily nebivolol (BYSTOLIC) 5 mg, Oral, Daily omega-3 (FISH OIL) 1,000 mg, Daily ondansetron ODT (ZOFRAN-ODT) 4 mg, Every 8 hours PRN QUEtiapine (SEROquel) 50 MG tablet Take 1 tablet at bedtime as needed for sleep Allergies Allergen Reactions Amlodipine Besy-Benazepril Hcl Other Reaction(s): swollen lips Doxylamine Other Reaction(s): weird dreams / hallucinations Olanzapine Other Reaction(s): itch Tramadol Rash PAST MEDICAL HISTORY: SOCIAL HISTORY SURGICAL HISTORY: Past Medical History: Diagnosis Date Abdominal pain Adult situational stress disorder (CMS/HCC) Anemia Basal cell carcinoma 2013 Chronic kidney disease, stage 2 (mild) Depression with anxiety Endometriosis 2006 [place] Fibromyalgia Heart murmur Hypertension (CMS/HCC) Hypertriglyceridemia (CMS/HCC) Inflammatory bowel disease Internal derangement of left knee Neuroma of foot 08/20/2023 Obesity Overweight Pulmonary arterial hypertension (CMS/HCC) Tendonosis Visual impairment w/ corrective lenses Social History Tobacco Use Smoking status: Never Smokeless tobacco: Never Substance Use Topics Alcohol use: Never Comment: Caffeine intake : 1-2 cups per day Drug use: Never Past Surgical History: Procedure Laterality Date BASAL CELL CARCINOMA EXCISION 2013 COLONOSCOPY 04/09/2015 Dr Marilyn Giang ENDOMETRIAL ABLATION 2006 LAPAROSCOPIC RADICAL TOTAL HYSTERECTOMY W/ NODE BIOPSY 10/01/2017 NOSE SURGERY Left 01/01/2016 left nasal lesion OTHER SURGICAL HISTORY 2011 OTC gasx - abdominal pain FAMILY HISTORY Family History Problem Relation Name Age of Onset Heart attack Mother Susie Honeycutt Hypertension Mother Susie Honeycutt Heart disease Mother Susie Honeycutt Alcohol abuse Mother Susie Honeycutt Other (MVA) Father Hypertension Sister Multiple myeloma Sister Multiple myeloma Brother Tio Honeycutt Hypertension Brother Tio Honeycutt REVIEW OF SYMPTOMS: Review of Systems Constitutional: Positive for hot flashes. Negative for diaphoresis and unexpected weight change. HENT: Negative for hearing loss, tinnitus and voice change. Respiratory: Negative for shortness of breath. Cardiovascular: Negative for chest pain and palpitations. Gastrointestinal: Positive for abdominal pain (RUQ). Musculoskeletal: Positive for arthralgias. Neurological: Negative for dizziness, seizures and headaches. All other systems reviewed and are negative. Hematological: Negative for adenopathy. Does not bruise/bleed easily. OBJECTIVE: Visit Vitals BP 120/80 Ht 5' 5 Wt 212 lb BMI 35.28 kg/m OB Status Postmenopausal Smoking Status Never BSA 2.1 m Physical Exam HENT: Head: Normocephalic. Cardiovascular: Rate and Rhythm: Normal rate and regular rhythm. Pulmonary: Effort: Pulmonary effort is normal. Breath sounds: Normal breath sounds. Abdominal: General: Abdomen is flat. Bowel sounds are normal. Palpations: Abdomen is soft. Skin: General: Skin is warm and dry. Neurological: Mental Status: She is alert. ASSESSMENT AND PLAN: Assessment/Plan Problem List Items Addressed This Visit Calculus of gallbladder without cholecystitis without obstruction - Primary Annemarie was seen in [facility] on 12/22/24 for RUQ abdominal pain. She was diagnosed with cholelithiasis by CT. Her LFT's were normal but her WBC was 19,000 but no antibiotics were ordered. She presents to discuss cholecystectomy. We discussed the indications for cholecystectomy. I reviewed the procedure for laparoscopic possible open cholecystectomy. I reviewed the risks and benefits of both procedures including but not exclusive of the possibility of conversion to an open procedure, the risk of post cholecystectomy diarrhea, possible injury to nearby bile or bowel structures, which may require additional open surgical procedures to repair, bleeding, nerve injury, infection, were reviewed. In addition, I discussed the use of general anesthesia and the risks associated with it to include heart attack, stroke or blood clots. The patients questions were answered to satisfaction. Appropriate scheduling for surgery has been completed. documented in this encounter [facility] 12-21-2024 History of Present illness Narrative Images [...] N/T at times throughout the day. Work: [employer]) stands for long hours. Precautions: universal Subjective: [...] to be instructed in home exercise program. 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 Date: documented in this encounter [facility] 12-12-2024 Telephone encounter Note Pt called, states she is scheduled for physical therapy but states it is to be for her right foot not left. Could you please correct and send to physical therapy [facility] 12-12-2024 Miscellaneous Notes Pt called, states she is scheduled for physical therapy but states it is to be for her right foot not left. Could you please correct and send to physical therapy documented in this encounter [facility] 12-08-2024 History of Present illness Narrative Patient: [...] 2 (mild) Depression with anxiety Endometriosis 2006 [place] Fibromyalgia Heart murmur Hypertension (CMS/HCC) [...] Samuel Forbes DPM documented in this encounter [facility] 11-24-2024 History of Present illness Narrative Patient: [...] Samuel Forbes DPM documented in this encounter [facility] 11-22-2024 History of Present illness Narrative Images [...] g; Refill: 0 documented in this encounter [facility] 11-02-2024 History of Present illness Narrative Images [...] changes as noted documented in this encounter [facility] 2024 History of Present illness Narrative Patient: [...] Samuel Forbes DPM documented in this encounter [facility] 09-29-2024 History of Present illness Narrative Patient: [...] tylenol or Ibuprofen Patient to continue with [id number] exercises may consider steroid injection on follow up in 2 weeks and also was having issues with her work excuse and 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 Patient ID: Annemarie Jackson is a 58 y.o. 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 [...] oophorectomy Chronic problem, stable, exclusionary diagnosis the HEDIS measures for cervical cancer screening. 8. Menopause - DEXA bone density; Future 9. Primary hypertension (CMS/HCC) Chronic problem, stable, to goal. - nebivolol (Bystolic) 5 MG tablet; Take 1 tablet (5 mg) by mouth Daily Dispense: 90 tablet; Refill: 0 10. Mixed hyperlipidemia (CMS/HCC) - Lipid panel; Future - Lipid panel documented in this encounter [facility] 09-08-2024 History of Present illness Narrative Patient: [...] Samuel Forbes DPM documented in this encounter [facility] 08-31-2024 History of Present illness Narrative Patient: [...] Daily, Disp: 90 tablet, Rfl: 1 HYDROcodone-acetaminophen (Aldie) 5-325 MG tablet, Take 1 tablet by [...] Samuel Forbes DPM documented in this encounter [facility] 08-19-2024 History of Present illness Narrative Patient: [...] Patient declined Stress: Stress Concern Present (08/26/2023) [employer] - Occupational Stress Questionnaire Feeling of Stress : To some extent Social Connections: Unknown (08/26/2023) Social Connection and Isolation Panel [NHANES] Frequency of Communication with Friends and Family: Never Frequency of Social Gatherings with Friends and Family: Once a week Attends [employer] Services: Patient declined Active Member of Clubs [...] risks, alternatives, benefits, post op complications and jail expectations were discussed including but not limited to: infection,bone infection,wound dehiscence hardware failure and irritation,wound dehiscence,delay union/mal union/non union of bone. RSDS,neuroma,duty limitations,DVT/PE, SD,nerve damage, scar, loss of sensation, swelling. Pt [...] Samuel Forbes DPM documented in this encounter [facility] 08-18-2024 History of Present illness Narrative Images [...] were performed or ordered by another health daycare assistant. These are documented in the electronic health [...] need further evaluation. documented in this encounter [facility] 06-30-2024 History of Present illness Narrative Patient: [...] Patient declined Stress: Stress Concern Present (08/26/2023) [employer] - Occupational Stress Questionnaire Feeling of Stress : To some extent Social Connections: Unknown (08/26/2023) Social Connection and Isolation Panel [NHANES] Frequency of Communication with Friends and Family: Never Frequency of Social Gatherings with Friends and Family: Once a week Attends [employer] Services: Patient declined Active Member of Clubs [...] Patient may continue with conservative treatments including [id number]-[id number] anti-inflammatories and other treatments suggested today. Patient may want to be scheduled for surgical intervention in the near future. Discussed right Bio Pro implant and would like to have Aldie for postop pain and most likely walking boot and will call if decides to schedule in the near future Patient to continue with oral anti - inflammatories as needed for pain and recommended OTC medications such as tylenol or Ibuprofen Samuel Forbes DPM documented in this encounter [facility] 04-26-2024 Note PROCEDURE: Without IV contrast, axial [...] BY: Serafin Winkler M.D. ca Dictated: 01/26/2024 [id number] Transcribed: 01/30/2024 [facility] Comment on above: Result Comment: Elec tronically Signed By: Cathi WEBBER, Serafin Norris\.br\Date and Time Signed: 02/02/24 08:16 EDT 01-29-2024 [...] prepare this document. documented in this encounter [facility] Work Phone: 01-29-2024 Instructions Kalli Eden LPN [...] Jake Rock MD documented in this encounter [facility] Work Phone: 09-26-2023 Note Echocardiology Procedure Exam Date/Time Accession # Ordering Dr. Echo Transthoracic 09/23/2023 07:35 EST [id number] Cathi WEBBER, Serafin Norris CPT code 50894 [id number] Reason for Exam (Echo Transthoracic Complete) I47.10;Chest pain Report Version: 1 Study ID: [id number] [facility] [address] [place] [address] Adult Echocardiogram Report Name: ANNEMARIE JACKSON Study Date: 09/23/2023, 6: 58 AM Patient Location: [facility] : 1965 (MM/DD/YYYY) Gender: Female Age: 57 Years Height: 165.1 cm BP: 129 / 80 mmHg Weight: 88.452 kg HR: 73 bpm BSA: 1.96 m? Ordering Physician: Serafin Winkler Referring Physician: Serafin Winkler Performed By: Jolene Graf NGA Reason For Study: Chest pain History: HTN, [...] Signed by: Serafin Winkler MD Transcribed by: [facility] Technologist: JEFF [facility] Evaluation + Plan note Future Appointments Appointment Date:10/08/2023 03:15:00 PM Scheduled Provider:Serafin Winkler MD [facility] Type:Cardiology Follow Up (FT) Future Scheduled TestsNM Myocardial Spect Rest/Stress 1 Day 08/20/23Echo Transthoracic Complete 08/20/23 [facility] Evaluation + Plan note Future Appointments Appointment Date:12/25/2023 11:15:00 AM Scheduled Provider:Serafin Winkler MD [facility] Appoint[facility] Type:Cardiology Follow Up (FT) [facility] Evaluation note Diagnosis Abnormal EKG- Primary Nonspecific abnormal electrocardiogram (ECG) (EKG) Establishing care with new doctor, encounter for Palpitations Near syncope BMI 33.0-33.9,adult Never smoked tobacco Palpitations Near syncope Palpitations Near syncope documented in this encounter [facility] Work Phone: Evaluation note* Diagnosis Preoperative clearance- [...] depressive disorder, in partial remission (HCC) (CMS/HCC) [facility] [...] hypertension (CMS/HCC) Unspecified essential hypertension Mixed hyperlipidemia (CMS/HCC) Mixed hyperlipidemia [facility] Diagnosis Hallux rigidus of right foot- Primary Right foot pain Pain in soft tissues of limb Contracture of right ankle [facility] Diagnosis Hallux rigidus of right foot- Primary [facility] Diagnosis Primary hypertension (CMS/HCC) Unspecified essential hypertension Sleep arousal disorder Mixed hyperlipidemia (CMS/HCC) Mixed hyperlipidemia Recurrent major depressive disorder, in partial remission (HCC) (CMS/HCC) Non morbid obesity due to excess calories [facility] Diagnosis Bronchitis- Primary Bronchitis, not specified as acute or chronic Hallux rigidus of right foot- Primary Contracture of right ankle documented [facility]* Diagnosis Hallux rigidus of right foot- Primary Contracture of right ankle Capsulitis of metatarsophalangeal (MTP) joint of left foot documented [facility]* Diagnosis Capsulitis of metatarsophalangeal (MTP) joint of left foot- Primary documented [facility]* Diagnosis Hallux rigidus of right foot- Primary Capsulitis of metatarsophalangeal (MTP) joint of left foot documented [facility]* Diagnosis Capsulitis of metatarsophalangeal (MTP) joint of right foot- Primary [facility]* Diagnosis Capsulitis of metatarsophalangeal (MTP) joint of right foot- Primary [facility]* Diagnosis Calculus of gallbladder without cholecystitis without obstruction- Primary Hallux rigidus of right foot- Primary Capsulitis of metatarsophalangeal (MTP) joint of left foot documented [facility]* Diagnosis Hallux rigidus of right foot- Primary Capsulitis of metatarsophalangeal (MTP) joint of left foot [facility] noteNo assessment information availablePromedica Memorial [facility] Work Phone: Evaluation note* Diagnosis Calculus of gallbladder without cholecystitis without obstruction- Primary documented [facility]* Diagnosis Hallux rigidus of right foot- Primary Pain from implanted hardware, initial encounter Contracture of right ankle [facility] Diagnosis Hallux rigidus of right foot- Primary Painful orthopaedic hardware (HCC) (CMS/HCC) Pre-op evaluation Mobitz type 2 second degree heart block Mobitz (type) II atrioventricular block Primary hypertension (CMS/HCC) Unspecified essential hypertension [facility]* Diagnosis Hallux rigidus of right foot- Primary Pain from implanted hardware, initial encounter [facility] Narrative No data available for this section [facility] Discharge instructions No data available for this section [facility] No data available for this section [facility] Narrative* Rehabilitation - Outpatient (Routine) - Pending Review Specialty Diagnoses / Procedures Referred By Contact Referred To Contact Physical Therapy Diagnoses Capsulitis of metatarsophalangeal (MTP) joint of left foot Procedures DE OFFICE/OUTPATIENT NEW HIGH MDM 60 MINUTES Samuel Forbes, DPM [address] [address] Phone: tel:[phone] fax:[phone] Anali Hamm, PT [address] [address] Phone: tel: fax: Referral ID Status Reason Start Date Expiration Date Visits Requested Visits Authorized [id number] Pending Review Specialty Services Required 12/14/2024 06/06/2025 1 3 [facility] Healthcare[facility] for [facility] Narrative* Rehabilitation - Outpatient (Routine) - Authorized Specialty Diagnoses / Procedures Referred By Contact Referred To Contact Physical Therapy Diagnoses Capsulitis of metatarsophalangeal (MTP) joint of left foot Procedures DE OFFICE/OUTPATIENT NEW [facility] MDM 60 MINUTES Samuel Forbes, DPM [address] [address] Phone: tel:[phone] fax:[phone] Anali Hamm, PT [address] [address] Phone: tel: fax: Referral ID Status Reason Start Date Expiration Date Visits Requested Visits Authorized [id number] Authorized Consult and Treat 12/14/2024 10/25/2025 99 99 [facility] Summary Purpose Family History No Family History Records Found Relationship Condition Age at Onset Recorded Date/T andrew father Unknown Accidental in industrial place Unkn own mother Heart disease Unknown Unknown Myocardial infarction Unknown History of heart surgery Unknown brother Hypertension Unknown Advance Directives No Advanced Directives Records Found Advance Directive Response Recorded Date/ Time Advance Directives No August 10:50am Reason for Referral Specialty Diagnoses / Procedures Referred By Contac t Referred To Contact Diagnoses Establishing care with new doctor, encounter for Procedures ECG 12 lead (Clinic Performed) Jake Rock MD 254 [facility] [address] [place] [address] Referral ID Status Reason Start Date Expiration Date V isits Requested Visits Authorized [id number] Authorized 01/29/2024 01/28/2025 1 1 Chief Complaint and Reason for Visit Chief Complaint Admit Date symptomatic cholelithiasis January 05, 2 025 7:59am Additional Source Comments INFORMATION SOURCE (unrecogn ized section and content) DATE CREATED AUTHOR 04/15/2018 [facility] DATE CREATED AUTHOR AUTHOR'S ORGANIZ ATION 01/01/2022 [facility] dical Specialist DATE CREATED AUTHOR AUTHOR'S ORGANIZ ATION 02/05/2024 [facility] DATE CREATED AUTHOR AUTHOR'S ORGANIZ ATION 06/23/2024 [facility] DATE CREATED AUTHOR AUTHOR'S ORGANIZ ATION 12/30/2024 [facility] DATE CREATED AUTHOR AUTHOR'S ORGANIZ ATION 01/29/2025 [facility] DATE CREATED AUTHOR AUTHOR'S ORGANIZ ATION 03/22/2025 [facility] dical Specialists EPIC Patient Care team informatio n (unrecognized section and content) Web Marketing Strategist Relationship Specialty Start Date End Date Rei Enrique MD [address] [place] [address] PCP - General Family Medicine 01/14/24 Jake Rock MD [address] [facility] [address] [place] [address] Linking 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 Operator Cardiology 01/15/24 Web Marketing Strategist Relationship Specialty Start Date End Date Rei Enrique MD [address] [place] [address] PCP - General Family Medicine 03/03/23 Web Marketing Strategist Relationship Specialty Start Date End Date Rei Enrique MD [address] [facility] [place] [address] (Fax) PCP - General Family Medicine 03/03/23 Web Marketing Strategist Relationship Specialty Start Date End Date Rei Enrique MD [address] [facility] [place] [address] (Fax) PCP - General Family Medicine 03/03/23 Web Marketing Strategist Relationship Specialty Start Date End Date Rei Enrique MD [address] [facility] [place] [address] (Fax) PCP - General Family Medicine 03/03/23 Web Marketing Strategist Relationship Specialty Start Date End Date Rei Enrique MD [address] [place] [address] (Fax) PCP - General Family Medicine 03/03/23 Web Marketing Strategist Relationship Specialty Start Date End Date Rei Enrique MD [address] [place] [address] (Fax) PCP - General Family Medicine 03/03/23 Web Marketing Strategist Relationship Specialty Start Date End Date Rei Enrique MD [address] [place] [address] (Fax) PCP - General Family Medicine 03/03/23 Web Marketing Strategist Relationship Specialty Start Date End Date Rei Enrique MD [address] [place] [address] (Fax) PCP - General Family Medicine 03/03/23 Web Marketing Strategist Relationship Specialty Start Date End Date Rei Enrique MD [address] [place] [address] (Fax) PCP - General Family Medicine 03/03/23 Web Marketing Strategist Relationship Specialty Start Date End Date Rei Enrique MD [address] [place] [address] (Fax) PCP - General Family Medicine 03/03/23 Web Marketing Strategist Relationship Specialty Start Date End Date Rei Enrique MD [address] [place] [address] (Fax) PCP - General Family Medicine 03/03/23 Web Marketing Strategist Relationship Specialty Start Date End Date Rei Enrique MD [address] [place] [address] (Fax) PCP - General Family Medicine 03/03/23 Web Marketing Strategist Relationship Specialty Start Date End Date Rei Enrique MD [address] [place] [address] (Fax) PCP - General Family Medicine 03/03/23 Web Marketing Strategist Relationship Specialty Start Date End Date Rei Enrique MD [address] [place] [address] (Fax) PCP - General Family Medicine 03/03/23 Web Marketing Strategist Relationship Specialty Start Date End Date Rei Enrique MD [address] [place] [address] (Fax) PCP - General Family Medicine 03/03/23 Web Marketing Strategist Relationship Specialty Start Date End Date Rei Enrique MD [address] [place] [address] (Fax) PCP - General Family Medicine 03/03/23 Web Marketing Strategist Relationship Specialty Start Date End Date Rei Enrique MD [address] [place] [address] (Fax) PCP - General Family Medicine 03/03/23 Web Marketing Strategist Relationship Specialty Start Date End Date Rei Enrique MD [address] [place] [address] (Fax) PCP - General Family Medicine 03/03/23 Web Marketing Strategist Relationship Specialty Start Date End Date Rei Enrique MD [address] [place] [address] (Fax) PCP - General Family Medicine 03/03/23 Web Marketing Strategist Relationship Specialty Start Date End Date Rei Enrique MD [address] [place] [address] (Fax) PCP - General Family Medicine 03/03/23 Web Marketing Strategist Relationship Specialty Start Date End Date Rei Enrique MD [address] [place] [address] (Fax) PCP - General Family Medicine 03/03/23 Web Marketing Strategist Relationship Specialty Start Date End Date Rei Enrique MD [address] [place] [address] (Fax) PCP - General Family Medicine 03/03/23 Web Marketing Strategist Relationship Specialty Start Date End Date Rei Enrique MD [address] [place] [address] (Fax) PCP - General Family Medicine 03/03/23 Web Marketing Strategist Relationship Specialty Start Date End Date Rei Enrique MD [address] [place] [address] (Fax) PCP - General Family Medicine 03/03/23 Web Marketing Strategist Relationship Specialty Start Date End Date Rei Enrique MD 112 [facility] [address] [place] [address] (Fax) PCP - General Family Medicine 03/03/23 Team Status: Active Member Role Status Dates Rei Enrique MD Primary Care Provider Active Team Status: Inactive Member Role Status Dates Rei Enrique MD Primary Care Provider Active Start: January 05, 2025 End: January 05, 2025 Estiven Mclaughlin DO Attending Provider Active Start: January 05, 2025 End: January 05, 2025 Web Marketing Strategist Relationship Specialty Start Date End Date Rei Enrique MD 112 [facility] [address] [place] [address] (Fax) PCP - General Family Medicine 03/03/23 Web Marketing Strategist Relationship Specialty Start Date End Date Rei Enrique MD 112 [facility] [address] [place] [address] (Fax) PCP - General Family Medicine 03/03/23 Reason [...] Contact Podiatry Diagnoses Right foot pain Procedures DE OFFICE/OUTPATIENT NEW HIGH MDM 60 MINUTES Rei Enrique MD [address] [place] [address] Fax: Samuel Forbes DPM 112 [facility] [address] [place] [address] Referral ID Status Reason Start Date Expiration Date V isits Requested Visits Authorized [id number] Closed Specialty Services Required 06/09/2024 12/06/2024 1 1 Reason Comments Post-op 7wk implant Reason Comments Hypertension Hyperlipidemia Anxiety Reason Comments URI Reason Comments Post-op 10WK RT BIOPRO Reason Comments Post-op 13wk rt bio pro Reason Onset Date Comments PT order 12/12/2024 Reason Comments GB consult Specialty Diagnoses / Procedures Referred By Contac t Referred To Contact General Surgery Diagnoses Gall bladder stones Epigastric pain Procedures DE OFFICE/OUTPATIENT NEW HIGH MDM 60 MINUTES Rei Enrique MD 112 [facility] [address] [place] [address] Phone: tel: fax: Bebeto Pedraza MD 70 [facility] [address] [place] [address] Phone: tel: fax: Referral ID Status Reason Start Date Expiration Date V isits Requested Visits Authorized [id number] Closed Specialty Services Required 12/26/2024 06/24/2025 1 1 Reason Comments Follow-up 16wk s/p rt bio Reason Comments 1st pow lap [place] Reason Comments Consent Or Instructions preop Goals (unrecognized section and content) Goals may be documented in a n alternate section FOR RECORDS PERTAINING TO PATIENTS WHO ARE [...] BE BASED ON THE PRIMARY CLINICAL RECORDS. [employer] provides no warranty or guarantee of the accuracy or completeness of information in this document.
== END 2025-04-03 07:51 | disposition home or self-care (01) ==
LOC: MAMMO 07:50
PROVIDERS: PCP Family Medicine; Visit Provider Family Medicine
DX: Z13.820 Encounter for screening for osteoporosis (principal); Z78.0 Asymptomatic menopausal state; Z12.31 Encounter for screening mammogram for malignant neoplasm of breast; Z80.8 Family history of malignant neoplasm of other organs or systems
CPT/HCPCS: 77063; 77067; 77080